=== PATIENT | female | born 1995 | race Caucasian/White ===

== ENCOUNTER → 2018-11-26 13:53 | Outpatient (CLI) | payer OTHER, SELFPAY ==
[2018-12-01 12:29] LABS: HPV Reflexed? NOT INDICATED
== END ==
PROVIDERS: Visit Provider Obstetrics & Gynecology
DX: Z12.4 Encounter for screening for malignant neoplasm of cervix (principal)
CPT/HCPCS: 88175; G0145

== ENCOUNTER → 2020-06-12 | Outpatient (CLI) | payer OTHER, SELFPAY | END | disposition home or self-care (01) | LOC: LABSPEC 12:01 | PROVIDERS: PCP Family Medicine; Referring Provider Family Medicine; Visit Provider Family Medicine | DX: U07.1 COVID-19 (principal); R05 Cough; M79.10 Myalgia, unspecified site; R51.9 Headache, unspecified | CPT/HCPCS: 87635; C9803; U0003 ==

== ENCOUNTER → 2022-09-18 | Outpatient (CLI) | payer BC, SELFPAY ==
[2022-09-18 15:01] LABS: Absolute Lymphocyte Count 2.13 X10^3/uL (0.83-4.51); Absolute Neutrophil Count 4.6 X10^3/uL (2.0-7.7); Basophil# 0.06 X10^3/uL; Basophil% 0.8 % (0-1); Eosinophil# 0.12 X10^3/uL; Eosinophils% 1.6 % (0-5); Hematocrit 42.4 % (37-47); Lymphocyte # 2.13 X10^3/ul (0.83-4.51); Lymphocyte % 28.5 % (19-41); Mean Corpuscular Hgb 29.5 pg (27.0-32.0); Mean Corpuscular Volume 89.5 fL (81-99); Mean Platelet Vol. 10.9 fl (6.2-12.0); Monocyte# 0.56 X10^3/uL; Monocyte% 7.5 % (0-10); NRBC Flagged by Analyzer 0 % (0-5); Neutrophil % 61.5 % (47-70); Platelet Count 383 K/mm3 (150-450); RBC Distribution Width CV 12.7 % (11.6-14.6); RBC Distribution Width SD 41.5 fl (35.1-43.9); Red Blood Count 4.74 M/mm3 (4.2-5.4); White Blood Count 7.5 K/mm3 (4.4-11.0)
[2022-09-18 15:38] LABS: AST(SGOT) 20 U/L (15-37); Alanine Aminotransfer ALT/SGPT 39 U/L (13-56); Alkaline Phosphatase 74 U/L (45-117); Anion Gap 8 (5-15); BUN 19 mg/dL (7-18); BUN/Creat Ratio 23.8 RATIO (10-20); Calcium,Total 8.9 mg/dL (8.5-10.1); Chloride 106 mmol/L (98-107); Cholesterol 208 mg/dL (200); EST Glomerular Filtration Rate 91 mL/min (>60); Est Glom Filt Rate - Afr Amer 110 mL/min (>60); Globulin 4.2 g/dL (2.2-4.2); Glucose 92 mg/dL (74-106); High Density Lipoprotein 55 mg/dL; Potassium 3.9 mmol/L (3.5-5.1); Protein, Total 8.2 g/dL (6.4-8.2); Sodium Level 138 mmol/L (136-145); T4 Free Direct 1.11 ng/dL (0.76-1.46); Thyroid Stim Hormone (TSH) 2.45 uIU/mL (0.358-3.74); Triglycerides 162 mg/dL; Very Low Density Lipoprotein 32 mg/dL (5-40)
== END | disposition home or self-care (01) ==
LOC: BIMLAB 13:30
PROVIDERS: PCP Internal Medicine; Referring Provider Internal Medicine; Visit Provider Internal Medicine
DX: Z00.00 Encounter for general adult medical examination without abnormal findings (principal); E66.9 Obesity, unspecified
CPT/HCPCS: 36415; 80053; 80061; 84439; 84443; 85025

== ENCOUNTER → 2022-10-03 | Outpatient (CLI) | payer BC, SELFPAY | END | disposition home or self-care (01) | PROVIDERS: PCP Internal Medicine; Referring Provider Internal Medicine; Visit Provider Internal Medicine | DX: G47.10 Hypersomnia, unspecified (principal) | CPT/HCPCS: 95806 ==

== ENCOUNTER → 2023-01-28 | Outpatient (CLI) | payer BC, SELFPAY ==
[2023-01-28 15:25] LABS: hCG Titer Quant., Serum 623 mIU/mL (1-3)
== END | disposition home or self-care (01) ==
PROVIDERS: PCP Internal Medicine; Referring Provider Nurse Practitioner Women's Health; Visit Provider Nurse Practitioner Women's Health
DX: O26.859 Spotting complicating pregnancy, unspecified trimester (principal); Z3A.00 Weeks of gestation of pregnancy not specified
CPT/HCPCS: 36415; 84702; 86850; 86900; 86901

== ENCOUNTER → 2023-01-30 | Outpatient (CLI) | payer BC, SELFPAY ==
[2023-01-30 15:50] LABS: hCG Titer Quant., Serum 515 mIU/mL (1-3)
== END | disposition home or self-care (01) ==
LOC: PAVLAB 14:30
PROVIDERS: PCP Internal Medicine; Referring Provider Nurse Practitioner Women's Health; Visit Provider Nurse Practitioner Women's Health
DX: O26.859 Spotting complicating pregnancy, unspecified trimester (principal); Z3A.00 Weeks of gestation of pregnancy not specified
CPT/HCPCS: 36415; 84702

== ENCOUNTER → 2023-02-06 | Outpatient (CLI) | payer BC, SELFPAY ==
[2023-02-06 11:44] LABS: hCG Titer Quant., Serum 37 mIU/mL (1-3)
== END | disposition home or self-care (01) ==
LOC: PAVLAB 10:51
PROVIDERS: PCP Internal Medicine; Referring Provider Obstetrics & Gynecology; Visit Provider Obstetrics & Gynecology
DX: O03.9 Complete or unspecified spontaneous abortion without complication (principal)
CPT/HCPCS: 36415; 84702

== ENCOUNTER → 2023-02-14 | Outpatient (CLI) | payer BC, SELFPAY ==
[2023-02-14 17:38] LABS: hCG Titer Quant., Serum 2 mIU/mL (1-3)
== END | disposition home or self-care (01) ==
LOC: LAB 15:27
PROVIDERS: PCP Internal Medicine; Referring Provider Obstetrics & Gynecology; Visit Provider Obstetrics & Gynecology
DX: O03.9 Complete or unspecified spontaneous abortion without complication (principal)
CPT/HCPCS: 36415; 84702

== ENCOUNTER → 2023-09-15 | Outpatient (CLI) | payer BC, SELFPAY ==
[2023-09-18 00:07] LABS: Chlamydia By Nucleic Acid AMP Negative (Negative); Gonococcus By Nucleic Acid AMP Negative (Negative)
[2023-09-18 18:13] LABS: HPV Reflexed? NOT INDICATED
== END | disposition home or self-care (01) ==
LOC: LABSPEC 13:26
PROVIDERS: PCP Internal Medicine; Referring Provider Obstetrics & Gynecology; Visit Provider Obstetrics & Gynecology
DX: Z34.90 Encounter for supervision of normal pregnancy, unspecified, unspecified trimester (principal); Z3A.00 Weeks of gestation of pregnancy not specified
CPT/HCPCS: 87086; 87491; 87591; 88175; G0145

== ENCOUNTER → 2023-09-24 | Outpatient (CLI) | payer BC, SELFPAY ==
[2023-09-24 12:16] LABS: Absolute Lymphocyte Count 2.07 X10^3/uL (0.83-4.51); Absolute Neutrophil Count 6.3 X10^3/uL (2.0-7.7); Basophil# 0.05 X10^3/uL; Basophil% 0.6 % (0-1); Eosinophil# 0.07 X10^3/uL; Eosinophils% 0.8 % (0-5); Hematocrit 36.7 % (37-47); Hemoglobin 12.8 g/dL (12.0-15.0); Lymphocyte # 2.07 X10^3/ul (0.83-4.51); Lymphocyte % 22.9 % (19-41); Mean Corp Hgb Conc 34.9 g/dL (32-36); Mean Corpuscular Volume 86.2 fL (81-99); Mean Platelet Vol. 9.5 fl (6.2-12.0); Monocyte# 0.47 X10^3/uL; Monocyte% 5.2 % (0-10); NRBC Flagged by Analyzer 0 % (0-5); Neutrophil # 6.34 X10^3/uL (2.7-7.7); Neutrophil % 70.2 % (47-70); Platelet Count 305 K/mm3 (150-450); Red Blood Count 4.26 M/mm3 (4.2-5.4)
[2023-09-24 13:42] LABS: HIV - WCH Non-Reactive (Nonreactive); Hepatitis B Surface Antigen Non-Reactive (Nonreactive); Hepatitis C Antibody Non-Reactive (Nonreactive); Rubella IgG Reactive (Nonreactive); Syphilis Antibodies Non-reactive
--- OUTSIDE RECORDS SUMMARY | 2023-09-24 15:51 | XMS RPT_ITS | CCD ---
Author Name Unknown Address [address] [place] [address] Organization [facility] Care Team Providers Care Experience Designer Name Role Phone Kalani Staton Attending Unavailable Kenna Singh Referring Unavailable Kalani Staton Consulting Unavailable Kalani Staton Unavailable Stacy Laurent Unavailable Kenna Singh Unavailable Jey Sanchez Unavailable Unavailable Kristy Paulino Unavailable Unavailable Unavailable Unavailable Minh Tyson MD Primary Care Provider MINH TYSON Primary Care UnavailMATI Ellis Attending Unavailable MATI SUH Referring Unavailable MINH TYSON Primary Care UnavailMATI Ellis Attending Unavailable MINH TYSON Primary Care UnavailMATI Ellis Attending Unavailable GAGE VINCENT Referring Unavailable Allergies Allergy Classification Reported Allergen(s) Allergy Type Date of Onset Reaction(s) Facility (4 sources) Ibuprofen; Translations: [Motrin *ANALGESICS - ANTI-INFLAMMATO RY*] Drug Allergy 0 Rash [facility] Work Phone: (1 source) Penicillins; Translations: [Penicillins] allergy to substance Hives [facility] Work Phone: (4 sources) Amoxicillin; Translations: [AMOXICILLIN] Drug Allergy 0 [facility] (1 source) Ibuprofen; Translations: [IBUPROFEN] Drug Allergy 0 [facility] Repository Medications Current Medications Medication Drug Class(es) Dates Sig (Normalized) Sig (Original) sulfamethoxazole 800 mg / trimethoprim 160 mg oral tablet (1 source) Dihydrofolate Reductase Inhibitor Antibacterial, Sulfonamide Antimicrobial Start: 10-08-2022 End: 10-15-2022 take 1 tablet by mouth twice daily sulfamethoxazol e-trimethoprim (BACTRIM DS) 800-160 mg per tablet Take 1 tablet by mouth twice daily for 7 days. 14 tablet 0 10/08/2022 10/15/2022 Active Completed/Discontinued Medications Medication Drug Class(es) Dates Sig (Normalized) Sig (Original) ORTHO-CEPT (28), 0.15-30MG-MCG (Oral Tablet) (1 source) Progestin, Estrogen Start: 06-15-2014 End: 06-05-2016 take 1 tablet by mouth once daily ORTHO-CEPT (28), 0.15-30MG-MCG (Oral Tablet) 1 (one) Tablet Tablet qd- same time qd for 0 days Quantity: 1 {Packet} Refills: 3 Ordered: 15-Jun-2014 Kristy Paulino LPN Start : 15-Jun-2014 End : 05-Jun-2016 Discontinued Comments: This order discontinued per [facility]. Problems Active Problems Problem Classification Problem Date Documented Da te Episodic/Chronic Other skin disorders (2 sources) Ingrowing toenail; Translations: [Ingrowing nail] Episodic Past or Other Problems Problem Classification Problem Date Documented Date Episodic/Chronic Administrative/socia l admission (1 source) Medical examinations/reports status; Translations: [Well female exam with routine gynecological exam] 10-22-2018 Episodic Contraceptive and procreative management (2 sources) Unspecified contraceptive management; Translations: [General counseling on prescription of oral contraceptives] Episodic Immunizations and screening for infectious disease (1 source) Need for prophylactic vaccination and inoculation against influenza Episodic Lymphadenitis (2 sources) Lymphadenopathy; Translations: [Lymphadenopathy] 10-22-2018 Episodic Malaise and fatigue (1 source) Fatigue; Translations: [Fatigue, unspecified type] 10-22-2018 Episodic Other aftercare (1 source) Follow-up status; Translations: [Counseling on other sexually transmitted diseases] 10-22-2018 Episodic Other injuries and conditions due to external causes (1 source) Injury of ankle; Translations: [Injury of left ankle, initial encounter] 10-22-2018 Episodic Other non-traumatic joint disorders (1 source) Ankle pain; Translations: [Pain and swelling of ankle, left] 10-22-2018 Episodic Other non-traumatic joint disorders (3 sources) Chronic ankle pain; Translations: [Pain in left ankle and joints of left foot] Onset: 1 05-02-2021 Episodic Other screening for suspected conditions (not mental disorders or infectious disease) (2 sources) Abnormal cervical Papanicolaou smear; Translations: [Abnormal cytology findings] 10-22-2018 Episodic Other upper respiratory disease (1 source) Nasal discharge; Translations: [Post-nasal drainage] 10-22-2018 Episodic Residual codes; unclassified (2 sources) FH: Blood disorder; Translations: [Family history of hypercoagulability] 07-17-2016 Episodic Residual codes; unclassified (1 source) Needs influenza immunization; Translations: [Need for prophylactic vaccination and inoculation against influenza (Renamed from Need for immunization against influenza)] 10-22-2018 Episodic Unclassified (1 source) Post-nasal drainage Unclassified (2 sources) Family history of hypercoagulability Unclassified (4 sources) Body mass index 20-24 - normal; Translations: [Body mass index (BMI) 23.0-23.9, adult] 10-22-2018 Unclassified (1 source) Counseling on Prescription Oral Contraceptives (V25.01) Unclassified (3 sources) Patient encounter status; Translations: [Encounter for contraceptive management, unspecified] 10-22-2018 Unclassified (1 source) SCREENING FOR HUMAN PAPILLOMAVIRUS (HPV) (V73.81) Unclassified (1 source) Well Female (Younger Female) (V72.31) Unclassified (5 sources) Unclassified (2 sources) Influenza vaccination declined; Translations: [Influenza vaccination declined (Renamed from Refused influenza vaccine)] 10-22-2018 Unclassified (1 source) LGSIL (low grade squamous intraepithelial dysplasia) Unclassified (1 source) Counseling on other sexually transmitted diseases Unclassified (1 source) Screening for HPV (human papillomavirus) Unclassified (4 sources) Non-smoker; Translations: [Non-smoker] 10-22-2018 Unclassified (1 source) Well female exam with routine gynecological exam Unclassified (1 source) Abnormal Pap smear of cervix Unclassified (1 source) BMI 24.0-24.9, adult Unclassified (1 source) Fatigue, unspecified type Unclassified (1 source) Pain and swelling of ankle, left Unclassified (1 source) Injury of left ankle, initial encounter NEGATED: Highlighted row has been ruled out!Unclassified (1 source) Problem Onset: 4 10-22-2018 Results Test Name Value Interpretation Reference Range Facil ity Vital Signs Date Time Vital Sign Value Performing Clinician Facility 10-22-2018 13:18-0500 BMI (Body Mass Index) 24.78 kg/m2 Kalani [place] [facility] Work Phone: 10-22-2018 13:18-0500 Body weight 73.94 kg [facility] [facility] Work Phone: 10-22-2018 13:18-0500 BP Diastolic 82 mm[Hg] [facility] [facility] Work Phone: Encounters Encounter Date Encounter Type Care Provider Facility Start: 12-25-2022 End: 12-25-2022 ambulatory [facility] Facility:[facility] Start: 12-11-2022 End: 12-11-2022 ambulatory [facility] Facility:[facility] Start: 12-11-2022 End: 12-11-2022 Patient encounter procedure Mati Suh Work Phone: Podiatry Procedures Date Procedure Procedure Detail Performing Clinician Start: 12-19-2016 End: 12-19-2016 Ankle min 3 Views Comments: See Note; NOTES: [facility] Imaging Services [address] [place] [address] Verdana 4d Ankle min 3 Views MR#: [id number] Acct: [id number] Name: PHUC SILVA Sunday Rep #: [id number] : 1995 F 21 From: Chase Davidson MD PCP: Kalani Staton DO Status: REG CLI Study: Ankle min 3 Views Date of Exam: 12/19/16 Exam# [id number] Ordering Dr: Kalani Staton DO STUDY: X-RAY - LEFT ANKLE REASON FOR EXAM: Female, 21 years old. Pain, swelling TECHNIQUE: 3 view(s) of the ankle. COMPARISON: None. FINDINGS: Normal visualized distal tibia and fibula. Normal medial and lateral malleoli. Normal tibiotalar articulation and ankle mortise. Normal visualized talus and calcaneus. The visualized subtalar, talonavicular, calcaneocuboid and tarsal articulations are normal. The soft tissue structures are unremarkable. RAD/Ankle min 3 Views IMPRESSION: Normal x-ray examination of the ankle. Electronically Signed: Chase Davidson MD at 21:32 EDT Tel , Service support , CC: Kalani Staton DO Senior Sales Consultant: Signed Kalani Staton Work Phone: Start: 08-25-2015 End: 08-25-2015 Abdomen/Pelvis WITH Contrast Comments: See Note; NOTES: [facility] Imaging Services [address] [place] [address] Verdana 4d Abdomen/Pelvis WITH Contrast MR#: [id number] Acct: [id number] Name: PHUC SILVA Rep #: [id number] : 1995 F 20 From: Shaka Davalos MD PCP: Kenna Singh DO Status: [facility] Study: Abdomen/Pelvis WITH Contrast Date of Exam: 08/25/15 Exam# [id number] Ordering Dr: Kodak Cates MD STUDY: CT ABDOMEN AND PELVIS WITH CONTRAST REASON FOR EXAM: Female, 20 years old. Abdominal pain. RADIATION DOSAGE (If Supplied By Facility): CTDIvol = ( 8.58 ) mGy, DLP = ( 717.05 ) mGycm TECHNIQUE: Transaxial images were obtained from the dome of the diaphragm to the symphysis pubis with oral contrast. 100ML ml of Isovue 300 contrast was administered. Sagittal and coronal images were reconstructed. COMPARISON: None. FINDINGS: The visualized lung bases are unremarkable. The visualized portions of the heart are within normal limits. Normal liver. Normal gallbladder and extrahepatic biliary system. Normal spleen. Normal pancreas. Normal bilateral adrenal glands. Normal right kidney. Normal left kidney. Normal visualized stomach. Normal small intestine. Normal colon. There is a tubular, thick-walled appendix (>7mm), consistent with acute appendicitis. There is a 9 mm appendicolith at the tip. There is no significant periappendiceal stranding. Normal abdominal aorta. Normal inferior vena cava. Normal retroperitoneum. Normal urinary bladder. Normal visualized uterus. There is trace free fluid. Normal abdominal wall. Normal osseous structures. IMPRESSION: Findings consistent with mild or early appendicitis. No evidence for perforation or abscess. N.B. : The above information has been verbally conveyed by Shaka Davalos MD to Kodak Cates covering physician, on 08/25/2015 23:55:04 (ET). Electronically Signed: Shaka Davalos MD at 23:49 EST , Service support [phone], N.B. : The above information has been verbally conveyed by Shaka Davalos MD to Kodak Cates, covering physician, on 08/25/2015 23:55:04 (ET). CC: Kenna Singh DO; Kodak Cates MD Senior Sales Consultant: Signed Kalani Staton Start: 08-25-2015 End: 08-25-2015 Transvaginal Non- Comments: See Note; NOTES: [facility] Imaging Services [address] [place] [address] Verdana 4d Transvaginal Non- MR#: [id number] Acct: [id number] Name: PHUC SILVA Sunday Rep #: [id number] : 1995 F 20 From: Shaka Davalos MD PCP: Kenna Singh DO Status: [facility] ER Study: Transvaginal Non- Date of Exam: 08/25/15 Exam# [id number] Ordering Dr: Kodak Cates MD STUDY: ULTRASOUND TRANSVAGINAL CLINICAL: Female, 20 years old. Right lower quadrant pain. TECHNIQUE: Transvaginal COMPARISON: None. FINDINGS: Normal uterine size measuring 7.2 x 4.8 x 3.2 cm in maximal craniocaudal dimension. There are no myometrial masses. The uterus is septated. Normal endometrial thickness measuring 7 mm maximum. There are no endometrial masses, and there is no fluid in the endometrial cavity. Endometrial echoes are hyperechoic. Normal uterine cervix. Normal right ovary, measuring 3.3 cm. There are multiple follicles without a dominant cyst. There is normal blood flow. Normal left ovary, measuring 3.8 cm. There are multiple follicles without a dominant cyst. There is normal blood flow. There is mild free fluid in the pelvis. IMPRESSION: Incidental septated uterus. No significant abnormality. Electronically Signed: Shaka Davalos MD at 21:07 EST , Service support [phone], CC: Kenna Singh DO; Kodak Cates MD Senior Sales Consultant: Signed Kalani Shemar Appendectomy Jey Sanchez Plan of Treatment Date Care Activity Detail Author Start: 04-18-2023 Influenza vaccination INFLUENZA (Season Ended) [facility] Start: 08-18-2022 DEPRESSION ASSESSMENT DEPRESSION ASSESSMENT [facility] Start: 04-18-2022 Influenza vaccination INFLUENZA (#1) [facility] Start: 10-22-2018 Antibody charlie-day eb virus early antigen ea EBV Panel (47185) [facility] Work Phone: Start: 10-22-2018 Lymphocytes (Bld) [#/Vol] CMV ANTIBODY (86285) [facility] Work Phone: Start: 10-22-2018 Antibody cytomegalovirus cmv igm CMV IGM ANTBDY (84455) [facility] Work Phone: Start: 10-22-2018 Gonadotropin chorionic qualitative HCG Qualitative, Serum (35090) [facility] Work Phone: Start: 10-22-2018 25 hydroxy includes fractions if performed CALCIFIDIOL (96403) VIT D 25 [facility] Work Phone: Start: 10-22-2018 Cobalamin (Vitamin B12) [Mass/Vol] VITAMIN B-12 (CYANOCOBALAMIN) (87129) [facility] Work Phone: Start: 10-22-2018 TSH Qn TSH (34566) [facility] Work Phone: Start: 10-22-2018 Rheumatoid factor quantitative RHEUMATOID FACTOR-QUANT (09662) [facility] Work Phone: Start: 10-22-2018 Sedimentation rate rbc non-automated SED RATE ERYTHROCYTE (19837) [facility] Work Phone: Start: 10-22-2018 Comprehensive metabolic panel METABOLIC PANEL, COMPREHENSIVE (34719) [facility] Work Phone: Start: 10-22-2018 CRP [Mass/Vol] C-REACTIVE PROTEIN (59355) [facility] Work Phone: Start: 10-22-2018 Blood count complete automated CBC (AUTO) (14646) [facility] Work Phone: Start: 10-22-2018 Nuclear Ab IF (S) [Titer] JULIANNE (ANTINUCLEAR ANTIBODY) (59735) [facility] Work Phone: Start: 07-17-2016 Beta 2 glycoprotein i antibody each Antiphospholipid atb (33984) [facility] Work Phone: Start: 07-17-2016 Clotting inhibitrs antithrombn iii antigen assay ANTICOAG ANTTHROMB III & ASSAY (19689) [facility] Work Phone: Start: 07-17-2016 Molecule isolate nucleic Factor 2 (Prothrombin) Gene Mutation (39823) [facility] Work Phone: Start: 07-17-2016 Clotting inhibitors antithrombin iii activity ANTITHROMBIN III ACTIVTY (92218) [facility] Work Phone: Start: 07-17-2016 Thromboplastin time prtl substit plasma frctj ea Lupus Anticoagulant Comprehensive (59412) [facility] Work Phone: Start: 07-17-2016 Protein [Mass/Vol] [facility] Work Phone: Start: 07-17-2016 Molecule gel electrophor Factor V Leiden (20779) [facility] Work Phone: Start: 07-17-2016 Mthfr gene analysis common variants MTHFR GENE (07505) [facility] Work Phone: Start: 07-17-2016 Assay of homocysteine Homocysteine, Plasma (58046) [facility] Work Phone: Start: 06-05-2016 Cytp cerv/vag auto thin layer prep mnl screen Thin prep Pap (41406) (no STD testing) [facility] Work Phone: Start: 2015 PAP TESTING PAP TESTING [facility] Start: 06-15-2014 Cytp cerv/vag auto thin layer prep mnl screen Thin prep Pap (11025) (no STD testing) [facility] Work Phone: Start: 2013 Urine microalbumin profile DTAP,TDAP,TD (1 - Tdap) [facility] Start: 2012 HEPATITIS C SCREENING HEPATITIS C SCREENING [facility] Start: 2012 HIV SCREENING HIV SCREENING [facility] Start: 1995 COVID-19 VACCINE (#1) COVID-19 VACCINE (#1) [facility] Start: 1994 HEPATITIS B (1 of 3 - 3-dose series) HEPATITIS B (1 of 3 - 3-dose series) [facility] Work Phone: [facility] Work Phone: [facility] Work Phone: [facility] Payers Date Payer Category Payer Unknown 2020 Unknown [id number] 2018 Unknown [id number] 2016 Private Health Insurance [id number] 2015 Unknown [id number] 1995 Unknown [id number] Unknown [id number] Social History Date Type Detail Facility Caffeine Use Caffeine Use [facility] Work Phone: Clinical Notes 09-27-2022 to 12-26-2022 Yvette Espinal RN - 12/11/2022 3:33 PM EDTMattdarryl Testrake - 12/11/2022 3:13 PM Radha Espinal RN - 12/11/2022 3:00 PM EDTPatient InstructionsMattheroman Testrake - 10/08/2022 8:00 AM EST Note Date & Type Note Facility 12-26-2022 Note HNO ID: [id number] Author: Mati Suh Service: ? Author Type: Physician Type: Progress Notes Filed: 12/26/2022 7:35 AM Note Text: VIRTUAL VISIT PROGRESS NOTE This is a virtual visit using Experts 911 video visit. It required patient-provider interaction for the medical decision making as documented below. I have communicated my name and active licensure. The patient's identity and physical location were verified at the time of this visit. Either the patient or their legal sales representative door to door has been informed of the risks and benefits of -- and alternatives to -- treatment through a remote evaluation and consents to proceed with the evaluation remotely. Phuc Kauffman is a 27 year old female seen for partial nail matrixectomy of left hallux medial and lateral nail border. HISTORY REVIEWED (electronic chart updated): PAST MEDICAL HISTORY Diagnosis Date Infectious mononucleosis Kidney stone Splenomegaly PAST SURGICAL HISTORY Procedure Laterality Date APPENDECTOMY No family history on file. Social History Tobacco Use Smoking status: Never Smokeless tobacco: Never Vaping Use Vaping Use: Never used Substance Use Topics Alcohol use: Never Drug use: Never Current Outpatient Medications Medication Sig ALYACEN , 28, 1-35 mg-mcg per tablet Take 1 tablet by mouth once daily. (Patient not taking: No sig reported) No current facility-administered medications for this visit. ALLERGIES Allergen Reactions Amoxicillin Hives Motrin [Ibuprofen] Rash PHYSICAL EXAMINATION: Left hallux medial and lateral nail border appears to be healing nicely without infection. ASSESSMENT: (S91.109A) Open wound of toe, initial encounter (primary encounter diagnosis) PLAN: Patient is s/p partial nail matrixectomy of left hallux medial and lateral nail border Patient denies any pain. She feels very well Continue with local wound care until toe is healed which on exam, appears like it is Call if any issues arise There are no Patient Instructions on file for this visit. I spent a total of 10 minutes on the date of the service which included counseling and educating the patient/family/caregiver Mati Suh DPM [facility] 12-11-2022 Note HNO ID: [id number] Author: Yvette Espinal RN Service: ? Author Type: Registered Nurse Type: Progress Notes Filed: 12/15/2022 9:42 PM Note Text: UNIVERSAL PROTOCOL / SAFETY CHECKLIST Procedure to be Performed: Partial nail chemical matrixectomy of medial and lateral border of left hallux Sign In: A Moment of CARE was completed. Personnel directly involved with the procedure wore the appropriate PPE (Personal Protective Equipment). Special equipment: nail kit Patient/Surrogate Stated/Verified: PATIENT VERIFIED(optional for EMERGENT procedures): Patient name, Date of , Relevant allergies, and The intended procedure Time Out Communication: Intended patient and procedure match the source documents. Consent documented and matches the intended procedure. No relevant labs, photos, and/or imaging studies were applicable for review. Correct side/site marked and visible. Medications required for procedure verified. No fire risk assessment and interventions applicable. No implant(s) inserted. Sign Out: SIGN OUT (optional for EMERGENT procedures): No specimen collected. All instruments, equipment, possible retained foreign bodies accounted for. Post-procedure follow-up management communicated and Plan of Care Visit completed when applicable. Yvette Espinal RN [facility] 12-11-2022 Note HNO ID: [id number] Author: Mati Suh Service: ? Author Type: Physician Type: Progress Notes Filed: 12/15/2022 9:42 PM Note Text: FOLLOW UP PODIATRIC OFFICE VISIT Chief Complaint: This 27 year old who presents for follow up:ingrowing toenail of left hallux medial nail border Patient presents to clinic for follow-up matrixectomy of left hallux medial nail border. Patient currently has no pain but every now and then, she will develop pain and swelling She is here to discuss options She did have procedure on right hallux in 2019 and has not had any problems. PAIN EVALUATION No data found in the last 1 encounters. No results found for: HBA1C PCP: Minh Tyson MD PAST MEDICAL HISTORY Diagnosis Date Infectious mononucleosis Kidney stone Splenomegaly Current Outpatient Medications Medication Sig ALYACEN , 28, 1-35 mg-mcg per tablet Take 1 tablet by mouth once daily. (Patient not taking: No sig reported) No current facility-administered medications for this visit. ALLERGIES Allergen Reactions Amoxicillin Hives Motrin [Ibuprofen] Rash PAST SURGICAL HISTORY Procedure Laterality Date APPENDECTOMY Physical Exam: OBJECTIVE: Constitutional: Pt is a well developed 27 year old female who is alert, oriented, cooperative and in no apparent distress. Eyes: Following during examination. No redness or drainage. Respiratory: RR normal and nonlabored. Even breathing. No evidence of distress. Psychology: Patient is engaged during conversation. Normal affect and mood. Does not appear depressed or anxious. NVSI unchanged from previous visit. Dermatological: Left hallux medial nail border and to lesser degree lateral border demonstrates slight incurvation. No signs of infection. Musculoskeletal/Orthopaedic: Patient has no pain to palpation of b/l feet ASSESSMENT: (L60.0) Ingrowing toenail (primary encounter diagnosis) PLAN: Discussed ingrowing tendency of left hallux. Discussed options not limited to proper trimming, medial nail border matrixectomy, medial and lateral border matriectomy vs total nail matrixectomy. She has elected to medial and lateral border matrixectomy of left hallux as she had this on right foot and has not had any issues since. Informed patient that there is risk of loss of total nail due to this procedure. She consents to medial and lateral border matrixectomy Discussed risks of toenail procedure not limited to infection, pain, swelling, bleeding, painful scarring, recurrence, need for revised procedure. Patient consented to proceed. Patient was properly identified by name and procedure. The left hallux was then injected with 3 cc of 1% lidocaine plain. The toe was then prepped and draped in the usual aseptic technique. A digital tournicot was applied to the toe. The medial and lateral border was then freed and removed. Careful inspection was performed to assure no remaining spicule present. 3 applications of phenol were then administered x 30 seconds each followed by alcohol rinse. Sterile dressing was then applied consisting of amerigel, guaze, nile and coban. Tournicot was removed and hyperemic response was noted. Patient tolerated well. Patient will f/u in 2 weeks[address] Mati Suh DPM [facility] 12-11-2022 Note HNO ID: [id number] Author: Yvette Espinal RN Service: ? Author Type: Registered Nurse Type: Progress Notes Filed: 12/15/2022 9:42 PM Note Text: Patient presents with: Left Great Toe - Established Patient, Ingrown Toenail, Pain Patient presents for Left hallux ingrown. States that it has been bothering her intermittently for the last 4 months. 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 [facility] 12-11-2022 History of Presen t illness Narrative UNIVERSAL PROTOCOL / SAFETY CHECKLIST Procedure to be Performed: Partial nail chemical matrixectomy of medial and lateral border of left hallux Sign In: A Moment of CARE was completed. Personnel directly involved with the procedure wore the appropriate PPE (Personal Protective Equipment). Special equipment: nail kit Patient/Surrogate Stated/Verified: PATIENT VERIFIED(optional for EMERGENT procedures): Patient name, Date of , Relevant allergies, and The intended procedure Time Out Communication: Intended patient and procedure match the source documents. Consent documented and matches the intended procedure. No relevant labs, photos, and/or imaging studies were applicable for review. Correct side/site marked and visible. Medications required for procedure verified. No fire risk assessment and interventions applicable. No implant(s) inserted. Sign Out: SIGN OUT (optional for EMERGENT procedures): No specimen collected. All instruments, equipment, possible retained foreign bodies accounted for. Post-procedure follow-up management communicated and Plan of Care Visit completed when applicable. Yvette Espinal RN FOLLOW UP PODIATRIC OFFICE VISIT Chief Complaint: This 27 year old who presents for follow up:ingrowing toenail of left hallux medial nail border Patient presents to clinic for follow-up matrixectomy of left hallux medial nail border. Patient currently has no pain but every now and then, she will develop pain and swelling She is here to discuss options She did have procedure on right hallux in 2019 and has not had any problems. PAIN EVALUATION No data found in the last 1 encounters. No results found for: HBA1C PCP: Minh Tyson MD PAST MEDICAL HISTORY Diagnosis Date Infectious mononucleosis Kidney stone Splenomegaly Current Outpatient Medications Medication Sig ALYACEN 1, 28, 1-35 mg-mcg per tablet Take 1 tablet by mouth once daily. (Patient not taking: No sig reported) No current facility-administered medications for this visit. ALLERGIES Allergen Reactions Amoxicillin Hives Motrin [Ibuprofen] Rash PAST SURGICAL HISTORY Procedure Laterality Date APPENDECTOMY Physical Exam: OBJECTIVE: Constitutional: Pt is a well developed 27 year old female who is alert, oriented, cooperative and in no apparent distress. Eyes: Following during examination. No redness or drainage. Respiratory: RR normal and nonlabored. Even breathing. No evidence of distress. Psychology: Patient is engaged during conversation. Normal affect and mood. Does not appear depressed or anxious. NVSI unchanged from previous visit. Dermatological: Left hallux medial nail border and to lesser degree lateral border demonstrates slight incurvation. No signs of infection. Musculoskeletal/Orthopaedic: Patient has no pain to palpation of b/l feet ASSESSMENT: (L60.0) Ingrowing toenail (primary encounter diagnosis) PLAN: Discussed ingrowing tendency of left hallux. Discussed options not limited to proper trimming, medial nail border matrixectomy, medial and lateral border matriectomy vs total nail matrixectomy. She has elected to medial and lateral border matrixectomy of left hallux as she had this on right foot and has not had any issues since. Informed patient that there is risk of loss of total nail due to this procedure. She consents to medial and lateral border matrixectomy Discussed risks of toenail procedure not limited to infection, pain, swelling, bleeding, painful scarring, recurrence, need for revised procedure. Patient consented to proceed. Patient was properly identified by name and procedure. The left hallux was then injected with 3 cc of 1% lidocaine plain. The toe was then prepped and draped in the usual aseptic technique. A digital tournicot was applied to the toe. The medial and lateral border was then freed and removed. Careful inspection was performed to assure no remaining spicule present. 3 applications of phenol were then administered x 30 seconds each followed by alcohol rinse. Sterile dressing was then applied consisting of amerigel, guaze, nile and coban. Tournicot was removed and hyperemic response was noted. Patient tolerated well. Patient will f/u in 2 weeks. Mati Suh DPM Patient presents with: Left Great Toe - Established Patient, Ingrown Toenail, Pain Patient presents for Left hallux ingrown. States that it has been bothering her intermittently for the last 4 months. 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 documented in this encounter [facility] 12-11-2022 Instructions Yvette Espinal RN - 12/11/2022 3:26 PM EDT Post-Op Nail Instructions Minimize activity until the anesthesia wears off (about 2-8 hours). Increase activity to tolerance Remove bandage tomorrow Soak affected toe/foot in epsom salts for 15-20 minutes twice daily After soaking, apply antibiotic ointment (OTC Neosporin) to affected toe and re bandage OTC Ibuprofen if having pain, provided you have no allergies or intolerance to NSAIDS Mild drainage, redness, and blood is expected, but if you expeirence severe pain, increase in drainage, swelling, or red streaking please contact our office immediately Feel free to contact office as well if you have any questions/concerns [phone], ask for Podiatry Nurse documented in this encounter [facility] 10-08-2022 Note HNO ID: [id number] Author: Mati Suh Service: ? Author Type: Physician Type: Progress Notes Filed: 10/08/2022 8:14 AM Note Text: Initial Podiatric Office Visit: Chief Complaint: This 27 year old female who presents with chief complaint:ingrowing toenail of left hallux HPI Patient presents to clinic for evaluation of left hallux She had ingrowing toenail of left hallux and she scheduled this appointment but the toe is getting better She would like to avoid procedure today as she is going on vacation She would like to discuss procedure in the future She had procedure on the right great toe and has done well. PAIN EVALUATION No data found in the last 1 encounters. No results found for: HBA1C PCP: Minh Tyson MD PAST MEDICAL HISTORY Diagnosis Date Infectious mononucleosis Kidney stone Splenomegaly Current Outpatient Medications Medication Sig ALYACEN , 28, 1-35 mg-mcg per tablet Take 1 tablet by mouth once daily. (Patient not taking: No sig reported) No current facility-administered medications for this visit. ALLERGIES Allergen Reactions Amoxicillin Hives Motrin [Ibuprofen] Rash PAST SURGICAL HISTORY Procedure Laterality Date APPENDECTOMY No family history on file. Social History Tobacco Use Smoking status: Never Smokeless tobacco: Never Vaping Use Vaping Use: Never used Substance Use Topics Alcohol use: Never Drug use: Never REVIEW OF SYSTEMS GENERAL: Negative for Malaise, significant weight loss, fever RESPIRATORY: Negative for cough, wheezing and shortness of breath CARDIOVASCULAR: Negative for chest pain, leg swelling and palpitations GI: Negative for abdominal discomfort, blood in stools or black stools and change in bowel habits : Negative for dysuria, frequency and incontinence MUSCULOSKELETAL: Negative for joint pain or swelling, back pain, and muscle pain. SKIN: Negative for lesions, rash, and itching. HEMATOLOGY/LYMPHOLOGY Negative for prolonged bleeding, bruising easily, and swollen nodes. ENDOCRINE: Negative for cold or heat intolerance, polyuria, polydipsia and goiter. NEURO: negative Physical Exam: Constitutional: Pt is a well developed 27 year old female who is alert, oriented and cooperative Eyes: Following during examination. No redness or drainage. Respiratory: RR normal and nonlabored. Even breathing. No evidence of distress or shortness of breath. Psychology: Patient is engaged during conversation. Normal affect and mood. Does not appear depressed or anxious during encounter. Vascular: Dorsalis pedis and posterior tibial pulses palpable as b/l Capillary Fill time < 5 seconds to digits 1-5 b/l Skin temperature warm to warm proximal to distal b/l Hair growth present to digits Neurological: intact light touch/epicritic sensation b/l intact protective sensation no significant neurological deficits Dermatological: Left hallux appears stable. No signs of infection. No pain. No ingrown currently. Musculoskeletal/Orthopaedic: Patient has no pain to palpation of left hallux Radiographs: n/a ASSESSMENT: (L60.0) Ingrowing toenail (primary encounter diagnosis) PLAN: Discussed ingrowing toenail of left hallux. No signs of infection currently. She chose to avoid procedure today I did inform her that an ingrown may return and could certainly place her at infection. I prescribed an antibiotic in the event that she is out of town and she were to develop an infection. She is not to take unless she were to develop redness or drainage She will make follow-up to do procedure in the future Mati Suh DPM Podiatry [address] [facility] [address] Dept: [phone] [facility] 10-08-2022 Note HNO ID: [id number] Author: Caitlin Maria RN Service: ? Author Type: ? Type: Progress Notes Filed: 10/08/2022 8:14 AM Note Text: AMB ROOMING INTAKE FLOWSHEET DATA Risk Screening Do you have concerns about personal safety or safety in the home?: No Patient presents with: Left Great Toe - Established Patient, Ingrown Nail Has upcoming vacation and would like to postpone procedure. [facility] 10-08-2022 History of Presen t illness Narrative Initial Podiatric Office Visit: Chief Complaint: This 27 year old female who presents with chief complaint:ingrowing toenail of left hallux HPI Patient presents to clinic for evaluation of left hallux She had ingrowing toenail of left hallux and she scheduled this appointment but the toe is getting better She would like to avoid procedure today as she is going on vacation She would like to discuss procedure in the future She had procedure on the right great toe and has done well. PAIN EVALUATION No data found in the last 1 encounters. No results found for: HBA1C PCP: Minh Tyson MD PAST MEDICAL HISTORY Diagnosis Date Infectious mononucleosis Kidney stone Splenomegaly Current Outpatient Medications Medication Sig ALYACEN 1/35, 28, 1-35 mg-mcg per tablet Take 1 tablet by mouth once daily. (Patient not taking: No sig reported) No current facility-administered medications for this visit. ALLERGIES Allergen Reactions Amoxicillin Hives Motrin [Ibuprofen] Rash PAST SURGICAL HISTORY Procedure Laterality Date APPENDECTOMY No family history on file. Social History Tobacco Use Smoking status: Never Smokeless tobacco: Never Vaping Use Vaping Use: Never used Substance Use Topics Alcohol use: Never Drug use: Never REVIEW OF SYSTEMS GENERAL: Negative for Malaise, significant weight loss, fever RESPIRATORY: Negative for cough, wheezing and shortness of breath CARDIOVASCULAR: Negative for chest pain, leg swelling and palpitations GI: Negative for abdominal discomfort, blood in stools or black stools and change in bowel habits : Negative for dysuria, frequency and incontinence MUSCULOSKELETAL: Negative for joint pain or swelling, back pain, and muscle pain. SKIN: Negative for lesions, rash, and itching. HEMATOLOGY/LYMPHOLOGY Negative for prolonged bleeding, bruising easily, and swollen nodes. ENDOCRINE: Negative for cold or heat intolerance, polyuria, polydipsia and goiter. NEURO: negative Physical Exam: Constitutional: Pt is a well developed 27 year old female who is alert, oriented and cooperative Eyes: Following during examination. No redness or drainage. Respiratory: RR normal and nonlabored. Even breathing. No evidence of distress or shortness of breath. Psychology: Patient is engaged during conversation. Normal affect and mood. Does not appear depressed or anxious during encounter. Vascular: Dorsalis pedis and posterior tibial pulses palpable as b/l Capillary Fill time < 5 seconds to digits 1-5 b/l Skin temperature warm to warm proximal to distal b/l Hair growth present to digits Neurological: intact light touch/epicritic sensation b/l intact protective sensation no significant neurological deficits Dermatological: Left hallux appears stable. No signs of infection. No pain. No ingrown currently. Musculoskeletal/Orthopaedic: Patient has no pain to palpation of left hallux Radiographs: n/a ASSESSMENT: (L60.0) Ingrowing toenail (primary encounter diagnosis) PLAN: Discussed ingrowing toenail of left hallux. No signs of infection currently. She chose to avoid procedure today I did inform her that an ingrown may return and could certainly place her at infection. I prescribed an antibiotic in the event that she is out of town and she were to develop an infection. She is not to take unless she were to develop redness or drainage She will make follow-up to do procedure in the future Mati Suh DPM Podiatry [address] [facility] [address] Dept: [phone] Dept AMB ROOMING INTAKE FLOWSHEET DATA Risk Screening Do you have concerns about personal safety or safety in the home?: No Patient presents with: Left Great Toe - Established Patient, Ingrown Nail Has upcoming vacation and would like to postpone procedure. documented in this encounter [facility] 09-27-2022 Miscellaneous Notes Formattin g of this note might be different from the original. Left pt VM to contact office if she needs to schedule appointment for ingrown toenail. Called and left message for patient to call back. We received a referral from [facility], Dr. Gage Vincent for an ingrown toenail. Attempting to schedule ingrown toenail appointment with patient. documented in this encounter [facility] documented [facility] Ingrowing toenail- Primary Ingrowing nail documented in this encounter [facility] Summary Purpose Family History No Family History Records FoundUnknown Family Member Name Dates Details Cancer Comments:Maternal Grandfathe r. Status:Active Diabetes Mellitus Comments:Paternal Grandmothe r. Status:Active Heart Disease Comments:Maternal Grandfathe r. Status:Active Hypercholesterolemia Comments:Maternal Grandmothe r. Father. Status:Active Hypertension Comments:Maternal Grandmothe r. Father. Paternal Grandfather. Paternal Grandmother. Brother. Status:Active Kidney Disease Comments:Mother. Status:Active Thyroid problems Comments:Father. Status:Active Advance Directives No Advanced Directives Records FoundNo Advanced Directives Records FoundNo Advanced Directives Records Found Instructions Name Dates Details Non-smoker : How to access h ealth information online Indication:Non-smoker Non-smoker : How to access h ealth information online - Detail Indication:Non-smoker Non-smoker : Patient Instruc tions Indication:Non-smoker LGSIL (low grade squamous in traepithelial dysplasia) : Patient Instructions Indication:LGSIL (low grade squamous intraepithelial dysplasia) LGSIL (low grade squamous in traepithelial dysplasia) : How to access health information online Indication:LGSIL (low grade squamous intraepithelial dysplasia) LGSIL (low grade squamous in traepithelial dysplasia) : How to access health information online - Detail Indication:LGSIL (low grade squamous intraepithelial dysplasia) Well female exam with routin e gynecological exam : Patient Instructions Indication:Well female exam with routine gynecological exam Additional Source Comments INFORMATION SOURCE (unrecogn ized section and content) DATE CREATED AUTHOR AUTHOR'S ORGANIZ ATION 08/28/2021 [facility] DATE CREATED AUTHOR AUTHOR'S ORGANIZ ATION 12/27/2022 [facility] Source Comments (unrecognize d section and content) In the event this informatio n is protected by the Federal Confidentiality of Alcohol and Drug Abuse Patient Records regulations: The Federal rules restrict any use of the information to criminally investigate or prosecute any alcohol or drug abuse patient.[facility] the event this information is protected by the Federal Confidentiality of Alcohol and Drug Abuse Patient Records regulations: The Federal rules restrict any use of the information to criminally investigate or prosecute any alcohol or drug abuse patient.[facility] the event this information is protected by the Federal Confidentiality of Alcohol and Drug Abuse Patient Records regulations: The Federal rules restrict any use of the information to criminally investigate or prosecute any alcohol or drug abuse patient.[facility] Reason for Visit (unrecogniz ed section and content) Reason Comments Established Patient Ingrown Nail Reason Comments Established Patient Ingrown Toenail Pain Care Teams (unrecognized sec tion and content) Experience Designer Relationship Specialty Start Date End Date Minh Tyson MD [address] [place] [address] PCP - General Family Medicine 09/19/22 Experience Designer Relationship Specialty Start Date End Date Minh Tyson MD [address] [place] [address] PCP - General Family Medicine 09/19/22 FOR RECORDS PERTAINING TO PATIENTS WHO ARE OR HAVE BEEN ENROLLED IN A CHEMICAL DEPENDENCY/SUBSTANCEABUSE PROGRAM, SOME INFORMATION MAY BE OMITTED. This clinical summary was aggregated from multiple sources. Caution should be exercised in using it in the provision of clinical care. This summary normalizes information from multiple sources, and as a consequence, information in this document may materially change the coding, format and clinical context of patient data. In addition, data may be omitted in some cases. CLINICAL DECISIONS SHOULD BE BASED ON THE PRIMARY CLINICAL RECORDS. [facility] [email or web address] [facility]. provides no warranty or guarantee of the accuracy or completeness of information in this document.
== END | disposition home or self-care (01) ==
LOC: PAVLAB 11:42
PROVIDERS: PCP Family Medicine; Referring Provider Obstetrics & Gynecology; Visit Provider Obstetrics & Gynecology
DX: Z34.81 Encounter for supervision of other normal pregnancy, first trimester (principal); Z31.430 Encounter of female for testing for genetic disease carrier status for procreative management; Z3A.00 Weeks of gestation of pregnancy not specified
CPT/HCPCS: 85025; 86703; 86762; 86780; 86803; 86850; 86900; 86901; 87340

== ENCOUNTER → 2024-01-22 | Outpatient (CLI) | payer BC, SELFPAY | END | disposition home or self-care (01) | PROVIDERS: PCP Family Medicine; Referring Provider Obstetrics & Gynecology; Visit Provider Obstetrics & Gynecology | DX: R00.0 Tachycardia, unspecified (principal) | CPT/HCPCS: 93005 ==

== ENCOUNTER 2024-01-29 12:48 | Emergency (ER) | payer BC, SELFPAY ==
[2024-01-29 12:49] VITALS: BP 139/82; PULSE 134; RESP 22; TEMP 37; O2SAT 98; BMI 31.8
--- NOTE | 2024-01-29 13:31 | EKG12_ITS ---
Test Reason : TACHYCARDIA Blood Pressure : / mmHG Vent. Rate : 116 BPM Atrial Rate : 116 BPM P-R Int : 146 ms QRS Dur : 078 ms QT Int : 312 ms P-R-T Axes : 060 049 010 degrees QTc Int : 433 ms Sinus tachycardia Nonspecific T wave abnormality Abnormal ECG Confirmed by KAREN KELLY, AL ([id number]), supervising film or videotape editor BHAVESH MATSON ([id number]) on 02/02/2024 9:31:23 AM Referred By: Confirmed By:AL JONES MD
--- NOTE | 2024-01-29 13:34 | CT_ITS ---
STUDY: CTA CHEST REASON FOR EXAM: Female, 28 years old. shortness of breath RADIATION DOSAGE (If Supplied By Facility): CTDIvol = ( 10.17 ) mGy, DLP = ( 397.64 ) mGycm TECHNIQUE: The examination was performed with the intravenous administration of IV 100mL Isovue-370. Post-processing of the angiographic images was performed, with multiplanar reformation and 3D reconstruction. Individualized dose optimization techniques were used for this CT. COMPARISON: None. FINDINGS: Normal enhancement of the main pulmonary artery and right and left pulmonary arteries. Normal enhancement of the bilateral peripheral pulmonary arteries. There is no demonstrated pulmonary embolism. Normal thoracic aorta and visualized great vessels. There is no demonstrated aortic dissection. Normal heart and pericardium. Normal mediastinum. Normal hilar regions. Normal visualized trachea and bronchi. The lungs are well expanded. Normal pulmonary parenchyma. Normal pleura. Normal chest wall structures. Normal osseous structures. Normal visualized upper abdomen. CT/CTA Chest W/WO Contrast IMPRESSION: Normal CTA chest examination, without a demonstrated pulmonary embolism or arterial dissection. Electronically Signed: Robbie Mcgraw MD at 16:42 EDT ,
--- NOTE | 2024-01-29 13:35 | EX.ED.DYSGE1 ---
HPI <CHANDRAKANT Ryan - Last Filed: 01/29/24 17:05> History of Present Illness Chief Complaint: Palpitations Narrative Narrative: Patient is a 28-year-old female, patient is in her third trimester , 40 weeks will be April 20, 2024. Patient is a 2 para 0. Patient have 1 spontaneous . Patient is here for palpitations, shortness of breath. Patient was referred here by her REMOTE SENSING ADVISOR. Over the last 2 weeks, patient's been having heart rates in the 140s, she states she does feel short of breath, intermittently lightheaded. She denies any specific pain. Patient did go on a vacation 2 and half weeks ago to [place]. Patient also travels a lot for work. She denies any leg pain chest pain. Patient denies any recent fever or chills. PFSH <CHANDRAKANT Ryan - Last Filed: 01/29/24 17:05> [facility] Medical History Mononucleosis SAB (spontaneous ) Spotting affecting Hx of ingrown nail Hypersomnolence Seasonal allergies Home Medications ?Medication ?Instructions ?Recorded ?Last Taken ?Type lysine 1,000 mg tablet 1,000 mg PO DAILY 09/12/23 Unknown History multivitamin no.47-iron fum 27 cap PO 09/12/23 Unknown History mg-folate no.1 1 mg-dha 300 mg capsule (PNV-DHA) ondansetron 4 mg disintegrating 4 mg PO Q8H PRN nausea and 09/17/23 Unknown Rx tablet vomiting #30 tabs promethazine 12.5 mg tablet 12.5 mg PO Q6H PRN nausea #60 tabs 10/15/23 Unknown Rx Allergy/AdvReac Type Severity Reaction Status Date / Time No Known Allergies Allergy Verified 01/29/24 11:49 Family History Grandmother DVT (deep venous thrombosis) Aunt DVT (deep venous thrombosis) Uncle DVT (deep venous thrombosis) Father Hypertension Surgical History History of appendectomy Social History adopted: No household members: spouse current occupational status: employed 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 current occupational exposures/hazards: No pets and animals: Yes (Avoid litterbox) pets and animals: cat(s) history of recent travel: No sexually active: Yes Smoking Status: Never smoker alcohol intake: current alcohol intake frequency: a few times a month details: not while substance use type: does not use well-balanced diet: daily or most days caffeine: Yes Type: tea Number of servings: 1 eating out: 1-3 times/week during the past year weight has: decreased > 10 lbs what type of physical activity do you participate in: walking frequency: 3-4 times per week duration: 45-60 minutes/day edmundo/moravian: Scientology seatbelt use: always do you feel safe at home: Yes additional social history: [employer] <CHANDRAKANT Ryan - Last Filed: 01/29/24 17:05> ROS ED ROS Narrative Constitutional: Negative for fever, chills, weight loss, weakness Eyes: Negative for vision loss, vision change, double vision ENT: Negative for any sore throat, ear pain, congestion Cardiovascular: Negative for any chest pain, tightness. Positive for palpitations Respiratory: Negative for any cough, sputum production, hemoptysis, dyspnea on exertion, orthopnea. Positive intermittent dyspnea Gastrointestinal: Negative for any abdominal pain, nausea, vomiting, diarrhea, constipation, blood in stool, blood in vomit : Negative for any urinary frequency, dysuria, retention, blood in urine Muscle skeletal: Negative for any neck pain, back pain Neurological: Negative for any headache, syncope. Positive for intermittent lightheadedness Skin: Negative for any rashes, itching, abrasions, lacerations Psychiatric: Negative for any depression, anxiety, stress, suicidal ideation, homicidal ideation Hematologic: Negative for any excessive bruising, easy bleeding EXAM <CHANDRAKANT Ryan - Last Filed: 01/29/24 17:05> Physical Exam Const Vital Signs: 01/29/24 12:49 01/29/24 14:49 01/29/24 15:00 Temperature 98.6 F Temperature Source Temporal Pulse Rate 134 H 107 H Respiratory Rate 22 H 16 Respiratory Effort Normal Blood Pressure 139/82 H 122/74 H Blood Pressure Mean 101 90 Pulse Ox 98 99 Oxygen Delivery Method Room Air Room Air 01/29/24 15:54 01/29/24 16:58 Temperature Temperature Source Pulse Rate 100 103 H Respiratory Rate 21 H 20 H Respiratory Effort Blood Pressure 126/60 H Blood Pressure Mean 82 Pulse Ox 97 Oxygen Delivery Method Room Air Room Air <Dr. Silverio Rodriguez DO - Last Filed: 01/29/24 17:09> Physical Exam Const Vital Signs: 01/29/24 12:49 01/29/24 14:49 01/29/24 15:00 Temperature 98.6 F Temperature Source Temporal Pulse Rate 134 H 107 H Respiratory Rate 22 H 16 Respiratory Effort Normal Blood Pressure 139/82 H 122/74 H Blood Pressure Mean 101 90 Pulse Ox 98 99 Oxygen Delivery Method Room Air Room Air 01/29/24 15:54 01/29/24 16:58 Temperature Temperature Source Pulse Rate 100 103 H Respiratory Rate 21 H 20 H Respiratory Effort Blood Pressure 126/60 H Blood Pressure Mean 82 Pulse Ox 97 Oxygen Delivery Method Room Air Room Air MDM <CHANDRAKANT Ryan - Last Filed: 01/29/24 17:05> [facility] Lab Data Labs: Laboratory Results - last 24 hr 01/29/24 01/29/24 01/29/24 14:00 14:00 15:21 WBC Cancelled 10.1 Corrected WBC Cancelled RBC Cancelled 3.49 L Hgb Cancelled 10.6 L Hct Cancelled 31.5 L MCV Cancelled 90.3 MCH Cancelled 30.4 MCHC Cancelled 33.7 RDW Std Deviation Cancelled 43.5 RDW Coeff of Melinda Cancelled 13.3 Plt Count Cancelled 261 MPV Cancelled 9.8 Immature Gran % (Auto) Cancelled 0.600 Neut % (Auto) Cancelled 73.8 H Lymph % (Auto) Cancelled 17.3 L Bath % (Auto) Cancelled 7.1 Eos % (Auto) Cancelled 0.8 Baso % (Auto) Cancelled 0.4 Absolute Neuts (auto) Cancelled 7.4 Absolute Lymphs (auto) Cancelled 1.74 Total Counted Cancelled Neutrophils % (Manual) Cancelled Band Neutrophils % Cancelled Lymphocytes % (Manual) Cancelled Monocytes % (Manual) Cancelled Eosinophils % (Manual) Cancelled Basophils % (Manual) Cancelled Metamyelocytes % Cancelled Myelocytes % Cancelled Promyelocytes % Cancelled Blast Cells % Cancelled Plasma Cell % (Manual) Cancelled Other Cells % Cancelled Nucleated RBC % Cancelled 0 Nucleated RBCs/100 WBC Cancelled Differential Comment Cancelled Diff Path Review Cancelled Hypersegmented Neuts Cancelled Atypical Lymphocytes Cancelled Reactive Lymphocytes Cancelled Smudge Cells Cancelled Toxic Granulation Cancelled Toxic Vacuolation Cancelled Dohle Bodies Cancelled Lindsay Rods Cancelled Platelet Estimate Cancelled Plt Morphology Comment Cancelled RBC Morphology Cancelled Cancelled Polychromasia Cancelled Hypochromasia Cancelled Basophilic Stippling Cancelled Anisocytosis Cancelled Microcytosis Cancelled Macrocytosis Cancelled Spherocytes Cancelled Sickle Cells Cancelled Target Cells Cancelled Tear Drop Cells Cancelled Ovalocytes Cancelled Stomatocytes Cancelled [place] Bodies Cancelled Joiner Cells Cancelled Bite Cells Cancelled Crenated Cell Cancelled Acanthocytes (Spur) Cancelled Rouleaux Cancelled Schistocytes Cancelled Sodium 136 Potassium 4.0 Chloride 109 H Carbon Dioxide 19.0 L Anion Gap 8 BUN 8 Creatinine 0.52 L Estim Creat Clear Calc 192.22 Est GFR (MDRD) Af Amer 176 Est GFR (MDRD) Non-Af 146 BUN/Creatinine Ratio 15.2 Glucose 114 H Calcium 9.3 Magnesium 2.1 Troponin I High Sens < 3 L TSH 1.90 Urine Color Urine Clarity Urine pH Ur Specific [place] Urine Protein Urine Glucose (UA) Urine Ketones Urine Occult Blood Urine Nitrite Urine Bilirubin Urine Urobilinogen Ur Leukocyte Esterase Urine RBC Urine WBC Ur Squamous Epith Cells Amorphous Sediment Urine Bacteria Urine Mucus 01/29/24 15:40 WBC Corrected WBC RBC Hgb Hct MCV MCH MCHC RDW Std Deviation RDW Coeff of Melinda Plt Count MPV Immature Gran % (Auto) Neut % (Auto) Lymph % (Auto) Bath % (Auto) Eos % (Auto) Baso % (Auto) Absolute Neuts (auto) Absolute Lymphs (auto) Total Counted Neutrophils % (Manual) Band Neutrophils % Lymphocytes % (Manual) Monocytes % (Manual) Eosinophils % (Manual) Basophils % (Manual) Metamyelocytes % Myelocytes % Promyelocytes % Blast Cells % Plasma Cell % (Manual) Other Cells % Nucleated RBC % Nucleated RBCs/100 WBC Differential Comment Diff Path Review Hypersegmented Neuts Atypical Lymphocytes Reactive Lymphocytes Smudge Cells Toxic Granulation Toxic Vacuolation Dohle Bodies Lindsay Rods Platelet Estimate Plt Morphology Comment RBC Morphology Polychromasia Hypochromasia Basophilic Stippling Anisocytosis Microcytosis Macrocytosis Spherocytes Sickle Cells Target Cells Tear Drop Cells Ovalocytes Stomatocytes [place] Bodies Franky Cells Bite Cells Crenated Cell Acanthocytes (Spur) Rouleaux Schistocytes Sodium Potassium Chloride Carbon Dioxide Anion Gap BUN Creatinine Estim Creat Clear Calc Est GFR (MDRD) Af Amer Est GFR (MDRD) Non-Af BUN/Creatinine Ratio Glucose Calcium Magnesium Troponin I High Sens TSH Urine Color Yellow Urine Clarity Sl. Cloudy Urine pH 6.0 Ur Specific [place] 1.020 Urine Protein Negative Urine Glucose (UA) Normal Urine Ketones Negative Urine Occult Blood Negative Urine Nitrite Negative Urine Bilirubin Negative Urine Urobilinogen 1 H Ur Leukocyte Esterase Negative Urine RBC 0 SEEN Urine WBC 0 SEEN Ur Squamous Epith Cells 10-25 SEEN Amorphous Sediment 1+ URATE Urine Bacteria 0 SEEN Urine Mucus 0 SEEN Radiography Diagnostic Testing: Clinical Impression(s) from Imaging Studies Chest CTA 01/29/24 13:34 IMPRESSION: Normal CTA chest examination, without a demonstrated pulmonary embolism or arterial dissection. Electronically Signed: Robbie Mcgraw MD at 16:42 EDT , EKG EKG shows sinus tachycardia: Attestation: I personally reviewed and interpreted this EKG as follows: Comments: Sinus tachycardia, rate 116 bpm, AR interval 146 ms, QRS duration 78 ms, no acute ST elevation, no acute infarct noted. Normal sinus rhythm rate 95 bpm: Attestation: I personally reviewed and interpreted this EKG as follows: Interpretation: Sinus Rhythm Comments: Normal sinus rhythm, rate 95 bpm, AR 158 ms, QRS duration 76 ms, no acute ST elevation. Treatment and Re-Evaluation :: Differential diagnosis includes however is not limited to: ACS, OR, arrhythmia, PE, dehydration, electrolyte abnormalities, hyperthyroid, hypothyroid Patient appears to be in no obvious respiratory distress patient is tachycardic with a heart rate of 134, patient is nontoxic-appearing. Patient's physical examination of the tachycardia was unremarkable. I do believe the patient needs blood work, looking at electrolytes, thyroid, heart enzyme which is troponin. I am concerned for pulmonary embolus secondary to the patient being her third trimester , as well as the patient traveling recently. Patient will receive a CTA of the chest. Patient will receive IV fluids. Will be reevaluated. Reevaluation, the patient remained stable. Patient's heart rate did drop to 95 which is normal sinus rhythm. Patient's laboratory values showed a normal CBC, slight anemia however this is consistent with . Patient's chemistries were unremarkable. Troponin was negative, TSH within normal limits. CTA of the chest was negative for any pulmonary embolism or aortic dissection. I spoke with cardiology regarding the patient's tachycardia, the cardiology please it is more fluid reaction. Patient will receive a 24-hour Holter monitor. The patient will continue to follow-up with her REMOTE SENSING ADVISOR. She was given strict follow-up precautions. There is no evidence of any ACS, OR, PE. Patient will continue to follow-up. <Dr. Silverio Rodriguez, DO - Last Filed: 01/29/24 17:09> MDM History & Record Review Discussion w/independent historian: Patient Lab Data Attestation: I reviewed the patient's lab results. Labs: Laboratory Results - last 24 hr 01/29/24 01/29/24 01/29/24 14:00 14:00 15:21 WBC Cancelled 10.1 Corrected WBC Cancelled RBC Cancelled 3.49 L Hgb Cancelled 10.6 L Hct Cancelled 31.5 L MCV Cancelled 90.3 MCH Cancelled 30.4 MCHC Cancelled 33.7 RDW Std Deviation Cancelled 43.5 RDW Coeff of Melinda Cancelled 13.3 Plt Count Cancelled 261 MPV Cancelled 9.8 Immature Gran % (Auto) Cancelled 0.600 Neut % (Auto) Cancelled 73.8 H Lymph % (Auto) Cancelled 17.3 L Bath % (Auto) Cancelled 7.1 Eos % (Auto) Cancelled 0.8 Baso % (Auto) Cancelled 0.4 Absolute Neuts (auto) Cancelled 7.4 Absolute Lymphs (auto) Cancelled 1.74 Total Counted Cancelled Neutrophils % (Manual) Cancelled Band Neutrophils % Cancelled Lymphocytes % (Manual) Cancelled Monocytes % (Manual) Cancelled Eosinophils % (Manual) Cancelled Basophils % (Manual) Cancelled Metamyelocytes % Cancelled Myelocytes % Cancelled Promyelocytes % Cancelled Blast Cells % Cancelled Plasma Cell % (Manual) Cancelled Other Cells % Cancelled Nucleated RBC % Cancelled 0 Nucleated RBCs/100 WBC Cancelled Differential Comment Cancelled Diff Path Review Cancelled Hypersegmented Neuts Cancelled Atypical Lymphocytes Cancelled Reactive Lymphocytes Cancelled Smudge Cells Cancelled Toxic Granulation Cancelled Toxic Vacuolation Cancelled Dohle Bodies Cancelled Lindsay Rods Cancelled Platelet Estimate Cancelled Plt Morphology Comment Cancelled RBC Morphology Cancelled Cancelled Polychromasia Cancelled Hypochromasia Cancelled Basophilic Stippling Cancelled Anisocytosis Cancelled Microcytosis Cancelled Macrocytosis Cancelled Spherocytes Cancelled Sickle Cells Cancelled Target Cells Cancelled Tear Drop Cells Cancelled Ovalocytes Cancelled Stomatocytes Cancelled [place] Bodies Cancelled Franky Cells Cancelled Bite Cells Cancelled Crenated Cell Cancelled Acanthocytes (Spur) Cancelled Rouleaux Cancelled Schistocytes Cancelled Sodium 136 Potassium 4.0 Chloride 109 H Carbon Dioxide 19.0 L Anion Gap 8 BUN 8 Creatinine 0.52 L Estim Creat Clear Calc 192.22 Est GFR (MDRD) Af Amer 176 Est GFR (MDRD) Non-Af 146 BUN/Creatinine Ratio 15.2 Glucose 114 H Calcium 9.3 Magnesium 2.1 Troponin I High Sens < 3 L TSH 1.90 Urine Color Urine Clarity Urine pH Ur Specific [place] Urine Protein Urine Glucose (UA) Urine Ketones Urine Occult Blood Urine Nitrite Urine Bilirubin Urine Urobilinogen Ur Leukocyte Esterase Urine RBC Urine WBC Ur Squamous Epith Cells Amorphous Sediment Urine Bacteria Urine Mucus 01/29/24 15:40 WBC Corrected WBC RBC Hgb Hct MCV MCH MCHC RDW Std Deviation RDW Coeff of Melinda Plt Count MPV Immature Gran % (Auto) Neut % (Auto) Lymph % (Auto) Bath % (Auto) Eos % (Auto) Baso % (Auto) Absolute Neuts (auto) Absolute Lymphs (auto) Total Counted Neutrophils % (Manual) Band Neutrophils % Lymphocytes % (Manual) Monocytes % (Manual) Eosinophils % (Manual) Basophils % (Manual) Metamyelocytes % Myelocytes % Promyelocytes % Blast Cells % Plasma Cell % (Manual) Other Cells % Nucleated RBC % Nucleated RBCs/100 WBC Differential Comment Diff Path Review Hypersegmented Neuts Atypical Lymphocytes Reactive Lymphocytes Smudge Cells Toxic Granulation Toxic Vacuolation Dohle Bodies Lindsay Rods Platelet Estimate Plt Morphology Comment RBC Morphology Polychromasia Hypochromasia Basophilic Stippling Anisocytosis Microcytosis Macrocytosis Spherocytes Sickle Cells Target Cells Tear Drop Cells Ovalocytes Stomatocytes [place] Bodies Franky Cells Bite Cells Crenated Cell Acanthocytes (Spur) Rouleaux Schistocytes Sodium Potassium Chloride Carbon Dioxide Anion Gap BUN Creatinine Estim Creat Clear Calc Est GFR (MDRD) Af Amer Est GFR (MDRD) Non-Af BUN/Creatinine Ratio Glucose Calcium Magnesium Troponin I High Sens TSH Urine Color Yellow Urine Clarity Sl. Cloudy Urine pH 6.0 Ur Specific [place] 1.020 Urine Protein Negative Urine Glucose (UA) Normal Urine Ketones Negative Urine Occult Blood Negative Urine Nitrite Negative Urine Bilirubin Negative Urine Urobilinogen 1 H Ur Leukocyte Esterase Negative Urine RBC 0 SEEN Urine WBC 0 SEEN Ur Squamous Epith Cells 10-25 SEEN Amorphous Sediment 1+ URATE Urine Bacteria 0 SEEN Urine Mucus 0 SEEN Radiography Diagnostic Testing: Clinical Impression(s) from Imaging Studies Chest CTA 01/29/24 13:34 IMPRESSION: Normal CTA chest examination, without a demonstrated pulmonary embolism or arterial dissection. Electronically Signed: Robbie Mcgraw MD at 16:42 EDT Reading Location ID and State: [facility] / [place] Tel , Service support , Treatment and Re-Evaluation :: Differential diagnosis includes however is not limited to: ACS, OR, arrhythmia, PE, dehydration, electrolyte abnormalities, hyperthyroid, hypothyroid Patient appears to be in no obvious respiratory distress patient is tachycardic with a heart rate of 134, patient is nontoxic-appearing. Patient's physical examination of the tachycardia was unremarkable. I do believe the patient needs blood work, looking at electrolytes, thyroid, heart enzyme which is troponin. I am concerned for pulmonary embolus secondary to the patient being her third trimester , as well as the patient traveling recently. Patient will receive a CTA of the chest. Patient will receive IV fluids. Will be reevaluated. Reevaluation, the patient remained stable. Patient's heart rate did drop to 95 which is normal sinus rhythm. Patient's laboratory values showed a normal CBC, slight anemia however this is consistent with . Patient's chemistries were unremarkable. Troponin was negative, TSH within normal limits. CTA of the chest was negative for any pulmonary embolism or aortic dissection. I spoke with cardiology regarding the patient's tachycardia, the cardiology please it is more fluid reaction. Patient will receive a 24-hour Holter monitor. The patient will continue to follow-up with her REMOTE SENSING ADVISOR. She was given strict follow-up precautions. There is no evidence of any ACS, OR, PE. Patient will continue to follow-up. I have personally performed a face to face assessment of the patient and have reviewed the TERE Note. I performed a substantive portion of the visit including all aspects of the following. My ortega findings include: History is 28-year-old female G1, P0 at approximately 29 weeks presenting to the emergency room for the evaluation of tachycardia. Patient was seen by OB today and has been having intermittent episodes of high heart rate 140-50 range based on her smart watch. She states during the episodes which are not necessarily associated with exertion she feels like she cannot catch her breath. Patient states she traveled to [place] several weeks ago. There she became ill with a gastrointestinal sickness felt to be related to eating chicken at the airport. She denies any chest pain.. She had an EKG done in compressor assembler's office about a week ago that shows sinus tachycardia. She has not felt any skipped beats. No significant leg swelling. She found out today that she failed her glucose tolerance test. She has recently stopped having morning sickness. No known cardiac disorders. No prior DVT PE Exam is patient is tachycardic about 118 on the monitor my exam. Heart is regular without murmur. I do not see ectopy on the monitor. I see clearly defined P waves and T waves. Is narrow complex. Lung sounds are clear and equal. No significant peripheral edema. Medical Decison Making basic blood works obtained and is unremarkable TSH. CTA of the chest was discussed with the patient prior to obtaining patient she notes understanding of the risk benefit test. This demonstrated no obvious PE. No obvious dissection. Heart rate is come down and to as low as 91 while at rest. The patient discussed multiple symptoms Dr. Queen and with cardiology. Will obtain. Discharge Plan Triage Chief Complaint: Palpitations ED Midlevel Provider: Wilian Moon ED Provider: Silverio Rodriguez Dx/Rx/DC Orders Clinical Impression: Tachycardia, Dizziness, Third trimester Instructions: 3rd Trimester Changes, 3rd Trimester Adapting, Understanding Tachycardia, ED Dizziness, Uncertain Cause Prescriptions: No Action PNV-DHA 27 mg iron-1 mg -300 mg capsule PO lysine 1,000 mg tablet 1,000 mg PO DAILY promethazine 12.5 mg tablet 12.5 mg PO Q6H PRN (Reason: nausea) Qty: 60 3RF Rx Instructions: 3 doses during day; last dose no later than 4 hr before bedtime ondansetron 4 mg tablet,disintegrating 4 mg PO Q8H PRN (Reason: nausea and vomiting) Qty: 30 3RF Primary Care Provider: Marc Tyson Referrals: Marc Tyson MD [Primary Care Provider] - Activity Restrictions/Additional Instructions: Please follow the instructions for the Holter monitor for 24 hours. Please return for any worsening signs or symptoms. Follow-up with your REMOTE SENSING ADVISOR. Print Language: Iraqi Disposition Disposition: Home, Self Care
[2024-01-29 14:38] LABS: Anion Gap 8 (5-15); BUN 8 mg/dL (7-18); BUN/Creat Ratio 15.2 RATIO (10-20); Calcium,Total 9.3 mg/dL (8.5-10.1); Chloride 109 mmol/L (98-107); Creatinine, Serum 0.52 mg/dL (0.55-1.02); EST Glomerular Filtration Rate 146 mL/min (>60); Est Glom Filt Rate - Afr Amer 176 mL/min (>60); Estimated Creatinine Clearance 192.22 ml/min; Glucose 114 mg/dL (74-106); Magnesium 2.1 mg/dL (1.6-2.6); Sodium Level 136 mmol/L (136-145); Troponin-I HS < 3 pg/mL (3.0-54.0)
[2024-01-29] MEDS: 0.9% Normal Saline (1000mL) 1,000 ML 999 ML IV (14:55)
[2024-01-29 15:00] VITALS: BP 122/74; PULSE 107; RESP 16; O2SAT 99
[2024-01-29 15:29] LABS: Absolute Lymphocyte Count 1.74 X10^3/uL (0.83-4.51); Absolute Neutrophil Count 7.4 X10^3/uL (2.0-7.7); Basophil# 0.04 X10^3/uL; Basophil% 0.4 % (0-1); Eosinophil# 0.08 X10^3/uL; Eosinophils% 0.8 % (0-5); Hematocrit 31.5 % (37-47); Hemoglobin 10.6 g/dL (12.0-15.0); Lymphocyte # 1.74 X10^3/ul (0.83-4.51); Lymphocyte % 17.3 % (19-41); Mean Corp Hgb Conc 33.7 g/dL (32-36); Mean Corpuscular Hgb 30.4 pg (27.0-32.0); Mean Corpuscular Volume 90.3 fL (81-99); Mean Platelet Vol. 9.8 fl (6.2-12.0); Monocyte# 0.71 X10^3/uL; Monocyte% 7.1 % (0-10); NRBC Flagged by Analyzer 0 % (0-5); Neutrophil # 7.42 X10^3/uL (2.7-7.7); Neutrophil % 73.8 % (47-70); Platelet Count 261 K/mm3 (150-450); RBC Distribution Width CV 13.3 % (11.6-14.6); RBC Distribution Width SD 43.5 fl (35.1-43.9); Red Blood Count 3.49 M/mm3 (4.2-5.4); White Blood Count 10.1 K/mm3 (4.4-11.0)
[2024-01-29 15:45] LABS: Bacteria 0 SEEN /hpf (None Seen); Mucous, Urine 0 SEEN /hpf (<or=2+); Red Blood Cells-Urine 0 SEEN /hpf (0-5); White Blood Cells 0 SEEN /hpf (0-5)
[2024-01-29 15:54] VITALS: BP 126/60; PULSE 100; RESP 21
[2024-01-29 15:55] LABS: Color, Urine Yellow (Yellow); Glucose, Dipstick Normal (Normal); Ketone-Dipstick Negative (Negative); Leukocyte Esterase-Dipstick Negative /ul (Negative); Nitrite-Dipstick Negative (Negative); Occult Blood-Urine Negative /ul (Negative); Protein-Dipstick Negative (Negative); Urine Bilirubin Dipstick Negative (Negative); Urine Clarity Sl. Cloudy (Clear); Urine Urobilinogen 1 mg/dl (Normal)
[2024-01-29 16:01] LABS: Amorphous Sediment 1+ URATE; Squamous Epithelial Cells - UA 10-25 SEEN /hpf (5-10)
--- NOTE | 2024-01-29 16:01 | EKG12_ITS ---
Test Reason : REPEAT Blood Pressure : / mmHG Vent. Rate : 095 BPM Atrial Rate : 095 BPM P-R Int : 158 ms QRS Dur : 076 ms QT Int : 362 ms P-R-T Axes : 061 044 007 degrees QTc Int : 454 ms Normal sinus rhythm Low voltage QRS Nonspecific T wave abnormality Abnormal ECG Confirmed by KAREN KELLY, AL ([id number]), digital editor BHAVESH MATSON ([id number]) on 02/02/2024 9:34:44 AM Referred By: Confirmed By:AL JONES MD
[2024-01-29 16:58] VITALS: PULSE 103; RESP 20; O2SAT 97
[2024-01-29 17:07] VITALS: BP 123/83; PULSE 101; RESP 21; TEMP 36.6; O2SAT 97
== END 2024-01-29 17:18 | disposition home or self-care (01) ==
PROVIDERS: Nurse Practitioner; Emergency Provider Emergency Medicine; PCP Family Medicine; Visit Provider Emergency Medicine
DX: O99.891 Other specified diseases and conditions complicating pregnancy (principal); R00.0 Tachycardia, unspecified; R06.02 Shortness of breath; R42 Dizziness and giddiness; Z3A.29 29 weeks gestation of pregnancy; Z79.899 Other long term (current) drug therapy
CPT/HCPCS: 71275; 80048; 81001; 83735; 84443; 84484; 85025; 93005; 96360; 99284; J7030; Q9967; A4216

== ENCOUNTER 2024-01-29 16:56 | Outpatient (CLI) | payer BC, SELFPAY | END 2024-01-29 23:59 | disposition home or self-care (01) | LOC: CVS 16:57 | PROVIDERS: PCP Family Medicine; Visit Provider Nurse Practitioner | DX: R00.0 Tachycardia, unspecified (principal); R06.02 Shortness of breath | CPT/HCPCS: 93225; 93226 ==

== ENCOUNTER → 2024-01-29 | Outpatient (CLI) | payer BC, SELFPAY ==
[2024-01-29 10:53] LABS: Absolute Lymphocyte Count 1.57 X10^3/uL (0.83-4.51); Absolute Neutrophil Count 7.3 X10^3/uL (2.0-7.7); Basophil# 0.04 X10^3/uL; Basophil% 0.4 % (0-1); Eosinophil# 0.07 X10^3/uL; Eosinophils% 0.7 % (0-5); Hemoglobin 11.4 g/dL (12.0-15.0); Lymphocyte # 1.57 X10^3/ul (0.83-4.51); Lymphocyte % 16.6 % (19-41); Mean Corp Hgb Conc 33.5 g/dL (32-36); Mean Corpuscular Hgb 30.3 pg (27.0-32.0); Mean Corpuscular Volume 90.4 fL (81-99); Mean Platelet Vol. 9.8 fl (6.2-12.0); Monocyte# 0.38 X10^3/uL; NRBC Flagged by Analyzer 0 % (0-5); Neutrophil # 7.34 X10^3/uL (2.7-7.7); Platelet Count 278 K/mm3 (150-450); RBC Distribution Width CV 13.2 % (11.6-14.6); RBC Distribution Width SD 43.2 fl (35.1-43.9); Red Blood Count 3.76 M/mm3 (4.2-5.4); White Blood Count 9.4 K/mm3 (4.4-11.0)
[2024-01-29 11:16] LABS: Glucose Challenge Gest 1H 50g 155 mg/dL (70-140)
[2024-01-29 11:50] LABS: HIV - WCH Non-Reactive (Nonreactive); Syphilis Antibodies Non-reactive
== END | disposition home or self-care (01) ==
LOC: PAVLAB 10:30
PROVIDERS: PCP Family Medicine; Referring Provider Advanced Practice Midwife; Visit Provider Advanced Practice Midwife
DX: Z34.90 Encounter for supervision of normal pregnancy, unspecified, unspecified trimester (principal); Z3A.00 Weeks of gestation of pregnancy not specified
CPT/HCPCS: 36415; 82950; 85025; 86703; 86780

== ENCOUNTER → 2024-02-10 | Outpatient (CLI) | payer BC, SELFPAY ==
[2024-02-10 10:53] LABS: Glucose GTT-Gestation. Fasting 82 mg/dL (<105)
[2024-02-10 11:41] LABS: Glucose GTT-Gestational 1 Hr 172 mg/dL (<190)
[2024-02-10 12:49] LABS: Glucose GTT-Gestational 2 Hr 141 mg/dL (<165)
[2024-02-10 13:56] LABS: Glucose GTT-Gestational 3 Hr 94 L (<145)
== END | disposition home or self-care (01) ==
LOC: LAB 09:56
PROVIDERS: PCP Family Medicine; Referring Provider Advanced Practice Midwife; Visit Provider Advanced Practice Midwife
DX: Z13.1 Encounter for screening for diabetes mellitus (principal)
CPT/HCPCS: 36415; 82951; 82952

== ENCOUNTER → 2024-03-22 | Outpatient (CLI) | payer BC, SELFPAY | END | disposition home or self-care (01) | PROVIDERS: PCP Family Medicine; Referring Provider Obstetrics & Gynecology; Visit Provider Obstetrics & Gynecology | DX: O09.93 Supervision of high risk pregnancy, unspecified, third trimester (principal); Z3A.00 Weeks of gestation of pregnancy not specified | CPT/HCPCS: 87081 ==

== ENCOUNTER 2024-04-16 02:29 | Inpatient (IN) | payer BC, SELFPAY ==
[2024-04-16] VITALS (60 sets, daily range): BP systolic 109–169; BP diastolic 52–98; PULSE 92–153; RESP 15–18; TEMP 36.3–37.4; O2SAT 74–100; BMI 34.0
[2024-04-16 02:21] LABS: ROM Internal Control Test YES-OK TO RESULT pt. (Internal QC)
[2024-04-16 02:22] LABS: ROM Patient Test POSITIVE (Negative); Record Kit Lot#, ROM+ K1866
[2024-04-16] MEDS: Lactated Ringers 1,000 ML 50 ML IV (02:45)
[2024-04-16 03:11] LABS: Absolute Lymphocyte Count 2.59 X10^3/uL (0.83-4.51); Absolute Neutrophil Count 9.1 X10^3/uL (2.0-7.7); Basophil# 0.04 X10^3/uL; Basophil% 0.3 % (0-1); Eosinophil# 0.08 X10^3/uL; Eosinophils% 0.6 % (0-5); Hematocrit 34.6 % (37-47); Hemoglobin 11.7 g/dL (12.0-15.0); Lymphocyte # 2.59 X10^3/ul (0.83-4.51); Lymphocyte % 20.5 % (19-41); Mean Corp Hgb Conc 33.8 g/dL (32-36); Mean Corpuscular Hgb 29.8 pg (27.0-32.0); Mean Corpuscular Volume 88.3 fL (81-99); Mean Platelet Vol. 10.8 fl (6.2-12.0); Monocyte# 0.78 X10^3/uL; Monocyte% 6.2 % (0-10); NRBC Flagged by Analyzer 0 % (0-5); Neutrophil # 9.06 X10^3/uL (2.7-7.7); Neutrophil % 71.9 % (47-70); Platelet Count 288 K/mm3 (150-450); RBC Distribution Width CV 14.3 % (11.6-14.6); RBC Distribution Width SD 45.2 fl (35.1-43.9); Red Blood Count 3.92 M/mm3 (4.2-5.4); White Blood Count 12.6 K/mm3 (4.4-11.0)
[2024-04-16 03:36] LABS: Syphilis Antibodies Non-reactive
--- NOTE | 2024-04-16 07:25 | HP.PCM.OB_ITS ---
HPI - General General Date of Admission: 04/16/24 HPI Narrative PHUC AGUERO, is a 29 F who presents IAL with SROM 1 cm now 2-3. no vb admits good fm increasing ctx Maternal Data Information NATHANAEL Calculator Estimated Delivery Date Method Current WG Current Estimate 04/20/24 LMP (Certain) 39w 3d Other Estimates 04/20/24 Ultrasound #1 39w 3d PFSH PFSH Medical History Mononucleosis SAB (spontaneous ) Spotting affecting Hx of ingrown nail Hypersomnolence Seasonal allergies Home Medications ?Medication ?Instructions ?Recorded ?Last Taken ?Type PNV#14-iron fum-FA#4-[id number]-[id number] cap PO 04/16/24 Unknown History 27 mg iron-1 mg-300 mg-50 mg capsule Allergy/AdvReac Type Severity Reaction Status Date / Time No Known Allergies Allergy Verified 04/16/24 01:42 Family History Grandmother DVT (deep venous thrombosis) Aunt DVT (deep venous thrombosis) Uncle DVT (deep venous thrombosis) Father Hypertension Surgical History History of appendectomy Social History adopted: No household members: spouse current occupational status: employed 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 [employer] current occupational exposures/hazards: No pets and animals: Yes (Avoid litterbox) pets and animals: cat(s) history of recent travel: No sexually active: Yes Smoking Status: Never smoker alcohol intake: current alcohol intake frequency: a few times a month details: not while substance use type: does not use well-balanced diet: daily or most days caffeine: Yes Type: tea Number of servings: 1 eating out: 1-3 times/week during the past year weight has: decreased > 10 lbs what type of physical activity do you participate in: walking frequency: 3-4 times per week duration: 45-60 minutes/day edmundo/cheondoism: Taoism seatbelt use: always do you feel safe at home: Yes additional social history: [facility] History 2 Elective abortions Hx Para 0 Spontaneous abortions 1 Hx # Term Pregnancies Ectopic pregnancies Hx # Pregnancies Multiple births # of living children Past Pregnancies Del. Date Name GA/Weeks Outcome Route Bth Weight Gen Labor Lgth Anesthesia Del Victor Hugoatmarc Provider FOB Unknown 01/2023 spontaneous Visit Details Expected Delivery Route/Plan Labor Preferences- CB/BF classes: enc labor support person: [facility] labor intervention preferences: [] pain management options preferred: limited but ok with epidural cut cord/dad catch: yes : yes PP control planned: discussed discussed possible routes of delivery and associated risks: [] special requests: [] Plans Covid status: [] Flu vaccine: [] Tdap vaccine: declines Rhogam: na LARC form signed: yes movement and labor precautions reviewed. Problem list reviewed and updated with the most current plan of care details and appropriate orders placed. Relevant counseling for the gestational age provided. Continue routine care and follow up unless otherwise noted in visit notes/problem list details OB Flowsheet Initial Weight: Not Recorded Date -?-?-?-?-?-?-?-?-?-?-?-?- EGA Weight BP Urine Prot -?-?-?-?-?-?--?-?-?-?-?-?- Glucose FHR FuHt Pres Dilation -?-?-?-?-?-?-?-?-?-?-?-?- Effaced St Visit Note 09/15/23 -?-?-?-?-?-?-?-?-?-?-?-?- 8w 6d 191 lb 2 oz 123/70 -?-?-?-?-?-?-?-?-?-?-?-?- 160 -?-?-?-?-?-?-?-?-?-?-?-?- JV- CRL consiste nt with LMP. wants to do NIPT and carrier testing. (FOB is Caroel cam's nephew) 10/15/23 -?-?-?-?-?-?-?-?-?-?-?-?- 13w 1d 187 lb 4 oz 122/57 Nega tive -?-?-?-?-?-?-?-?-?-?-?-?- Negative 155 -?-?-?-?-?-?-?-?-?-?-?-?- JV- no cramping or spotting. still having nausea. will try promethazine. 11/12/23 -?-?-?-?-?-?-?-?-?-?-?-?- 17w 1d 193 lb 8 oz 120/62 Nega tive -?-?--?-?-?-?-?-?-?-?-?-?- Negative 138 -?-?-?-?-?-?-?-?-?-?-?-?- MH-No VB or cram ping. Still some Nausea. Declines AFP. 12/10/23 -?-?-?-?-?-?-?-?-?-?-?-?- 21w 1d 201 lb 120/61 Negative -?-?-?-?-?-?-?-?-?-?-?-?- Negative 150 20 -?-?-?-?-?-?-?-?-?-?-?-?- KW- no vb/lof/ct x. good fm. anatomy reviewed. 12/30/23 -?-?-?-?-?-?-?-?-?-?-?-?- 24w 0d 206 lb 8 oz 104/74 Nega tive -?-?-?-?-?-?-?-?-?-?-?-?- Negative 140 25 -?-?-?-?-?-?-?-?-?-?-?-?- Kw- no vb/lof/ct x. good fm. 28 week labs discussed 01/29/24 -?-?-?-?-?-?-?-?-?-?-?-?- 28w 2d 211 lb 111/78 -?-?-?-?-?-?-?-?-?-?-?-?- 140 28 -?-?-?-?-?-?-?-?-?-?-?-?- SM- no vb lof go od fm no regular ctx co palpitations and shortness of breath incrasing over the last 3 weeks, ekg last week showed sinus tach. resting heart rate 120-150 at times. family history of blood clots but patient tested negative fro thrombophilia. to ER for evaluation. resting heart rate 120-130 here in office and pulse ox 97 02/09/24 -?-?-?-?-?-?-?-?-?-?-?-?- 29w 6d 213 lb 4 oz 124/78 Nega tive -?-?-?-?-?-?-?-?-?-?-?-?- Negative 142 30 -?-?-?-?-?-?-?-?-?-?-?-?- JV- no lof, vagi nal bleeding, or dec fm. failed 1 hr, scheduled for 3 hr. 02/27/24 -?-?-?-?-?-?-?-?-?-?-?-?- 32w 3d 215 lb 111/74 Negative -?-?--?-?-?-?-?-?-?-?-?-?- Negative 158 34 -?-?-?-?-?-?-?-?-?-?-?-?- KW- no vb/lof/ct x. good fm. passed 3 hour gct. has baby shower on friday03/11/24 -?-?-?-?-?-?-?-?-?-?-?-?- 34w 2d 217 lb 118/74 Negative -?-?-?-?-?-?-?-?-?-?-?-?- Negative 148 35 -?-?-?-?-?-?-?-?-?-?-?-?- MH-no VB, lof. G ood FM. Denies concerns 03/22/24 -?-?-?-?-?-?-?-?-?-?-?-?- 35w 6d 219 lb 8 oz 116/77 Nega tive -?-?-?-?-?-?-?-?-?-?-?-?- Negative 141 36 -?-?-?-?-?-?-?-?-?-?-?-?- JV- no lof, vagi nal bleeding, or dec fm. gbs collected. labor precautions discussed. 03/30/24 -?-?-?-?-?-?-?-?-?-?-?-?- 37w 0d 224 lb 111/73 -?-?-?-?-?-?-?-?-?-?-?-?- 135 37 Cephalic -?-?-?-?-?-?-?-?-?-?-?-?- Sm- no vb lof go od fm no regular ctx 04/06/24 -?-?-?-?-?-?-?-?-?-?-?-?- 38w 0d 223 lb 8 oz 114/81 Nega tive -?-?-?-?-?-?-?-?-?-?-?-?- Negative 140 38 Cephalic 1 -?-?-?-?-?-?-?-?-?-?-?-?- 70 -2 JV- cervix posterior but is dilated and effaced. labor precautions discussed. RTO in 1 week. 04/13/24 -?-?-?-?-?-?-?-?-?-?-?-?- 39w 0d 223 lb 126/92 115/82 Negative -?-?-?-?--?-?-?-?-?-?-?-?- Negative 140 39 Cephalic -?-?-?-?-?-?-?-?-?-?-?-?- SM- no vb lof go od fm n oregular ctx NST FHR Rate Baby A Baseline: 130 Variability:: Moderate Accelerations:: 15 x 15 Decelerations:: None NST Reactive:: Yes FHR Category:: Category I Uterine Activity:: q3-5 ROS Constitutional Constitutional: Reports systems reviewed and no addt'l complaints, except as documented ENT HEENT: Reports systems reviewed and no addt'l complaints, except as documented Cardiovascular Cardiovascular: Reports systems reviewed and no addt'l complaints, except as documented Respiratory/Chest Respiratory/Chest: Reports systems reviewed and no addt'l complaints, except as documented Gastrointestinal Gastrointestinal: Reports systems reviewed and no addt'l complaints, except as documented and nausea; Denies abdominal pain Genitourinary Genitourinary: Reports systems reviewed and no addt'l complaints, except as documented, contractions Details: present and frequency (regular ) and movement Details: present Musculoskeletal Musculoskeletal: Reports systems reviewed and no addt'l complaints, except as documented Integumentary Integumentary: Reports as per HPI Neurologic Neurologic: Reports systems reviewed and no addt'l complaints, except as documented Endocrine Endocrinology: Reports systems reviewed and no addt'l complaints, except as documented Vital Signs Vital Signs Vital Signs: 04/16/24 01:29 04/16/24 01:29 04/16/24 01:32 Temperature Temperature Source Pulse Rate 120 H 119 H Respiratory Rate Blood Pressure 147/82 H BP Systolic 147 BP Diastolic 82 Pulse Ox 04/16/24 01:32 04/16/24 01:36 04/16/24 01:36 Temperature Temperature Source Temporal Pulse Rate Respiratory Rate 16 Blood Pressure BP Systolic BP Diastolic Pulse Ox 98 04/16/24 01:36 04/16/24 03:00 04/16/24 03:00 Temperature 99.3 F H Temperature Source Pulse Rate 102 H Respiratory Rate Blood Pressure BP Systolic BP Diastolic Pulse Ox 97 04/16/24 03:01 04/16/24 03:01 04/16/24 04:29 Temperature Temperature Source Pulse Rate 107 H Respiratory Rate Blood Pressure 123/81 H 132/90 H BP Systolic 123 132 BP Diastolic 81 90 Pulse Ox 04/16/24 04:29 04/16/24 04:29 04/16/24 04:29 Temperature Temperature Source Temporal Pulse Rate 100 Respiratory Rate 16 Blood Pressure BP Systolic BP Diastolic Pulse Ox 04/16/24 04:29 04/16/24 05:37 04/16/24 05:37 Temperature 98.6 F 97.8 F Temperature Source Pulse Rate Respiratory Rate 16 Blood Pressure BP Systolic BP Diastolic Pulse Ox 04/16/24 05:38 04/16/24 05:38 04/16/24 06:13 Temperature Temperature Source Pulse Rate 99 Respiratory Rate Blood Pressure 140/63 H 137/81 H BP Systolic 140 137 BP Diastolic 63 81 Pulse Ox 04/16/24 06:13 04/16/24 06:13 04/16/24 06:13 Temperature Temperature Source Temporal Pulse Rate 92 Respiratory Rate 16 Blood Pressure BP Systolic BP Diastolic Pulse Ox 04/16/24 06:13 Temperature 97.8 F Temperature Source Pulse Rate Respiratory Rate Blood Pressure BP Systolic BP Diastolic Pulse Ox Weight Weight: 224 lb Body Mass Index (BMI) 34.0 Physical Exam Const alert, oriented x3 and healthy appearing Constitutional Narrative: uncomfortable with contractions HEENT normocephalic and moist oral mucous membranes Head and Scalp: atraumatic Neck full ROM, no lymphadenopathy, supple and thyroid normal General: trachea midline Thyroid: thyroid normal Lymph Lymphatic: no lymphadenopathy noted Chest inspection of chest normal Resp normal respiratory effort Cardio regular rate GI normal to inspection, nondistended, normoactive bowel sounds, soft to palpation and non-tender Inspection: gravid external exam normal Bimanual Exam - Vag & Uterus: uterus non-tender Manual OB Exam: estimated gestational size appropriate, presentation cephalic, dilated, effaced and station Extremity normal to inspection General Extremity: Negative for edema Skin no rashes or lesions noted Neuro deep tendon reflexes 2+ bilaterally Motor Exam: strength 5/5 throughout and clonus absent Psych mental status grossly normal Labs Labs Labs: Blood Type O POSITIVE Antibody Screen NEGATIVE Hct 34.6 % (37-47) L Hgb 11.7 g/dL (12.0-15.0) L Syphilis Total Ab Non-reactive Rubella IgG Antibody Reactive (Nonreactive) Hep Bs Antigen Non-Reactive (Nonreactive) Hepatitis C Antibody Non-Reactive (Nonreactive) Chlamydia DNA (DESTINY) Negative (Negative) N.gonorrhoeae DNA (DESTINY) Negative (Negative) HIV 1&2 Antibody Non-Reactive (Nonreactive) Glucose 1 Hr 50 gm 155 mg/dL (70-140) H Gest Glucose Tolerance MG/DL Assessment & Plan (1) SROM (spontaneous rupture of membranes): (2) : QUALIFIERS: Weeks of gestation: 39 weeks Qualified Code(s): Z3A.39 - 39 weeks gestation of COMMENT: nl anatomy, NIPT LR. Carrier neg . Declines AFP (3) Supervision of high-risk : QUALIFIERS: Trimester: third trimester Qualified Code(s): O09.93 - Supervision of high risk , unspecified, third trimester COMMENT: PRR, ,Boy Mikel NATHANAEL 04/20/24, [facility] gbs negative (4) H/O abnormal cervical Papanicolaou smear: COMMENT: years ago. (5) Abnormal glucose affecting : COMMENT: nl 3 hour gct PLAN: Plan Patient presents IAL, plan expectant management for , pitocin PRN if needed. Pain management: open to epidurla if needed. GBS neg. Management of any complications: none I have reviewed the [facility] and made any clinically relevant updates.
[2024-04-16] MEDS: Lactated Ringers 1,000 ML 999 ML IV (10:15)
[2024-04-16] MEDS: fentaNYL-bupivacaine (epidural) 100 ML BAG EPIDURAL ×3 (11:30→20:58)
[2024-04-16] MEDS: Oxytocin 15 Units/NS 250ml 15 UNITS/250 ML IV.SOLN 2 UNITS IV (12:32)
[2024-04-16] MEDS: Lactated Ringers 1,000 ML 200 ML IV ×2 (15:01→22:06)
[2024-04-16] MEDS: LACTATED RINGERS 500 ML 999 ML IV (18:30)
[2024-04-16] MEDS: Acetaminophen 500 MG Tablet PO (22:01)
[2024-04-17] VITALS (22 sets, daily range): BP systolic 107–153; BP diastolic 55–91; PULSE 101–153; RESP 15–16; TEMP 36.4–37.9; O2SAT 97–100
[2024-04-17] MEDS: fentaNYL-bupivacaine (epidural) 100 ML BAG EPIDURAL ×2 (01:52→07:27)
[2024-04-17] MEDS: LACTATED RINGERS 500 ML 999 ML IV (02:03)
[2024-04-17] MEDS: Lactated Ringers 1,000 ML 200 ML IV ×2 (02:03→07:30)
[2024-04-17] MEDS: Ondansetron 4 MG/2 ML Vial IV (05:30)
[2024-04-17] MEDS: Methylergonovine 0.2 MG/ML Ampul IM (08:19)
[2024-04-17] MEDS: Oxytocin 15 Units/NS 250ml 15 UNITS/250 ML IV.SOLN 334 UNITS IV (08:20)
[2024-04-17] MEDS: Oxytocin 15 Units/NS 250ml 15 UNITS/250 ML IV.SOLN 83 UNITS IV (08:20)
--- NOTE | 2024-04-17 10:09 | EX.PCM.OBRPT ---
Assessment & Plan (1) SROM (spontaneous rupture of membranes): (2) Abnormal glucose affecting : COMMENT: nl 3 hour gct (3) Tachycardia: COMMENT: ER evaluation, cardio (4) H/O abnormal cervical Papanicolaou smear: COMMENT: years ago. (5) Supervision of high-risk : QUALIFIERS: Trimester: third trimester Qualified Code(s): O09.93 - Supervision of high risk , unspecified, third trimester COMMENT: PRR, ,Jose Luis Morin NATHANAEL 04/20/24, [facility] gbs negative (6) : QUALIFIERS: Weeks of gestation: 39 weeks Qualified Code(s): Z3A.39 - 39 weeks gestation of COMMENT: nl anatomy, NIPT LR. Carrier neg . Declines AFP (7) History of miscarriage, currently : (8) Vaginal delivery: COMMENT: SM SROM jose luis Morin Maternal Data Information NATHANAEL Calculator Estimated Delivery Date Method Current WG Current Estimate 04/20/24 LMP (Certain) 39w 4d Other Estimates 04/20/24 Ultrasound #1 39w 4d Vaginal Delivery Operative Information Date of Procedure: 04/17/24 Pre-Operative Diagnosis: see a/p diagnoses Post-Operative Diagnosis: same Surgery / Procedure Performed: Spontaneous Vaginal Delivery Type of Anesthesia: Epidural Special Medications: methergine Estimated Blood Loss: 400 Fluids Replaced: crystalloid Findings Description of Procedure: Patient began pushing and delivered the head in the EDD presentation. The head was delivered atraumatically and the infant delivered through without complication. The anterior and posterior shoulders delivered without complication followed by the rest of the and the was placed on the maternal abdomen. Delayed cord clamping was employed for approximately 60 seconds. Cord was clamped and cut and gentle traction was applied to the cord and the placenta delivered spontaneously immediately following it was noted to be intact with three-vessel cord. The perineum and vagina were inspected and noted to have a first degree perineal laceration which was repaired in the usual fashion with 3-0 vicryl rapide. . EBL was 400 mild atony methergine given. Patient and infant tolerated delivery well. Amniotic Fluid Description: Clear Placental Delivery Description: Spontaneous Placenta Disposition: [facility] Cord Vessel Description: 3 Vessels Cord Entanglement: None Delayed Cord Clamping: No Post Vaginal Delivery Medications Given After Delivery: IV Pitocin Episiotomy Description: None Complication Complications: None Procedures Urinary/Genital [id number]: [id number] Vaginal Delivery [facility]
--- NOTE | 2024-04-17 10:16 | DCINST_ITS ---
Discharge Instructions Diet Discharge Diet: No restrictions Activity Discharge Activity: Return to Normal Activity, May Not Drive (while taking narcotic pain medications.) and May Shower May resume sexual activity in: 4-6 weeks Dressing / Incision Call your doctor if your incision/area has: Continuous Slow Oozing, Sudden Increased Bleeding, Increased Pain/ Swelling, Increased Redness and Foul Smelling Discharge Follow Up Care Please Follow Up With: Arlette Martini MD When: Call [phone] to make an appointment with your doctor in 6 weeks. If you had elevated blood pressure or 4th degree laceration, you will need to be seen in 2 weeks. Test Results: Test results from this visit will be discussed in further detail at your follow- up appointment, if applicable. Discharge Plan Admission Admit Date/Time: 04/16/24 02:29 Attending Provider: Arlette Martini Primary Care Provider: Marc Tyson Discharge Orders/Prescriptions Prescriptions: No Action PNV #14-iron-FA#3-vpl-etgahfrf 27 mg iron-1 mg -300 mg-50 mg capsule PO Referrals / Follow Up: Marc Tyson MD [Primary Care Provider] - Disposition Disposition (needs filled in before D/C Order can be placed): Home, Self Care
[2024-04-17] MEDS: Acetaminophen 500 MG Tablet 1000 MG PO (17:52)
[2024-04-18] VITALS (12 sets, daily range): BP systolic 116–134; BP diastolic 65–79; PULSE 90–104; RESP 16–18; TEMP 36.1–36.8; O2SAT 97–98
[2024-04-18] MEDS: Acetaminophen 500 MG Tablet 1000 MG PO (04:29)
--- NOTE | 2024-04-18 08:12 | PCM.PN.OB ---
Subjective Subjective Patient doing well without complaints. Tolerating PO. Ambulating and voiding without difficulty. feeding well. Denies chest pain, shortness of breath, calf pain/swelling, fevers, chills, lightheadedness. Objective Data Objective Data Vital Signs: Vital Signs Temp Pulse Resp BP Pulse Ox O2 Del Method 97.9 F 90 16 116/76 98 Room Air 04/18/24 04:35 04/18/24 04:35 04/18/24 04:35 04/18/24 04:35 04/18/24 04:35 04/18/24 04:35 Oxygen Delivery Method Room Air Weight: 224 lb Body Mass Index (BMI) 34.0 Intake & Output: Intake and Output for Last 24 Hours 04/16/24 04/17/24 04/18/24 23:59 23:59 23:59 Intake Total 3581.53 / 3581.53 3105.14 / 3105.14 Output Total 1100 / 1100 3500 / 3500 Balance 2481.53 / 2481.53 -394.86 / -394.86 Lab / Micro Data 04/16/24 02:45 ROS Constitutional Constitutional: Reports systems reviewed and no addt'l complaints, except as documented Cardiovascular Cardiovascular: Reports systems reviewed and no addt'l complaints, except as documented Respiratory/Chest Respiratory/Chest: Reports systems reviewed and no addt'l complaints, except as documented Gastrointestinal Gastrointestinal: Reports systems reviewed and no addt'l complaints, except as documented Physical Exam Const alert, oriented x3 and no apparent distress HEENT Head and Scalp: atraumatic Resp normal respiratory effort GI soft to palpation and non-tender Bimanual Exam - Vag & Uterus: uterus non-tender Uterus Palpation: uterus fundus firm (below Umbilicus) Assessment & Plan (1) Vaginal delivery: COMMENT: SM SROM jose luis Morin PLAN: Plan s/p PPD # 1 1. routine post delivery care 2. breast feeding- support given 3. rh positive 4. rubella immune
[2024-04-18] MEDS: Naproxen 500 MG Tablet PO ×2 (08:30→18:04)
--- NOTE | 2024-04-27 12:09 | NURSING ---
Follow up phone call made, no answer, voicemail left
== END 2024-04-18 21:10 | disposition home or self-care (01) | DRG 807 ==
LOC: WPOUT 02:41 → WP 02:41
PROVIDERS: Admitting Provider Obstetrics & Gynecology; PCP Family Medicine; Referring Provider Obstetrics & Gynecology; Visit Provider Obstetrics & Gynecology
DX: O70.0 First degree perineal laceration during delivery (principal); Z37.0 Single live birth; O75.89 Other specified complications of labor and delivery; Z3A.39 39 weeks gestation of pregnancy
CPT/HCPCS: 59025; 59050; 84112; 85025; 86780; 86850; 86900; 86901; 99221; J7120; G0378; J2405

== ENCOUNTER → 2025-01-12 | Outpatient (CLI) | payer BC, SELFPAY ==
[2025-01-12 14:12] LABS: hCG Titer Quant., Serum 186 mIU/mL (<9 non-preg)
== END | disposition home or self-care (01) ==
LOC: PAVLAB 13:27
PROVIDERS: Advanced Practice Midwife; PCP Family Medicine; Referring Provider Nurse Practitioner Gerontology; Visit Provider Nurse Practitioner Gerontology
DX: O36.80X0 Pregnancy with inconclusive fetal viability, not applicable or unspecified (principal); N91.2 Amenorrhea, unspecified; Z3A.00 Weeks of gestation of pregnancy not specified
CPT/HCPCS: 36415; 84702

== ENCOUNTER → 2025-01-14 | Outpatient (CLI) | payer BC, SELFPAY ==
[2025-01-14 16:29] LABS: hCG Titer Quant., Serum 497 mIU/mL (<9 non-preg)
== END | disposition home or self-care (01) ==
LOC: LAB 14:07
PROVIDERS: PCP Family Medicine; Referring Provider Advanced Practice Midwife; Visit Provider Advanced Practice Midwife
DX: O36.80X0 Pregnancy with inconclusive fetal viability, not applicable or unspecified (principal); N91.2 Amenorrhea, unspecified; Z3A.00 Weeks of gestation of pregnancy not specified
CPT/HCPCS: 36415; 84702

== ENCOUNTER → 2025-01-31 | Outpatient (CLI) | payer BC, SELFPAY ==
--- NOTE | 2025-01-31 07:53 | US_ITS ---
PROCEDURE: TRANSVAGINAL W/PREG US 01/31/2025 REASON FOR EXAM: DATING/VIABILITY TECHNIQUE: TRANSVAGINAL W/PREG US COMPARISON: None FINDINGS: LMP: Unknown Comments: Transvaginal imaging was performed Number of Gestational Sacs: 1 Gestational Sac Shape: Normal Number of Fetuses: 1 Heart Rate: 127 (average) Yolk Sac: Present and unremarkable. Placenta: Presently not well-visualized Amniotic Fluid Volume: Subjectively normal for gestational age. Uterine Abnormalities: Maternal uterus is unremarkable. Ovaries / Adnexa: Both maternal ovaries are visualized and unremarkable. DIMENSIONS: Parameter Measurement / EGA [place] Rump Length: 5.7 mm/ Gestational Sac: 6 weeks and 4 days/ Yolk Sac: 3.1 mm/ ESTIMATED GESTATIONAL AGE: By Ultrasound: 7 weeks and 0 days By LMP: Unknown ESTIMATED DATE OF DELIVERY: By Ultrasound: September 19, 2025 By LMP: Unknown US/Transvaginal w/Preg US IMPRESSION: Single live intrauterine gestation with a mean gestational age of 7 weeks. Reading Location: [place] [id number]
== END | disposition home or self-care (01) ==
PROVIDERS: PCP Family Medicine; Referring Provider Advanced Practice Midwife; Visit Provider Advanced Practice Midwife
DX: Z34.90 Encounter for supervision of normal pregnancy, unspecified, unspecified trimester (principal); Z3A.00 Weeks of gestation of pregnancy not specified
CPT/HCPCS: 76817

== ENCOUNTER 2025-02-14 09:02 | Outpatient (CLI) | payer BC, SELFPAY ==
[2025-02-14] MEDS: Dextrose 5%-Lactated Ringers 1,000 ML 1000 ML IV (09:15)
[2025-02-14] MEDS: Ondansetron 4 MG/2 ML Vial IV (09:20)
[2025-02-14 09:26] VITALS: BP 134/53; PULSE 88; RESP 16; TEMP 36; O2SAT 98; BMI 27.8
[2025-02-14 10:22] VITALS: BP 106/63; PULSE 71; RESP 16; TEMP 36.2; O2SAT 100
[2025-02-14] MEDS: 0.9% NaCl Peripheral Flush Adult IV (10:22)
[2025-02-16 06:08] LABS: Chlamydia By Nucleic Acid AMP Negative (Negative); Gonococcus By Nucleic Acid AMP Negative (Negative)
== END 2025-02-14 23:59 | disposition home or self-care (01) ==
PROVIDERS: PCP Family Medicine; Referring Provider Obstetrics & Gynecology; Visit Provider Obstetrics & Gynecology
DX: Z34.90 Encounter for supervision of normal pregnancy, unspecified, unspecified trimester (principal); E86.0 Dehydration
CPT/HCPCS: 96365; 96375; 87086; 87491; 87591; A4216; J2405

== ENCOUNTER → 2025-02-21 | Outpatient (CLI) | payer BC, SELFPAY ==
[2025-02-21 12:32] LABS: Hematocrit 40.0 % (37-47); Hemoglobin 13.9 g/dL (12.0-15.0); Immature Granulocytes Count 0.010 X10^3/uL (0.0-0.0); Mean Corp Hgb Conc 34.8 g/dL (32-36); Mean Corpuscular Volume 86.6 fL (81-99); Mean Platelet Vol. 11.5 fl (6.2-12.0); NRBC Flagged by Analyzer 0 % (0-5); Platelet Count 321 K/mm3 (150-450); RBC Distribution Width CV 12.4 % (11.6-14.6); RBC Distribution Width SD 39.1 fl (35.1-43.9); Red Blood Count 4.62 M/mm3 (4.2-5.4); White Blood Count 6.5 K/mm3 (4.4-11.0)
[2025-02-21 13:20] LABS: HIV Nonreactive (Nonreactive); Hepatitis B Surface Antigen Nonreactive (Nonreactive); Hepatitis C Antibody Nonreactive (Nonreactive); Syphilis Antibodies Nonreactive (Nonreactive)
== END | disposition home or self-care (01) ==
PROVIDERS: PCP Family Medicine; Referring Provider Obstetrics & Gynecology; Visit Provider Obstetrics & Gynecology
DX: O21.0 Mild hyperemesis gravidarum (principal); Z3A.00 Weeks of gestation of pregnancy not specified
CPT/HCPCS: 36415; 84443; 85025; 86703; 86762; 86780; 86803; 86850; 86900; 86901; 87340

== ENCOUNTER 2025-02-23 14:27 | Outpatient (CLI) | payer BC, SELFPAY ==
[2025-02-23 14:47] VITALS: BP 114/72; PULSE 96; RESP 16; TEMP 36.2; O2SAT 100
[2025-02-23] MEDS: 0.9% NaCl Peripheral Flush Adult IV (14:52)
[2025-02-23 15:52] VITALS: BP 109/62; PULSE 80; RESP 16; TEMP 36.4; O2SAT 99
== END 2025-02-23 23:59 | disposition home or self-care (01) ==
LOC: MEDOUTP 14:28
PROVIDERS: PCP Family Medicine; Referring Provider Nurse Practitioner Women's Health; Visit Provider Nurse Practitioner Women's Health
DX: O21.1 Hyperemesis gravidarum with metabolic disturbance (principal); Z3A.00 Weeks of gestation of pregnancy not specified
CPT/HCPCS: 96374; 96361; A4216; J2405

== ENCOUNTER 2025-03-04 13:38 | Outpatient (CLI) | payer BC, SELFPAY ==
[2025-03-04 13:51] VITALS: BP 104/86; PULSE 102; RESP 16; TEMP 36.8
[2025-03-04 14:55] VITALS: BP 108/65; RESP 16
== END 2025-03-04 23:59 | disposition home or self-care (01) ==
PROVIDERS: PCP Family Medicine; Referring Provider Nurse Practitioner Women's Health; Visit Provider Obstetrics & Gynecology
DX: E86.0 Dehydration (principal)
CPT/HCPCS: 96360; A4216

== ENCOUNTER → 2025-06-27 | Outpatient (CLI) | payer BC, SELFPAY ==
[2025-06-27 09:43] LABS: Hematocrit 35.8 % (37-47); Hemoglobin 12.1 g/dL (12.0-15.0); Immature Granulocytes Count 0.040 X10^3/uL (0.0-0.0); Mean Corp Hgb Conc 33.8 g/dL (32-36); Mean Corpuscular Volume 89.3 fL (81-99); Mean Platelet Vol. 10.1 fl (6.2-12.0); NRBC Flagged by Analyzer 0 % (0-5); Platelet Count 302 K/mm3 (150-450); RBC Distribution Width CV 12.6 % (11.6-14.6); RBC Distribution Width SD 41.8 fl (35.1-43.9); Red Blood Count 4.01 M/mm3 (4.2-5.4); White Blood Count 10.1 K/mm3 (4.4-11.0)
[2025-06-27 11:03] LABS: Glucose Challenge Gest 1H 50g 136 mg/dL (70-140); HIV Nonreactive (Nonreactive); Syphilis Antibodies Nonreactive (Nonreactive)
== END | disposition home or self-care (01) ==
PROVIDERS: Obstetrics & Gynecology; PCP Family Medicine; Visit Provider Obstetrics & Gynecology
DX: Z34.82 Encounter for supervision of other normal pregnancy, second trimester (principal); Z13.1 Encounter for screening for diabetes mellitus
CPT/HCPCS: 36415; 82950; 85025; 86703; 86780

== ENCOUNTER → 2025-07-27 | Outpatient (CLI) | payer BC, SELFPAY ==
--- OUTSIDE RECORDS SUMMARY | 2025-07-27 07:16 | XMS RPT_ITS | CCD ---
Author Organization [facility] Care Team Providers Care Match Up Person Name Role Phone Kalani Staton Attending Unavailable Fast, Kenna A Referring Unavailable Kalani Staton Consulting Unavailable Kalani Staton Unavailable Stacy Laurent Unavailable Francisco, Kenna A Unavailable Jey Sanchez Unavailable Unavailable Kristy Paulino Unavailable Unavailable Unavailable Unavailable Minh Tyson MD Primary Care Provider Dr. Marc Tyson Primary Care Provider Dr. Marc Tyson Referring Provider [phone] Dr. Gage Vincent Attending Provider [phone] Dr. Gage Vincent Primary Care Provider [phone] Dr. Gage Vincent Attending Provider [phone] Dr. Gage Vincent Referring Provider [phone] Dr. Gage Vincent Primary Care Provider [phone] Dr. Gage Vincent Referring Provider [phone] Dr. Sisi Tee Attending Provider Minh Tyson MD Primary Care Provider RENEE GUZMÁN Referring Unavailable MINH TYSON Primary Care Unavailab MINH Carroll Primary Care UnavailDr. Marc West MD Primary Care Provider Kristy Lane Attending Provider Anibal STALLINGS Kristy Referring Provider [phone] Kristy Calabrese CNM Attending Provider [phone] [place]ito ADAIRM, Kristy Referring Provider [phone] Marbella KELLY, Dr. Tran Referring Provider [phone] Dr. Siis Tee DO Attending Provider Dr. Sisi Tee DO Referring Provider [place] TOOL CHASER-C, Yohana Attending Provider [phone] [place] TOOL CHASER-C, Yohana Referring Provider [phone] Lianet KELLY, Dr. Chong Attending Provider [phone] Marbella KELLY, Dr. Tran Primary Care Physicia n Kristy Calabrese CNM Attending Physician [phone] [place]an[place]ito HODGES, Kristy Referring Provider [phone] Sheryl Ruiz DO, Dr. Laird Attending Physician [place] TOOL CHASER-C, Yohana Attending Physician [phone] Lianet KELLY, Dr. Chong Attending Physician MINH TYSON Primary Care Unavailab HERMINIO Amaya Attending Unavailable DA, YOHANA S Referring Unavailable AMJUAN JOSEEMEGANA Aylin Attending Unavailable DA, YOHANA S Referring Unavailable MINH TYSON Primary Care Unavailab fabienne Tyson MD, Dr. Tran Primary Care Physicia n Lianet KELLY, Dr. Chong Attending Physician [place] TOOL CHASER-C, Yohana Referring Provider [phone] Dr. Marc Tyson MD Referring Provider [phone] Da TOOL CHASER-C, Yohana Attending Physician [phone] Guan[place]ito HODGES, Kristy Attending Physician [phone] Sheryl Ruiz DO, Dr. Laird Attending Physician Arlette Martini Attending Unavailable [place], Yohana Referring Unavailable Bursley, Marc Primary Care Unavailable Anibal GUILLORY, Kristy Attending Unavailable Bursley, Marc Primary Care Unavailable Anibal GUILLORY, Kristy Referring Unavailable Arlette Martini Attending Unavailable Bursley, Marc Primary Care Unavailable Kristy Calabrese Referring Unavailable Kristy Calabrese Attending Unavailable Bursley, Marc Primary Care Unavailable Yohana Roberson Attending Unavailable Bursley, Marc Primary Care Unavailable Bursley, Marc Referring Unavailable Arlette Martini Attending Unavailable Bursley, Marc Primary Care Unavailable Bursley, Marc Referring Unavailable Kristy Calabrese Attending Unavailable Bursley, Marc Primary Care Unavailable Bursley, Marc Referring Unavailable Vande Velde, Sisi Attending Unavailabl e Bursley, Marc Primary Care Unavailable Bursley, Marc Referring Unavailable Arlette Martini Attending Unavailable Bursley, Marc Primary Care Unavailable Bursley, Marc Referring Unavailable Vande Velde, Sisi Attending Unavailabl e Bursley, Marc Referring Unavailable Bursley, Marc Primary Care Unavailable Kristy Calabrese Referring Unavailable Kristy Calabrese Attending Unavailable Bursley, Marc Primary Care Unavailable Vande Velde, Sisi Referring Unavailabl e Vande Velde, Sisi Attending Unavailabl e Bursley, Marc Primary Care Unavailable Vande Velde, Sisi Referring Unavailabl e Vande Velde, Sisi Attending Unavailabl e Bursley, Marc Primary Care Unavailable Yohana Roberson Referring Unavailable Yohana Roberson Attending Unavailable Bursley, Marc Primary Care Unavailable Allergies Allergy Classification Reported Allergen(s) Allergy Type Date of Onset Reaction(s) Facility (12 sources) Ibuprofen; Translations: [Motrin *ANALGESICS - ANTI-INFLAMMATO RY*] Drug Allergy 0 Rash [facility] Work Phone: (1 source) Penicillins; Translations: [Penicillins] allergy to substance [facility] Work Phone: (7 sources) Amoxicillin; Translations: [AMOXICILLIN] Drug Allergy 0 [facility] (1 source) Ibuprofen; Translations: [IBUPROFEN] Drug Allergy 0 [facility] Repository Medications Current Medications Medication Drug Class(es) Dates Sig (Normalized) Sig (Original) ethinyl estradiol 0.035 mg / norethindrone 1 mg oral tablet (6 sources) Estrogen Start: 03-03-2020 take 1 tablet by mouth once daily ALYACEN 1/35, 28, 1-35 mg-mcg per tablet Take 1 tablet by mouth once daily. 03/03/2020 Active Comment on above: Take 1 tablet by mary jo th once daily. ondansetron 4 mg disintegrating oral tablet (20 sources) Serotonin-3 Receptor Antagonist Start: 02-14-2025 take 1 tablet by mouth every six hours as needed for nausea and vomiting Ondansetron 4 mg tablet,disintegra ting Active 4 mg PO EVERY 6 HOURS as needed for nausea and vomiting 15 12February 13, 2025 11:00pm Complies with drug therapy Start: 09-15-2023 End: 04-16-2024 take 1 tablet by mouth every eight hours as needed for nausea and vomiting Ondansetron 4 mg tablet,disintegrating Discontinued 4 mg PO Q8H as needed for nausea and vomiting 30 September 17, 2023 10:39am April 16, 2024 12:43am Pnv #14-Iron-Fa#9-Idu-Pnollp te 27 mg iron-1 mg -300 mg-50 mg capsule (10 sources) Start: 04-16-2024 Pnv #14-Iron-Fa#4-Xqy-Pigiyh te 27 mg iron-1 mg -300 mg-50 mg capsule Active NMA PO April 16, 2024 12:00am Pnv 83-Ymlq-Lk3-Dha-Docusate 27 mg iron-1 mg -300 mg-50 mg capsule (2 sources) Start: 04-16-2024 Pnv 86-Lpck-Jv0-Dha-Docusate 27 mg iron-1 mg -300 mg-50 mg capsule Active NMA PO April 15, 2024 11:00pm Complies with drug therapy Start: 04-16-2024 Pnv 14-Iron-Fa 4-Rzp-Lfhcrbpz 27 mg iron-1 mg -300 mg-50 mg capsule Active NMA PO April 16, 2024 12:00am Complies with drug therapy polymyxin b 13686 unt/ml / trimethoprim 1 mg/ml ophthalmic solution (3 sources) Dihydrofolate Reductase Inhibitor Antibacterial, Polymyxin-class Antibacterial Start: 06-15-2024 End: 06-22-2024 take 1 drop(s) into the eye(s) every four hours trimethoprim-polymyxin (POLYTRIM) 10,000 unit- 1 mg/mL ophthalmic solution Indications: [place] eye disease of right eye Use 1 Drop in the right eye every 4 hours for 7 days. 10 mL 06/15/2024 06/22/2024 Active promethazine hydrochloride 12.5 mg oral tablet (20 sources) Phenothiazine Start: 02-02-2025 take 1 tablet by mouth every six hours as needed for nausea and vomiting Promethazine 12.5 mg tablet Active 12.5 mg PO EVERY 6 HOURS as needed for nausea and vomiting 90 4 February 01, 2025 11:00pm Complies with drug therapy Start: 10-15-2023 End: 04-16-2024 take 3 tablets by mouth every six hours as needed for nausea Promethazine 12.5 mg tablet Discontinued 12.5 mg PO EVERY 6 HOURS as needed for nausea 60 3 October 15, 2023 12:00am April 16, 2024 12:43am 3 doses during day; last dose no later than 4 hr before bedtime sulfamethoxazole 800 mg / trimethoprim 160 mg oral tablet (1 source) Dihydrofolate Reductase Inhibitor Antibacterial, Sulfonamide Antimicrobial Start: 10-08-2022 End: 10-15-2022 take 1 tablet by mouth twice daily sulfamethoxazole-trimethoprim (BACTRIM DS) 800-160 mg per tablet Take 1 tablet by mouth twice daily for 7 days. 14 tablet 0 10/08/2022 10/15/2022 Active Comment on above: Take 1 tablet by mary jo twice daily for 7 days. Completed/Discontinued Medications Medication Drug Class(es) Dates Sig (Normalized) Sig (Original) acetaminophen 325 mg / oxyCODONE hydrochloride 5 mg oral tablet (18 sources) Opioid Agonist Start: 08-26-2015 End: 09-18-2022 Oxycodone-Acetamino phen 1 TABLET tablet Discontinued 1 - 2 {tbl} PO EVERY 6 HOURS NEEDED as needed for Mod/Severe (pain scale 6-10) 30 August 26, 2015 12:00am September 18, 2022 12:52pm Start: 08-26-2015 End: 09-18-2022 take 1 tablet by mouth every six hours as needed Oxycodone-Acetaminophen Discontinued 1 - 2 TABLET PO EVERY 6 HOURS NEEDED August 26, 2015 12:00am September 18, 2022 12:52pm ORTHO-CEPT (28), 0.15-30MG-MCG (Oral Tablet) (1 source) Progestin, Estrogen Start: 06-15-2014 End: 06-05-2016 take 1 tablet by mouth once daily ORTHO-CEPT (28), 0.15-30MG-MCG (Oral Tablet) 1 (one) Tablet Tablet qd- same time qd for 0 days Quantity: 1 {Packet} Refills: 3 Ordered: 15-Jun-2014 Kristy Paulino LPN Start : 15-Jun-2014 End : 05-Jun-2016 Discontinued Comments: This order discontinued per [facility]. Comment on above: This order discontin ued per [facility]. Ortho Tri-Cyclen (28) 0.18/0.215/0.25 MG-35 MCG Oral Tablet (1 source) Progestin, Estrogen take 1 tablet by mouth once daily Ortho Tri-Cyclen (28) 0.18/0.215/0.25 MG-35 MCG Oral Tablet daily (0.18/0.215/0.25 MG-35 MCG) Active lysine 1000 mg oral tablet (13 sources) Start: 09-12-2023 End: 04-16-2024 take 1 tablet by mouth once daily Lysine 1,000 mg tablet Discontinued 1000 mg PO DAILY September 12, 2023 12:00am April 16, 2024 12:43am Magnesium (18 sources) Start: 09-18-2022 End: 09-12-2023 take 1 tablet by mouth once daily Magnesium 200 mg tablet Discontinued 200 mg PO DAILY September 18, 2022 12:00am September 12, 2023 1:45pm Start: 09-18-2022 End: 09-12-2023 take 1 tablet by mouth once daily Magnesium 200 mg tablet Discontinued 200 mg PO DAILY September 18, 2022 1:00am September 12, 2023 2:45pm Start: 09-18-2022 End: 09-12-2023 take 200 mg by mouth once daily Magnesium Discontinued 200 MG PO DAILY September 18, 2022 12:00am September 12, 2023 1:45pm Start: 09-18-2022 take 200 mg by mouth once siva y Magnesium Active 200 MG PO DAILY September 18, 2022 1:00am Start: 09-18-2022 take 200 mg by mouth once siva y Magnesium Active 200 MG PO DAILY September 18, 2022 12:00am Multivit 78-Etea-Ppeytn 1-Dh a (Pnv-Dha) 27 mg iron-1 mg -300 mg capsule (13 sources) Start: 09-12-2023 End: 04-16-2024 Multivit 53-Mhax-Ztyxoq 1-Dh a (Pnv-Dha) 27 mg iron-1 mg -300 mg capsule Discontinued NMA PO September 12, 2023 12:00am April 16, 2024 12:43am Start: 09-12-2023 End: 04-16-2024 Multivit 61-Svdy-Hthrng 1-Dh a (Pnv-Dha) 27 mg iron-1 mg -300 mg capsule Discontinued NMA PO September 12, 2023 1:00am April 16, 2024 1:43am Start: 09-12-2023 Multivit 47-Ir on-Folate 1-Dha (Pnv-Dha) 27 mg iron-1 mg -300 mg capsule Active CAP PO September 12, 2023 12:00am saccharomyces boulardii 250 mg oral capsule (18 sources) Start: 09-18-2022 End: 09-12-2023 take 1 capsule by mouth once daily Saccharomyces Boulardii (Daily Probiotic (S. Boulardii)) 250 mg capsule Discontinued 5000 NMA PO DAILY September 18, 2022 12:00am September 12, 2023 1:46pm NEGATED: Highlighted row has not occurred!drug or medication (1 source) No Known Histori isidro Medications Problems Active Problems Problem Classification Problem Date Documented Da te Episodic/Chronic Administrative/social admission (10 sources) Medical examinations/report s status; Translations: [Patient encounter status] 10-22-2018 Episodic Cardiac dysrhythmias (20 sources) Tachycardia; Translations: [Tachycardia, unspecified] 01-29-2024 Episodic Comment on above: ER evaluation, cardi o Conditions associated with dizziness or vertigo (12 sources) Dizziness; Translations: [Dizziness and giddiness] 02-06-2024 Episodic Diabetes or abnormal glucose tolerance complicating ; childbirth; or the puerperium (12 sources) Abnormal glucose level; Translations: [Abnormal glucose complicating ] 04-30-2024 Episodic Comment on above: nl 3 hour gct Inflammation; infection of eye (except that caused by tuberculosis or sexually transmitteddisease) (1 source) Conjunctivitis; Translations: [Other mucopurulent conjunctivitis, right eye] 06-15-2024 Episodic Other complications of (16 sources) Spotting per vagina in ; Translations: [Spotting complicating , unspecified trimester] 01-28-2023 Episodic Comment on above: HCG x2, Type & Scree n Other complications of (13 sources) H/O: miscarriage; Translations: [Supervision of with other poor reproductive or obstetric history, unspecified trimester] 09-12-2023 Episodic Other complications of (13 sources) High risk ; Translations: [Supervision of high risk , unspecified, unspecified trimester] 09-24-2023 Episodic Comment on above: PRR, ,Boy Mikel E DD 04/20/24, Kelsey negative Other complications of (1 source) Supervision of with other poor reproductive or obstetric history, unspecified trimester; Translations: [Supervision of high-risk with history of ] 09-15-2023 Episodic Other complications of (1 source) Supervision of high risk , unspecified, unspecified trimester; Translations: [Supervision of unspecified high-risk ] 09-15-2023 Episodic Other complications of (19 sources) Hyperemesis gravidarum; Translations: [Mild hyperemesis gravidarum] 02-14-2025 Episodic Comment on above: improved Other complications of (1 source) Mild hyperemesis gravidarum; Translations: [Mild hyperemesis gravidarum] Onset: 06-27-2025 Episodic Other female genital disorders (20 sources) History of abnormal cervical Papanicolaou smear ; Translations: [Personal history of other diseases of the female genital tract] 09-12-2023 Episodic Comment on above: years ago. Other lower respiratory disease (2 sources) Cough; Translations: [Acute cough] 06-15-2024 Episodic Other nutritional; endocrine; and metabolic disorders (6 sources) Body mass index 30+ - obesity; Translations: [Obesity, unspecified] 09-18-2022 Chronic Other nutritional; endocrine; and metabolic disorders (6 sources) Obesity, unspecified; Translations: [Obesity, unspecified] 09-18-2022 Chronic Other and delivery including normal (20 sources) ; Translations: [Encounter for supervision of normal , unspecified, unspecified trimester] Onset: 02-15-2025 09-12-2023 Episodic Comment on above: SM SROM boy Mikel nl anatomy, NIPT LR. Carrier neg . Declines AFP , NATHANAEL 09/19/25, PC Mikel, [place] discussed NIPT testi ng-undecided, prior carrier Neg14/14 NIPT baby low risk, gender female-undecided, prior carrier Neg14/14 [id number], NATHANAEL 09/19/25, PC Mikel, Cornell [id number], NATHANAEL 09/19/25, girl Suze PC Mikel, Cornell NIPT baby low risk, gender female-undecided, prior carrier Neg14/14. afp declined Other screening for suspected conditions (not mental disorders or infectious disease) (3 sources) Abnormal cervical Papanicolaou smear; Translations: [Abnormal cytology findings] Onset: 06-27-2025 10-22-2018 Episodic Other skin disorders (5 sources) Ingrowing nail of toe of left foot; Translations: [Ingrowing nail] 09-18-2022 Episodic Other skin disorders (2 sources) Ingrowing nail; Translations: [Ingrowing nail] 09-18-2022 Episodic Other skin disorders (2 sources) Ingrowing toenail; Translations: [Ingrowing nail] Episodic Other upper respiratory disease (20 sources) Seasonal allergy; Translations: [Other seasonal allergic rhinitis] 09-18-2022 Chronic Other upper respiratory disease (2 sources) Other seasonal allergic rhinitis; Translations: [Allergic rhinitis, cause unspecified] Onset: 06-27-2025 09-15-2023 Chronic Other upper respiratory infections (2 sources) Sore throat symptom; Translations: [Acute pharyngitis, unspecified] 06-15-2024 Episodic Polyhydramnios and other problems of amniotic cavity (12 sources) Spontaneous rupture of membranes 04-30-2024 Episodic Residual codes; unclassified (18 sources) Hypersomnia; Translations: [Hypersomnia, unspecified] 09-18-2022 Chronic Residual codes; unclassified (6 sources) Hypersomnia, unspecified; Translations: [Hypersomnia, unspecified] 09-18-2022 Chronic Residual codes; unclassified (1 source) 28 weeks gestation of ; Translations: [28 weeks gestation of ] Onset: 06-27-2025 Episodic Residual codes; unclassified (1 source) 21 weeks gestation of ; Translations: [21 weeks gestation of ] Onset: 05-10-2025 Episodic Residual codes; unclassified (1 source) 17 weeks gestation of ; Translations: [17 weeks gestation of ] Onset: 04-12-2025 Episodic Spontaneous (16 sources) Miscarriage; Translations: [Complete or unspecified spontaneous without complication] 01-31-2023 Episodic Comment on above: HCG wkly until neg. Unclassified (1 source) Acute cough; Translations: [Acute cough] Onset: 06-15-2024 Past or Other Problems Problem Classification Problem Date Documented Date Episodic/Chronic Contraceptive and procreative management (2 sources) Unspecified contraceptive management; Translations: [General counseling on prescription of oral contraceptives] Episodic Fluid and electrolyte disorders (1 source) Dehydration; Translations: [Dehydration] Onset: Episodic Immunizations and screening for infectious disease (1 source) Need for prophylactic vaccination and inoculation against influenza Episodic Lymphadenitis (2 sources) Lymphadenopathy; Translations: [Lymphadenopathy] 10-22-2018 Episodic Malaise and fatigue (1 source) Fatigue; Translations: [Fatigue, unspecified type] 10-22-2018 Episodic Other aftercare (1 source) Follow-up status; Translations: [Counseling on other sexually transmitted diseases] 10-22-2018 Episodic Other complications of (1 source) with inconclusive viability, not applicable or unspecified; Translations: [ with inconclusive viability, not applicable or unspecified] Onset: 5 Episodic Other female genital disorders (2 sources) Personal history of other diseases of the female genital tract; Translations: [Personal history of other genital system and obstetric disorders] Onset: 5 09-15-2023 Episodic Other injuries and conditions due to external causes (1 source) Injury of ankle; Translations: [Injury of left ankle, initial encounter] 10-22-2018 Episodic Other non-traumatic joint disorders (1 source) Ankle pain; Translations: [Pain and swelling of ankle, left] 10-22-2018 Episodic Other non-traumatic joint disorders (6 sources) Chronic ankle pain; Translations: [Pain in left ankle and joints of left foot] Onset: 1 05-02-2021 Episodic Other upper respiratory disease (1 source) [...] Results Test Name Value Interpretation Reference Range Facility CBC W/Diff, Automatedon 11-1 0-2025 Absolute Lymph 1.97 X10 3/uL Normal 0.83-4.51 [facility] Comment on above: Performed By: #### L 509.8002, L501.0250, L100.0100, [id number] ####[facility] [address] [place], [address] Absolute Neut 7.4 X10 3/uL Normal 2.0-7.7 [facility] Comment on above: Performed By: #### L 509.8002, L501.0250, L100.0100, [id number] ####[facility] [address] [place], [address] Basophils/100 WBC (Bld) 0.4 % Normal 0-1 [facility] Comment on above: Performed By: #### L 509.8002, L501.0250, L100.0100, [id number] ####[facility] [address] [place], [address] Eosinophils/100 WBC (Bld) 2.0 % Normal 0-5 [facility] Comment on above: Performed By: #### L 509.8002, L501.0250, L100.0100, [id number] ####[facility] [address] [place], [address] Erythrocyte distribution width (RBC) [Ratio] 12.6 % Normal 11.6-14.6 [facility] Comment on above: Performed By: #### L 509.8002, L501.0250, L100.0100, [id number] ####[facility] [address] [place], [address] Hematocrit (Bld) [Volume fraction] 35.8 % Low 37-47 [facility] Comment on above: Performed By: #### L 509.8002, L501.0250, L100.0100, [id number] ####[facility] [address] [place], [address] Hemoglobin (Bld) [Mass/Vol] 12.1 g/dL Normal 12.0-15.0 [facility] Comment on above: Performed By: #### L 509.8002, L501.0250, L100.0100, [id number] ####[facility] [address] [place], [address] IG% 0.400 Normal 0.0-0.9 [facility] Comment on above: Result Comment: IG% - Immature Granulocytes (promyelocytes, myelocytes and metamyelocytes) > 1% indicates that a LEFT SHIFT is Present. Performed By: #### L 509.8002, L501.0250, L100.0100, [id number] ####[facility] [address] [place], [address] Lymphocytes/100 WBC (Bld) 19.5 % Normal 19-41 [facility] Comment on above: Performed By: #### L 509.8002, L501.0250, L100.0100, [id number] ####[facility] [address] [place], [address] MCH (RBC) [Entitic mass] 30.2 pg Normal 27.0-32.0 [facility] Comment on above: Performed By: #### L 509.8002, L501.0250, L100.0100, [id number] ####[facility] [address] [place], [address] MCHC (RBC) [Mass/Vol] 33.8 g/dL Normal 32-36 [facility] Comment on above: Performed By: #### L 509.8002, L501.0250, L100.0100, [id number] ####[facility] [address] [place], [address] MCV (RBC) [Entitic vol] 89.3 fL Normal 81-99 [facility] Comment on above: Performed By: #### L 509.8002, L501.0250, L100.0100, [id number] ####[facility] [address] [place], [address] Monocytes/100 WBC (Bld) 4.7 % Normal 0-10 [facility] Comment on above: Performed By: #### L 509.8002, L501.0250, L100.0100, [id number] ####[facility] [address] [place], [address] Neutrophils/100 WBC (Bld) 73.0 % High 47-70 [facility] Comment on above: Performed By: #### L 509.8002, L501.0250, L100.0100, [id number] ####[facility] [address] [place], [address] Nucleated RBC (Bld) [#/Vol] 0 10*3/uL Normal 0-5 [facility] Comment on above: Performed By: #### L 509.8002, L501.0250, L100.0100, [id number] ####[facility] [address] [place], [address] Platelet mean volume (Bld) [Entitic vol] 10.1 fL Normal 6.2-12.0 [facility] Comment on above: Performed By: #### L 509.8002, L501.0250, L100.0100, [id number] ####[facility] [address] [place], [address] Platelets (Bld) [#/Vol] 302 10*3/uL Normal 150-450 [facility] Comment on above: Performed By: #### L 509.8002, L501.0250, L100.0100, [id number] ####[facility] [address] [place], [address] RBC (Bld) [#/Vol] 4.01 10*6/uL Low 4.2-5.4 [facility] Comment on above: Performed By: #### L 509.8002, L501.0250, L100.0100, [id number] ####[facility] [address] [place], [address] RDW SD 41.8 fl Normal 35.1-43.9 [facility] Comment on above: Performed By: #### L 509.8002, L501.0250, L100.0100, [id number] ####[facility] [address] [place], [address] WBC (Bld) [#/Vol] 10.1 10*3/uL Normal 4.4-11.0 [facility] Comment on above: Performed By: #### L 509.8002, L501.0250, L100.0100, [id number] ####[facility] [address] [place], [address] Glucose Challenge Gest 1H 50 susan 06-27-2025 GLU GEST 50g 1H 136 mg/dL Normal 70-140 [facility] Comment on above: Performed By: #### L 509.8002, L501.0250, L100.0100, [id number] ####[facility] [address] [place], [place], [id number] HIVon 06-27-2025 HIV Non-Reactive Normal Nonreactive [facility] Comment on above: Result Comment: Non- Reactive Reactive Repeatedly reactive samples must be confirmed according to CDC recommended confirmatory algorithms. The subresults for either HIVAG or AHIV can be used as an aid in the selection of the confirmation algorithm for reactive samples. Send out specimens with Reactive results to [facility] for confirmation. Order the HIV antibody detection and differentiation: lc#[id number] Performed By: #### L 509.8002, L501.0250, L100.0100, L3890.6006 ####[facility] [address] [place], [address] Lease Analyst Office Visit Reporton 06-27-2025 Lease Analyst Office Visit Report [facility]'s [address], [address] [place] [address] OFFICE VISIT Date of Service: 06/27/25 MR#: [id number] Acct: [id number] Name: PHUC KAUFFMAN Rep #: [id number] : 1995 Provider: Dr. 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 Is patient in pain?: No Allergies No Known Allergies Allergy (Verified 06/27/25 09:28) Medications ???Medication ???Instructions ???Recorded ???Confirmed ???Type PNV 14-iron zze-TM4-nbe-docusate cap PO 04/16/24 06/27/25 History 27 mg iron-1 mg-300 mg-50 mg capsule promethazine 12.5 mg tablet 12.5 mg PO Q6H PRN nausea and 01/1606/27/25 Rx vomiting #90 tabs ondansetron 4 mg disintegrating 4 mg PO Q6H PRN nausea and 5 06/27/25 Rx tablet vomiting #30 tabs Last Menstrual Period: 07/15/23 Zika: Zika virus screening: Negative : No PFSH PFSH Medical History H/O abnormal cervical Papanicolaou smear History of miscarriage, currently Supervision of high-risk Abnormal glucose affecting SROM (spontaneous rupture of membranes) Mononucleosis SAB (spontaneous ) Spotting affecting Hx of ingrown nail Hypersomnolence Seasonal allergies Surgical History History of appendectomy Family History Grandmother DVT (deep venous thrombosis) Aunt DVT (deep venous thrombosis) Uncle DVT (deep venous thrombosis) Father Hypertension Social History adopted: No household members: spouse housing: house number of children: 1 current occupational status: unemployed current occupation: [employer] current occupational exposures/hazards: No pets and animals: Yes (Avoid litterbox) pets and animals: cat(s) history of recent travel: No sexually active: Yes Smoking Status: Never smoker alcohol intake: current alcohol intake frequency: holidays/special occasions only details: not while substance use type: does not use well-balanced diet: daily or most days caffeine: No eating out: 1-3 times/week during the past year weight has: decreased > 10 lbs what type of physical activity do you participate in: none frequency: 3-4 times per week duration: 45-60 minutes/day edmundo/episcopalian: Scientology seatbelt use: always do you feel safe at home: Yes additional social history: [employer] History 3 Elective abortions Hx Para 1 Spontaneous abortions 1 Hx # Term Pregnancies Ectopic pregnancies Hx # Pregnancies Multiple births # of living children 1 Past Pregnancies Del. Date Name GA/Weeks Outcome Route Bth Weight Infant Gen Labor Lgth Anesthesia Del Locatn Provider FOB Unknown 01/2023 spontaneous 04/17/24 Mikel 39 live - full term 8lbs 8oz Male epidural [facility] Frantz Sarabia Delivery Date: 04/17/24 Last Updated by: Chiquita Henry RN See problem list for complications, and srom IAL SM 39 HPI 28 wk ob/glucose Details: PHUC KAUFFMAN is a 30 year old who presents for routine OB visit. OB Visit NATHANAEL Calculator Estimated Delivery Date Method Current WG Current Estimate 09/19/25 Ultrasound #1 28w 0d Expected Delivery Route/Plan Labor Preferences- CB/BF classes: [] labor support person: [] labor intervention preferences: [] pain management options preferred: [] cut cord/dad catch: [] : [] PP control planned: [] discussed possible routes of delivery and associated risks: [] special requests: [] Specific Issue/Plans Covid status: [] Flu vaccine: declined Tdap vaccine: declined Rhogam: [] LARC form signed: declined movement and labor precautions reviewed. Problem list reviewed and updated with the most current plan of care details and appropriate orders placed. Relevant counseling for the gestational age provided. Continue routine care and follow up unless otherwise noted in visit notes/problem list details Initial Weight: Not Recorded Date -???-???-???-???-???- ???-???-???-???-???-? ??-???- EGA Weight BP Urine Prot -???-???-???-???-???- ???-???-???-???-???-? ??-???- Glucose FHR FuHt Pres Dilation -???-???-???-???-???- ???-???-???-???-???-? ??-???- Effaced St Visit Note 02/14/25 -???-???-???-???-???- ???-???-???-???-???-? ??-???- 9w 0d 183 lb 6 oz 109/69 -?? (more content not included)... Normal [facility] Syphilis Antibodieson 2024 Syphilis Abs Non-Reactive Normal Nonreactive [facility] Comment on above: Performed By: #### L 509.8002, L501.0250, L100.0100, L3890.6006 ####[facility] [address] [place], [address] Laboratory - Chemistry and C hemistry - challengeOrdered By: Sisi Ruiz on 06-07-2025 Glucose Ql (U) Negative [facility] Laboratory - UrinalysisOrder ed By: Sisi Ruiz on 06-07-2025 Protein Ql (U) Trace [facility] Lease Analyst Office Visit Reporton 06-07-2025 Lease Analyst Office Visit Report [facility]'s [address], [address] [place] [address] OFFICE VISIT Date of Service: 06/07/25 MR#: [id number] Acct: [id number] Name: PHUC KAUFFMAN Rep #: [id number] : 1995 Provider: Dr. 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 Is patient in pain?: No Allergies No Known Allergies Allergy (Verified 06/07/25 10:14) Medications ???Medication ???Instructions ???Recorded ???Confirmed ???Type PNV 14-iron ufb-RE2-wlk-docusate cap PO 04/16/24 06/07/25 History 27 mg iron-1 mg-300 mg-50 mg capsule promethazine 12.5 mg tablet 12.5 mg PO Q6H PRN nausea and 01/1606/07/25 Rx vomiting #90 tabs ondansetron 4 mg disintegrating 4 mg PO Q6H PRN nausea and 5 06/07/25 Rx tablet vomiting #30 tabs Last Menstrual Period: 07/15/23 Zika: Zika virus screening: Negative : No PFSH PFSH Medical History H/O abnormal cervical Papanicolaou smear History of miscarriage, currently Supervision of high-risk Abnormal glucose affecting SROM (spontaneous rupture of membranes) Mononucleosis SAB (spontaneous ) Spotting affecting Hx of ingrown nail Hypersomnolence Seasonal allergies Surgical History History of appendectomy Family History Grandmother DVT (deep venous thrombosis) Aunt DVT (deep venous thrombosis) Uncle DVT (deep venous thrombosis) Father Hypertension Social History adopted: No household members: spouse housing: house number of children: 1 current occupational status: unemployed current occupation: [employer] current occupational exposures/hazards: No pets and animals: Yes (Avoid litterbox) pets and animals: cat(s) history of recent travel: No sexually active: Yes Smoking Status: Never smoker alcohol intake: current alcohol intake frequency: holidays/special occasions only details: not while substance use type: does not use well-balanced diet: daily or most days caffeine: No eating out: 1-3 times/week during the past year weight has: decreased > 10 lbs what type of physical activity do you participate in: none frequency: 3-4 times per week duration: 45-60 minutes/day edmundo/episcopalian: Scientology seatbelt use: always do you feel safe at home: Yes additional social history: [employer] History 3 Elective abortions Hx Para 1 Spontaneous abortions 1 Hx # Term Pregnancies Ectopic pregnancies Hx # Pregnancies Multiple births # of living children 1 Past Pregnancies Del. Date Name GA/Weeks Outcome Route Bth Weight Infant Gen Labor Lgth Anesthesia Del Locatn Provider FOB Unknown 01/2023 spontaneous 04/17/24 Mikel 39 live - full term 8lbs 8oz Male epidural [facility] Frantz Sarabia Delivery Date: 04/17/24 Last Updated by: Chiquita Henry, RN See problem list for complications, and srom IAL SM 39 HPI 25 wk ob Details: PHUC KAUFFMAN is a 30 year old who presents for routine OB visit. OB Visit NATHANAEL Calculator Estimated Delivery Date Method Current WG Current Estimate 09/19/25 Ultrasound #1 25w 1d Expected Delivery Route/Plan Labor Preferences- CB/BF classes: [] labor support person: [] labor intervention preferences: [] pain management options preferred: [] cut cord/dad catch: [] : [] PP control planned: [] discussed possible routes of delivery and associated risks: [] special requests: [] Specific Issue/Plans Covid status: [] Flu vaccine: [] Tdap vaccine: [] Rhogam: [] LARC form signed: [] Problem list reviewed and updated with the most current plan of care details and appropriate orders placed. Relevant counseling for the gestational age provided. Continue routine care and follow up unless otherwise noted in visit notes/problem list details Initial Weight: Not Recorded Date -???-???-???-???-???- ???-???-???-???-???-? ??-???- EGA Weight BP Urine Prot -???-???-???-???-???- ???-???-???-???-???-? ??-???- Glucose FHR FuHt Pres Dilation -???-???-???-???-???- ???-???-???-???-???-? ??-???- Effaced St Visit Note 02/14/25 -???-???-???-???-???- ???-???-???-???-???-? ??-???- 9w 0d 183 lb 6 oz 109/69 -???-???-???-???-???- ???-???-???-???-???-? ??-???- 16 (more content not included)... Normal [facility] Laboratory - Chemistry and C hemistry - challengeOrdered By: Kristy Calabrese on 05-10-2025 Glucose Ql (U) Negative [facility] Laboratory - UrinalysisOrder ed By: Kristy Calabrese on 05-10-2025 Protein Ql (U) Negative [facility] Lease Analyst Office Visit Reporton 05-10-2025 Lease Analyst Office Visit Report [facility]'s [address], [address] [place] [id number] OFFICE VISIT Date of Service: 05/10/25 MR#: [id number] Acct: [id number] Name: PHUC KAUFFMAN Rep #: [id number] : 1995 Provider: TRACIE Silver ams Age/Sex: 30/F [place] [facility] [facility] [place]: Signed Intake Vital Signs 03/15/25 08:36 04/12/25 10:45 05/10/25 08:52 Height 5 ft 8 in 5 ft 8 in 5 ft 8 in Weight: 194 lb 1 oz BMI 29.5 BP 119/84 H Intake Visit Reasons: 21 wk ob Chief Complaint: 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 Is patient in pain?: No Allergies No Known Allergies Allergy (Verified 05/10/25 08:50) Medications ???Medication ???Instructions ???Recorded ???Confirmed ???Type PNV 14-iron wdl-KN5-nyi-docusate cap PO 04/16/24 05/10/25 History 27 mg iron-1 mg-300 mg-50 mg capsule promethazine 12.5 mg tablet 12.5 mg PO Q6H PRN nausea and 01/1605/10/25 Rx vomiting #90 tabs ondansetron 4 mg disintegrating 4 mg PO Q6H PRN nausea and 5 05/10/25 Rx tablet vomiting #30 tabs Last Menstrual Period: 07/15/23 : No PFSH PFSH Medical History H/O abnormal cervical Papanicolaou smear History of miscarriage, currently Supervision of high-risk Abnormal glucose affecting SROM (spontaneous rupture of membranes) Mononucleosis SAB (spontaneous ) Spotting affecting Hx of ingrown nail Hypersomnolence Seasonal allergies Surgical History History of appendectomy Family History Grandmother DVT (deep venous thrombosis) Aunt DVT (deep venous thrombosis) Uncle DVT (deep venous thrombosis) Father Hypertension Social History adopted: No household members: spouse housing: house number of children: 1 current occupational status: unemployed current occupation: [employer] current occupational exposures/hazards: No pets and animals: Yes (Avoid litterbox) pets and animals: cat(s) history of recent travel: No sexually active: Yes Smoking Status: Never smoker alcohol intake: current alcohol intake frequency: holidays/special occasions only details: not while substance use type: does not use well-balanced diet: daily or most days caffeine: No eating out: 1-3 times/week during the past year weight has: decreased > 10 lbs what type of physical activity do you participate in: none frequency: 3-4 times per week duration: 45-60 minutes/day edmundo/episcopalian: Scientology seatbelt use: always do you feel safe at home: Yes additional social history: [employer] History 3 Elective abortions Hx Para 1 Spontaneous abortions 1 Hx # Term Pregnancies Ectopic pregnancies Hx # Pregnancies Multiple births # of living children 1 Past Pregnancies Del. Date Name GA/Weeks Outcome Route Bth Weight Gen Labor Lgth Anesthesia Del Locatn Provider FOB Unknown 01/2023 spontaneous 04/17/24 Mikel 39 live - full term 8lbs 8oz Male epidural [facility] S Chago Sarabia Delivery Date: 04/17/24 Last Updated by: Chiquita Henry RN See problem list for complications, and srom IAL SM 39 HPI 21 wk ob Details: PHUC KAUFFMAN is a 30 year old who presents for routine OB visit. OB Visit NATHANAEL Calculator Estimated Delivery Date Method Current Current Estimate 09/19/25 Ultrasound #1 21w 1d Expected Delivery Route/Plan Labor Preferences- CB/BF classes: [] labor support person: [] labor intervention preferences: [] pain management options preferred: [] cut cord/dad catch: [] : [] PP control planned: [] discussed possible routes of delivery and associated risks: [] special requests: [] Specific Issue/Plans Covid status: [] Flu vaccine: [] Tdap vaccine: [] Rhogam: [] LARC form signed: [] Problem list reviewed and updated with the most current plan of care details and appropriate orders placed. Relevant counseling for the gestational age provided. Continue routine care and follow up unless otherwise noted in visit notes/problem list details Initial Weight: Not Recorded Date -???-???-???-???-???- ???-???-???-???-???-? ??-???- EGA Weight BP Urine Prot -???-???-???-???-???- ???-???-???-???-???-? ??-???- Glucose FHR FuHt Pres Dilation -???-???-???-???-???- ???-???-???-???-???-? ??-???- Effaced St Visit Note 02/14/25 -???-???-???-???-???- ???-???-???-???-???-? ??-???- 9w 0d 183 lb 6 oz 109/69 -???-???-???-???-???- ???-???-???-???-???-? ??-???- 163 -???-???-???-???-???- ???-???-???-???-???-? ??-???- JV- CR (more content not included)... Normal [facility] Laboratory - Chemistry and C hemistry - challengeOrdered By: Arlette Martini on 04-12-2025 Glucose Ql (U) Negative [facility] Laboratory - UrinalysisOrder ed By: Arlette Martini on 04-12-2025 Protein Ql (U) Negative [facility] Lease Analyst Office Visit Reporton 04-12-2025 Lease Analyst Office Visit Report [facility]'s [address], [address] [place] [address] OFFICE VISIT Date of Service: 04/12/25 MR#: [id number] Acct: [id number] Name: PHUC KAUFFMAN Rep #: [id number] : 1995 Provider: Dr. 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 Is patient in pain?: No Allergies No Known Allergies Allergy (Verified 04/12/25 10:42) Medications ???Medication ???Instructions ???Recorded ???Confirmed ???Type PNV#14-iron fum-FA#2-jig-qqmnmvic cap PO 04/16/24 04/12/25 History 27 mg iron-1 mg-300 mg-50 mg capsule promethazine 12.5 mg tablet 12.5 mg PO Q6H PRN nausea and 01/1604/12/25 Rx vomiting #90 tabs ondansetron 4 mg disintegrating 4 mg PO Q6H PRN nausea and 5 04/12/25 Rx tablet vomiting #30 tabs Last Menstrual Period: 07/15/23 Zika: Zika virus screening: Negative : No PFSH PFSH Medical History H/O abnormal cervical Papanicolaou smear History of miscarriage, currently Supervision of high-risk Abnormal glucose affecting SROM (spontaneous rupture of membranes) Mononucleosis SAB (spontaneous ) Spotting affecting Hx of ingrown nail Hypersomnolence Seasonal allergies Surgical History History of appendectomy Family History Grandmother DVT (deep venous thrombosis) Aunt DVT (deep venous thrombosis) Uncle DVT (deep venous thrombosis) Father Hypertension Social History adopted: No household members: spouse housing: house number of children: 1 current occupational status: unemployed current occupation: [employer] current occupational exposures/hazards: No pets and animals: Yes (Avoid litterbox) pets and animals: cat(s) history of recent travel: No sexually active: Yes Smoking Status: Never smoker alcohol intake: current alcohol intake frequency: holidays/special occasions only details: not while substance use type: does not use well-balanced diet: daily or most days caffeine: No eating out: 1-3 times/week during the past year weight has: decreased > 10 lbs what type of physical activity do you participate in: none frequency: 3-4 times per week duration: 45-60 minutes/day edmundo/episcopalian: Scientology seatbelt use: always do you feel safe at home: Yes additional social history: [employer] History 3 Elective abortions Hx Para 1 Spontaneous abortions 1 Hx # Term Pregnancies Ectopic pregnancies Hx # Pregnancies Multiple births # of living children 1 Past Pregnancies Del. Date Name GA/Weeks Outcome Route Bth Weight Infant Gen Labor Lgth Anesthesia Del Locatn Provider FOB Unknown 01/2023 spontaneous 04/17/24 Mikel 39 live - full term 8lbs 8oz Male epidural [facility] S Chago Sarabia Delivery Date: 04/17/24 Last Updated by: Chiquita Henry RN See problem list for complications, and srom IAL SM 39 HPI 17 wk ob *move 06/07 appt Details: PHUC KAUFFMAN is a 30 year old who presents for routine OB visit. OB Visit NATHANAEL Calculator Estimated Delivery Date Method Current WG Current Estimate 09/19/25 Ultrasound #1 17w 1d Expected Delivery Route/Plan Labor Preferences- CB/BF classes: [] labor support person: [] labor intervention preferences: [] pain management options preferred: [] cut cord/dad catch: [] : [] PP control planned: [] discussed possible routes of delivery and associated risks: [] special requests: [] Specific Issue/Plans Covid status: [] Flu vaccine: [] Tdap vaccine: [] Rhogam: [] LARC form signed: [] Problem list reviewed and updated with the most current plan of care details and appropriate orders placed. Relevant counseling for the gestational age provided. Continue routine care and follow up unless otherwise noted in visit notes/problem list details Initial Weight: Not Recorded Date -???-???-???-???-???- ???-???-???-???-???-? ??-???- EGA Weight BP Urine Prot -???-???-???-???-???- ???-???-???-???-???-? ??-???- Glucose FHR FuHt Pres Dilation -???-???-???-???-???- ???-???-???-???-???-? ??-???- Effaced St Visit Note 02/14/25 -???-???-???-???-???- ???-???-???-???-???-? ??-???- 9w 0d 183 lb 6 oz 109/69 -???-???-???-???-???- ???-???-???-???-???-? ??-???- (more content not included)... Normal [facility] Laboratory - Chemistry and C hemistry - challengeOrdered By: Yohana Roberson on 03-15-2025 Glucose Ql (U) Negative [facility] Laboratory - UrinalysisOrder ed By: Yohana Roberson on 03-15-2025 Protein Ql (U) Negative [facility] Lease Analyst Office Visit Reporton 03-15-2025 Lease Analyst Office Visit Report [facility] [address], [address] [place] [address] OFFICE VISIT Date of Service: 03/15/25 MR#: [id number] Acct: [id number] Name: PHUC KAUFFMAN Rep #: [id number] : 1995 Provider: CHANDRAKANT montes Age/Sex: 30/F Location: [facility] [place] Status: Signed Intake Vital Signs 05/24/24 11:16 03/04/25 13:51 03/15/25 08:36 Height 5 ft 8 in 5 ft 8 in 5 ft 8 in Weight: 181 lb BMI 27.5 BP 125/73 H Intake Visit Reasons: 13wk OB Chief Complaint: 13 Week 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 Is patient in pain?: No Allergies No Known Allergies Allergy (Verified 03/15/25 08:37) Medications ???Medication ???Instructions ???Recorded ???Confirmed ???Type PNV#14-iron fum-FA#6-rtz-casmyani cap PO 04/16/24 03/15/25 History 27 mg iron-1 mg-300 mg-50 mg capsule promethazine 12.5 mg tablet 12.5 mg PO Q6H PRN nausea and 01/1603/15/25 Rx vomiting #90 tabs ondansetron 4 mg disintegrating 4 mg PO Q6H PRN nausea and 03/15/25 Rx tablet vomiting #30 tabs Last Menstrual Period: 07/15/23 Zika: Zika virus screening: Negative : No PFSH PFSH Medical History (Updated 03/15/25 @ 09:06 by Yohana Roberson TOOL CHASER, TOOL CHASER-C) H/O abnormal cervical Papanicolaou smear History of miscarriage, currently Supervision of high-risk Abnormal glucose affecting SROM (spontaneous rupture of membranes) Mononucleosis SAB (spontaneous ) Spotting affecting Hx of ingrown nail Hypersomnolence Seasonal allergies Surgical History History of appendectomy Family History Grandmother DVT (deep venous thrombosis) Aunt DVT (deep venous thrombosis) Uncle DVT (deep venous thrombosis) Father Hypertension Social History adopted: No household members: spouse housing: house number of children: 1 current occupational status: unemployed current occupation: [employer] current occupational exposures/hazards: No pets and animals: Yes (Avoid litterbox) pets and animals: cat(s) history of recent travel: No sexually active: Yes Smoking Status: Never smoker alcohol intake: current alcohol intake frequency: holidays/special occasions only details: not while substance use type: does not use well-balanced diet: daily or most days caffeine: No eating out: 1-3 times/week during the past year weight has: decreased > 10 lbs what type of physical activity do you participate in: none frequency: 3-4 times per week duration: 45-60 minutes/day edmundo/episcopalian: Scientology seatbelt use: always do you feel safe at home: Yes additional social history: [employer] History 3 Elective abortions Hx Para 1 Spontaneous abortions 1 Hx # Term Pregnancies Ectopic pregnancies Hx # Pregnancies Multiple births # of living children 1 Past Pregnancies Del. Date Name GA/Weeks Outcome Route Bth Weight Infant Gen Labor Lgth Anesthesia Del Locatn Provider FOB Unknown 01/2023 spontaneous 04/17/24 Mikel 39 live - full term 8lbs 8oz Male epidural [facility] Delivery Date: 04/17/24 Last Updated by: Chiquita Henry RN See problem list for complications, and srom IAL SM 39 HPI 13wk OB Details: PHUC KAUFFMAN is a 30 year old who presents for routine OB visit. OB Visit NATHANAEL Calculator Estimated Delivery Date Method Current WG Current Estimate 09/19/25 Ultrasound #1 13w 1d Expected Delivery Route/Plan Labor Preferences- CB/BF classes: [] labor support person: [] labor intervention preferences: [] pain management options preferred: [] cut cord/dad catch: [] : [] PP control planned: [] discussed possible routes of delivery and associated risks: [] special requests: [] Specific Issue/Plans Covid status: [] Flu vaccine: [] Tdap vaccine: [] Rhogam: [] LARC form signed: [] Problem list reviewed and updated with the most current plan of care details and appropriate orders placed. Relevant counseling for the gestational age provided. Continue routine care and follow up unless otherwise noted in visit notes/problem list details Initial Weight: Not Recorded Date -???-???-???-???-???- ???-???-???-???-???-? ??-???- EGA Weight BP Urine Prot -???-???-???-???-???- ???-???-???-???-???-? ??-???- Glucose FHR FuHt Pres Dilation -???-???-???-???-???- ???-???-???-???-???-? ??-???- [address] [facility] Visit Note 02/14/25 -???-???-???-???-???- ???-???-???-???-???-? ??-???- 9w 0d 183 lb 6 oz 109/69 -???-???-???-???-???- ???-???-???-???-???-? ??-???- (more content not included)... Normal [facility] Absolute lymphocyte countOrd ered By: Sisi Sara on 02-21-2025 Lymphocytes Auto (Unsp spec) [#/Vol] 2.02 10*3/uL 0.83-4.51 [facility] Absolute neutrophil countOrd ered By: [facility]isi [facility] on 02-21-2025 Neutrophils (Bld) [#/Vol] 3.9 10*3/uL 2.0-7.7 [facility] Automated lymphocyte count a s percentage of total leukocytesOrdered By: Sisi Sara on 02-21-2025 Lymphocytes/100 WBC Auto (Unsp spec) 31.0 % 19-41 [facility] Basophil percentageOrdered B y: Sisi Sara on 02-21-2025 Basophils/100 WBC (Bld) 0.9 % 0-1 [facility] CBC W/Diff, Automatedon Absolute Lymph 2.02 X10 3/uL Normal 0.83-4.51 [facility] Comment on above: Performed By: #### L 100.0100, L900.0098, L3890.6301, BTS, L3890.6102, L3890.6006, L509.4006, L501.9520, L509.8002 #### [facility] Laboratory [facility] [place], [address] Absolute Neut 3.9 X10 3/uL Normal 2.0-7.7 [facility] Comment on above: Performed By: #### L 100.0100, L900.0098, L3890.6301, BTS, L3890.6102, L3890.6006, L509.4006, L501.9520, L509.8002 #### [facility] Laboratory [address] [place], [address] Basophils/100 WBC (Bld) 0.9 % Normal 0-1 [facility] Comment on above: Performed By: #### L 100.0100, L900.0098, L3890.6301, BTS, L3890.6102, L3890.6006, L509.4006, L501.9520, L509.8002 #### [facility] [address] [place], [address] Eosinophils/100 WBC (Bld) 2.0 % Normal 0-5 [facility] Comment on above: Performed By: #### L 100.0100, L900.0098, L3890.6301, BTS, L3890.6102, L3890.6006, L509.4006, L501.9520, L509.8002 #### [facility] [address] [place], [address] Erythrocyte distribution width (RBC) [Ratio] 12.4 % Normal 11.6-14.6 [facility] Comment on above: Performed By: #### L 100.0100, L900.0098, L3890.6301, BTS, L3890.6102, L3890.6006, L509.4006, L501.9520, L509.8002 #### [facility] [address] [place], [address] Hematocrit (Bld) [Volume fraction] 40.0 % Normal 37-47 [facility] Comment on above: Performed By: #### L 100.0100, L900.0098, L3890.6301, BTS, L3890.6102, L3890.6006, L509.4006, L501.9520, L509.8002 #### [facility] [address] [place], [address] Hemoglobin (Bld) [Mass/Vol] 13.9 g/dL Normal 12.0-15.0 [facility] Comment on above: Performed By: #### L 100.0100, L900.0098, L3890.6301, BTS, L3890.6102, L3890.6006, L509.4006, L501.9520, L509.8002 #### [facility] [address] [place], [address] IG% 0.200 Normal 0.0-0.9 [facility] Comment on above: Result Comment: IG% - Immature Granulocytes (promyelocytes, myelocytes and metamyelocytes) > 1% indicates that a LEFT SHIFT is Present. Performed By: #### L 100.0100, L900.0098, L3890.6301, BTS, L3890.6102, L3890.6006, L509.4006, L501.9520, L509.8002 #### [facility] [address] [place], [address] Lymphocytes/100 WBC (Bld) 31.0 % Normal 19-41 [facility] Comment on above: Performed By: #### L 100.0100, L900.0098, L3890.6301, BTS, L3890.6102, L3890.6006, L509.4006, L501.9520, L509.8002 #### [facility] [address] [place], [address] MCH (RBC) [Entitic mass] 30.1 pg Normal 27.0-32.0 [facility] Comment on above: Performed By: #### L 100.0100, L900.0098, L3890.6301, BTS, L3890.6102, L3890.6006, L509.4006, L501.9520, L509.8002 #### [facility] [address] [place], [address] MCHC (RBC) [Mass/Vol] 34.8 g/dL Normal 32-36 [facility] Comment on above: Performed By: #### L 100.0100, L900.0098, L3890.6301, BTS, L3890.6102, L3890.6006, L509.4006, L501.9520, L509.8002 #### [facility] [address] [facility] [place], [address] MCV (RBC) [Entitic vol] 86.6 fL Normal 81-99 [facility] Comment on above: Performed By: #### L 100.0100, L900.0098, L3890.6301, BTS, L3890.6102, L3890.6006, L509.4006, L501.9520, L509.8002 #### [facility] [address] [place], [address] Monocytes/100 WBC (Bld) 6.6 % Normal 0-10 [facility] Comment on above: Performed By: #### L 100.0100, L900.0098, L3890.6301, BTS, L3890.6102, L3890.6006, L509.4006, L501.9520, L509.8002 #### [facility] [address] [place], [address] Neutrophils/100 WBC (Bld) 59.3 % Normal 47-70 [facility] Comment on above: Performed By: #### L 100.0100, L900.0098, L3890.6301, BTS, L3890.6102, L3890.6006, L509.4006, L501.9520, L509.8002 #### [facility] [address] [place], [address] Nucleated RBC (Bld) [#/Vol] 0 10*3/uL Normal 0-5 [facility] Comment on above: Performed By: #### L 100.0100, L900.0098, L3890.6301, BTS, L3890.6102, L3890.6006, L509.4006, L501.9520, L509.8002 #### [facility] [address] [place], [address] Platelet mean volume (Bld) [Entitic vol] 11.5 fL Normal 6.2-12.0 [facility] Comment on above: Performed By: #### L 100.0100, L900.0098, L3890.6301, BTS, L3890.6102, L3890.6006, L509.4006, L501.9520, L509.8002 #### [facility] [address] [place], [address] Platelets (Bld) [#/Vol] 321 10*3/uL Normal 150-450 [facility] Comment on above: Performed By: #### L 100.0100, L900.0098, L3890.6301, BTS, L3890.6102, L3890.6006, L509.4006, L501.9520, L509.8002 #### [facility] [address] [place], [address] RBC (Bld) [#/Vol] 4.62 10*6/uL Normal 4.2-5.4 [facility] Comment on above: Performed By: #### L 100.0100, L900.0098, L3890.6301, BTS, L3890.6102, L3890.6006, L509.4006, L501.9520, L509.8002 #### [facility] [address] [place], [address] RDW SD 39.1 fl Normal 35.1-43.9 [facility] Comment on above: Performed By: #### L 100.0100, L900.0098, L3890.6301, BTS, L3890.6102, L3890.6006, L509.4006, L501.9520, L509.8002 #### [facility] [address] [place], [address] WBC (Bld) [#/Vol] 6.5 10*3/uL Normal 4.4-11.0 [facility] Comment on above: Performed By: #### L 100.0100, L900.0098, L3890.6301, BTS, L3890.6102, L3890.6006, L509.4006, L501.9520, L509.8002 #### [facility] [address] [place], [address] Eosinophil percentageOrdered By: Sisi Ruiz on 02-21-2025 Eosinophils/100 WBC (Bld) 2.0 % 0-5 [facility] Erythrocyte distribution wid th ratioOrdered By: Sisi Ruiz on 02-21-2025 Erythrocyte distribution width (RBC) [Ratio] 12.4 % 11.6-14.6 [facility] Erythrocyte distribution wid th standard deviationOrdered By: Sisi Ruiz on 02-21-2025 Erythrocyte distribution width (RBC) [Ratio] 39.1 fl 35.1-43.9 [facility] HIVon 02-21-2025 HIV Non-Reactive Normal Nonreactive [facility] Comment on above: Result Comment: Non- Reactive Reactive Repeatedly reactive samples must be confirmed according to CDC recommended confirmatory algorithms. The subresults for either HIVAG or AHIV can be used as an aid in the selection of the confirmation algorithm for reactive samples. Send out specimens with Reactive results to [facility] for confirmation. Order the HIV antibody detection and differentiation: lc#[id number] Performed By: #### L 100.0100, L900.0098, L3890.6301, BTS, L3890.6102, L3890.6006, L509.4006, L501.9520, L509.8002 ####[facility] [address] [place], [place], [id number] Hematocrit Auto (Bld) [Volum e fraction]Ordered By: Sisi Ruiz on 02-21-2025 Hematocrit (Bld) [Volume fraction] 40.0 % 37-47 [facility] Hemoglobin measurementOrdere d By: Sisi Ruiz on 02-21-2025 Hemoglobin (Bld) [Mass/Vol] 13.9 g/dL 12.0-15.0 [facility] Hepatitis C Antibodyon 02-21 Hepatitis C Ab Non-Reactive Normal Nonreactive [facility] Comment on above: Result Comment: Reac tive: Presumptive evidence of antibodies to HCV. Follow CDC recommendations for supplemental testing. Non-Reactive: Antibodies to HCV were not detected; does not exclude the possibility of exposure to HCV Reactive Results are presumptive evidence of antibodies to HCV. Follow CDC recommendations for supplemental testing. Order confirmation testing: HCV Quant by PCR testing - HCVPCR #[id number] Non Reactive: < 0.8 Equivocal: >/= 0.8 to < 1.0 Reactive: >/= 1.0 The CDC requires that a reactive/equivocal HCV antibody result be sent out for confirmation. HCV Quant by PCR testing. Performed By: #### L 100.0100, L900.0098, L3890.6301, BTS, L3890.6102, L3890.6006, L509.4006, L501.9520, L509.8002 ####[facility] [address] [place], [place], [id number] Immature granulocytes/100 WB C Auto (Bld)Ordered By: Sisi Ruiz on 02-21-2025 Immature granulocytes/100 WBC (Bld) 0.200 % 0.0-0.9 [facility] Comment on above: IG% - Immature Granu locytes (promyelocytes, myelocytes and metamyelocytes) > 1% indicates that a LEFT SHIFT is Present. L3890.6102on 02-21-2025 HEP B Surf Ag Non-Reactive Normal Nonreactive [facility] Comment on above: Result Comment: Reac tive: Presumptive evidence of HBV. Repeatedly reactive samples must be confirmed using a neutralization test ([employer] HBsAg Confirmatory Test) Non-Reactive: HBsAg not detected; does not exclude the possibility of exposure to HBV Performed By: #### L 100.0100, L900.0098, L3890.6301, BTS, L3890.6102, L3890.6006, L509.4006, L501.9520, L509.8002 ####[facility] [address] [facility] [place], [place], [id number] L509.4006on 02-21-2025 Rubella IgG REAC Normal Nonreactive [facility] Comment on above: Result Comment: Anti body Result: Interpretation Non-Reactive: Non-Immune Reactive: Immune The following results were obtained with the [employer] Rubella IgG assay. Results from assays of other manufacturers cannot be used interchangeably. Performed By: #### L 100.0100, L900.0098, L3890.6301, BTS, L3890.6102, L3890.6006, L509.4006, L501.9520, L509.8002 ####[facility] [address] [facility] [place], [place], [id number] Laboratory - Microbiology an d Antimicrobial susceptibilityOrdered By: Sisi Ruiz on 02-21-2025 HBV surface Ag Ql (S) Non-Reactive Nonreactive [facility] Comment on above: Reactive: Presumptiv e evidence of HBV. Repeatedly reactive samples must be confirmed using a neutralization test ([employer] HBsAg Confirmatory Test)Non-Reactive: HBsAg not detected; does not exclude the possibility of exposure to HBV MCV (mean corpuscular volume ) determinationOrdered By: Sisi Ruiz on 02-21-2025 MCV (RBC) [Entitic vol] 86.6 fL 81-99 [facility] Mean corpuscular hemoglobin (MCH) determinationOrdered By: Sisi Ruiz on 02-21-2025 MCH (RBC) [Entitic mass] 30.1 pg 27.0-32.0 [facility] Mean corpuscular hemoglobin concentration (MCHC) determinationOrdered By: Sisi Ruiz on 02-21-2025 MCHC (RBC) [Mass/Vol] 34.8 g/dL 32-36 [facility] Mean platelet volume determi nationOrdered By: Sisi Ruiz on 02-21-2025 Platelet mean volume (Bld) [Entitic vol] 11.5 fL 6.2-12.0 [facility] Monocyte percentageOrdered B y: Sisi Ruiz on 02-21-2025 Monocytes/100 WBC (Bld) 6.6 % 0-10 [facility] NATERAon 02-21-2025 NATURA SEE SCANNED REPORT Normal [facility] Comment on above: Performed By: #### L 100.0100, L900.0098, L3890.6301, BTS, L3890.6102, L3890.6006, L509.4006, L501.9520, L509.8002 #### [facility] Laboratory [facility] [address] [place], [place], [address] Neutrophil percentageOrdered By: Sisi Ruiz on 02-21-2025 Neutrophils/100 WBC (Bld) 59.3 % 47-70 [facility] No Panel InformationOrdered By: Sisi Ruiz on 02-21-2025 HIV (1&2) Antibody Non-Reactive Nonreactive [facility] Comment on above: Non-ReactiveReactive Repeatedly reactive samples must be confirmed according to CDC recommended confirmatory algorithms. The subresults for either HIVAG or AHIV can be used as an aid in the selection of the confirmation algorithm for reactive samples.Send out specimens with Reactive results to [facility] for confirmation.Order the HIV antibody detection and differentiation: #[id number] Nucleated red blood cell per centageOrdered By: Sisi Ruiz on 02-21-2025 Nucleated RBC/100 WBC (Bld) [Ratio] 0 % 0-5 [facility] Platelet countOrdered By: Avila Ruiz on 02-21-2025 Platelets (Bld) [#/Vol] 321 10*3/uL 150-450 [facility] RBC Auto (Bld) [#/Vol]Ordere d By: Sisi Bossmakeda on 02-21-2025 RBC (Bld) [#/Vol] 4.62 10*6/uL 4.2-5.4 [facility] Syphilis Antibodieson 2024 Syphilis Abs Non-Reactive Normal Nonreactive [facility] Comment on above: Performed By: #### L 100.0100, L900.0098, L3890.6301, BTS, L3890.6102, L3890.6006, L509.4006, L501.9520, L509.8002 ####[facility] [address] [place], [place], [id number] TSH DL <= 0.005 mIU/L QnOrde red By: Sisi Sara on 02-21-2025 TSH Qn 1.260 uIU/mL 0.300-4.200 [facility] Thyroid Stim Hormone (TSH)on 02-21-2025 TSH 1.260 uIU/mL Normal 0.300-4.200 [facility] Comment on above: Performed By: #### L 100.0100, L900.0098, L3890.6301, BTS, L3890.6102, L3890.6006, L509.4006, L501.9520, L509.8002 ####[facility] [address] [place], [place], [id number] Type AND Screenon 02-21-2025 Ab SCREEN GEL Negative Normal [facility] Comment on above: Order Comment: PN Performed By: #### L 100.0100, L900.0098, L3890.6301, BTS, L3890.6102, L3890.6006, L509.4006, L501.9520, L509.8002 #### [facility] Laboratory [address] [place], [place], [id number] White blood cell (WBC) count Ordered By: Sisi Ruiz on 02-21-2025 WBC (Bld) [#/Vol] 6.5 10*3/uL 4.4-11.0 [facility] Chlamydia/GC DESTINY aptimaon CHLAMY,NUC ACID Negative Normal Negative [facility] Comment on above: Performed By: #### L 7000.1800, M100.2200 #### [facility] [address] [place], [address] GC BY NUC ACID Negative Normal Negative [facility] Comment on above: Result Comment: Perf ormed at: =G - [facility] [address] [id number] Biscuit Maker: Radha Wheat MD, Phone: [phone] Performed By: #### L 7000.1800, M100.2200 #### [facility] [address] [place], [address] Urine Cultureon 02-15-2025 URC Culture exhibits no growth. Normal [facility] Comment on above: Performed By: #### L 7000.1800, M100.2200 #### [facility] [address] [place], [address] Chlamydia trachomatis rRNA d etection by probe and target amplification methodOrdered By: Sisi Ruiz on 02-14-2025 C. trachomatis rRNA DESTINY+probe Ql (Unsp spec) Negative Negative [facility] Neisseria gonorrhoeae nuclei c acid detection by amplified probe techniqueOrdered By: Sisi Ruiz on 02-14-2025 N. gonorrhoeae DNA DESTINY+probe Ql (Unsp spec) Negative Negative [facility] Comment on above: Performed at: =G - [facility] [address] [id number] Director: Radha Wheat MD, Phone: [phone] Lease Analyst Office Visit Reporton 02-14-2025 Lease Analyst Office Visit Report [facility]'[address], [address] [place] [address] OFFICE VISIT Date of Service: 02/14/25 MR#: [id number] Acct: [id number] Name: PHUC KAUFFMAN Rep #: [id number] : 1995 Provider: Dr. 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 Is patient in pain?: No Allergies No Known Allergies Allergy (Verified 02/14/25 08:13) Medications ???Medication ???Instructions ???Recorded ???Confirmed ???Type PNV#14-iron fum-FA#[id number] cap PO 04/16/24 02/10/25 History 27 mg iron-1 mg-300 mg-50 mg capsule promethazine 12.5 mg tablet 12.5 mg PO Q6H PRN nausea and 01/1602/10/25 Rx vomiting #90 tabs ondansetron 4 mg disintegrating 4 mg PO Q6H PRN nausea and 5 02/14/25 Rx tablet vomiting #30 tabs Last Menstrual Period: 07/15/23 Zika: Zika virus screening: Negative : No PFSH PFSH Medical History History of miscarriage, currently Supervision of high-risk Abnormal glucose affecting SROM (spontaneous rupture of membranes) Mononucleosis SAB (spontaneous ) Spotting affecting Hx of ingrown nail Hypersomnolence Seasonal allergies Surgical History History of appendectomy Family History Grandmother DVT (deep venous thrombosis) Aunt DVT (deep venous thrombosis) Uncle DVT (deep venous thrombosis) Father Hypertension Social History adopted: No household members: spouse housing: house number of children: 1 current occupational status: unemployed current occupation: [employer] current occupational exposures/hazards: No pets and animals: Yes (Avoid litterbox) pets and animals: cat(s) history of recent travel: No sexually active: Yes Smoking Status: Never smoker alcohol intake: current alcohol intake frequency: holidays/special occasions only details: not while substance use type: does not use well-balanced diet: daily or most days caffeine: No eating out: 1-3 times/week during the past year weight has: decreased > 10 lbs what type of physical activity do you participate in: none frequency: 3-4 times per week duration: 45-60 minutes/day edmundo/episcopalian: [employer] seatbelt use: always do you feel safe at home: Yes additional social history: [employer] History 3 Elective abortions Hx Para 1 Spontaneous abortions 1 Hx # Term Pregnancies Ectopic pregnancies Hx # Pregnancies Multiple births # of living children 1 Past Pregnancies Del. Date Name GA/Weeks Outcome Route Bth Weight Infant Gen Labor Lgth Anesthesia Del Locatn Provider FOB Unknown 01/2023 spontaneous 04/17/24 Mikel 39 live - full term 8lbs 8oz Male epidural [facility] Frantz Sarabia Delivery Date: 04/17/24 Last Updated by: Chiquita Henry RN See problem list for complications, and srom IAL SM 39 HPI *EST* NOB LMP 02/01, NATHANAEL 2/3 Details: PHUC KAUFFMAN is a 29 year old who presents for New OB visit. OB Visit NATHANAEL Calculator Estimated Delivery Date Method Current WG Current Estimate 09/19/25 Ultrasound #1 9w 0d Comments: HIV: Urine Culture: Sequential Screen: NIPT Screen: Estimated Due Date: 09/19/25 Expected Delivery Route/Plan Labor Preferences- CB/BF classes: [] labor support person: [] labor intervention preferences: [] pain management options preferred: [] cut cord/dad catch: [] : [] PP control planned: [] discussed possible routes of delivery and associated risks: [] special requests: [] Specific Issue/Plans Covid status: [] Flu vaccine: [] Tdap vaccine: [] Rhogam: [] LARC form signed: [] Problem list reviewed and updated with the most current plan of care details and appropriate orders placed. Relevant counseling for the gestational age provided. Continue routine care and follow up unless otherwise noted in visit notes/problem list details Initial Weight: Not Recorded Date -???-???-???-???-???- ???-???-???-???-???-? ??-???- EGA Weight BP Urine Prot -???-???-???-???-???- ???-???-???-???-???-? ??-???- Glucose FHR FuHt Pres Dilation -???-???-???-???-???- ???-???-???-???-???-? ??-???- Effaced St Visit Note 02/14/25 -???-???-???-???-???- ???-???-???-???-???-? ??-???- 9w 0d 1 (more content not included)... Normal [facility] Urine cultureOrdered By: Sharon Ruiz on 02-14-2025 Bacteria identified Cx Nom (U) Culture exhibits no growth. [facility] Transvaginal w/Preg USon Transvaginal w/Preg [facility] [address] [place] [address] Transvaginal w/Preg US MR#: [id number] Acct: [id number] Name: PHUC KAUFFMAN Rep #: [id number] : 1995 F 29 From: Awais garduno MD PCP: Dr. Marc Tyson MD Status: [facility] Study: Transvaginal w/Preg US Date of Exam: 01/31/25 Exam# [id number] Ordering Dr: Kristy Calabrese CNM PROCEDURE: TRANSVAGINAL W/PREG US 01/31/2025 REASON FOR EXAM: DATING/VIABILITY TECHNIQUE: TRANSVAGINAL W/PREG US COMPARISON: None FINDINGS: LMP: Unknown Comments: Transvaginal imaging was performed Number of Gestational Sacs: 1 Gestational Sac Shape: Normal Number of Fetuses: 1 Heart Rate: 127 (average) Yolk Sac: Present and unremarkable. Placenta: Presently not well-visualized Amniotic Fluid Volume: Subjectively normal for gestational age. Uterine Abnormalities: Maternal uterus is unremarkable. Ovaries / Adnexa: Both maternal ovaries are visualized and unremarkable. DIMENSIONS: Parameter Measurement / EGA [place] Rump Length: 5.7 mm/ Gestational Sac: 6 weeks and 4 days/ Yolk Sac: 3.1 mm/ ESTIMATED GESTATIONAL AGE: By Ultrasound: 7 weeks and 0 days By LMP: Unknown ESTIMATED DATE OF DELIVERY: By Ultrasound: September 19, 2025 By LMP: Unknown US/Transvaginal w/Preg US IMPRESSION: Single live intrauterine gestation with a mean gestational age of 7 weeks. Reading Location: [place] [address] CC: TRACIE Calabrese; Dr. 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 497 mIU/mL High <9 non-preg [facility] Comment on above: Result Comment: Gest ational Age 0.2-1 Week: 5-50 mIU/mL 1-2 Weeks: 50-500 mIU/mL 2-3 Weeks: 100-5000 mIU/mL 3-4 Weeks: 500-10,000 mIU/mL 4-5 Weeks:1000-50,000 mIU/mL 5-6 Weeks: 10,000-100,000 mIU/mL 6-8 Weeks: 15,000-200,000 mIU/mL 2-3 Months:10,000-100,000 mIU/mL Performed By: #### L 700.8000 #### [facility] [address] [place], [place], [address] Serum human chorionic gonado tropin detection for pregnancyOrdered By: Kristy Calabrese on 01-12-2025 HCG ( test) Ql 186 mIU/mL High <9 [facility] Comment on above: Gestational Age0.2-1 Week: 5-50 mIU/mL1-2 Weeks: 50-500 mIU/mL2-3 Weeks: 100-5000 mIU/mL3-4 Weeks: 500-10,000 mIU/mL4-5 Weeks:1000-50,000 mIU/mL5-6 Weeks: 10,000-100,000 mIU/mL6-8 Weeks: 15,000-200,000 mIU/mL2-3 Months:10,000-100,000 mIU/mL hCG Titer Quant., Serumon HCG QUANT. 186 mIU/mL High <9 non-preg [facility] Comment on above: Result Comment: Gest ational Age 0.2-1 Week: 5-50 mIU/mL 1-2 Weeks: 50-500 mIU/mL 2-3 Weeks: 100-5000 mIU/mL 3-4 Weeks: 500-10,000 mIU/mL 4-5 Weeks:1000-50,000 mIU/mL 5-6 Weeks: 10,000-100,000 mIU/mL 6-8 Weeks: 15,000-200,000 mIU/mL 2-3 Months:10,000-100,000 mIU/mL Performed By: #### L 700.8000 #### [facility] [address] [place] [place], [address] CNOVon 06-15-2024 [facility] PHUC KAUFFMAN ([id number]) 1995 F Date Time Provider Department 06/15/24 6:00 PM RENEE GUZMÁN [facility] During your visit today, we recorded the following information about you: Temperature Pulse Respiration Blood pressure 100.7 degrees 121/minute 18/minute 118/76 Weight 86.1 kg Renee Guzmán APRN.UNIT COORDINATOR 06/15/2024 7:50 PM Signed CC: Patient presents with: Cough: Cough, ST, congestion and RIVAS x 6 days HPI: Phuc Kauffman is a 29 year old female who presents to the office with complaint of head congestion, cough, nonproductive, sore throat, and fever for 6 days. Symptoms are worsening Associated symptoms includes headache. Denies nausea, vomiting , and diarrhea. Treatments tried include nothing so far. with no relief of symptoms. Sick contacts: unknown. History of asthma, frequent episodes of bronchitis, chronic bronchitis, bronchiectasis or COPD: No Smoker: No Seasonal/environmenta l allergies: No The ROS is otherwise negative. The patient's pmh, medications, allergies, and past visits are reviewed. PHYSICAL EXAM: BP 118/76 Pulse (!) 121 Temp (!) 38.2 ?C (100.7 ?F) (Tympanic) Resp 18 Wt 86.1 kg (189 lb 13.1 oz) LMP 04/04/2021 SpO2 98% BMI 29.29 kg/m? General appearance: alert, cooperative, pleasant, in no acute distress Head: Normocephalic Eyes: EOM's intact, conjunctiva pink and moist, no icterus, sclera white, non-injected on left right conjunctiva injected Ears: Right ear: External ear/canal- Normal, TM - clear with good landmarks. Left ear: External ear/canal- Normal, TM - clear with good landmarks Oropharynx:mild erythema, without exudates present, uvula midline Heart: Negative. RRR without obvious murmur, gallop, or rubs. No ectopy. Lungs: clear to auscultation, without rales or wheeze, good air exchange PAST MEDICAL HISTORY Diagnosis Date Infectious mononucleosis Kidney stone Splenomegaly PAST SURGICAL HISTORY Procedure Laterality Date APPENDECTOMY ALLERGIES Amoxicillin and Motrin [Ibuprofen] MEDICATIONS ALYACEN 1/, 28, 1-35 mg-mcg per tablet Take 1 tablet by mouth once daily. (Patient not taking: No sig reported) No family history on file. Social History Tobacco Use Smoking status: Never Smokeless tobacco: Never Vaping Use Vaping status: Never Used Substance Use Topics Alcohol use: Never Drug use: Never ASSESSMENT/PLAN: 1. Sore throat - ICD9: 462, ICD10: J02.9 (primary diagnosis) - STREP A MOLECULAR (POC) - neg 2. Acute cough - ICD9: 786.2, ICD10: R05.1 - XR CHEST 2V FRONTAL/LAT- neg 3. [place] eye disease of right eye - ICD9: 372.03, ICD10: H10.021 - POLYMYXIN B SULFATE 10,000 UNIT-TRIMETHOPRIM 1 MG/ML EYE DROPS 4. URI, acute - ICD9: 465.9, ICD10: J06.9 - COVID AND INFLUENZA A/B AND RSV PCR, ROUTINE Prescription instructions reviewed with patient as applicable. Potential red flag symptoms discussed with the patient. Reviewed appropriate action plan to take if red flag symptoms occur. Patient agreeable to treatment plan. Renee Guzmán APRN.UNIT COORDINATOR Allergies As of Date: 06/15/2024 Noted Allergy Reaction AMOXICILLIN 03/01/2020 4 - Hives MOTRIN (IBUPROFEN) 03/01/2020 2 - Rash Date Reviewed: 06/15/2024 Reviewed by: Alexandrea Adam LPN - Fully Assessed Reason for Visit: Cough [28] Cmt: Cough, ST, congestion and RIVAS x 6 days Primary Visit Diagnosis:Sore throat [J02.9] Other Visit Diagnoses:Acute cough [R05.1] [place] eye disease of right eye [H10.021] URI, acute [J06.9] Order(s):STREP A MOLECULAR (POC) [9701784] Order #: [id number]. #:[id number] trimethoprim-polymyxi n (POLYTRIM) 10,000 unit- 1 mg/mL ophthalmic solutionUse 1 Drop in the right eye every 4 hours for 7 days.Disp: 10 mLRfl: 0 XR CHEST 2V FRONTAL/LAT [[id number]] Order #: [id number] FUTURE COVID AND INFLUENZA A/B AND RSV PCR, ROUTINE [SQCVFLRS] Order #: [id number]. #:[id number] Prescriptions as of 06/15/2024 - trimethoprim-polymyxi n (POLYTRIM) 10,000 unit- 1 mg/mL ophthalmic solution Use 1 Drop in the right eye every 4 hours for 7 days. - ALYACEN , 28, 1-35 mg-mcg per tablet Take 1 tablet by mouth once daily. Problem List As Of Date 06/15/2024 Noted Resolved Chronic pain of left ankle [M25.572, G89.29] 05/02/2021 Prescriptions ordered this encounter Disp Refills Start End POLYMYXIN B SULFATE 10,000 UNIT-TRIM* 10 mL 0 06/15/2024 06/22/2024 Route: RIGHT EYE Sig: Use 1 Drop in the right eye every 4 hours for 7 days. Encounter Status:Closed by RENEE GUZMÁN on 06/15/24 [facility] 06-15-2024 [facility] Telephone ([facility]) PHUC KAUFFMAN ([id number]) 1995 F Date Time Provider Department 06/15/24 RENEE GUZMÁN [facility] During your visit today, we recorded the following information about you: Renee Guzmán APRN.[facility] 06/15/2024 7:49 PM Signed Please call let patient know that her chest x-ray was negative. Patient should use supportive care that is compatible with breast-feeding. Please have patient follow-up with primary care if symptoms persist. Lo Lopes MA 06/15/2024 8:06 PM Signed Patient given results and verbalized understanding of instructions given. Lo Lopes MA Allergies As of Date: 06/15/2024 Noted Allergy Reaction AMOXICILLIN 03/01/2020 4 - Hives MOTRIN (IBUPROFEN) 03/01/2020 2 - Rash Date Reviewed: 06/15/2024 Reviewed by: Alexandrea Adam LPN - Fully Assessed Reason for Visit: Results [95] Prescriptions as of 06/15/2024 - trimethoprim-polymyxi n (POLYTRIM) 10,000 unit- 1 mg/mL ophthalmic solution Use 1 Drop in the right eye every 4 hours for 7 days. - ALYACEN 1/35, 28, 1-35 mg-mcg per tablet Take 1 tablet by mouth once daily. Problem List As Of Date 06/15/2024 Noted Resolved Chronic pain of left ankle [M25.572, G89.29] 05/02/2021 Encounter Status:Closed by LO LOPES on 06/15/24 Normal [facility] COVID AND INFLUENZA A/B AND RSV PCR, ROUTINEon 06-15-2024 SARS-CoV-2 (COVID-19) RNA DESTINY+probe Ql (Unsp spec) SARS-COV-2 (AGENT OF COVID-19) RNA: Not detected INFLUENZA A RNA: Not detected INFLUENZA B RNA: Not detected RESPIRATORY SYNCYTIAL VIRUS (RSV) RNA: Not detected Normal [facility] Comment on above: Performed By: #### C VFLRS #### [facility] CLIA [id number] [address] [place] [address] [place] STREP A MOLECULAR (POC)on Procedural Control Valid [facility] Strep A (POCT) Negative Negative [place] [facility] XR CHEST 2V FRONTAL/LATon XR CHEST 2V FRONTAL/LAT * * *Final Repor t* * * DATE OF EXAM: Jun 15 2024 6:34PM WOX [id number] - XR CHEST 2V FRONTAL/LAT / PROCEDURE REASON: Acute cough * * * * Physician Interpretation * * * * EXAMINATION: CHEST RADIOGRAPH (2 VIEW FRONTAL and LATERAL) CLINICAL HISTORY: Acute cough MQ: XC2_6 EXAM DATE/TIME: 06/15/2024 6:34 PM COMPARISON: No relevant prior studies available. RESULT: Lines, tubes, and devices: None. Lungs and pleura: No consolidation. No lung mass. No pleural effusion. No pneumothorax. Cardiomediastinal silhouette: Normal cardiomediastinal silhouette. Bones and soft tissues: Unremarkable. IMPRESSION: No acute radiographic abnormality. Irradiated Fuel Handler: PSCB Transcribe Date/Time: Jun 15 2024 7:26P Dictated by : LUISA AGUILERA MD This examination was interpreted and the report reviewed and electronically signed by: LUISA AGUILERA MD on Jun 15 2024 7:27PM EST [id number] Normal [facility] XR Chest PA and Lateralon IMPRESSION: No acute radiographic abnormality. Irradiated Fuel Handler: PSCB Transcribe Date/Time: Jun 15 2024 7:26P Dictated by : LUISA AGUILERA MD This examination was interpreted and the report reviewed and electronically signed by: LUISA AGUILERA MD on Jun 15 2024 7:27PM EST DIVISION OF RADIOLOGY * * *Final Report* * * DATE OF EXAM: Jun 15 2024 6:34PM WOX 5291 - XR CHEST 2V FRONTAL/LAT / PROCEDURE REASON: Acute cough * * * * Physician Interpretation * * * * EXAMINATION: CHEST RADIOGRAPH (2 VIEW FRONTAL & LATERAL) CLINICAL HISTORY: Acute cough MQ: XC2_6 EXAM DATE/TIME: 06/15/2024 6:34 PM COMPARISON: No relevant prior studies available. RESULT: Lines, tubes, and devices: None. Lungs and pleura: No consolidation. No lung mass. No pleural effusion. No pneumothorax. Cardiomediastinal silhouette: Normal cardiomediastinal silhouette. Bones and soft tissues: Unremarkable. DIVISION OF RADIOLOGY Provider, [facility] - 06/15/2024 * * *Final Report* * * DATE OF EXAM: Jun 15 2024 6:34PM WOX 5291 - XR CHEST 2V FRONTAL/LAT / PROCEDURE REASON: Acute cough * * * * Physician Interpretation * * * * EXAMINATION: CHEST RADIOGRAPH (2 VIEW FRONTAL & LATERAL) CLINICAL HISTORY: Acute cough MQ: XC2_6 EXAM DATE/TIME: 06/15/2024 6:34 PM COMPARISON: No relevant prior studies available. RESULT: Lines, tubes, and devices: None. Lungs and pleura: No consolidation. No lung mass. No pleural effusion. No pneumothorax. Cardiomediastinal silhouette: Normal cardiomediastinal silhouette. Bones and soft tissues: Unremarkable. IMPRESSION IMPRESSION: No acute radiographic abnormality. Irradiated Fuel Handler: PSCB Transcribe Date/Time: Jun 15 2024 7:26P Dictated by : LUISA AGUILERA MD This examination was interpreted and the report reviewed and electronically signed by: LUISA AGUILERA MD on Jun 15 2024 7:27PM EST [facility] Radiology Study observation (narrative) [facility] XR Chest PA and LateralOrder ed By: [facility] Provider on 06-15-2024 [facility] Absolute lymphocyte countOrd ered By: Sisi Ruiz on 09-24-2023 Lymphocytes Auto (Unsp spec) [#/Vol] 2.07 10*3/uL 0.83-4.51 [facility] Automated lymphocyte count a s percentage of total leukocytesOrdered By: Sisi Ruiz on 09-24-2023 Lymphocytes/100 WBC Auto (Unsp spec) 22.9 % 19-41 [facility] Basophil percentageOrdered B y: Sisi Ruiz on 09-24-2023 Basophils/100 WBC (Bld) 0.6 % 0-1 [facility] Eosinophils/100 WBC (Bld) 0.8 % 0-5 [facility] Hemoglobin (Bld) [Mass/Vol] 12.8 g/dL 12.0-15.0 [facility] Monocytes/100 WBC (Bld) 5.2 % 0-10 [facility] Neutrophils (Bld) [#/Vol] 6.3 10*3/uL 2.0-7.7 [facility] Neutrophils/100 WBC (Bld) 70.2 % 47-70 [facility] WBC (Bld) [#/Vol] 9.0 10*3/uL 4.4-11.0 [facility] Determination of erythrocyte mean corpuscular volume (MCV)Ordered By: Sisi Ruiz on 09-24-2023 MCV (RBC) [Entitic vol] 86.2 fL 81-99 [facility] Erythrocyte distribution wid th ratioOrdered By: Sisi Ruiz on 09-24-2023 Erythrocyte distribution width (RBC) [Ratio] 13.0 % 11.6-14.6 [facility] Erythrocyte distribution wid th standard deviationOrdered By: Sisi Ruiz on 09-24-2023 Erythrocyte distribution width (RBC) [Entitic vol] 40.0 fL 35.1-43.9 [facility] HIV 1 and HIV-2 antibody ass ay with HIV-1 p24 antigen detectionOrdered By: Sisi Ruiz on 09-24-2023 HIV 1+2 Ab+HIV1 p24 Ag IA Ql Non-Reactive Nonreactive [facility] Hematocrit Auto (Bld) [Volum e fraction]Ordered By: Sisi Ruiz on 09-24-2023 Hematocrit (Bld) [Volume fraction] 36.7 % 37-47 [facility] Immature granulocytes/100 WB C Auto (Bld)Ordered By: Sisi Ruiz on 09-24-2023 Immature granulocytes/100 WBC (Bld) 0.300 % 0.0-0.9 [facility] Comment on above: IG% - Immature Granu locytes (promyelocytes, myelocytes and metamyelocytes) > 1% indicates that a LEFT SHIFT is Present. Laboratory - Hematology and Cell countsOrdered By: Sisi Ruiz on 09-24-2023 MCH (RBC) [Entitic mass] 30.0 pg 27.0-32.0 [facility] MCHC (RBC) [Mass/Vol] 34.9 g/dL 32-36 [facility] Nucleated RBC/100 WBC (Bld) [Ratio] 0 % 0-5 [facility] Platelet mean volume (Bld) [Entitic vol] 9.5 fL 6.2-12.0 [facility] Platelets (Bld) [#/Vol] 305 10*3/uL 150-450 [facility] No Panel InformationOrdered By: Sisi Ruiz on 09-24-2023 Miscellaneous Test Comment SEE SCANNED REPORT [facility] Hepatitis B Surface Antigen Non-Reactive Nonreactive [facility] Hepatitis C Antibody Non-Reactive Nonreactive [facility] Comment on above: Non Reactive: < 0.8 Equivocal: >/= 0.8 to < 1.0 Reactive: >/= 1.0The CDC recommends that a reactive/equivocal HCV antibody result be followed up by the HCV Nucleic Acid Amplificationtest (950558) Rubella IgG Antibody Reactive Nonreactive [facility] Comment on above: Antibody Results Int erpretation of Immune Status Non Reactive Presumed Non-Immune Equivocal Equivocal Reactive Presumed Immune RBC Auto (Bld) [#/Vol]Ordere d By: Sisi Ruiz on 09-24-2023 RBC (Bld) [#/Vol] 4.26 10*6/uL 4.2-5.4 [facility] Serum Treponema species anti body detectionOrdered By: Sisi Ruiz on 09-24-2023 Treponema sp Ab Ql (S) Non-Reactive [facility] Cervical or vagninal specime n microscopic examination by cytology stain (reported asOrdered By: Sisi Ruiz on 09-15-2023 Cytology report Cyto stain Doc (Cvx/Vag) Comment . [facility] Comment on above: The Pap smear is a s creening test designed to aid in thedetection of premalignant and malignant conditions of theuterine cervix. It is not a diagnostic procedure andshould not be used as the sole means of detecting cervicalcancer. Both false-positive and false-negative reports dooccur. Chlamydia trachomatis rRNA d etection by probe and target amplification methodOrdered By: Sisi Ruiz on 09-15-2023 C. trachomatis rRNA DESTINY+probe Ql (Unsp spec) Negative Negative [facility] Culture, urineOrdered By: Avila Ruiz on 09-15-2023 Bacteria identified Cx Nom (U) Culture exhibits no growth. [facility] Laboratory - CytologyOrdered By: Sisi Ruiz on 09-15-2023 Membership Secretary Cyto stain Nom (Cvx/Vag) [ID] Comment . [facility] Comment on above: [employer] Fernando , Dag Sprayer (ASCP) Laboratory - Microbiology an d Antimicrobial susceptibilityOrdered By: Sisi Ruiz on 09-15-2023 N. gonorrhoeae DNA DESTINY+probe Ql (Unsp spec) Negative Negative [facility] Comment on above: Performed at: =[address] [id number] Director: Radha Wheat MD, Phone: [phone] Laboratory - Miscellaneous t estsOrdered By: Sisi Ruiz on 09-15-2023 Service comment (Unsp spec) [Interp] . . [facility] No Panel InformationOrdered By: Sisi Ruiz on 09-15-2023 Human Papillomavirus Screen Comment . [facility] Comment on above: The HPV DNA reflex c fariba were not met with this specimenresult therefore, no HPV testing was performed.Performed at: - [facility], [place] [id number] Director: Radha Wheat MD, Phone: [phone] Thin prep Papanicolaou smear with manual screeningOrdered By: Sisi Ruiz on 09-15-2023 Thin prep Papanicolaou smear with manual screening Comment . [facility] Comment on above: NEGATIVE FOR INTRAEP ITHELIAL LESION OR MALIGNANCY. This liquid based Th inPrep(R) pap test was screened withthe use of an image guided system. Serum or plasma choriogonado tropin detectionOrdered By: Sisi Ruiz on 02-14-2023 HCG ( test) Ql 2 mIU/mL <4 [facility] Comment on above: hCG levels with Gest ational AgeGestational Age hCG mIU/mL (IU/L)0.2 - 1 week 5 - 501-2 weeks 50 - 5002-3 weeks 100 - 71914-4 weeks 500 - 828773-0 weeks 1000 - 722171-4 weeks 22634 - 100,0006-8 weeks 88731 - 200,0002-3 months 26151 - 100,000 Serum or plasma choriogonado tropin detectionOrdered By: Dr. Ruiz on 02-06-2023 HCG ( test) Ql 37 mIU/mL <4 [facility] Comment on above: hCG levels with Gest ational AgeGestational Age hCG mIU/mL (IU/L)0.2 - 1 week 5 - 501-2 weeks 50 - 5002-3 weeks 100 - 34190-6 weeks 500 - 173425-7 weeks 1000 - 834459-7 weeks 86280 - 100,0006-8 weeks 29730 - 200,0002-3 months 82145 - 100,000 Serum or plasma choriogonado tropin detectionOrdered By: Yohana Roberson on 01-30-2023 HCG ( test) Ql 515 mIU/mL <4 [facility] Comment on above: hCG levels with Gest ational AgeGestational Age hCG mIU/mL (IU/L)0.2 - 1 week 5 - 501-2 weeks 50 - 5002-3 weeks 100 - 69432-2 weeks 500 - 529955-0 weeks 1000 - 770512-3 weeks 05390 - 100,0006-8 weeks 78380 - 200,0002-3 months 51150 - 100,000 Serum or plasma choriogonado tropin detectionOrdered By: Yohana Roberson on 01-28-2023 HCG ( test) Ql 623 mIU/mL <4 [facility] Comment on above: hCG levels with Gest ational AgeGestational Age hCG mIU/mL (IU/L)0.2 - 1 week 5 - 501-2 weeks 50 - 5002-3 weeks 100 - 48586-4 weeks 500 - 806741-4 weeks 1000 - 156821-1 weeks 13053 - 100,0006-8 weeks 62075 - 200,0002-3 months 20700 - 100,000 Absolute lymphocyte countOrd ered By: Dr. Vincent on 09-18-2022 Lymphocytes Auto (Unsp spec) [#/Vol] 2.13 10*3/uL 0.83-4.51 [facility] Basophil percentageOrdered B y: Dr. Vincent on 09-18-2022 Basophils/100 WBC (Bld) 0.8 % 0-1 [facility] Bilirubin [Mass/Vol] 0.30 mg/dL 0.20-1.00 [facility] Comment on above: For patients on eltr ombopag therapy, use of Dimension [place] TBIL is not recommended. Chloride [Moles/Vol] 106 mmol/L 98-107 [facility] Cholesterol [Mass/Vol] 208 mg/dL <200 [facility] Comment on above: <200 mg/dL Desirable 200-240 mg/dL Borderline >240 mg/dL High Risk Eosinophils/100 WBC (Bld) 1.6 % 0-5 [facility] Glucose [Mass/Vol] 92 mg/dL 74-106 [facility] Neutrophils (Bld) [#/Vol] 4.6 10*3/uL 2.0-7.7 [facility] Neutrophils/100 WBC (Bld) 61.5 % 47-70 [facility] Potassium [Moles/Vol] 3.9 mmol/L 3.5-5.1 [facility] Protein [Mass/Vol] 8.2 g/dL 6.4-8.2 [facility] Sodium [Moles/Vol] 138 mmol/L 136-145 [facility] Triglyceride [Mass/Vol] 162 mg/dL <199 [facility] Comment on above: The drugs N-Acetylcy steine and Metamizole may falsely depress this assay.Serum Triglycerides Reference Interval Normal <150 mg/dL Borderline high 150 - 199 mg/dL High 200 - 499 mg/dL Very High > or = 500 mg/dL WBC (Bld) [#/Vol] 7.5 10*3/uL 4.4-11.0 [facility] Blood erythrocytes count (nu mber/volume)Ordered By: Dr. Vincent on 09-18-2022 RBC (Bld) [#/Vol] 4.74 10*6/uL 4.2-5.4 [facility] Blood hemoglobin measurement (mass/volume)Ordered By: Dr. Vincent on 09-18-2022 Hemoglobin (Bld) [Mass/Vol] 14.0 g/dL 12.0-15.0 [facility] Blood lymphocytes/100 leukoc ytesOrdered By: Dr. Vincent on 09-18-2022 Lymphocytes/100 WBC (Bld) 28.5 % 19-41 [facility] Blood monocytes/100 leukocyt esOrdered By: Dr. Vincent on 09-18-2022 Monocytes/100 WBC (Bld) 7.5 % 0-10 [facility] Blood platelet mean volumeOr dered By: Dr. Vincent on 09-18-2022 Platelet mean volume (Bld) [Entitic vol] 10.9 fL 6.2-12.0 [facility] Determination of erythrocyte mean corpuscular volume (MCV)Ordered By: Dr. Vincent on 09-18-2022 MCV (RBC) [Entitic vol] 89.5 fL 81-99 [facility] Hematocrit Auto (Bld) [Volum e fraction]Ordered By: Dr. Vincent on 09-18-2022 Hematocrit (Bld) [Volume fraction] 42.4 % 37-47 [facility] - Chemistry and C hemistry - challengeOrdered By: Dr. Vincent on 09-18-2022 ALP [Catalytic activity/Vol] 74 U/L 45-117 [facility] ALT [Catalytic activity/Vol] 39 U/L 13-56 [facility] CO2 [Moles/Vol] 24.0 mmol/L 21.0-32.0 [facility] Free T4 [Mass/Vol] 1.11 ng/dL 0.76-1.46 [facility] Globulin (S) [Mass/Vol] 4.2 g/dL 2.2-4.2 [facility] Urea nitrogen/Creatinine [Mass ratio] 23.8 mg/mg 10-20 [facility] - Hematology and Cell countsOrdered By: Dr. Vincent on 09-18-2022 Erythrocyte distribution width (RBC) [Entitic vol] 41.5 fL 35.1-43.9 [facility] Erythrocyte distribution width (RBC) [Ratio] 12.7 % 11.6-14.6 [facility] Immature granulocytes/100 WBC (Bld) 0.100 % 0.0-0.9 [facility] Comment on above: IG% - Immature Granu locytes (promyelocytes, myelocytes and metamyelocytes) > 1% indicates that a LEFT SHIFT is Present. MCH (RBC) [Entitic mass] 29.5 pg 27.0-32.0 [facility] Nucleated RBC/100 WBC (Bld) [Ratio] 0 % 0-5 [facility] MCHC Auto (RBC) [Mass/Vol]Or dered By: Dr. Vincent on 09-18-2022 MCHC (RBC) [Mass/Vol] 33.0 g/dL 32-36 [facility] No Panel InformationOrdered By: Dr. Vincent on 09-18-2022 Estimated GFR (MDRD) Amer 110 mL/min >60 [facility] Comment on above: GFR Calc Estimated GFR (MDRD) Non-Af Amer 91 mL/min >60 [facility] Comment on above: Non- GFR Calc Thyroid Stimulating Hormone (TSH) 2.45 uIU/mL 0.358-3.74 [facility] Platelets bldOrdered By: Dr. Vincent on 09-18-2022 Platelets (Bld) [#/Vol] 383 10*3/uL 150-450 [facility] Serum or plasma albumin jessie urement (mass/volume)Ordered By: Dr. Vincent on 09-18-2022 Albumin [Mass/Vol] 4.0 g/dL 3.2-5.0 [facility] Serum or plasma albumin/glob ulin mass ratioOrdered By: Dr. Vincent on 09-18-2022 Albumin/Globulin [Mass ratio] 1.0 {ratio} 0.9-2.4 [facility] Serum or plasma calcium jessie urement (mass/volume)Ordered By: Dr. Vincent on 09-18-2022 Calcium [Mass/Vol] 8.9 mg/dL 8.5-10.1 [facility] Serum or plasma cholesterol in HDL measurement (mass/volume)Ordered By: Dr. Vincent on 09-18-2022 Cholesterol in HDL [Mass/Vol] 55 mg/dL >40 [facility] Comment on above: The drugs N-Acetylcy steine and Metamizole may falsely depress this assay. Reference Range HDL <40 mg/dL Low HDL Cholesterol HDL >or= 60 mg/dL High HDL Cholesterol Serum or plasma cholesterol in VLDL measurement (mass/volume)Ordered By: Dr. Vincent on 09-18-2022 Cholesterol in VLDL [Mass/Vol] 32 mg/dL 5-40 [facility] Serum or plasma creatinine m easurement (mass/volume)Ordered By: Dr. Vincent on 09-18-2022 Creatinine [Mass/Vol] 0.80 mg/dL 0.55-1.02 [facility] Comment on above: The validity of the calculated GFR & GFRAA in patients over 70 years has not been determined. Clinical correlation is essential. Serum or plasma low density lipoprotein (LDL) cholesterol measurement (mass/volume)Ordered By: Dr. Vincent on 09-18-2022 Cholesterol in LDL [Mass/Vol] 121 mg/dL 0-130 [facility] Serum or plasma urea nitroge n measurement (mass/volume)Ordered By: Dr. Vincent on 09-18-2022 Urea nitrogen [Mass/Vol] 19 mg/dL 7-18 [facility] Thin prep Papanicolaou smear with manual screeningOrdered By: Dr. Vincent on 09-18-2022 Thin prep Papanicolaou smear with manual screening 20 U/L 15-37 [facility] Thin prep Papanicolaou smear with manual screening 8 5-15 [facility] US ABD SPLEENon 08-27-2021 US ABD SPLEEN * * *Final Report* * * DATE OF EXAM: Aug 27 2021 4:38PM LDU 1039 - US ABD SPLEEN / PROCEDURE REASON: multiple diagnoses * * * * Physician Interpretation * * * * EXAMINATION: RENAL/BLADDER ULTRASOUND AND ULTRASOUND SPLEEN, 08/27/2021 CLINICAL HISTORY: Left flank pain. History of splenomegaly. TECHNIQUE: Sonography of the kidneys and urinary bladder was performed. Sonography of the spleen and left upper quadrant was also performed. Images were obtained and stored in a permanent archive. MQ: UR_1 COMPARISON: No prior studies available. RESULT: Right Kidney: -Renal length: 11.1 cm -Parenchyma: Normal parenchymal echogenicity. Normal parenchymal thickness. -Collecting system: No hydronephrosis. -Calculus: No echogenic, shadowing calculus. -Lesion: None. Left Kidney: -Renal length: 11.0 cm -Parenchyma: Normal parenchymal echogenicity. Normal parenchymal thickness. -Collecting system: No hydronephrosis. -Calculus: No echogenic, shadowing calculus. -Lesion: None. Bladder: Nondistended with volume only 58 cc estimate. Normal sonographic appearance. Spleen: Normal size and appearance, 9.6 x 3.8 x 3.6 cm. No mass. IMPRESSION: 1. Normal ultrasound appearance of the kidneys. No hydronephrosis. 2. Bladder nondistended, otherwise unremarkable. 3. Normal ultrasound appearance of the spleen. Normal size. No mass. Irradiated Fuel Handler: PSCB Transcribe Date/Time: Aug 27 2021 4:41P Dictated by : FINA MONROE MD This examination was interpreted and the report reviewed and electronically signed by: FINA MONROE MD on Aug 27 2021 4:45PM EST [id number] N Normal [facility] US KIDNEY/BLADDERon 08-27-19 22 US KIDNEY/BLADDER * * *Final Report* * * DATE OF EXAM: Aug 27 2021 4:39PM LDU 1055 - US KIDNEY/BLADDER / PROCEDURE REASON: multiple diagnoses * * * * Physician Interpretation * * * * EXAMINATION: RENAL/BLADDER ULTRASOUND AND ULTRASOUND SPLEEN, 08/27/2021 CLINICAL HISTORY: Left flank pain. History of splenomegaly. TECHNIQUE: Sonography of the kidneys and urinary bladder was performed. Sonography of the spleen and left upper quadrant was also performed. Images were obtained and stored in a permanent archive. MQ: UR_1 COMPARISON: No prior studies available. RESULT: Right Kidney: -Renal length: 11.1 cm -Parenchyma: Normal parenchymal echogenicity. Normal parenchymal thickness. -Collecting system: No hydronephrosis. -Calculus: No echogenic, shadowing calculus. -Lesion: None. Left Kidney: -Renal length: 11.0 cm -Parenchyma: Normal parenchymal echogenicity. Normal parenchymal thickness. -Collecting system: No hydronephrosis. -Calculus: No echogenic, shadowing calculus. -Lesion: None. Bladder: Nondistended with volume only 58 cc estimate. Normal sonographic appearance. Spleen: Normal size and appearance, 9.6 x 3.8 x 3.6 cm. No mass. IMPRESSION: 1. Normal ultrasound appearance of the kidneys. No hydronephrosis. 2. Bladder nondistended, otherwise unremarkable. 3. Normal ultrasound appearance of the spleen. Normal size. No mass. Irradiated Fuel Handler: [facility] Transcribe Date/Time: Aug 27 2021 4:41P Dictated by : FINA MONROE MD This examination was interpreted and the report reviewed and electronically signed by: FINA MONROE MD on Aug 27 2021 4:45PM EST [id number] N Normal [facility] Anticardiolip Ab, IgA/G/M, Q non 07-17-2016 Cardiolipin IgA IA Qn (S) <9 Normal 0-11 [facility] Work Phone: Comment on above: Negative: <12 Indete rminate: 12 - 20 Low-Med Positive: >20 - 80 High Positive: >80 PATIENT NOT FASTINGP ERFORMED BY: [address] [id number] BY: KINGA [employer]rp Npyisb7508 Pettit RoadDublin [place] [id number] BY: [employer] GLM2017 [facility] [id number] Cardiolipin IgG IA Qn (S) <9 Normal 0-14 [facility] Work Phone: Comment on above: Negative: <15 Indete rminate: 15 - 20 Low-Med Positive: >20 - 80 High Positive: >80 PATIENT NOT FASTINGP ERFORMED BY: Netseerrp Wwqqctsvzi[address] [id number] BY: KINGA LabVendAstalatasha RiosZwjvcq8633 Pettit RoadDublin [place] [id number] BY: LabVendAstarp RPA4501 [facility] [id number] Cardiolipin IgM IA Qn (S) <9 Normal 0-12 [facility] Work Phone: Comment on above: Negative: <13 Indete rminate: 13 - 20 Low-Med Positive: >20 - 80 High Positive: >80 PATIENT NOT FASTINGP ERFORMED BY: Netseerrp Zzhoeerbjw[address] [id number] BY: KINGA LabVendAstalatasha RiosSnigvq8[address] MyOutdoorTV.comblin [place] [id number] BY: [employer] OKY3866 [facility] [id number] Antithrombin III, Func/Immun olon 07-17-2016 Antithrombin actual/normal Chromogenic method (PPP) [Rel catalytic activity/Vol] 120 % Normal 75-135 [facility] Work Phone: Comment on above: Direct thrombin inhi bitor anticoagulants such as rivaroxaban,apixaban and edoxaban will lead to spuriously elevated antithrombinactivity levels possibly masking a deficiency. PATIENT NOT FASTINGP ERFORMED BY: Netseerrp Ndbinipwrw[address] [id number] BY: KINGA LabVendAstarp Dpmmqc3710 Pett[address] RoadDublin [place] [id number] BY: TG [facility] NWI2097 [facility]argasENDLESS [facility] [id number] Antithrombin Ag IA Qn (PPP) 100 % Normal 72-124 [facility] Work Phone: Comment on above: PATIENT NOT FASTINGP ERFORMED BY: BN [facility] Aspqyvecpe9651 [facility] [id number] BY: CB [facility] Xgqcnf5311 [address] RoadDublin [place] [id number] BY: TG [facility] YXU0748 [facility]argasENDL[facility] [id number] Factor II Activity (37417)on 07-17-2016 Prothrombin activity actual/normal Coag (PPP) [Relative time] 145 % Normal 50-154 Comprehens chidi [facility] Work Phone: Comment on above: PATIENT NOT FASTINGP ERFORMED BY: [facility] Cmxebysnqq3185 [facility] [id number] Factor II, DNA Analysison F2 gene targeted mutation analysis Molgen Nom (Bld/Tiss) FIING2 Normal Comprehens chidi [facility] Work Phone: Comment on above: NEGATIVENo mutation identified. .Comment:A point mutation ([id number]) in the factor II (prothrombin) gene is thesecond most common cause of inherited thrombophilia. The incidence ofthis mutation in the [place] population is about 2% and in theAfrican [place] population it is approximately 0.5%. This mutation israre in the and population. Being heterozygousfor a prothrombin mutation increases the risk for developing venousthrombosis about 2 to 3 times above the general population risk. Beinghomozygous for the prothrombin gene mutation increases the relativerisk for venous thrombosis further, although it is not yet known howmuch further the risk is increased. In women heterozygous for theprothrombin gene mutation, the use of estrogen containing oralcontraceptives increases the relative risk of venous thrombosis about16 times and the risk of developing cerebral thrombosis is alsosignificantly increased. In the prothrombin gene mutationincreases risk for venous thrombosis and may increase risk forstillbirth, placental abruption, pre-eclampsia and growthrestriction. If the patient possesses two or more congenital oracquired thrombophilic risk factors, the risk for thrombosis may riseto more than the sum of the risk ratios for the individual mutations.This assay detects only the prothrombin L59767M mutation and doesnot measure genetic abnormalities elsewhere in the genome. Otherthrombotic risk factors may be pursued through systematic clinicallaboratory analysis. These factors include the R506Q (Leiden)mutation in the Factor V gene, plasma homocysteine levels, as wellas testing for deficiencies of antithrombin III, protein C andprotein S.Genetic Counselors are available for health care providersto discuss results at [phone] .Methodology:DNA analysis of the Factor II gene was performed by PCRamplification followed by restriction analysis. Thediagnostic sensitivity is >99% for both. All the tests mustbe combined with clinical information for the most accurateinterpretation. Molecular-based testing is highly accurate,but as in any laboratory test, diagnostic errors may occur. .Poort SR, et al. Blood. 1996; 88:2520-0100.Kristian EA. Circulation. 2004; 110:e15-e18.Danis I, et al. Arterioscler Thromb Vasc Biol. 1999;19:700-703. .Skinny Mauricio, PhD, Holly Craft, PhD, Zak Mir, PhD, Joshua Heck MFawnSFawn, PhD, Elenita Bearden, PhD, Peterson Angeles, PhD, JOLENERenny Mitchell, PhD, [facility] PATIENT NOT FASTINGP ERFORMED BY: BN [facility] Gtbsdyyqnx9739 [facility] [id number] BY: CB [facility] Fbngvk6749 [facility] [id number] BY: TG [facility] RFK0270 [facility] [id number] Factor V Leiden Mutationon 1 09-16-2015 F5 gene targeted mutation analysis Molgen Nom (Bld/Tiss) FVNEG3 Normal Comprehens chidi [facility] Work Phone: Comment on above: Result: Negative (no mutation found) .Factor V Leiden is a specific mutation (R506Q) in the factorV gene that is associated with an increased risk of venousthrombosis. Factor V Leiden is more resistant toinactivation by activated protein C. As a result, factor Vpersists in the circulation leading to a mild hyper-coagulable state. The Leiden mutation accounts for 90% -95% of APC resistance. Factor V Leiden has been reported inpatients with deep vein thrombosis, pulmonary embolus,central retinal vein occlusion, cerebral sinus thrombosisand hepatic vein thrombosis. Other risk factors to beconsidered in the workup for venous thrombosis include [id number] mutation in the factor II (prothrombin) gene,protein S and C deficiency, and antithrombin deficiencies.Anticardiolipin antibody and lupus anticoagulant analysismay be appropriate for certain patients, as well ashomocysteine levels. .Contact your local [facility] for information on how to orderadditional testing if desired. .Genetic counselors are available for health care providers to discuss results at [phone] ([phone]). .Methodology:DNA analysis of the Factor V gene was performed by allele-specificPCR. The diagnostic sensitivity and specificity is >99% for both.Molecular-based testing is highly accurate, but as in any laboratorytest, diagnostic errors may occur. All test results must be combinedwith clinical information for the most accurate interpretation. .References:Sara Evans (1996). Clin Lab Med 16:169-186. .Skinny Mauricio, PhD, Holly Craft, PhD, Zak Mir, PhD, Joshua Heck MFawnSFawn, PhD, Elenita Bearden, PhD, Peterson Angeles, PhD, Scott Mitchell PhD, [facility] PATIENT NOT FASTINGP ERFORMED BY: BN [facility] Bnxvqvqtof4124 [facility] [id number] BY: CB [facility] Rfniyg5290 [facility] [id number] BY: TG [facility] DMD8583 [facility] [id number] Homocyst(e)ine, Plasmaon Homocysteine [Moles/Vol] 8.3 umol/L Normal 0.0-15.0 [facility] Work Phone: Comment on above: PATIENT NOT FASTINGP ERFORMED BY: [employer] [address] [id number] BY: KINGA [facility] Yavsoe6714 Pettit RoadCarolinas Continuecare Hospital At Universityin [place] [id number] BY: LabVendAstarp TAI0619 [facility] [id number] Lupus Anticoagulant Compon 1 09-16-2015 aPTT.lupus sensitive Coag (PPP) [Time] 36.3 {sec} Normal 0.0-40.6 [facility] Work Phone: Comment on above: PATIENT NOT FASTINGP ERFORMED BY: MARICHUY SkimaTalk[address] [id number] BY: KINGA LabVendAstarp Efbgfw9082 [facility] [id number] BY: [employer] YPH5130 [facility] [id number] dRVVT Coag (PPP) [Time] 36.8 {sec} Normal 0.0-44.0 C omprehensive Internal Medicine Work Phone: Comment on above: PATIENT NOT FASTINGP ERFORMED BY: MARICHUY SkimaTalk[address] [id number] BY: KINGA LabVendAstarp Lbpzsx6797 [facility] [id number] BY: [employer] GJJ2741 [facility] [id number] Lupus anticoagulant neutralization dilute phospholipid [Time] in Platelet poor plasma 49.4 {sec} Normal 0.0-55.0 Comprehensi [facility] Work Phone: Comment on above: PATIENT NOT FASTINGP ERFORMED BY: [employer] [id number] BY: KINGA LabVendAstarp Khixbp8010 [facility] [id number] BY: [employer] NGU6822 [facility] [id number] Lupus anticoagulant neutralization dilute phospholipid/Lupus anticoagulant neutralization.high phospholipid [Ratio] in Platelet poor plasma by Coagulation assay 1.04 {Ratio} Normal 0.00-1.40 [facility] Work Phone: Comment on above: PATIENT NOT FASTINGP ERFORMED BY: [employer] [address] [id number] BY: [employer] Woaoye5312 [facility] [id number] BY: [employer] WLK6490 [facility] HavkraftENDLESS [facility] [id number] Lupus anticoagulant two screening tests W Reflex Coag (PPP) [Interp] Comment: Normal [facility] Work Phone: Comment on above: No lupus anticoagula nt was detected. PATIENT NOT FASTINGP ERFORMED BY: [employer] [address] [id number] BY: Intuitive Motionlin6370 [facility] [id number] BY: [employer] VSB9585 [facility] HavkraftENDLESS [facility]OUNT[facility] [id number] Thrombin time Coag (PPP) [Time] 13.8 {sec} Normal 0.0-20.9 [facility] Work Phone: Comment on above: PATIENT NOT FASTINGP ERFORMED BY: [employer] [address] [id number] BY: [facility]umziJefferson [facility]Zladjb4753 [facility] [id number] BY: [employer] AGK3937 [facility] HavkraftENDLESS [facility]OUNT[facility] [id number] MTHFRon 07-17-2016 MTHFR gene targeted mutation analysis 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 This combination ofresults is not associated with an increased risk ofhyperhomocysteinemia, venous thrombosis, coronary artery disease, orrecurrent loss. However, hyperhomocysteinemia may also occurdue to mutations in enzymes other than MTHFR that are involved inhomocysteine metabolism, or arise due to acquired factors. Inevaluation of vascular and obstetric risk, consider measuring fastinghomocysteine. Other risk factors may be detected through systematicclinical laboratory analysis.Genetic counselors are available to discuss these results with healthcare providers at [phone]. .Methylenetetrahydrofolate reductase (MTHFR) is a ortega enzyme in thefolate pathway and is responsible for the metabolism of homocysteine.There are two common variants in the MTHFR gene, c.655C>T(p.Fpc401Sry), referred to as C677T, and c.1286A>C (p.Rsz911Bxn),referred to as Z9831M. Individuals homozygous for C677T (two copiesof the variant), have decreased activity of the MTHFR enzyme and apredisposition to hyperhomocysteinemia, particularly when deficient infolate. Hyperhomocysteinemia is a risk factor for venous thrombosisand coronary artery disease and is associated with an increased riskof open neural tube defects. The C677T variant does notindependently increase risk of these conditions in the absence ofhyperhomocysteinemia. The E7801H variant is not associated withelevated homocysteine levels unless a C677T variant is also present;however, the clinical significance of heterozygosity for both N211Pbjy L3500B is controversial. Population data suggest that these twovariants are not present on the same chromosome, but rare exceptionshave been reported of triple variant MTHFR genotypes (ie. homozygousfor one variant and heterozygous for the other). Homozygosity psrX865U has an estimated frequency of 10% to 15% in Caucasians and 25%in Hispanics. .Additional information: .Dietary folic acid, B6 and B12 supplementation has been suggested tolower homocysteine levels in some people. Folic acid supplementationhas been shown to reduce the occurrence of neural tube defects.Methodology:DNA analysis of the MTHFR gene was performed by PCRamplification followed by restriction analysis. Thediagnostic sensitivity is >99% for both. Molecular-basedtesting is highly accurate, but as in any laboratory test,rare diagnostic errors may occur. All test results must becombined with clinical information for the most accurateinterpretation. .Ambrosio GOULD, Tony Q. Am J Epidemiol 2000; 151(9):862-877.Bianca MM, Jenn JA. Arch Pathol Lab Med 2007; 131(6):872-884.Frosst P et al. Emely Jenelle 1995; 10(1):111-113.Ana SE et al. Jenelle Med 2013; 15(2):153-156.[place] C et al. Obstet Gynecol 2011; 118(3):730-740.Roberto B et al. Eur J Epidemiol 2013; 28(8):621-647. .Skinny Mauricio, PhD, Holly Craft, PhD, Zak Mir, PhD, Joshua Heck MJaney, PhD, Elenita Bearden, PhD, Peterson Angeles, PhD, JOLENERenny Mitchell, PhD, [facility] PATIENT NOT FASTINGP ERFORMED BY: LabVendAstarp Xwmwbjoxdb4912 [facility] [id number] BY: LabVendAstarp Noklwt8191 [facility] [id number] BY: [facility] CEB8460 [facility] [id number] Protein C Deficiency Profile on 07-17-2016 Protein C actual/normal Coag (PPP) [Relative time] 111 % Normal 73-180 [facility] Work Phone: Comment on above: PATIENT NOT FASTINGP ERFORMED BY: LabVendAstarp Tpoatwdqnx[address] [id number] BY: LabVendAsta Uensoo7128 [facility] [id number] BY: [facility] BSI5467 [facility] [id number] Protein C Ag actual/normal IA (PPP) [Relative mass conc] 88 % Normal 60-150 Comprehensi [facility] Work Phone: Comment on above: PATIENT NOT FASTINGP ERFORMED BY: [facility] Ezehrnexyp[address] [id number] BY: Intuitive Motionlin6[address] MyOutdoorTV.comNovant Health Forsy[facility] Center [id number] BY: [employer] IVH7241 [facility] VargasENDL[facility] [id number] Protein S Panelon 07-17-2016 Protein S actual/normal Coag (PPP) [Relative time] 96 % Normal 63-140 [facility] Work Phone: Comment on above: Protein S activity m ay be falsely increased (masking an abnormal, lowresult) in patients receiving direct Xa inhibitor (e.g., rivaroxaban,apixaban, edoxaban) or a direct thrombin inhibitor (e.g., dabigatran)anticoagulant treatment due to assay interference by these drugs. PATIENT NOT FASTINGP ERFORMED BY: [employer] [id number] BY: Intuitive Motionlin6[address] MyOutdoorTV.comNovant Health Fors[facility] [id number] BY: [employer] DZR2861 [facility] [id number] Protein S Ag actual/normal IA (PPP) [Relative mass conc] 126 % Normal 60-150 Comprehensi ve Internal Medicine Work Phone: Comment on above: PATIENT NOT FASTINGP ERFORMED BY: [employer] [id number] BY: Intuitive Motionlin6370 [place] GrouperLifeBrite [facility] [id number] BY: [employer] GLU5680 [facility] [id number] Protein S Free Ag actual/normal IA (PPP) [Relative mass conc] 93 % Normal 57-157 Comprehensi ve Internal Medicine Work Phone: Comment on above: PATIENT NOT FASTINGP ERFORMED BY: Solovis[address] [id number] BY: Plumzi Bylpss3337 [place] GrouperLifeBrite [facility] [id number] BY: [employer] TLW8461 [facility]asENDL[facility] [id number] HPV automatic (00499)on 05-18 Diagnosis ICD code [Identifier] SPRCS Normal [facility] Work Phone: Comment on above: R87.612The Pap smear is a screening test designed to aid in the detection ofpremalignant and malignant conditions of the uterine cervix. It is not adiagnostic procedure and should not be used as the sole means of detectingcervical cancer. Both false-positive and false-negative reports do occur. .This liquid based ThinPrep(R) pap test was screened with theuse of an image guided system. Source.............C ervix;EndocervixNo. of containers..01 CYTYC Thin Prep VialPATIENT NOT FASTINGPERFORMED BY: [employer] [place] [address] [id number] BY: [employer] Hotel GrouprCotapmonmouth medical center W [id number] BY: =G [employer]rp Cwwvezxify276 [place] Enterra SolutionszaSververcancer treatment centers of america W [id number] Information: [id number] HPV 16+18+31+33+35+39+45+51 +52+56+58+59+68 DNA Probe+sig amp Ql (Cvx) Positive Abnormal [facility] Internal Medicine Work Phone: Comment on above: This high-risk HPV t est detects thirteen high-risk types(16/18/31/33/35/39/45/51/52/56/58/59/68) without differentiation. . Source.............C ervix;EndocervixNo. of containers..01 CYTYC Thin Prep VialPATIENT NOT FASTINGPERFORMED BY: XO1YL [employer] Ejxuyzxarboz3[address] [place] [address] [id number] BY: WB Rapid Diagnostek120 MyoScience PlazaSververCotapton [place] [id number] BY: =G [facility] Inspar120 [place] Enterra SolutionszaSververlesmonmouth medical center [place] [id number] Information: [id number] Microscopic observation Other stain Nom (Unsp spec) . Normal [facility] Work Phone: Comment on above: Source.............C ervix;EndocervixNo. of containers..01 CYTYC Thin Prep VialPATIENT NOT FASTINGPERFORMED BY: [employer] Dqveonqkomyz[address] [place] [address] [id number] BY: Rapid Diagnostek120 [facility] Hospitalrcancer [facility] W [id number] BY: =G [facility] Frfbhjeujo182 [facility] [id number] Information: [id number] Pathology report final diagnosis Narrative SPRCS Abnormal Comprehensiv e Internal Medicine Work Phone: Comment on above: EPITHELIAL CELL ABNO RMALITY.LOW-GRADE SQUAMOUS INTRAEPITHELIAL LESION (LGSIL); MILD DYSPLASIA ISPRESENT.Satisfactory for evaluation. Endocervical and/or squamous metaplasticcells (endocervical component) are present.Z11.51[employer] [place], Dag Sprayer (ASCP)Amish Sanchez MD, Pathologist Source.............C ervix;EndocervixNo. of containers..01 CYTYC Thin Prep VialPATIENT NOT FASTINGPERFORMED BY: Mybandstockrp [address] [place] [address] [id number] BY: Rapid Diagnostek120 [facility] [id number] BY: =G LabVendAstarp Sunlcqqulw206 [facility] W [id number] Information: [id number] Basic Metabolic Profile (BMP )on 08-25-2015 Basic metabolic 2000 panel 104 mL/min Normal [facility] Work Phone: Comment on above: Non- GFR Calc [facility] [address] [place], [address] Basic metabolic 2000 panel 20.1 {RATIO} Abnormal 10-20 [facility] Work Phone: Comment on above: [facility] [address] [place], [place], [address] Basic metabolic 2000 panel 8.6 mg/dL Normal 8.5-10.1 [facility] Work Phone: Comment on above: [facility] [address] [place], [address] Basic metabolic 2000 panel 81 mg/dL Normal 70-110 [facility] Work Phone: Comment on above: [facility] [address] [place], [place], [phone] Basic metabolic 2000 panel 134 mmol/L Abnormal 136-145 [facility] Work Phone: Comment on above: [facility] [address] [place], [address] Basic metabolic 2000 panel 15 mg/dL Normal 7-18 [facility] Work Phone: Comment on above: [facility] [address] [place], [place], [phone] Basic metabolic 2000 panel 0.75 mg/dL Normal 0.55-1.20 [facility] Work Phone: Comment on above: The validity of the calculated GFR AND GFRAA in patients over70 years has not been determined. Clinical correlation isessential. [facility] [address] [place], [place], [phone] Basic metabolic 2000 panel 119.69 ml/min Normal [facility] Work Phone: Comment on above: [facility] [address] [place], [place], [phone] Basic metabolic 2000 panel 126 mL/min Normal [facility] Work Phone: Comment on above: GFR Calc [facility] [address] [place], [place], [phone] Basic metabolic 2000 panel 3 1 Abnormal 5-15 [facility] Work Phone: Comment on above: [facility] [address] [place], [place], [phone] Basic metabolic 2000 panel 25.0 mmol/L Normal 21.0-32.0 [facility] Work Phone: Comment on above: [facility] [address] [place], [place], [phone] Basic metabolic 2000 panel 3.5 mmol/L Normal 3.5-5.1 [facility] Work Phone: Comment on above: [facility] [address] [place], [place], [phone] Basic metabolic 2000 panel 106 mmol/L Normal 98-107 [facility] Work Phone: Comment on above: [facility] [address] [place], [place], [phone] CBC W/Diff, Automatedon 01-0 Absolute Neut 11.8 {X10_3/uL} Abnormal 2.0-7.7 [email or web address]] Internal Medicine Work Phone: Comment on above: [facility] [address] [place], [place], [phone] Basophils/100 WBC (Bld) 0.2 % Normal 0-1 C omprehensive Internal Medicine Work Phone: Comment on above: [facility] [address] [place], [place], [phone] Eosinophils/100 WBC (Bld) 0.1 % Normal 0-5 [facility] Work Phone: Comment on above: [facility] [address] [place], [place], [phone] Erythrocyte distribution width (RBC) [Ratio] 12.8 % Normal 11.6-14.6 [facility] Work Phone: Comment on above: [facility] [address] [place], [address] Hematocrit (Bld) [Volume fraction] 39.9 % Normal 37-47 [facility] Work Phone: Comment on above: [facility] [address] [place], [address] Hemoglobin (Bld) [Mass/Vol] 13.2 g/dL Normal 12.0-15.0 [facility] Work Phone: Comment on above: [facility] [address] [place], [address] IM GRAN % 0.100 % Normal 0.0-0.9 [facility] Work Phone: Comment on above: IG% - Immature Granu locytes (promyelocytes, myelocytes andmetamyelocytes) > 1% indicates that a LEFT SHIFT is Present. [place] [address] [place], [address] Lymphocytes (Bld) [#/Vol] 2.26 {X10_3/ul} Normal 0.83-4.51 [facility] Work Phone: Comment on above: [facility] [address] [place], [address] Lymphocytes/100 WBC (Bld) 15.1 % Abnormal 19-41 [facility] Work Phone: Comment on above: [facility] [address] [place], [address] MCH (RBC) [Entitic mass] 29.8 pg Normal 27.0-32.0 [facility] Work Phone: Comment on above: [facility] [address] [place], [address] MCHC (RBC) [Mass/Vol] 33.1 {g/gl} Normal 32-36 [facility] Internal Medicine Work Phone: Comment on above: [facility] [address] [place], [address] MCV (RBC) [Entitic vol] 90.1 fL Normal 81-99 [facility] Internal Medicine Work Phone: Comment on above: [facility] [address] [place], [address] Monocytes/100 WBC (Bld) 5.5 % Normal 0-10 [facility] Internal Medicine Work Phone: Comment on above: [facility] [address] [place], [address] Neutrophils/100 WBC (Bld) 79.0 % Abnormal 47-70 [facility] Work Phone: Comment on above: [facility] [address] [place], [address] Platelet mean volume (Bld) [Entitic vol] 9.7 fL Normal 6.2-12.0 Comprehensiv e Internal Medicine Work Phone: Comment on above: [facility] [address] [place], [address] Platelets (Bld) [#/Vol] 248 10*3/uL Normal 150-450 [facility] Work Phone: Comment on above: [facility] [address] [place], [address] RBC (Bld) [#/Vol] 4.43 {M/mm3} Normal 4.2-5.4 [facility] Work Phone: Comment on above: [facility] [address] [place], [address] RDW SD 42.1 fL Normal 35.1-43.9 [facility] Work Phone: Comment on above: [facility] [address] [place], [place], [phone] WBC (Bld) [#/Vol] 14.9 10*3/uL Abnormal 4.4-11.0 [facility] Internal Medicine Work Phone: Comment on above: [facility] [address] [place], [phone] Lipaseon 08-25-2015 Lipase [Catalytic activity/Vol] 83 U/L Normal 73-393 [facility] Internal Medicine Work Phone: Comment on above: [facility] [address] [place], [address] Liver Profileon 08-25-2015 Albumin [Mass/Vol] 3.9 g/dL Normal 3.4-5.0 [facility] Internal Medicine Work Phone: Comment on above: [facility] [address] [place], [address] ALT [Catalytic activity/Vol] 20 U/L Normal 12-78 [facility] Internal Medicine Work Phone: Comment on above: [facility] [address] [place], [address] AST [Catalytic activity/Vol] 15 U/L Normal 15-37 [facility] Work Phone: Comment on above: [facility] [address] [place], [place], [phone] Bilirubin [Mass/Vol] 0.50 mg/dL Normal 0.20-1.00 [facility] Internal Medicine Work Phone: Comment on above: [facility] [address] [place], [address] Bilirubin.direct [Mass/Vol] 0.14 mg/dL Normal 0.00-0.30 [facility] Internal Medicine Work Phone: Comment on above: [facility] [address] [place], [address] Globulin (S) [Mass/Vol] 3.8 g/dL Abnormal 2.3-3.5 C omprehensive Internal Medicine Work Phone: Comment on above: [facility] [address] [place], [place], [phone] Hepatic function 2000 panel - Serum or Plasma 7.7 g/dL Normal 6.4-8.2 Comprehe nsive Internal Medicine Work Phone: Comment on above: [facility] [address] [place], [place], [phone] Hepatic function 2000 panel - Serum or Plasma 49 U/L Abnormal 50-136 Comprehe nsive Internal Medicine Work Phone: Comment on above: [facility] [address] [place], [place], [phone] ,Serum,hCG Quali.on 08-25-2015 ,Serum,hCG Quali. < 1 Normal [facility] Work Phone: Comment on above: [facility] [address] [place], [place], [phone] ,Serum,hCG Quali. Negative Normal 0-9 Nonpreg [facility] Work Phone: Comment on above: [facility] [address] [place], [place], [address] HPV automatic ([id number])on 05-19 Diagnosis ICD code [Identifier] SPRCS Normal [facility] Work Phone: Comment on above: 795.03The Pap smear is a screening test designed to aid in the detection ofpremalignant and malignant conditions of the uterine cervix. It is not adiagnostic procedure and should not be used as the sole means of detectingcervical cancer. Both false-positive and false-negative reports do occur. .This liquid based ThinPrep(R) pap test was screened with theuse of an image guided system. Source.............C ervical;EndocervicalNo. of containers..01 CYTYC Thin Prep VialPERFORMED BY: [facility] [address] [id number] BY: =G [facility] [address] [id number] Information: [id number] HPV 16+18+31+33+35+39+45+51 +52+56+58+59+68 DNA Probe+sig amp Ql (Cvx) Positive Abnormal Comprehen [facility] Internal [facility] Work Phone: Comment on above: This high-risk HPV t est detects thirteen high-risk types(16/18/31/33/35/39/45/51/52/56/58/59/68) without differentiation. . Source.............C ervical;EndocervicalNo. of containers..01 CYTYC Thin Prep VialPERFORMED BY: [employer] [address] [id number] BY: =G [facility] J[address] [id number] Information: [id number] Microscopic observation Other stain Nom (Unsp spec) . Normal [facility] Work Phone: Comment on above: Source.............C ervical;EndocervicalNo. of containers..01 CYTYC Thin Prep VialPERFORMED BY: [facility] Y[address] [id number] BY: =G [employer] [address] [id number] Information: [id number] Pathology report final diagnosis Narrative SPRCS Abnormal Comprehensiv e Internal Medicine Work Phone: Comment on above: EPITHELIAL CELL ABNO RMALITY.LOW-GRADE SQUAMOUS INTRAEPITHELIAL LESION (LGSIL); MILD DYSPLASIA ISPRESENT.Suggest follow up as clinically appropriate.Satisfactory for evaluation. Endocervical and/or squamous metaplasticcells (endocervical component) are present.V73.81 ; Special screening examination, human papillomavirus [HPV]Sanam Mejia, Dag Sprayer (ASCP)Radha Wheat MD, Pathologist Source.............C ervical;EndocervicalNo. of containers..01 CYTYC Thin Prep VialPERFORMED BY: [facility] Thedrnjrzl802 [facility] [place] [id number] BY: =G [facility] Cecwvamzdf765 [facility] [place] [id number] Information: [id number] Vital Signs Date Time Vital Sign Value Performing Clinician Facility 06-07-2025 10:15-0400 Body height 172.[address] Marc Tyson MD Work Phone: 7(430)553-860795 [place] [address] 06-07-2025 10:15-0400 Body mass index (BMI) [Ratio] 30.4 kg/m2 Dr. Marc Tyson MD Work Phone: 0(612)831-757495 [place] [address] 06-07-2025 10:15-0400 Body weight 90.[address] Marc Tyson MD Work Phone: 1(901)033-119295 [place] [address] 06-07-2025 10:15-0400 Diastolic blood pressure 70 mm[Hg] Dr. Marc Tyson MD Work Phone: 5(283)119-442695 [place] [address] 06-07-2025 10:15-0400 Systolic blood pressure 117 mm[Hg] Dr. Marc Tyson MD Work Phone: 4(608)978-952195 [place] [address] 05-10-2025 08:52-0400 Body height 172.[address] Marc Tyson MD Work Phone: 2(567)325-292695 [place] [address] 05-10-2025 08:52-0400 Body mass index (BMI) [Ratio] 29.5 kg/m2 Dr. Marc Tyson MD Work Phone: 9(711)642-063495 [place] [address] 05-10-2025 08:52-0400 Body weight 88.[address] Marc Tyson MD Work Phone: 3(356)694-864019 [address] 05-10-2025 08:52-0400 Diastolic blood pressure 84 mm[Hg] Dr. Marc Tyson MD Work Phone: 0(180)349-294412 [place] [address] 05-10-2025 08:52-0400 Systolic blood pressure 119 mm[Hg] Dr. Marc Tyson MD Work Phone: 4(958)390-046012 [place] [address] 04-12-2025 10:45-0400 Body height 172.[address] Marc Tyson MD Work Phone: 1(323)118-014712 [place] [address] 04-12-2025 10:45-0400 Body mass index (BMI) [Ratio] 28 kg/m2 Dr. Marc Tyson MD Work Phone: 0(712)979-350412 [place] [address] 04-12-2025 10:45-0400 Body weight 83.[address] Marc Tyson MD Work Phone: 7(390)845-322412 [place] [address] 04-12-2025 10:45-0400 Diastolic blood pressure 80 mm[Hg] Dr. Marc Tyson MD Work Phone: 0(184)669-342912 [place] [address] 04-12-2025 10:45-0400 Systolic blood pressure 121 mm[Hg] Dr. aMrc Tyson MD Work Phone: 6(960)676-576412 [place] [address] 03-15-2025 08:36-0400 Body height 172.[address] Marc Tyson MD Work Phone: 8(404)749-657712 [place] [address] 03-15-2025 08:36-0400 Body mass index (BMI) [Ratio] 27.5 kg/m2 Dr. Marc Tyson MD Work Phone: 1(214)906-186512 [place] [address] 03-15-2025 08:36-0400 Body weight 82.[address] Marc Tyson MD Work Phone: 6(237)724-375612 [place] [address] 03-15-2025 08:36-0400 Diastolic blood pressure 73 mm[Hg] Dr. Marc Tyson MD Work Phone: 0(775)018-385012 [place] [address] 03-15-2025 08:36-0400 Systolic blood pressure 125 mm[Hg] Dr. Marc Tyson MD Work Phone: 0(282)309-010412 [place] [address] 03-04-2025 14:55-0400 Diastolic blood pressure 65 mm[Hg] Dr. Marc Tyson MD Work Phone: 2(094)963-651812 [place] [address] 03-04-2025 14:55-0400 Respiratory rate 16 /min Dr. Marc Tyson MD Work Phone: 8(171)345-095412 [place] [address] 03-04-2025 14:55-0400 Systolic blood pressure 108 mm[Hg] Dr. Marc Tyson MD Work Phone: 9(599)175-451712 [place] [address] 03-04-2025 13:51-0400 Body height 172.[address] Marc Tyson MD Work Phone: 1(987)617-537512 [place] [address] 03-04-2025 13:51-0400 Body temperature 98.3 [degF] Dr. Marc Tyson MD Work Phone: 1(024)816-679912 [place] [address] 03-04-2025 13:51-0400 Heart rate 102 /min Dr. Marc Tyson MD Work Phone: 6(808)781-629412 [place] [address] 02-23-2025 15:52-0400 Body temperature 97.6 [degF] Dr. Marc Tyson MD Work Phone: 3(536)767-343712 [place] [address] 02-23-2025 15:52-0400 Diastolic blood pressure 62 mm[Hg] Dr. Marc Tyson MD Work Phone: 0(861)749-289812 [place] [address] 02-23-2025 15:52-0400 Heart rate 80 /min Dr. Marc Tyson MD Work Phone: 4(544)922-719812 [place] [address] 02-23-2025 15:52-0400 Respiratory rate 16 /min Dr. Marc Tyson MD Work Phone: 6(476)846-326812 [place] [address] 02-23-2025 15:52-0400 SaO2% (BldA) [Mass fraction] 99 % Dr. Marc Tyson MD Work Phone: 2(111)435-565012 [place] [address] 02-23-2025 15:52-0400 Systolic blood pressure 109 mm[Hg] Dr. Marc Tyson MD Work Phone: 1(295)375-634712 [place] [address] 02-23-2025 14:47-0400 Body height 172.[address] Marc Tyson MD Work Phone: 7(405)762-933312 [place] [address] 02-14-2025 10:22-0400 Body temperature 97.1 [degF] Dr. Marc Tyson MD Work Phone: 8(991)528-478512 [place] [address] 02-14-2025 10:22-0400 Diastolic blood pressure 63 mm[Hg] Dr. Marc Tyson MD Work Phone: 5(186)140-350212 [place] [address] 02-14-2025 10:22-0400 Heart rate 71 /min Dr. Marc Tyson MD Work Phone: 0(293)765-084712 [place] [address] 02-14-2025 10:22-0400 Respiratory rate 16 /min Dr. Marc Tyson MD Work Phone: 7(867)493-846612 [place] [address] 02-14-2025 10:22-0400 SaO2% (BldA) [Mass fraction] 100 % Dr. Marc Tyson MD Work Phone: 0(954)405-978112 [place] [address] 02-14-2025 10:22-0400 Systolic blood pressure 106 mm[Hg] Dr. Marc Tyson MD Work Phone: 5(238)695-516412 [place] [address] 02-14-2025 09:26-0400 Body height 172.[address] Marc Tyson MD Work Phone: 0(193)453-768112 [place] [address] 02-14-2025 09:26-0400 Body mass index (BMI) [Ratio] 27.8 kg/m2 Dr. Marc Tyson MD Work Phone: 8(292)895-529612 [place] [address] 02-14-2025 09:26-0400 Body weight [address] Marc Tyson MD Work Phone: 3(228)497-233012 [place] [address] 02-14-2025 08:15-0400 Body height 172.[address] Marc Tyson MD Work Phone: 7(318)452-535912 [place] [address] 02-14-2025 08:14-0400 Body mass index (BMI) [Ratio] 27.8 kg/m2 Dr. Marc Tyson MD Work Phone: [facility] 02-14-2025 08:14-0400 Body weight 83.[address] Marc Tyson MD Work Phone: [facility] 02-14-2025 08:14-0400 Diastolic blood pressure 69 mm[Hg] Dr. Marc Tyson MD Work Phone: [facility] 02-14-2025 08:14-0400 Systolic blood pressure 109 mm[Hg] Dr. Marc Tyson MD Work Phone: [facility] 06-15-2024 18:02-0400 Body mass index (BMI) [Ratio] 29.29 kg/m2 Renee Guzmán APRN.UNIT COORDINATOR Work Phone: [facility] 06-15-2024 18:02-0400 Body temperature 100.71 [degF] Renee Guzmán APRN.UNIT COORDINATOR Work Phone: [facility] 06-15-2024 18:02-0400 Body weight 86.1 kg Renee Guzmán APRN.UNIT COORDINATOR Work Phone: [facility] 06-15-2024 18:02-0400 Diastolic blood pressure 76 mm[Hg] Renee Guzmán APRN.UNIT COORDINATOR Work Phone: [facility] 06-15-2024 18:02-0400 Heart rate 121 /min Renee Guzmán APRN.UNIT COORDINATOR Work Phone: [facility] 06-15-2024 18:02-0400 Respiratory rate 18 /min Renee Guzmán APRN.UNIT COORDINATOR Work Phone: [facility] 06-15-2024 18:02-0400 SaO2% (BldA) [Mass fraction] 98 % Renee Guzmán APRN.UNIT COORDINATOR Work Phone: [facility] 06-15-2024 18:02-0400 Systolic blood pressure 118 mm[Hg] Renee Guzmán APRN.CNP Work Phone: [facility] 09-15-2023 10:40-0500 Body mass index (BMI) [Ratio] 29 kg/m2 Dr. Gage Vincent Work Phone: [facility] 09-15-2023 10:40-0500 Body weight 86.[address] Gage Vincent Work Phone: [facility] 09-15-2023 10:40-0500 Diastolic blood pressure 70 mm[Hg] Dr. Gage Vincent Work Phone: [facility] 09-15-2023 10:40-0500 Systolic blood pressure 123 mm[Hg] Dr. Gage Vincent Work Phone: [facility] 12-18-2022 13:59-0400 Body height 172.[address] Gage Vincent Work Phone: [facility] 12-18-2022 13:59-0400 Body mass index (BMI) [Ratio] 30.4 kg/m2 Dr. Gage Vincent Work Phone: [facility] 12-18-2022 13:59-0400 Body temperature 97.6 [degF] Dr. Gage Vincent Work Phone: [facility] 12-18-2022 13:59-0400 Body weight 90.[address] Gage Vincent Work Phone: [facility] 12-18-2022 13:59-0400 Diastolic blood pressure 74 mm[Hg] Dr. Gage Vincent Work Phone: [facility] 12-18-2022 13:59-0400 Heart rate 95 /min Dr. Gage Vincent Work Phone: [facility] 12-18-2022 13:59-0400 Respiratory rate 12 /min Dr. Gage Vincent Work Phone: [facility] 12-18-2022 13:59-0400 SaO2% (BldA) [Mass fraction] 99 % Dr. Gage Vincent Work Phone: [facility] 12-18-2022 13:59-0400 Systolic blood pressure 136 mm[Hg] Dr. Gage Vincent Work Phone: [facility] 09-18-2022 13:04-0500 Body height 172.[address] Marc Tyson Work Phone: [facility] 09-18-2022 13:04-0500 Body mass index (BMI) [Ratio] 30.4 kg/m2 Dr. Marc Tyson Work Phone: 0(951)397-916395 [place] [address] 09-18-2022 13:04-0500 Body temperature 98.7 [degF] Dr. Marc Tyson Work Phone: [facility] 09-18-2022 13:04-0500 Body weight 90.[address] Marc Tyson Work Phone: [facility] 09-18-2022 13:04-0500 Diastolic blood pressure 84 mm[Hg] Dr. Marc Tyson Work Phone: [facility] 09-18-2022 13:04-0500 Heart rate 87 /min Dr. Marc Tyson Work Phone: [facility] 09-18-2022 13:04-0500 Respiratory rate 14 /min Dr. Marc Tyson Work Phone: [facility] 09-18-2022 13:04-0500 SaO2% (BldA) [Mass fraction] 99 % Dr. Marc Tyson Work Phone: [facility] 09-18-2022 13:04-0500 Systolic blood pressure 136 mm[Hg] Dr. Marc Tyson Work Phone: [facility] 10-22-2018 13:18-0500 BMI (Body Mass Index) 24.78 kg/m2 Kalani Staton [facility] Work Phone: 10-22-2018 13:18-0500 Body weight 73.94 kg Kalani Obregon [facility] Work Phone: 10-22-2018 13:18-0500 BP Diastolic 82 mm[Hg] Kalani Staton [facility] Internal Medicine Work Phone: Comment on above: Patient Position: Sitting; Cuff Location : Left Arm; Cuff Size: Standard 10-22-2018 13:18-0500 BP Systolic 122 mm[Hg] Kalani Obregon [facility] Work Phone: Comment on above: Patient Position: Sitting; Cuff Location : Left Arm; Cuff Size: Standard 10-22-2018 13:18-0500 BSA (Body Surface Area) 1.87 m2 Kalani Staton [facility] Work Phone: 10-22-2018 13:18-0500 Height 172.72 cm Kalani Staton [facility] Internal Medicine Work Phone: 10-22-2018 13:18-0500 Pulse (Heart Rate) 118 /min Kalani Staton [facility] Internal Medicine Work Phone: Comment on above: Pattern: Regular 10-22-2018 13:18-0500 Pulse Oximetry 98 % Kalani Staton [facility] Internal Medicine Work Phone: Comment on above: Room air 10-22-2018 13:18-0500 Respiratory Rate 18 /min Kalani Obregon [facility] Work Phone: Comment on above: Pattern: Unlabored 12-19-2016 11:41-0400 BMI (Body Mass Index) 23.57 kg/m2 Kalani Staton [facility] Medicine Work Phone: Comment on above: when it hurts her 12-19-2016 11:41-0400 Body Temperature 98 [degF] Kalani Staton [facility] Work Phone: Comment on above: when it hurts her 12-19-2016 11:41-0400 Body weight 70.31 kg Kalani Staton [facility] Medicine Work Phone: Comment on above: when it hurts her 12-19-2016 11:41-0400 BP Diastolic 80 mm[Hg] Kalani Staton [facility] Work Phone: Comment on above: Patient Position: Sitting; Cuff Location : Left Arm; Cuff Size: Standard when it hurts her 12-19-2016 11:41-0400 BP Systolic 118 mm[Hg] Kalani Staton [facility] Medicine Work Phone: Comment on above: Patient Position: Sitting; Cuff Location : Left Arm; Cuff Size: Standard when it hurts her 12-19-2016 11:41-0400 BSA (Body Surface Area) 1.83 m2 Kalani Staton [facility] Medicine Work Phone: Comment on above: when it hurts her 12-19-2016 11:41-0400 Height 172.72 cm Kalani Staton [facility] Medicine Work Phone: Comment on above: when it hurts her 12-19-2016 11:41-0400 Pulse (Heart Rate) 91 /min Kalani Staton [facility] Work Phone: Comment on above: Pattern: Regular when it hurts her 12-19-2016 11:41-0400 Pulse Oximetry 98 % Kalani Staton [facility] Medicine Work Phone: Comment on above: Room air when it hurts her 12-19-2016 11:41-0400 Respiratory Rate 16 /min Kalani Staton [facility] Work Phone: Comment on above: Pattern: Unlabored when it hurts her 07-17-2016 10:01-0500 BMI (Body Mass Index) 23.15 kg/m2 Kalani Staton [facility] Medicine Work Phone: 07-17-2016 10:01-0500 Body weight 69.06 kg Kalani Staton [facility] Work Phone: 07-17-2016 10:01-0500 BP Diastolic 62 mm[Hg] Kalani Staton [facility] Internal Medicine Work Phone: Comment on above: Patient Position: Sitting; Cuff Location : Left Arm; Cuff Size: Large 07-17-2016 10:01-0500 BP Systolic 128 mm[Hg] Kalani Staton [facility] Medicine Work Phone: Comment on above: Patient Position: Sitting; Cuff Location : Left Arm; Cuff Size: Large 07-17-2016 10:01-0500 BSA (Body Surface Area) 1.82 m2 Kalani Staton [facility] Work Phone: 07-17-2016 10:01-0500 Height 172.72 cm Kalani Staton [facility] Work Phone: 07-17-2016 10:01-0500 Pulse (Heart Rate) 127 /min Kalani Staton [facility] Work Phone: Comment on above: Pattern: Regular 07-17-2016 10:01-0500 Pulse Oximetry 99 % Kalani Staton [facility] Work Phone: Comment on above: Room air 07-17-2016 10:01-0500 Respiratory Rate 18 /min Kalani Staton [facility] Work Phone: Comment on above: Pattern: Unlabored 06-05-2016 13:38-0400 BMI (Body Mass Index) 22.85 kg/m2 Kalani Staton [facility] Work Phone: 06-05-2016 13:38-0400 Body weight 68.15 kg Kalani Staton [facility] Work Phone: 06-05-2016 13:38-0400 BP Diastolic 78 mm[Hg] Kalani Staton [facility] Work Phone: Comment on above: Patient Position: Sitting; Cuff Location : Left Arm; Cuff Size: Standard 06-05-2016 13:38-0400 BP Systolic 122 mm[Hg] Kalani Staton [facility] Work Phone: Comment on above: Patient Position: Sitting; Cuff Location : Left Arm; Cuff Size: Standard 06-05-2016 13:38-0400 BSA (Body Surface Area) 1.81 m2 Kalani Staton [facility] Work Phone: 06-05-2016 13:38-0400 Height 172.72 cm Kalani Staton [facility] Work Phone: 06-05-2016 13:38-0400 Pulse (Heart Rate) 118 /min Kalani Staton [facility] Work Phone: Comment on above: Pattern: Regular 06-05-2016 13:38-0400 Pulse Oximetry 98 % Kalani Staton [facility] Work Phone: Comment on above: Room air 06-05-2016 13:38-0400 Respiratory Rate 18 /min Kalani Staton [facility] Work Phone: Comment on above: Pattern: Unlabored 07-11-2014 14:55-0500 BMI (Body Mass Index) 21.74 kg/m2 Kalani Staton [facility] Work Phone: 07-11-2014 14:55-0500 Body Temperature 98.2 [degF] Kalani Staton [facility] Work Phone: Comment on above: Method: Temporal 07-11-2014 14:55-0500 Body weight 64.86 kg Kalani Staton [facility] Work Phone: 07-11-2014 14:55-0500 BP Diastolic 74 mm[Hg] Kalani Staton [facility] Work Phone: Comment on above: Patient Position: Sitting; Cuff Location : Left Arm; Cuff Size: Standard 07-11-2014 14:55-0500 BP Systolic 124 mm[Hg] Kalani Staton [facility] Work Phone: Comment on above: Patient Position: Sitting; Cuff Location : Left Arm; Cuff Size: Standard 07-11-2014 14:55-0500 BSA (Body Surface Area) 1.77 m2 Kalani Staton [facility] Work Phone: 07-11-2014 14:55-0500 Height 172.72 cm [facility]ani [facility] Work Phone: 07-11-2014 14:55-0500 Pulse (Heart Rate) 74 /min Kalani Staton [facility] Work Phone: Comment on above: Pattern: Regular 07-11-2014 14:55-0500 Pulse Oximetry 97 % Kalani Staton [facility] Work Phone: Comment on above: Room air 07-11-2014 14:55-0500 Respiratory Rate 16 /min Kalani Staton [facility] Work Phone: Comment on above: Pattern: Unlabored 06-15-2014 14:45-0400 BMI (Body Mass Index) 21.74 kg/m2 Kalani Staton [facility] Work Phone: 06-15-2014 14:45-0400 Body weight 64.86 kg Kalani Staton [facility] Work Phone: 06-15-2014 14:45-0400 BP Diastolic 68 mm[Hg] Kalani Staton [facility] Work Phone: Comment on above: Patient Position: Sitting; Cuff Location : Left Arm; Cuff Size: Standard 06-15-2014 14:45-0400 BP Systolic 110 mm[Hg] Kalani Staton [facility] Work Phone: Comment on above: Patient Position: Sitting; Cuff Location : Left Arm; Cuff Size: Standard 06-15-2014 14:45-0400 BSA (Body Surface Area) 1.77 m2 Kalani Staton [facility] Work Phone: 06-15-2014 14:45-0400 Height 172.72 cm Kalani Staton [facility] Work Phone: 06-15-2014 14:45-0400 Pulse (Heart Rate) 110 /min Kalani Staton [facility] Work Phone: Comment on above: Pattern: Regular 06-15-2014 14:45-0400 Pulse Oximetry 94 % Kalani Staton [facility] Work Phone: Comment on above: Room air 06-15-2014 14:45-0400 Respiratory Rate 18 /min Kalani Staton [facility] Work Phone: Comment on above: Pattern: Unlabored Encounters Encounter Date Encounter Type Care Provider Facility Start: 06-27-2025 End: 06-27-2025 ambulatory Arlette Martini Facility:[facility] Start: 06-07-2025 End: 06-07-[address] Sisi Tee DO -[facility] Work Phone: Start: 06-07-2025 End: 06-07-[address] Marc Tyson MD Work Phone: [facility] Start: 05-16-2025 End: 05-16-2025 ambulatory MINH TYSON [facility] Start: 05-10-2025 End: 05-10-2025 Patient encounter procedure Kristy Calabrese CNM -[facility] Work Phone: Start: 05-10-2025 End: 05-10-[address] Marc Tyson MD Work Phone: [facility] Start: 05-02-2025 End: 05-02-20[facility] Start: 04-12-2025 End: 04-12-[address] Arlette Martini MD -[facility] Work Phone: Start: 04-12-2025 End: 04-12-[address] Marc Tyson MD Work Phone: [facility] Start: 03-15-2025 End: 03-15-2025 Patient encounter procedure Yohana STALLINGS -[facility] Work Phone: Start: 03-15-2025 End: 03-15-[address] Marc Tyson MD Work Phone: [facility] Start: 03-04-2025 End: 03-04-[address] Arlette Martini MD -[facility] Work Phone: Start: 03-04-2025 End: 03-04-[address] Marc Tyson MD Work Phone: [facility] Start: 02-23-2025 End: 02-23-2025 Patient encounter procedure Yohana Roberson TOOL CHASER-C -[facility] Work Phone: Start: 02-23-2025 End: 02-23-[address] Marc Tyson MD Work Phone: -[facility] Start: 02-21-2025 End: 02-21-[address] Marc Tyson MD Work Phone: -[facility] Start: 02-21-2025 End: 02-21-[address] Sisi Tee DO -[facility] Start: 02-21-2025 End: 02-21-2025 ambulatory Sisi Tee Facility:[facility] Start: 02-14-2025 End: 02-14-[address] Sisi Tee DO [facility] Work Phone: Start: 02-14-2025 End: 02-14-[address] Marc Tyson MD Work Phone: [facility] Start: 01-31-2025 End: 01-31-[address] Marc Tyson MD Work Phone: [facility] Work Phone: Start: 01-31-2025 End: 01-31-2025 Patient encounter procedure Kristy Calabrese CNM [facility] Work Phone: Start: 01-31-2025 End: 01-31-2025 ambulatory Kristy Calabrese Facility:[facility] Start: 01-14-2025 End: 01-14-[address] Marc Tyson MD Work Phone: [facility] Work Phone: Start: 01-14-2025 End: 01-14-2025 Patient encounter procedure Kristy Calabrese CNM -Laboratory Work Phone: Start: 01-14-2025 End: 01-14-2025 ambulatory Kristy Calabrese Facility:[facility] Start: 01-12-2025 End: 01-12-[address] Marc Tyson MD Work Phone: [facility] Work Phone: Start: 01-12-2025 End: 01-12-2025 Patient encounter procedure Kristy Barnett TO[facility] CH[facility]ER-C -[facility]atory [facility] Start: 01-12-2025 End: 01-12-2025 ambulatory Kristy Barnett NP Facility:[facility] Start: 06-15-2024 End: 06-15-2024 Subsequent hospital visit by physician [facility] Work Phone: Radiology Comment on above: Acute cough [R05.1] Start: 06-15-2024 End: 06-15-2024 ambulatory MINH TYSON Facility:[facility] Start: 06-15-2024 End: 06-15-2024 Patient encounter procedure Renee Guzmán APRN.UNIT COORDINATOR Work Phone: [facility] Comment on above: Sore throat (Primary Dx); Acute cough; [place] eye disease of right eye; URI, acute Start: 06-15-2024 End: 06-15-2024 Telephone encounter Renee Guzmán APRN.UNIT COORDINATOR Work Phone: [facility] Comment on above: Results Start: 09-24-2023 End: 09-24-[address] Gage Vincent Work Phone: [facility] Work Phone: Start: 09-24-2023 End: 09-24-[address] Gage Vincent Work Phone: [facility]-Laboratory, [facility] Start: 09-15-2023 End: 09-15-[address] Gage Vincent [facility] Work Phone: Start: 09-15-2023 End: 09-15-[address] Gage Vincent Work Phone: [facility] Work Phone: Start: 02-14-2023 End: 02-14-[address] Gage Vincent Work Phone: [facility] Work Phone: Start: 02-14-2023 End: 02-14-[address] Gage Vincent [facility] Start: 02-06-2023 End: 02-06-[address] Gage Vincent Work Phone: [facility] Work Phone: Start: 02-06-2023 End: 02-06-[address] Gage Vincent [facility] Start: 01-30-2023 End: 01-30-[address] Gage Vincent [facility] Start: 01-28-2023 End: 01-28-[address] Gage Vincent Work Phone: [facility] Work Phone: Start: 01-28-2023 End: 01-28-[address] Gage Vincent [facility] Start: 12-18-2022 End: 12-18-[address] Gage Vincent Work Phone: [facility] Internal Medicine Start: 12-11-2022 End: 12-11-2022 Patient encounter procedure Bismark Shepherd Work Phone: Podiatry Comment on above: Ingrowing toenail (P rimary Dx) Start: 10-08-2022 End: 10-08-2022 Patient encounter procedure Bismark Myersdianelys Work Phone: Podiatry Comment on above: Ingrowing toenail (P rimary Dx) Start: 10-03-2022 End: 10-03-[address] Marc Tyson Work Phone: [facility] Work Phone: Start: 10-03-2022 End: 10-03-[address] Marc Tyson Work Phone: [facility]-Sleep Lab Start: 09-19-2022 Telephone encounter Bismark Wilde Work Phone: Podiatry Comment on above: Appointment Start: 09-18-2022 End: 09-18-[address] Marc Tyson Work Phone: [facility] Work Phone: Start: 09-18-[address] Marc Tyson Work Phone: [facility] Start: 09-18-2022 End: 09-18-2022 Encounter for general adult medical examination without abnormal findings Dr. Marc Tyson Work Phone: [facility] Start: 09-18-2022 End: 09-18-[address] Marc Tyson Work Phone: [facility] Medicine Start: 10-22-2018 Patient encounter procedure [facility] Start: 10-22-2018 End: 10-22-2018 Office outpatient visit 25 minutes [facility] Start: 12-19-2016 End: 12-19-2016 Office outpatient visit 15 minutes [facility] Start: 07-17-2016 End: 07-17-2016 Office outpatient visit 15 minutes [facility] Start: 06-19-2016 End: 06-19-2016 Phone Encounter Kalani [facility] Start: 06-05-2016 End: 06-05-2016 Periodic preventive med est patient 18-39 yrs Kalani Staton [facility] Start: 09-11-2015 End: 09-11-2015 Historical Summary Kalani Staton [facility] Start: 07-11-2014 End: 07-11-2014 Office outpatient visit 15 minutes Kalani Staton [facility] Start: 06-15-2014 End: 06-15-2014 Initial preventive medicine new pt age 18-39yrs Kalani Staton [facility] Procedures Date Procedure Procedure Detail Performing Clinician Start: 02-21-2025 Hepatitis C antibody measurement Dr. Marc Tyson MD Work Phone: Comment on above: Reactive: Presumptiv e evidence of antibodies to HCV. Follow CDC recommendations for supplemental testing.Non-Reactive: Antibodies to HCV were not detected; does not exclude the possibility of exposure to HCVReactive Results are presumptive evidence of antibodies to HCV. Follow CDC recommendations for supplemental testing.Order confirmation testing: HCV Quant by PCR testing - HCVPCR #[id number] Non Reactive: < 0.8 Equivocal: >/= 0.8 to < 1.0 Reactive: >/= 1.0The CDC requires that a reactive/equivocal HCV antibody result be sent out for confirmation. HCV Quant by PCR testing. Start: 02-21-[address] Amilcar Tyson MD Work Phone: Start: 02-21-[address] Marc Tyson MD Work Phone: Comment on above: Antibody Result: Int erpretationNon-Reactive: Non- ImmuneReactive: ImmuneThe following results were obtained with the [employer] Rubella IgG assay. Results from assays of other manufacturers cannot be used interchangeably. Start: 02-21-2025 Serologic test for syphilis Dr. Marc Tyson MD Work Phone: Start: 02-14-[address] Oliver Tyson MD Work Phone: Start: 01-31-2025 Transvaginal obstetr ic ultrasonography Dr. Marc Tyson MD Work Phone: Start: 06-15-2024 Radiologic exam ches t 2 views Renee Guzmán APRN.UNIT COORDINATOR Work Phone: Start: 06-15-2024 STREP A MOLECULAR (POC) Renee Guzmán APRN.[facility] Work Phone: Start: 09-15-[address] Myles Vincent Work Phone: Start: 12-19-2016 End: 12-19-2016 Ankle min 3 Views Comments: See Note; NOTES: [facility] Imaging Services [address] [place] [address] Verdana 4d Ankle min 3 Views MR#: [id number] Acct: [id number] Name: PHUC SILVA Rep #: [id number] : 1995 F 21 From: Chase Davidson MD PCP: Kalani Staton DO Status: REG CLI Study: Ankle min 3 Views Date of Exam: 12/19/16 Exam# [id number] Ordering Dr: Kalani Staton DO STUDY: X-RAY [...] Service support , CC: Kalani Staton DO Irradiated Fuel Handler: Signed Kalani Staton Work Phone: Start: 08-25-2015 End: 08-25-2015 Abdomen/Pelvis WITH Contrast Comments: See Note; NOTES: [facility] Imaging Services [address] [place] [address] Braddajaylen 4d Abdomen/Pelvis WITH Contrast MR#: [id number] Acct: [id number] Name: PHUC SILVA Rep #: [id number] : 1995 F 20 From: Shaka Davalos MD PCP: Kenna Singh DO Status: REG ER Study: Abdomen/Pelvis WITH Contrast Date of Exam: 08/25/15 Exam# [id number] Ordering Dr: Kodak Cates MD STUDY: CT [...] Cates, covering physician, on 08/25/2015 23:55:04 (ET). Electronically Signed: Shaka Davalos MD at 23:49 EST , Service support [phone], N.B. : The above information has been verbally conveyed by Shaka Davalos MD to soraya Gonzalez physician, on 08/25/2015 23:55:04 (ET). CC: Kenna Singh DO; Kodak Cates MD Irradiated Fuel Handler: Signed Kalani Staton Start: 08-25-2015 End: 08-25-2015 Transvaginal Non- Comments: See Note; NOTES: [facility] Imaging Services [address] [place] [address] Verdana 4d Transvaginal Non- MR#: [id number] Acct: [id number] Name: PHUC SILVA Rep #: [id number] : 1995 F 20 From: Shaka Davalos MD PCP: Kenna Singh DO Status: REG ER Study: Transvaginal Non- Date of Exam: 08/25/15 Exam# [id number] Ordering Dr: Kodak Cates MD STUDY: ULTRASOUND [...] MD at 21:07 EST , Service support [phone], CC: Kenna Singh DO; Kodak Cates MD Irradiated Fuel Handler: Signed Kalani Staton [facility] Sanchez Comment on above: 08/26/15 Plan of Treatment Date Care Activity Detail Author Start: 06-07-2025 Measurement of glucose 2 hours after glucose challenge for glucose tolerance test [facility] Start: 06-07-2025 Serologic test for syphilis [facility] Start: 06-07-2025 [facility] Start: 03-04-2025 Administration of intravenous fluids HYDRATION IV INFUSION [facility] Start: 03-04-2025 Iv infusion hydration initial 31 min-1 hour HYDRATION IV INFUSION [facility] Start: 02-23-2025 Administration of drug or medicament by intravenous push THER/PROPH/DIAG INJ IV PUSH [facility] Start: 02-23-2025 Iv infusion hydration each additional hour HYDRATE IV INFUSION ADD-ON [facility] Start: 02-23-2025 Ther proph/dx njx iv push single/1st sbst/drug THER/PROPH/DIAG INJ IV PUSH [facility] Start: 02-14-2025 Bacteria identified in Urine by Culture Urine Culture [facility] Start: 02-14-2025 Intravenous infusion THER/PROPH/DIAG IV INF [facility] Start: 02-14-2025 Iv infusion therapy/prophylaxis /dx 1st to 1 hr THER/PROPH/DIAG IV INF [facility] Start: 02-14-2025 Therapeutic injection iv push each new drug TX/PRO/DX INJ [facility] Start: 02-14-2025 Chlamydia deoxyribonucleic acid detection [facility] Start: 02-14-2025 [facility] Start: 04-18-2024 Covid-19 Vaccine () Covid-19 Vaccine () [facility] Start: 04-18-2024 Influenza vaccination Influenza Vaccine (#[facility]) [facility] Start: 04-18-2023 Influenza vaccination INFLUENZA (Season Ended) [facility] Start: 12-18-2022 Patient referral [facility] Work Phone: Start: 09-18-2022 Patient referral [facility] Work Phone: Start: 08-18-2022 DEPRESSION ASSESSMENT DEPRESSION ASSESSMENT [facility] Start: 04-18-2022 Influenza vaccination INFLUENZA (#1) [facility] Start: 10-22-2018 Antibody charlie-day eb virus early antigen ea EBV Panel (07603) [facility] Work Phone: Start: 10-22-2018 Lymphocytes (Bld) [#/Vol] CMV ANTIBODY (59779) [facility] Work Phone: Start: 10-22-2018 Antibody cytomegalovirus cmv igm CMV IGM ANTBDY (30583) [facility] Work Phone: Start: 10-22-2018 Gonadotropin chorionic qualitative HCG Qualitative, Serum (24344) [facility] Work Phone: Start: 10-22-2018 25 hydroxy includes fractions if performed CALCIFIDIOL (06336) VIT D 25 [facility] Work Phone: Start: 10-22-2018 Cobalamin (Vitamin B12) [Mass/Vol] VITAMIN B-12 (CYANOCOBALAMIN) (27945) [facility] Work Phone: Start: 10-22-2018 TSH Qn TSH (31346) [facility] Work Phone: Start: 10-22-2018 Rheumatoid factor quantitative RHEUMATOID FACTOR-QUANT (63468) [facility] Work Phone: Start: 10-22-2018 Sedimentation rate rbc non-automated SED RATE ERYTHROCYTE (45736) [facility] Work Phone: Start: 10-22-2018 Comprehensive metabolic panel METABOLIC PANEL, COMPREHENSIVE (23021) [facility] Work Phone: Start: 10-22-2018 CRP [Mass/Vol] C-REACTIVE PROTEIN (91065) [facility] Work Phone: Start: 10-22-2018 Blood count complete automated CBC (AUTO) (60974) [facility] Work Phone: Start: 10-22-2018 Nuclear Ab IF (S) [Titer] JULIANNE (ANTINUCLEAR ANTIBODY) (91698) [facility] Work Phone: Start: 07-17-2016 Beta 2 glycoprotein i antibody each Antiphospholipid atb (36756) [facility] Work Phone: Start: 07-17-2016 Clotting inhibitrs antithrombn iii antigen assay ANTICOAG ANTTHROMB III & ASSAY (60207) [facility] Work Phone: Start: 07-17-2016 Molecule isolate nucleic Factor 2 (Prothrombin) Gene Mutation (93843) [facility] Work Phone: Start: 07-17-2016 Clotting inhibitors antithrombin iii activity ANTITHROMBIN III ACTIVTY (95484) [facility] Work Phone: Start: 07-17-2016 Thromboplastin time prtl substit plasma frctj ea Lupus Anticoagulant Comprehensive (97294) [facility] Work Phone: Start: 07-17-2016 Protein [Mass/Vol] [facility] Work Phone: Start: 07-17-2016 Molecule gel electrophor Factor V Leiden (83399) [facility] Work Phone: Start: 07-17-2016 Mthfr gene analysis common variants MTHFR GENE (42972) [facility] Work Phone: Start: 07-17-2016 Assay of homocysteine Homocysteine, Plasma (07439) [facility] Work Phone: Start: 06-05-2016 Cytp cerv/vag auto thin layer prep mnl screen Thin prep Pap (36677) (no STD testing) [facility] Work Phone: Start: 2015 PAP TESTING PAP TESTING [facility] Start: 2015 Screening for malignant neoplasm of cervix Cervical Cancer Screening [facility] Start: 06-15-2014 Cytp cerv/vag auto thin layer prep mnl screen Thin prep Pap (22972) (no STD testing) [facility] Work Phone: Start: 2013 Hepatitis B Vaccine (1 of 3 - 19+ 3-dose series) Hepatitis B Vaccine (1 of 3 - 19+ 3-dose series) [facility] Start: 2013 Urine microalbumin profile [facility] Start: 2012 Anxiety Screening Anxiety Screening [facility] Start: 2012 Depression Screening Depression Screening [facility] Start: 2012 HEPATITIS C SCREENING HEPATITIS C SCREENING [facility] Start: 2012 Hepatitis C screening Hepatitis C Screening [facility] Start: 2012 HIV SCREENING HIV SCREENING [facility] Start: 2012 HIV screening HIV Screening [facility] Start: 1994 COVID-19 VACCINE (#1) COVID-19 VACCINE (#1) [facility] Start: 1994 HEPATITIS B (1 of 3 - 3-dose series) HEPATITIS B (1 of 3 - 3-dose series) [facility] CBC W Auto Different ial panel - Blood [facility] CBC W Auto Different ial panel - Blood [facility] Chlamydia deoxyribonucleic acid detection [facility] Cortisol Free [Mass/volume] in 24 hour Urine [facility] COVID & INFLUENZA A/ B & RSV PCR, ROUTINE COVID & INFLUENZA A/B & RSV PCR, ROUTINE Microbiology Routine URI, acute 06/15/2024 6:37 PM EDT [facility] Work Phone: Hepatitis C antibody measurement [facility] Neisseria gonorrhoea e rRNA [Presence] in Unspecified specimen by DESTINY with probe detection [facility] Patient referral [facility] Work Phone: PCR test for Chlamyd ia trachomatis [facility] Polysomnography [facility] Procedure [facility] Rubella IgG measurement [facility] Serologic test for syphilis [facility] Thyroid stimulating hormone measurement [facility] Urine culture [facility] Work Phone: [facility] Work Phone: [facility] Payers Date Payer Category Payer Self-pay [id number] 2025 Unknown [id number] 2020 Unknown 2020 Unknown [id number] 2018 Unknown [id number] 2016 Private Health Insurance [id number] 2015 Unknown [id number] 1994 Unknown [id number] 1994 Unknown [id number] 1994 Unknown [id number] [id number] Unknown [id number] Unknown [facility] PACKAGE PLAN [id number] Unknown [id number] Unknown [id number] Unknown [id number] [id number] Unknown [id number] Unknown [id number] [id number] Unknown [id number] [id number] Unknown [id number] [id number] Unknown [id number] [id number] Unknown [id number] [id number] Unknown [id number] [id number] Unknown [id number] [id number] Unknown [id number] [id number] Unknown [id number] [id number] Unknown [id number] [id number] Unknown [id number] [id number] Social History Date Type Detail Facility Start: 04-11-2021 End: 12-25-2022 Caffeine Use Caffeine Use [facility] Work Phone: Comment on above: qd Exercise History: Exercise History: [facility] Work Phone: Living Situation: Living Situation: [facility] Work Phone: Tobacco use: Tobacco use: [facility] Work Phone: Start: 03-01-2020 End: 02-10-2025 Tobacco smoking status NHIS Never smoked tobacco [facility] Start: 03-01-2020 End: 06-15-2024 Tobacco use and exposure Smokeless tobacco non-user [facility] Start: 08-27-2021 End: 06-15-2024 Alcohol intake Lifetime non-drinker (finding) [facility] Start: 04-11-2021 History SDOH Alcohol Frequency 2 [facility] Start: 04-11-2021 History SDOH Alcohol Std Drinks 1 [facility] Start: 04-11-2021 History SDOH Social Connections Phone 5 [facility] Start: 04-11-2021 History SDOH Social Connections Zoroastrian 3 [facility] Start: 04-11-2021 History SDOH Physica l Activity DPW 4 [facility] Start: 04-11-2021 History SDOH Physica l Activity MPS 6 [facility] Start: 04-11-2021 Education 17 [facility] Start: 1995 Sex Assigned At Not on file [facility] Start: 09-18-2022 End: 09-15-2023 Tobacco smoking status MDIS Unknown if ever smoked [facility] Start: 1994 Sex Assigned At Female [facility] Start: 04-11-2021 End: 12-25-2022 Social connection and isolation panel [facility] Do you belong to any clubs or organizations such as uatsdin groups, unions, fraternal or athletic groups, or school groups? Yes [facility] Are you now , , , , never or living with a partner? [facility] How often to you hav e a drink containing alcohol? Monthly or less [facility] How many standard dr inks containing alcohol do you have on a typical day? 1 or 2 [facility] How often do you hav e 6 or more drinks on 1 occasion? Never [facility] How hard is it for y ou to pay for the very basics like food, housing, medical care, and heating Not hard at all [facility] Do you feel stress - tense, restless, nervous, or anxious, or unable to sleep at night because your mind is troubled all the time - these days [OSQ] Not at all [facility] (I/We) worried miesha er (my/our) food would run out before (I/we) got money to buy more. Never true [facility] In the past 12 month s, was there a time when you were not able to pay the mortgage or rent on time? No [facility] Mental Status Date Assessment Result Facility 03-04-2025 Cognitive function Awake;Alert;A ppropriate;Follow s Commands [facility] Work Phone: 02-23-2025 Cognitive function Level Of Cons ciousness Awake;Alert;Appropriate;Follow s Commands [facility] Work Phone: 02-14-2025 Cognitive function Voice/Name [facility] Work Phone: Clinical Notes 09-27-2022 to 06-07-2025 Note Date & Type Note Facility 06-07-2025 Progress note [facility] 05-10-2025 Progress note [facility] 04-12-2025 Progress note [facility] 03-15-2025 Evaluation note Diagnosis Onset Date Resolution Hyperemesis gravidarum acute Ju 2024 8:33am acute March 15 8:33am Supervision of normal acute March 15, 2025 8:33am Hyperemesis gravidarum acute Au bebeto 2024 10:39am acute April 12, 025 10:39am Seasonal allergies acute April 12, 2025 10:39am Supervision of normal acute April 12 10:39am Hyperemesis gravidarum acute Se ptember 2024 8:44am acute April 8:44am Seasonal allergies acute Septem anurag 2024 8:44am Supervision of normal acute May 10, 2025 8:44am Hyperemesis gravidarum acute Oc 2024 10:13am acute June 07, 2025 10:13am Seasonal allergies acute Octobe r 2024 10:13am Supervision of normal acute June 07 10:13am [facility] Work Phone: 1(657) 736-645906-30-2025 Evaluation note* Diagnosis Onset Date Resolution Status Admit Date H/O abnormal cervical Papanicolaou smear acute February 14 8:10am acute February 14 8:10am at early stage acute February 14, 2025 8:10am Seasonal allergies acute January 182024 8:10am Supervision of normal acut e February 14, 2025 8:10am [facility] Work Phone: 1(568) 598-493906-30-2025 Evaluation note* Diagnosis Onset Date Resolution Status Admit Date H/O abnormal cervical Papanicolaou smear acute February 14 8:10am acute February 14 8:10am Seasonal allergies acute January 182024 8:10am Supervision of normal acut e February 14, 2025 8:10am at early stage deleted February 14, 2025 8:10am H/O abnormal cervical Papanicolaou smear acute March 15 8:33am Hyperemesis gravidarum acute Ju ly 2024 8:33am acute March 15 8:33am Seasonal allergies acute February 162024 8:33am Supervision of normal acut e March 15, 2025 8:33am [facility] Work Phone: 1(891) 453-484806-30-2025 Evaluation note* Diagnosis Onset Date Resolution Status Admit Date acute February 14 8:10am Seasonal allergies acute January 182024 8:10am Supervision of normal acute February 14, 2025 8:10am H/O abnormal cervical Papanicolaou smear inactive February 14 8:10am at early stage deleted February 14, 2025 8:10am Hyperemesis gravidarum acute Ju ly 2024 8:33am acute March 15 8:33am Supervision of normal acute March 15, 2025 8:33am Hyperemesis gravidarum acute Au bebeto 2024 10:39am acute April 12 10:39am Seasonal allergies acute April 12, 2025 10:39am Supervision of normal acute April 12 10:39am [employer] Work Phone: 1(935) 478-326706-30-2025 Evaluation note* Diagnosis Onset Date Resolution Status Admit Date acute February 14 8:10am Seasonal allergies acute January 182024 8:10am Supervision of normal acute February 14, 2025 8:10am H/O abnormal cervical Papanicolaou smear inactive February 14 8:10am at early stage deleted February 14, 2025 8:10am Hyperemesis gravidarum acute Ju ly 2024 8:33am acute March 15 8:33am Supervision of normal acute March 15, 2025 8:33am Hyperemesis gravidarum acute Au bebeto 2024 10:39am acute April 12, 10:39am Seasonal allergies acute April 12, 2025 10:39am Supervision of normal acute April 12 10:39am Hyperemesis gravidarum acute Se ptember 2024 8:44am acute April 8:44am Seasonal allergies acute Septem anurag 2024 8:44am Supervision of normal acute May 10, 2025 8:44am [facility] Work Phone: 1(769) 955-665906-17-2025 Radiology Diagnostic study note [facility] Imaging Services [address] [place] [address] Transvaginal w/Preg US MR#: [id number] Acct: [id number] Name: PHUC KAUFFMAN Rep #: [id number] : 1995 F 29 From: Max Nagel MD PCP: Dr. Marc Tyson MD Status: REG CLI Study:Transvaginal w/Preg US Date of Exam: 01/31/25 Exam# [id number] Ordering Dr: Kristy Calabrese CNM PROCEDURE: TRANSVAGINAL W/PREG US 01/31/2025 REASON FOR EXAM: DATING/VIABILITY TECHNIQUE: TRANSVAGINAL W/PREG US COMPARISON: None FINDINGS: LMP: Unknown Comments: Transvaginal imaging was performed Number of Gestational Sacs: 1 Gestational Sac Shape: Normal Number of Fetuses: 1 Heart Rate: 127 (average) Yolk Sac: Present and unremarkable. Placenta: Presently not well-visualized Amniotic Fluid Volume: Subjectively normal for gestational age. Uterine Abnormalities: Maternal uterus is unremarkable. Ovaries / Adnexa: Both maternal ovaries are visualized and unremarkable. DIMENSIONS: Parameter Measurement / EGA [place] Rump Length: 5.7 mm/ Gestational Sac: 6 weeks and 4 days/ Yolk Sac: 3.1 mm/ ESTIMATED GESTATIONAL AGE: By Ultrasound: 7 weeks and 0 days By LMP: Unknown ESTIMATED DATE OF DELIVERY: By Ultrasound: September 19, 2025 By LMP: Unknown US/Transvaginal w/Preg US IMPRESSION: Single live intrauterine gestation with a mean gestational age of 7 weeks. Reading Location: [place] [address] CC: TRACIE Calabrese; Dr. 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 Lo Lopes MA [facility]10-29-2024 Miscellaneous Notes* Telephone Encounter - Lo Lopes MA - 06/15/2024 8:05 PM EDT Patient given results and verbalized understanding of instructions given. Lo Lopes MA * Telephone Encounter - Renee Guzmán APRN.CNP - 06/15/2024 7:49 PM EDT Please call let patient know that her chest x-ray was negative. Patient should use supportive care that is compatible with breast-feeding. Please have patient follow-up with primary care if symptoms persist. [facility] Telephone encounter Note * Telephone Encounter - Renee Guzmán APRN.CNP - 06/15/2024 7:49 PM EDT Please call let patient know that her chest x-ray was negative. Patient should use supportive care that is compatible with breast-feeding. Please have patient follow-up with primary care if symptoms persist. [facility]10-29-2024 History of Present illness Narrative* Nan Wilcox, RT(R) - 06/15/2024 6:20 PM EDT Radiology Service Progress Note PATIENT NAME: Phuc Kauffman DATE OF SERVICE: June 15, 2024 TIME: 6:27 PM PATIENT IDENTITY VERIFICATION COMPLETED USING TWO (2) IDENTIFIERS: Name and Date of confirmedby patient verbally. FALL SCREENING: Has the patient had 2 falls in the last year or 1 fall with injury or currently using an Ambulatory Assistive Device (Walker, Cane, Wheelchair, Crutches, etc.)? No PATIENT GENDER DATA: Female. status: : No status: NO. PATIENT RELEVANT IMPLANT DATA REVIEWED: Yes PATIENT PRESENTS WITH AN IMPLANTABLE OR ATTACHED REGIONAL MAINTENANCE MANAGER: No RADIOLOGY DEPARTMENT: General X-ray: Exam(s) Completed: Chest X-Ray PERIPHERAL IV DATA: Not applicable SIGNED BY: RT Henry(Tequila) June 15, 2024 6:27 PM documented in this encounterMary[facility]24 NoteHNO ID: [id number] Author: NAN WILCOX RT(R) Service: Radiology Author Type: Technologist Type: Progress Notes Filed: 06/15/2024 18:34 Note Text: Radiology Service Progress Note PATIENT NAME: Phuc Kauffman DATE OF SERVICE: June 15, 2024 TIME: 6:27 PM PATIENT IDENTITY VERIFICATION COMPLETED USING TWO (2) IDENTIFIERS: Name and Date of confirmed by patient verbally. FALL SCREENING: Has the patient had 2 falls in the last year or 1 fall with injury or currently using an Ambulatory Assistive Device (Walker, Cane, Wheelchair, Crutches, etc.)? No PATIENT GENDER DATA: Female. status: : No status: NO. PATIENT RELEVANT IMPLANT DATA REVIEWED: Yes PATIENT PRESENTS WITH AN IMPLANTABLE OR ATTACHED REGIONAL MAINTENANCE MANAGER: No RADIOLOGY DEPARTMENT: General X-ray: Exam(s) Completed: Chest X-Ray PERIPHERAL IV DATA: Not applicable SIGNED BY: RT Henry(R) June 15, 2024 6:27 [facility]10-29-2024 NoteHNO ID: [id number] Author: RENEE GUZMÁN APRN.UNIT COORDINATOR Service: ? Author Type: Nurse Practitioner Type: Progress Notes Filed: 06/15/2024 19:50 Note Text: CC: Patient presents with: Cough: Cough, ST, congestion and RIVAS x 6 days HPI: Phuc Kauffman is a 29 year old female who presents to the office with complaint of head congestion, cough, nonproductive, sore throat, and fever for 6 days. Symptoms are worsening Associated symptoms includes headache. Denies nausea, vomiting , and diarrhea. Treatments tried include nothing so far. with no relief of symptoms. Sick contacts: unknown. History of asthma, frequent episodes of bronchitis, chronic bronchitis, bronchiectasis or COPD: No Smoker: No Seasonal/environmental allergies: No The ROS is otherwise negative. The patient's pmh, medications, allergies, and past visits are reviewed. PHYSICAL EXAM: BP 118/76 Pulse (!) 121 Temp (!) 38.2 ?C (100.7 ?F) (Tympanic) Resp 18 Wt 86.1 kg (189 lb 13.1 oz) LMP 04/04/2021 SpO2 98% BMI 29.29 kg/m? General appearance: alert, cooperative, pleasant, in no acute distress Head: Normocephalic Eyes: EOM's intact, conjunctiva pink and moist, no icterus, sclera white, non-injected on left right conjunctiva injected Ears: Right ear: External ear/canal- Normal, TM - clear with good landmarks. Left ear: External ear/canal- Normal, TM - clear with good landmarks Oropharynx:mild erythema, without exudates present, uvula midline Heart: Negative. RRR without obvious murmur, gallop, or rubs. No ectopy. Lungs: clear to auscultation, without rales or wheeze, good air exchange PAST MEDICAL HISTORY Diagnosis Date Infectious mononucleosis Kidney stone Splenomegaly PAST SURGICAL HISTORY Procedure Laterality Date APPENDECTOMY ALLERGIES Amoxicillin and Motrin [Ibuprofen] MEDICATIONS ALYACEN 1/35, 28, 1-35 mg-mcg per tablet Take 1 tablet by mouth once daily. (Patient not taking: No sig reported) No family history on file. Social History Tobacco Use Smoking status: Never Smokeless tobacco: Never Vaping Use Vaping status: Never Used Substance Use Topics Alcohol use: Never Drug use: Never ASSESSMENT/PLAN: 1. Sore throat - ICD9: 462, ICD10: J02.9 (primary diagnosis) - STREP A MOLECULAR (POC) - neg 2. Acute cough - ICD9: 786.2, ICD10: R05.1 - XR CHEST 2V FRONTAL/LAT- neg 3. [place] eye disease of right eye - ICD9: 372.03, ICD10: H10.021 - POLYMYXIN B SULFATE 10,000 UNIT-TRIMETHOPRIM 1 MG/ML EYE DROPS 4. URI, acute - ICD9: 465.9, ICD10: J06.9 - COVID AND INFLUENZA A/B AND RSV PCR, ROUTINE Prescription instructions reviewed with patient as applicable. Potential red flag symptoms discussed with the patient. Reviewed appropriate action plan to take if red flag symptoms occur. Patient agreeable to treatment plan. Renee Guzmán APRN.[facility]10-29-2024 History of Present illness Narrative* Renee Guzmán APRN.UNIT COORDINATOR - 06/15/2024 6:12 PM EDT CC: Patient presents with: Cough: Cough, ST, congestion and RIVAS x 6 days HPI: Phuc Kaufmfan is a 29 year old female who presents to the office with complaint of head congestion,cough, nonproductive, sore throat, and fever for 6 days. Symptoms are worsening Associated symptoms includes headache. Denies nausea, vomiting , and diarrhea. Treatments tried include nothing so far. with no relief of symptoms. Sick contacts: unknown. History of asthma, frequent episodes of bronchitis, chronic bronchitis, bronchiectasis or COPD: No Smoker: No Seasonal/environmental allergies: No The ROS is otherwise negative. The patient's pmh, medications, allergies, and past visits are reviewed. PHYSICAL EXAM: BP 118/76 Pulse (!) 121 Temp (!) 38.2 C (100.7 F) (Tympanic) Resp 18 Wt 86.1 kg (189 lb 13.1 oz) LMP 04/04/2021 SpO2 98% BMI 29.29 kg/m General appearance: alert, cooperative, pleasant, in no acute distress Head: Normocephalic Eyes: EOM's intact, conjunctiva pink and moist, no icterus, sclera white, non- injected on left right conjunctiva injected Ears: Right ear: External ear/canal- Normal, TM - clear with good landmarks. Left ear: External ear/canal- Normal, TM - clear with good landmarks Oropharynx:mild erythema, without exudates present, uvula midline Heart: Negative. RRR without obvious murmur, gallop, or rubs. No ectopy. Lungs: clear to auscultation, without rales or wheeze, good air exchange PAST MEDICAL HISTORY Diagnosis Date Infectious mononucleosis Kidney stone Splenomegaly PAST SURGICAL HISTORY Procedure Laterality Date APPENDECTOMY ALLERGIES Amoxicillin and Motrin [Ibuprofen] MEDICATIONS ALYACEN 1/35, 28, 1-35 mg-mcg per tablet Take 1 tablet by mouth once daily. (Patient not taking: Nosig reported) No family history on file. Social History Tobacco Use Smoking status: Never Smokeless tobacco: Never Vaping Use Vaping status: Never Used Substance Use Topics Alcohol use: Never Drug use: Never ASSESSMENT/PLAN: 1. Sore throat - ICD9: 462, ICD10: J02.9 (primary diagnosis) - STREP A MOLECULAR (POC) - neg 2. Acute cough - ICD9: 786.2, ICD10: R05.1 - XR CHEST 2V FRONTAL/LAT- neg 3. [place] eye disease of right eye - ICD9: 372.03, ICD10: H10.021 - POLYMYXIN B SULFATE 10,000 UNIT-TRIMETHOPRIM 1 MG/ML EYE DROPS 4. URI, acute - ICD9: 465.9, ICD10: J06.9 - COVID & INFLUENZA A/B & RSV PCR, ROUTINE Prescription instructions reviewed with patient as applicable. Potential red flag symptoms discussed with the patient. Reviewed appropriate action plan to take if red flag symptoms occur. Patient agreeable to treatment plan. Renee Guzmán APRN.UNIT COORDINATOR documented in [facility] encounterMary[facility]-2024 NotePap Smear Specimen AdequacyJanuary 2023 2:27pmComment.Satisfactory for evaluation. Endocervical and/or squamous metaplasticcells (endocervical component)are present.[facility]ED A#[id number] [facility] District [facility] HospitalComment on above: Satisfactory for evaluation. Endocervical and/or squamous metaplasticcells (endocervical component)are present.12-11-2022 History of Present illness Narrative* Yvette Espinal RN - 12/11/2022 3:33 PM EDT UNIVERSAL PROTOCOL / SAFETY CHECKLIST Procedure to [...] Visit completed when applicable. Yvette Espinal RN * Bismark Shepherd - 12/11/2022 3:13 PM EDT FOLLOW UP PODIATRIC OFFICE VISIT Chief Complaint: [...] by mouth once daily. (Patient not taking: Nosig reported) No current facility-administered medications for this [...] to lesser degree lateral border demonstrates slight incurvation.No signs of infection. Musculoskeletal/Orthopaedic: Patient has no [...] well. Patient will f/u in 2 weeks. Bismark Shepherd DPM * Yvette Espinal RN - 12/11/2022 3:00 PM EDT Patient presents with: Left Great Toe - Established Patient, Ingrown Toenail, Pain Patient presents for Left hallux ingrown. States that it has been bothering her intermittently for the last 4 months. 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 documented [facility]04-26-2023 Instructions* Patient Instructions* Yvette Espinal RN - 12/11/2022 3:26 PM [...] as well if you have any questions/concerns [phone], ask for Podiatry Nurse documented in this encounterMarymount Hospital02-21-2023 History of Present illness Narrative* Bismark Shepherd - 10/08/2022 8:00 AM EST Initial Podiatric Office Visit: Chief Complaint: This [...] by mouth once daily. (Patient not taking: Nosig reported) No current facility-administered medications for this [...] follow-up to do procedure in the future Bismark Shepherd DPM Podiatry [address] [facility] [address] Dept: [phone] Dept * Caitlin Maria RN - 10/08/2022 7:55 AM EST AMB ROOMING INTAKE FLOWSHEET DATA Risk Screening Do you have concerns about personal safety or safety in the home?: No Patient presents with: Left Great Toe - Established Patient, Ingrown Nail Has upcoming vacation and would like to postpone procedure. documented in this encounterMarymount Hospital02-10-2023 Miscellaneous Notes* Telephone Encounter - Caitlin Maria RN - 09/27/2022 9:20 AM EST Left pt VM to contact office if she needs to schedule appointment for ingrown toenail. * Telephone Encounter - Yvette Espinal RN - 09/19/2022 11:06 AM EST Called and left message for patient to call back. We received a referral from [facility], Dr. Gage Vincent for an ingrown toenail. Attempting to schedule ingrown toenail appointment with patient. documented in this encounterMary[facility]* Diagnosis Onset Date Resolution Status Encounter to establish care acute Hypersomnolence acute Ingrown toenail of left foot acute Obesity (BMI 30-39.9) acute Preventative health care acu [facility] Work Phone: Evaluation note* Diagnosis Ingrowing toenail- Primary Ingrowing nail documented [facility] this encounter [facility]* Diagnosis Ingrowing toenail- Primary Ingrowing nail documented [facility] this encounter [facility]* Diagnosis Onset Date Resolution Status Hypersomnolence acute Obesity (BMI 30-39.9) [facility] Work Phone: Evaluation note* Diagnosis Onset Date Resolution Status Encounter to establish care acute H/O abnormal cervical Papanicolaou smear acute History of miscarriage, currently acute Hypersomnolence acute acute Seasonal allergies acute Supervision of high-risk acute Obesity (BMI 30-39.9) [facility] Work Phone: Evaluation note* Diagnosis Sore throat- Primary Acute pharyngitis Acute cough [place] eye disease of right eye URI, acute Acute upper respiratory infections of unspecified site Acute cough documented in this encounter [facility] note* Diagnosis Acute cough documented in this encounter [facility] noteNo assessment information [facility] Work Phone: Evaluation note* Diagnosis Onset Date Resolution Status Admit Date H/O abnormal cervical Papanicolaou smear acute February 14 8:10am acute February 14 8:10am at early stage acute February 14, 2025 8:10am Seasonal allergies acute January 182024 8:10am Supervision of normal acut e February 14, 2025 8:10am [facility] Work Phone: Progress note Author Arlette Martini [facility] Note Date/Time April 12, 2025 11 :09am [facility] [address] [place] [address], [address] [place] [address] OFFICE VISIT Date of Service: 04/12/25 MR#: [id number] Acct: [id number] Name: PHUC KAUFFMAN Rep #: [id number] : 1995 Provider: Dr. 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 Is patient in pain?: No Allergies No Known Allergies Allergy (Verified 04/12/25 10:42) Medications ?Medication ?Instructions ?Recorded ?Confirmed ?Type PNV#14-iron fum-FA#3-usz-lchhitva cap PO 04/16/24/02/09 History 27 mg iron-1 mg-300 mg-50 mg capsule promethazine 12.5 mg tablet 12.5 mg PO Q6H PRN nausea and 02/02/25 04/12/25 Rx vomiting #90 tabs ondansetron 4 mg disintegrating 4 mg PO Q6H PRN nausea and 02/14/25 04/12/25 Rx tablet vomiting #30 tabs Last Menstrual Period: 07/15/23 Zika: Zika virus screening: Negative : No PFSH PFSH Medical History H/O abnormal cervical Papanicolaou smear History of miscarriage, currently Supervision of high-risk Abnormal glucose affecting SROM (spontaneous rupture of membranes) Mononucleosis SAB (spontaneous ) Spotting affecting Hx of ingrown nail Hypersomnolence Seasonal allergies Surgical History History of appendectomy Family History Grandmother DVT (deep venous thrombosis) Aunt DVT (deep venous thrombosis) Uncle DVT (deep venous thrombosis) Father Hypertension Social History adopted: No household members: spouse housing: house number of children: 1 current occupational status: unemployed current occupation: [employer] current occupational exposures/hazards: No pets and animals: Yes (Avoid litterbox) pets and animals: cat(s) history of recent travel: No sexually active: Yes Smoking Status: Never smoker alcohol intake: current alcohol intake frequency: holidays/special occasions only details: not while substance use type: does not use well-balanced diet: daily or most days caffeine: No eating out: 1-3 times/week during the past year weight has: decreased > 10 lbs what type of physical activity do you participate in: none frequency: 3-4 times per week duration: 45-60 minutes/day edmundo/episcopalian: Scientology seatbelt use: always do you feel safe at home: Yes additional social history: [facility] History 3 Elective abortions Hx Para 1 Spontaneous abortions 1 Hx # Term Pregnancies Ectopic pregnancies Hx # Pregnancies Multiple births # of living children 1 Past Pregnancies Del. Date Name GA/Weeks Outcome Route Bth Weight Gen Labor Lgth Anesthesia Del Locatn Provider FOB Unknown 01/2023 spontaneous 04/17/24 Mikel 39 live - full term 8lbs 8oz Male epi dural [facility] Delivery Date: 04/17/24 Last Updated by: Chiquita Henry RN See problem list for complications, and srom IAL SM 39 HPI 17 wk ob *move 06/07 appt Details: PHUC KAUFFMAN is a 30 year old who presents for routine OB visit. OB Visit NATHANAEL Calculator Estimated Delivery Date Method Current WG Current Estimate 09/19/25 Ultrasound #1 17w 1d Expected Delivery Route/Plan Labor Preferences- CB/BF classes: [] labor support person: [] labor intervention preferences: [] pain management options preferred: [] cut cord/dad catch: [] : [] PP control planned: [] discussed possible routes of delivery and associated risks: [] special requests: [] Specific Issue/Plans Covid status: [] Flu vaccine: [] Tdap vaccine: [] Rhogam: [] LARC form signed: [] Problem list reviewed and updated with the most current plan of care details and appropriate orders placed. Relevant counseling for the gestational age provided. Continue routine care and follow up unless otherwise noted in visit notes/problem list details Initial Weight: Not Recorded Date -?-?-?-?-?-?-?-?-?-?-?-?- EGA Weight BP Urine Prot -?-?-?-?-?-?-?-?-?-?-?-?- Glucose FHR FuHt Pres Dilation -?-?--?-?-?-?-?-?-?-?-?-?- Effaced St Visit Note 02/14/25 -?-?-?-?-?-?-?-?-?-?-?-?- 9w 0d 183 lb 6 oz 109/69 -?-?-?-?-?-?-?-?-?-?-?-?- 163 -?-?-?-?-?-?-?-?-?-?-?-?- JV- CRL is consi stent with LMP. she is actively vomiting. calling infusion suite for IV fluids + zofran. zofran sent to pharmacy. JV- CRL is consistent with L MP. she is actively vomiting. calling infusion suite for IV fluids + zofran. zofran sent to pharmacy. desires nipt but will return next week for labs. 03/15/25 -?-?-?-?-?-?-?-?-?-?-?-?- 13w 1d 181 lb 125/73 Negative -?-?-?-?-?-?-?-?-?-?-?-?- Negative 160 -?-?-?-?-?-?-?-?-?-?-?-?- MH-No VB. Nausea much improved. Br US confirm FHT 04/12/25 -?-?-?-?-?-?-?-?-?-?-?-?- 17w 1d 184 lb 4 oz 121/80 Nega tive -?-?-?-?-?-?--?-?-?-?-?-?- Negative 150 -?-?-?-?-?-?-?-?-?-?-?-?- SM- no vb crampi ng ACOG First Trimester First Trimester: Desire for , Alcohol, Tobacco Cessation, Illicit/Recreational Drug/Substance Use, Intimate Partner Violence, Barriers to care, Unstable Housing, Communication Barriers, Environmental/Work Hazards, Anticipated Course of Care, Toxoplasmosis Precations, Use of Any medications, Sexual activity, Exercise, Dental Care, Sauna/Hot tub use, Seat Belt use, Childbirth classes/Hospital facilities, Travel, Indications for Ultrasound and Screening for Aneuploidy; Discussed Second Trimester Second Trimester: Signs and Symptoms of Labor, Selecting a care provider and Reproductive Life Planning & Contreception; Discussed Tobacco Cessation, Discussed Depression/Anxiety and Discussed Intimate Partner Violence Third Trimester Third Trimester: Pain Management Plans, Labor support person(s), Immediate Larc, Circumcision preference, Movement Monitoring, Signs and Symptoms of Preeclampsia, Feeding No and Family Medical Leave or Disability Forms; Discussed Tobacco Cessation, Discussed Depression and Discussed Intimate Partner Violence Results POC Urinalysis 2 Dip (Clinic) Office Urine Glucose Negative Last Edit by Yohana Marie on 04/12/25 10:47 Office Urine Protein Negative Last Edit by Yohana Marie on 04/12/25 10:47 Coding Level of Care Code OB Routine Diagnoses Hyperemesis gravidarum O21.0 Encounter for supervision of other normal in second trimester Z34.82 Normal : other normal Trimester: second trimester 17 weeks gestation of Z3A.17 Weeks of gestation: 17 weeks Seasonal allergies J30.2 Assessment and Plan Assessment and Plan (1) Hyperemesis gravidarum: Status: Acute Comment: improved (2) Supervision of normal : Status: Acute Qualifiers: Normal : other normal Trimester: second trimester Qualified Code(s): Z34.82 - Encounter for supervision of other normal , second trimester Comment: [id number], NATHANAEL 09/19/25, PC Mikel, [facility] (3) : Status: Acute Qualifiers: Weeks of gestation: 17 weeks Qualified Code(s): Z3A.17 - 17 weeks gestation of Comment: NIPT baby low risk, gender female-undecided, prior carrier Neg14/14 (4) Seasonal allergies: Status: Acute Orders: Orders POC Urinalysis 2 Dip (Clinic) Today 04/12/25 1109 <Electronically signed by Arlette jamil MD> Date _ Arlette Martini MD Cosigner Signature: Date (if applicable) CC: ~ [facility] Work Phone: Progress note Author Kristy Calabrese [facility] Note Date/Time May 10, 2025 9:13am [facility] [address] [place] [address], [address] [place] [address] OFFICE VISIT Date of Service: 05/10/25 MR#: [id number] Acct: [id number] Name: PHUC KAUFFMAN Rep #: [id number] : 1995 Provider: TRACIE Calabrese Age/Sex: 30/F [place] [facility] [place]: Signed Intake Vital Signs 03/15/25 08:36 04/12/25 10:45 05/10/25 08:52 Height 5 ft 8 in 5 ft 8 in 5 ft 8 in Weight: 194 lb 1 oz BMI 29.5 BP 119/84 H Intake Visit Reasons: 21 wk ob Chief Complaint: 21wk 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 Is patient in pain?: No Allergies No Known Allergies Allergy (Verified 05/10/25 08:50) Medications 3 ?Medication ?Instructions ?Recorded ?Confirmed ?Type PNV 14-iron yxm-KU1-lvr-docusate cap PO 04/16/2405/10 History 27 mg iron-1 mg-300 mg-50 mg capsule promethazine 12.5 mg tablet 12.5 mg PO Q6H PRN nausea and 02/02/25 05/10/25 Rx vomiting #90 tabs ondansetron 4 mg disintegrating 4 mg PO Q6H PRN nausea and 02/14/25 05/10/25 Rx tablet vomiting #30 tabs Last Menstrual Period: 07/15/23 : No PFSH PFSH Medical History H/O abnormal cervical Papanicolaou smear History of miscarriage, currently Supervision of high-risk Abnormal glucose affecting SROM (spontaneous rupture of membranes) Mononucleosis SAB (spontaneous ) Spotting affecting Hx of ingrown nail Hypersomnolence Seasonal allergies Surgical History History of appendectomy Family History Grandmother DVT (deep venous thrombosis) Aunt DVT (deep venous thrombosis) Uncle DVT (deep venous thrombosis) Father Hypertension Social History adopted: No household members: spouse housing: house number of children: 1 current occupational status: unemployed current occupation: [employer] current occupational exposures/hazards: No pets and animals: Yes (Avoid litterbox) pets and animals: cat(s) history of recent travel: No sexually active: Yes Smoking Status: Never smoker alcohol intake: current alcohol intake frequency: holidays/special occasions only details: not while substance use type: does not use well-balanced diet: daily or most days caffeine: No eating out: 1-3 times/week during the past year weight has: decreased > 10 lbs what type of physical activity do you participate in: none frequency: 3-4 times per week duration: 45-60 minutes/day edmundo/episcopalian: Scientology seatbelt use: always do you feel safe at home: Yes additional social history: [facility] History 3 Elective abortions Hx Para 1 Spontaneous abortions 1 Hx # Term Pregnancies Ectopic pregnancies Hx # Pregnancies Multiple births # of living children 1 Past Pregnancies Del. Date Name GA/Weeks Outcome Route Bth Weight Gen Labor Lgth Anesthesia Del Locatn Provider FOB Unknown 01/2023 spontaneous 04/17/24 Mikel 39 live - full term 8lbs 8oz Male epi dural [facility] Delivery Date: 04/17/24 Last Updated by: Chiquita Henry RN See problem list for complications, and srom IAL SM 39 HPI 21 wk ob Details: PHUC KAUFFMAN is a 30 year old who presents for routine OB visit. OB Visit NATHANAEL Calculator Estimated Delivery Date Method Current WG Current Estimate 09/19/25 Ultrasound #1 21w 1d Expected Delivery Route/Plan Labor Preferences- CB/BF classes: [] labor support person: [] labor intervention preferences: [] pain management options preferred: [] cut cord/dad catch: [] : [] PP control planned: [] discussed possible routes of delivery and associated risks: [] special requests: [] Specific Issue/Plans Covid status: [] Flu vaccine: [] Tdap vaccine: [] Rhogam: [] LARC form signed: [] Problem list reviewed and updated with the most current plan of care details and appropriate orders placed. Relevant counseling for the gestational age provided. Continue routine care and follow up unless otherwise noted in visit notes/problem list details Initial Weight: Not Recorded Date -?-?-?-?-?-?-?-?-?-?-?-?- EGA Weight BP Urine Prot -?-?-?-?-?-?-?-?-?-?-?-?- Glucose FHR FuHt Pres Dilation -?-?-?-?-?-?-?-?-?-?-?-?- Effaced St Visit Note 02/14/25 -?-?-?-?-?-?-?-?-?-?-?-?- 9w 0d 183 lb 6 oz 109/69 -?-?-?-?-?-?-?-?-?-?-?-?- 163 -?-?-?-?-?-?-?-?-?-?-?-?- JV- CRL is consi stent with LMP. she is actively vomiting. calling infusion suite for IV fluids + zofran. zofran sent to pharmacy. JV- CRL is consistent with L MP. she is actively vomiting. calling infusion suite for IV fluids + zofran. zofran sent to pharmacy. desires nipt but will return next week for labs. 03/15/25 -?-?-?-?-?-?-?-?-?-?--?-?- 13w 1d 181 lb 125/73 Negative -?-?-?-?-?-?-?-?-?-?-?-?- Negative 160 -?-?-?-?-?-?-?-?-?-?-?-?- MH-No VB. Nausea much improved. Br US confirm FHT 04/12/25 -?-?-?-?-?-?-?-?-?-?-?-?- 17w 1d 184 lb 4 oz 121/80 Nega tive -?-?-?-?-?-?-?-?-?-?-?-?- Negative 150 -?-?-?-?-?-?--?-?-?-?-?-?- SM- no vb crampi ng 05/10/25 -?-?-?-?-?-?-?-?-?-?-?-?- 21w 1d 194 lb 1 oz 119/84 Nega tive -?-?-?-?-?-?-?-?-?-?-?-?- Negative 150 -?-?-?-?-?-?-?-?-?-?-?-?- KW- no vb/crampi ng. good fm. normal US ACOG First Trimester First Trimester: Desire for , Alcohol, Tobacco Cessation, Illicit/Recreational Drug/Substance Use, Intimate Partner Violence, Barriers to care, Unstable Housing, Communication Barriers, Environmental/Work Hazards, Anticipated Course of Care, Toxoplasmosis Precations, Use of Any medications, Sexual activity, Exercise, Dental Care, Sauna/Hot tub use, Seat Belt use, Childbirth classes/Hospital facilities, Travel, Indications for Ultrasound and Screening for Aneuploidy; Discussed Second Trimester Second Trimester: Signs and Symptoms of Labor, Selecting a care provider and Reproductive Life Planning & Contreception; Discussed Tobacco Cessation, Discussed Depression/Anxiety and Discussed Intimate Partner Violence Third Trimester Third Trimester: Pain Management Plans, Labor support person(s), Immediate Larc, Circumcision preference, Movement Monitoring, Signs and Symptoms of Preeclampsia, Feeding No and Family Medical Leave or Disability Forms; Discussed Tobacco Cessation, Discussed Depression and Discussed Intimate Partner Violence ROS Const Reports system reviewed and no additional complaints, except as documented Eyes Reports system reviewed and no additional complaints, except as documented ENT Reports system reviewed and no additional complaints, except as documented Card Reports system reviewed and no additional complaints, except as documented Resp Reports system reviewed and no additional complaints, except as documented GI Reports system reviewed and no additional complaints, except as documented, Denies nausea and Denies vomiting Reports system reviewed and no additional complaints, except as documented Musc Reports system reviewed and no additional complaints, except as documented Skin/Breast Reports system reviewed and no additional complaints, except as documented Neuro Yes system reviewed and no additional complaints, except as documented Psych Reports system reviewed and no additional complaints, except as documented Endo Reports system reviewed and no additional complaints, except as documented Sandro/Lymph Reports system reviewed and no additional complaints, except as documented Aller/Immun Reports system reviewed and no additional complaints, except as documented Exam Const General: cooperative, healthy appearing and no acute distress Orientation: alert, awake and oriented x3 Neck Neck: normal visual inspection and full ROM Resp Effort & Inspection: normal respiratory effort, able to speak in complete sentences and symmetric chest movement GI Inspection: normal to inspection Palpation: soft and other Other: gravid Skin General: no rashes or lesions noted Neuro General: patient alert, patient awake and patient oriented x3 Cognition: normal cognition Speech: speech normal Gait: normal gait Motor: muscle tone normal throughout Extrem General: normal to inspection and full ROM Psych Appearance: grossly normal Mental Status: mental status grossly normal Mood: congruent mood Affect: normal affect Speech and Movement: speech and movement normal Attitude: cooperative Thought Process: normal Thought Content: normal Judgment: judgment good Results POC Urinalysis 2 Dip (Clinic) Office Urine Glucose Negative Last Edit by Denisha Lim on 05/10/25 08:55 Office Urine Protein Negative Last Edit by Denisha Lim on 05/10/25 08:55 Coding Level of Care Code OB Routine Diagnoses Hyperemesis gravidarum O21.0 Encounter for supervision of other normal in second trimester Z34.82 Normal : other normal Trimester: second trimester 21 weeks gestation of Z3A.21 Weeks of gestation: 21 weeks Seasonal allergies J30.2 Assessment and Plan Assessment and Plan (1) Hyperemesis gravidarum: Status: Acute Comment: improved (2) Supervision of normal : Status: Acute Qualifiers: Normal : other normal Trimester: second trimester Qualified Code(s): Z34.82 - Encounter for supervision of other normal , second trimester Comment: [id number], NATHANAEL 09/19/25, girl Suze Morin, [facility] (3) : Status: Acute Qualifiers: Weeks of gestation: 21 weeks Qualified Code(s): Z3A.21 - 21 weeks gestation of Comment: NIPT baby low risk, gender female-undecided, prior carrier Neg14/14. afp declined (4) Seasonal allergies: Status: Acute Orders: Orders POC Urinalysis 2 Dip (Clinic) Today Plan Details Additional Comments: ACOG trimester education reviewed and updated. see problem list details for updated plan management information and see below for orders placed at this visit. GA appropriate handout given. 05/10/25 0985 <Electronically signed by Kristy rider CNM> Date _ Kristy Calabrese CNM Cosigner Signature: Date (if applicable) CC: ~ [facility] [facility] Work Phone: Progress note Author [facility] Note Date/Time June 07, 2025 1 1:49am [facility] [address] [place] [address], [address] [place] [address] OFFICE VISIT Date of Service: 06/07/25 MR#: [id number] Acct: [id number] Name: PHUC KAUFFMAN Rep #: [id number] : 1995 Provider: Dr. 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 Is patient in pain?: No Allergies No Known Allergies Allergy (Verified 06/07/25 10:14) Medications ?Medication ?Instructions ?Recorded ?Confirmed ?Type PNV 14-iron uoc-VC5-vio-docusate cap PO 04/16/2406/07 History 27 mg iron-1 mg-300 mg-50 mg capsule promethazine 12.5 mg tablet 12.5 mg PO Q6H PRN nausea and 02/02/25 06/07/25 Rx vomiting #90 tabs ondansetron 4 mg disintegrating 4 mg PO Q6H PRN nausea and 02/14/25 06/07/25 Rx tablet vomiting #30 tabs Last Menstrual Period: 07/15/23 Zika: Zika virus screening: Negative : No PFSH PFSH Medical History H/O abnormal cervical Papanicolaou smear History of miscarriage, currently Supervision of high-risk Abnormal glucose affecting SROM (spontaneous rupture of membranes) Mononucleosis SAB (spontaneous ) Spotting affecting Hx of ingrown nail Hypersomnolence Seasonal allergies Surgical History History of appendectomy Family History Grandmother DVT (deep venous thrombosis) Aunt DVT (deep venous thrombosis) Uncle DVT (deep venous thrombosis) Father Hypertension Social History adopted: No household members: spouse housing: house number of children: 1 current occupational status: unemployed current occupation: [employer] current occupational exposures/hazards: No pets and animals: Yes (Avoid litterbox) pets and animals: cat(s) history of recent travel: No sexually active: Yes Smoking Status: Never smoker alcohol intake: current alcohol intake frequency: holidays/special occasions only details: not while substance use type: does not use well-balanced diet: daily or most days caffeine: No eating out: 1-3 times/week during the past year weight has: decreased > 10 lbs what type of physical activity do you participate in: none frequency: 3-4 times per week duration: 45-60 minutes/day edmundo/episcopalian: Scientology seatbelt use: always do you feel safe at home: Yes additional social history: [facility] History 3 Elective abortions Hx Para 1 Spontaneous abortions 1 Hx # Term Pregnancies Ectopic pregnancies Hx # Pregnancies Multiple births # of living children 1 Past Pregnancies Del. Date Name GA/Weeks Outcome Route Bth Weight Infant Gen Labor Lgth Anesthesia Del Locatn Provider FOB Unknown 01/2023 spontaneous 04/17/24 Mikel 39 live - full term 8lbs 8oz Male epi dural [facility] Delivery Date: 04/17/24 Last Updated by: Chiquita Henry, RN See problem list for complications, and srom IAL SM 39 HPI 25 wk ob Details: PHUC KAUFFMAN is a 30 year old who presents for routine OB visit. OB Visit NATHANAEL Calculator Estimated Delivery Date Method Current WG Current Estimate 09/19/25 Ultrasound #1 25w 1d Expected Delivery Route/Plan Labor Preferences- CB/BF classes: [] labor support person: [] labor intervention preferences: [] pain management options preferred: [] cut cord/dad catch: [] : [] PP control planned: [] discussed possible routes of delivery and associated risks: [] special requests: [] Specific Issue/Plans Covid status: [] Flu vaccine: [] Tdap vaccine: [] Rhogam: [] LARC form signed: [] Problem list reviewed and updated with the most current plan of care details and appropriate orders placed. Relevant counseling for the gestational age provided. Continue routine care and follow up unless otherwise noted in visit notes/problem list details Initial Weight: Not Recorded Date -?-?-?-?-?-?-?-?-?-?-?-?- EGA Weight BP Urine Prot -?-?-?-?-?-?-?-?-?-?-?-?- Glucose FHR FuHt Pres Dilation -?-?-?-?-?-?-?-?-?-?-?-?- Effaced St Visit Note 02/14/25 -?-?-?-?-?-?-?-?-?-?-?-?- 9w 0d 183 lb 6 oz 109/69 -?-?-?-?-?-?-?-?-?-?-?-?- 163 -?-?-?-?-?-?-?-?-?-?-?-?- JV- CRL is consi stent with LMP. she is actively vomiting. calling infusion suite for IV fluids + zofran. zofran sent to pharmacy. JV- CRL is consistent with L MP. she is actively vomiting. calling infusion suite for IV fluids + zofran. zofran sent to pharmacy. desires nipt but will return next week for labs. 03/15/25 -?-?-?-?-?-?-?-?-?-?-?-?- 13w 1d 181 lb 125/73 Negative -?-?-?-?-?-?-?-?-?-?-?-?- Negative 160 -?-?-?-?-?-?-?-?-?-?-?-?- MH-No VB. Nausea much improved. Br US confirm FHT 04/12/25 -?-?-?-?-?-?-?-?-?-?-?-?- 17w 1d 184 lb 4 oz 121/80 Nega tive -?-?-?-?-?-?-?-?-?-?-?-?- Negative 150 -?-?-?-?-?-?-?-?-?-?-?-?- SM- no vb crampi ng 05/10/25 -?-?-?-?-?-?-?-?-?-?-?-?- 21w 1d 194 lb 1 oz 119/84 Nega tive -?-?-?-?-?-?-?-?-?-?-?-?- Negative 150 -?-?-?-?-?-?-?-?-?-?-?-?- KW- no vb/crampi ng. good fm. normal US 06/07/25 -?-?-?-?-?-?-?-?-?-?-?-?- w 1d 200 lb 117/70 Trace -?-?-?-?-?-?-?-?-?-?-?-?- Negative 161 25 -?-?-?-?-?-?-?-?-?-?-?-?- JV- declines flu shot. no complaints. ACOG First Trimester First Trimester: Desire for , Alcohol, Tobacco Cessation, Illicit/Recreational Drug/Substance Use, Intimate Partner Violence, Barriers to care, Unstable Housing, Communication Barriers, Environmental/Work Hazards, Anticipated Course of Care, Toxoplasmosis Precations, Use of Any medications, Sexual activity, Exercise, Dental Care, Sauna/Hot tub use, Seat Belt use, Childbirth classes/Hospital facilities, Travel, Indications for Ultrasound and Screening for Aneuploidy; Discussed Second Trimester Second Trimester: Signs and Symptoms of Labor, Selecting a care provider and Reproductive Life Planning & Contreception; Discussed Tobacco Cessation, Discussed Depression/Anxiety and Discussed Intimate Partner Violence Third Trimester Third Trimester: Pain Management Plans, Labor support person(s), Immediate Larc, Circumcision preference, Movement Monitoring, Signs and Symptoms of Preeclampsia, Infant Feeding No and Family Medical Leave or Disability Forms; Discussed Tobacco Cessation, Discussed Depression and Discussed Intimate Partner Violence Results POC Urinalysis 2 Dip (Clinic) Office Urine Glucose Negative Last Edit by Meche Syed on 06/07/25 10: 43 Office Urine Protein Trace Last Edit by Meche Syed on 06/07/25 10:43 Coding Level of Care Code OB Routine Diagnoses Hyperemesis gravidarum O21.0 Encounter for supervision of other normal in second trimester Z34.82 Normal : other normal Trimester: second trimester 25 weeks gestation of Z3A.25 Weeks of gestation: 25 weeks Seasonal allergies J30.2 Assessment and Plan Assessment and Plan (1) Hyperemesis gravidarum: Status: Acute Comment: improved (2) Supervision of normal : Status: Acute Qualifiers: Normal : other normal Trimester: second trimester Qualified Code(s): Z34.82 - Encounter for supervision of other normal , second trimester Comment: [id number], NATHANAEL 09/19/25, girl Suze Morin, [place] (3) : Status: Acute Qualifiers: Weeks of gestation: 25 weeks Qualified Code(s): Z3A.25 - 25 weeks gestation of Comment: NIPT baby low risk, gender female-undecided, prior carrier Neg14/14. afp declined (4) Seasonal allergies: Status: Acute Orders: Orders POC Urinalysis 2 Dip (Clinic) Today CBC W/Diff, Automated Today Z34.82 - Encounter for supervision of other normal , second trimester Glucose Challenge Gest 1H 50g Today Z13.1 - Encounter for screening for diabetes mellitus, Z34.82 - Encounter for supervision of other normal , second trimester HIV Today Z34.82 - Encounter for supervision of other normal , second trimester Syphilis Antibodies Today Z34.82 - Encounter for supervision of other normal , second trimester 06/07/25 1049 <Electronically signed by Sisi Terry DO> Date _ Sisi [facility]ee [facility]: Date (if applicable) CC: ~ [facility] Work Phone: Reason for referral (narrative)No reason for referral information [facility] Work Phone: Summary Purpose Family History No Family History Records FoundUnknown Family Member Name Dates Details Cancer Comments:Maternal Grandfathe r. Status:Active Diabetes Mellitus Comments:Paternal Grandmothe r. Status:Active Heart Disease Comments:Maternal Grandfathe r. Status:Active Hypercholesterolemia Comments:Maternal Grandmothe r. Father. Status:Active Hypertension Comments:Maternal Grandmothe r. Father. Paternal Grandfather. Paternal Grandmother. Brother. Status:Active Kidney Disease Comments:Mother. Status:Active Thyroid problems Comments:Father. Status:Active Relationship Condition Age at Onset Recorded Date/T aisha grandmother Deep vein thrombosis (DVT) Unknown aunt Deep vein thrombosis (DVT) Unknown uncle Deep vein thrombosis (DVT) Unknown father Hypertension Unknown Advance Directives No Advanced Directives Records Found Advance Directive Response Recorded Date/ Time Advance Directives No August 26, 2015 2:39am Living Will No August 26 2:39am Power of Commissions Analyst No August 26 2 016 2:39am Advance Directive Response Recorded Date/ Time Advance Directives No August 26, 2015 3:39am Living Will No August 26 6 3:39am Power of Commissions Analyst No August 26 2 016 3:39am Advance Directive Response Recorded Date/ Time Advance Directives No September 15, 2023 11:52am Living Will No September 15 11:52am Power of Commissions Analyst No September 15, 2023 11:52am Advance Directive Response Recorded Date/ Time Advance Directives No September 15, 2023 12:52pm Advance Directive Response Recorded Date/ Time Advance Directives No September 15, 2023 11:52am Instructions Name Dates Details Non-smoker : How [...] Indication:Well female exam with routine gynecological exam Chief Complaint and Reason for Visit Chief Complaint TOOL CHASER. EST CARE - PPW S ENT Reason for Visit Encounter to [facility] Hypersomnolence Ingrown toenail of left foot Obesity (BMI 30-39.9) Preventative health care Chief Complaint TOOL CHASER. EST CARE - PPW S ENT HYPERSOMINA Reason for Visit Encounter to [facility] Hypersomnolence Ingrown toenail of left foot Obesity (BMI 30-39.9) Preventative health care Chief Complaint 3 M FU Reason for Visit Hypersomnolence Obesity (BMI 30-39.9) Chief Complaint 3 M FU INT LAB Reason for Visit Hypersomnolence Obesity (BMI 30-39.9) Chief Complaint New OB, LMP 07/15/23 , NATHANAEL 04/20/24 EORDERS Reason for Visit Encounter to [facility] H/O abnormal cervical Papanicolaou smear History of miscarriage, currently Hypersomnolence Seasonal allergies Supervision of high-risk Obesity (BMI 30-39.9) Chief Complaint Admit Date DATING/VIABILITY January 31, 2025 7:51 am Chief Complaint Admit Date DATING/VIABILITY January 31, 2025 7:51 am *EST* NOB LMP 02/01, NATHANAEL 09/20February 14, 025 8:10am Reason for Visit Admit Date H/O abnormal cervical Papanicolaou smear February 14, 2025 8:10am February 14, 2025 8:10 am at early stage February 14, 2025 8:10am Seasonal allergies February 14, 2025 8:10 am Supervision of normal January 8:10am Chief Complaint Admit Date DATING/VIABILITY January 31, 2025 7:51 am *EST* NOB LMP /17, NATHANAEL 09/20February 14, 2 025 8:10am HYDRATION February 14, 2025 9:02 am Chief Complaint Admit Date DATING/VIABILITY January 31, 2025 7:51 am *EST* NOB LMP 17, NATHANAEL 09/20February 14, 2 025 8:10am HYDRATION February 14, 2025 9:02 am HYDRATION February 23, 2025 2:27p m Chief Complaint Admit Date DATING/VIABILITY January 31, 2025 7:51 am *EST* NOB LMP 6/17, NATHANAEL 2February 14, 2 025 8:10am HYDRATION February 14, 2025 9:02 am HYDRATION February 23, 2025 2:27p m HYDRATION March 04, 2025 1:38 pm Chief Complaint Admit Date DATING/VIABILITY January 31, 2025 7:51 am *EST* NOB LMP 6/17, NATHANAEL 09/20February 14, 2 025 8:10am HYDRATION February 14, 2025 9:02 am HYDRATION February 23, 2025 2:27p m HYDRATION March 04, 2025 1:38 pm 13wk OB March 15, 2025 8:33 am Reason for Visit Admit Date H/O abnormal cervical Papanicolaou smear February 14, 2025 8:10am February 14, 2025 8:10 am Seasonal allergies February 14, 2025 8:10 am Supervision of normal January 8:10am at early stage February 14, 2025 8:10am H/O abnormal cervical Papanicolaou smear March 15, 2025 8:33am Hyperemesis gravidarum March 15, 2025 8 :33am March 15, 2025 8:33 am Seasonal allergies March 15, 2025 8:33 am Supervision of normal February 8:33am Chief Complaint Admit Date DATING/VIABILITY January 31, 2025 7:51 am *EST* NOB LMP 6/17, NATHANAEL 09/20February 14, 2 025 8:10am HYDRATION February 14, 2025 9:02 am HYDRATION February 23, 2025 2:27p m HYDRATION March 04, 2025 1:38 pm 13wk OB March 15, 2025 8:33 am 17 wk ob *move 06/07 appt April 12, 2 025 10:39am Reason for Visit Admit Date February 14, 2025 8:10 am Seasonal allergies February 14, 2025 8:10 am Supervision of normal January 8:10am H/O abnormal cervical Papanicolaou smear February 14, 2025 8:10am at early stage February 14, 2025 8:10am Hyperemesis gravidarum March 15, 2025 8 :33am March 15, 2025 8:33 am Supervision of normal February 8:33am Hyperemesis gravidarum April 12, 2025 10:39am April 12, 2025 10 :39am Seasonal allergies April 12, 2025 10 :39am Supervision of normal March 192024 10:39am Chief Complaint Admit Date DATING/VIABILITY January 31, 2025 7:51 am *EST* NOB LMP 02/01, NATHANAEL 2/3 February 14 025 8:10am HYDRATION February 14, 2025 9:02 am HYDRATION February 23, 2025 2:27p m HYDRATION March 04, 2025 1:38 pm 13wk OB March 15, 2025 8:33 am 17 wk ob *move 06/07 appt April 12 10:39am 21 wk ob May 10, 2025 8:44am Reason for Visit Admit Date February 14, 2025 8:10 am Seasonal allergies February 14, 2025 8:10 am Supervision of normal January 8:10am H/O abnormal cervical Papanicolaou smear February 14, 2025 8:10am at early stage February 14, 2025 8:10am Hyperemesis gravidarum March 15, 2025 8 :33am March 15, 2025 8:33 am Supervision of normal February 8:33am Hyperemesis gravidarum April 12, 2025 10:39am April 12, 2025 10 :39am Seasonal allergies April 12, 2025 10 :39am Supervision of normal March 192024 10:39am Hyperemesis gravidarum May 10 8:44am May 10, 2025 8:44am Seasonal allergies May 10, 2025 8:44am Supervision of normal Septembe 2024 8:44am Chief Complaint Admit Date HYDRATION March 04, 2025 1:38 pm 13wk OB March 15, 2025 8:33 am 17 wk ob *move 06/07 appt April 12 10:39am 21 wk ob May 10, 2025 8:44am 25 wk ob June 07, 2025 1 0:13am Reason for Visit Admit Date Hyperemesis gravidarum March 15, 2025 8 :33am March 15, 2025 8:33 am Supervision of normal February 8:33am Hyperemesis gravidarum April 12, 2025 10:39am April 12, 2025 10 :39am Seasonal allergies April 12, 2025 10 :39am Supervision of normal March 192024 10:39am Hyperemesis gravidarum May 10, 8:44am May 10, 2025 8:44am Seasonal allergies May 10, 2025 8:44am Supervision of normal Septembe r 2024 8:44am Hyperemesis gravidarum June 07 10:13am June 07, 2025 1 0:13am Seasonal allergies June 07, 2025 1 0:13am Supervision of normal June 07, 2025 10:13am Additional Source Comments INFORMATION SOURCE (unrecogn ized section and content) DATE CREATED AUTHOR 10/23/2018 [facility] DATE CREATED AUTHOR AUTHOR'S ORGANIZ ATION 08/28/2021 [facility] DATE CREATED AUTHOR AUTHOR'S ORGANIZ ATION 06/17/2024 [facility] DATE CREATED AUTHOR AUTHOR'S ORGANIZ ATION 05/22/[address] [facility] DATE CREATED AUTHOR AUTHOR'S ORGANIZ ATION 06/27/2025 [facility] Source Comments (unrecognize d section and content) In the event this informatio n is protected by the Federal Confidentiality of Alcohol and Drug Abuse Patient Records regulations: The Federal rules restrict any use of the information to criminally investigate or prosecute any alcohol or drug abuse patient.[facility] the event this information is protected by the Federal Confidentiality of Alcohol and Drug Abuse Patient Records regulations: The Federal rules restrict any use of the information to criminally investigate or prosecute any alcohol or drug abuse patient.[facility] Hospital[facility] the event this information is protected by the Federal Confidentiality of Alcohol and Drug Abuse Patient Records regulations: The Federal rules restrict any use of the information to criminally investigate or prosecute any alcohol or drug abuse patient.[facility] the event this information is protected by the Federal Confidentiality of Alcohol and Drug Abuse Patient Records regulations: The Federal rules restrict any use of the information to criminally investigate or prosecute any alcohol or drug abuse patient.[facility] HospitalIn the event this information is protected by the Federal Confidentiality of Alcohol and Drug Abuse Patient Records regulations: The Federal rules restrict any use of the information to criminally investigate or prosecute any alcohol or drug abuse patient.[facility] HospitalIn the event this information is protected by the Federal Confidentiality of Alcohol and Drug Abuse Patient Records regulations: The Federal rules restrict any use of the information to criminally investigate or prosecute any alcohol or drug abuse patient.[facility] Reason for Visit (unrecogniz ed section and content) Reason Onset Date Comments Appointment 09/19/2022 Reason Comments Established Patient Ingrown Nail Reason Comments Established Patient Ingrown Toenail Pain Reason Comments Cough Cough, ST, congestio n and RIVAS x 6 days Reason Comments Results Care Teams (unrecognized sec tion and content) Match Up Person Relationship Specialty Start Date End Date Minh Tyson MD [address], [place] [id number] PCP - General Family Medicine 09/19/22 Team Status: Active Member Role Status Dates Dr. Gage Vincent MD Primary Care Provider Active Team Status: Inactive Member Role Status Dates Dr. Marc Tyson MD Primary Care Provider, Ref erring Provider Active Dr. Gage Vincent MD Attending Provider Active Team Status: Inactive Member Role Status Dates Dr. Gage Vincent MD Primary Care Vu bailey, Attending Provider, Referring Provider Active Match Up Person Relationship Specialty Start Date End Date Minh Tyson MD [address], [place] [id number] PCP - General Family Medicine 09/19/22 Match Up Person Relationship Specialty Start Date End Date Minh Tyson MD [address], [place] [id number] PCP - General Family Medicine 09/19/22 Team Status: Inactive Member Role Status Dates Dr. Gage Vincent MD Primary Care Provider Active Yohana Roberson NP, TOOL CHASER-C Attending Provider, Referring Provider Active Team Status: Active Member Role Status Dates Dr. Gage Vincent MD Primary Care Provider Active Yohana Roberson NP, TOOL CHASER-C Attending Provider, Referring Provider Active Team Status: Inactive Member Role Status Dates Dr. Gage Vincent MD Primary Care Provider Active Dr. Sisi Tee , Attending Provider, Refe rring Provider Active Team Status: Active Member Role Status Dates Dr. Marc Tyson MD Primary Care Provider Acti ve Team Status: Inactive Member Role Status Dates Dr. Gage Vincent MD Primary Care Provider, Refer ring Provider Active Dr. Sisi Tee DO Attending Provider Activ e Team Status: Inactive Member Role Status Dates Dr. Marc Tyson MD Primary Care Provider Acti ve Dr. Sisi Tee DO Attending Provider, Refe rring Provider Active Match Up Person Relationship Specialty Start Date End Date Minh Tyson MD [address] [place] [address] PCP - General Family Medicine 09/19/22 Match Up Person Relationship Specialty Start Date End Date Minh Tyson MD [address] [place] [address] PCP - General Family Medicine 09/19/22 Match Up Person Relationship Specialty Start Date End Date Minh Tyson MD [address] [place] [address] PCP - General Family Medicine 09/19/22 Team Status: Inactive Member Role Status Dates Dr. Marc Tyson MD Primary Care Provider Acti ve Start: January 12, 2025 End: January 12, 2025 Kristy Barnett TOOL CHASER, TOOL CHASER-C Attending Provider Active Start: January 12, 2025 End: January 12, 2025 Kristy Barnett TOOL CHASER, TOOL CHASER-C Referring Provider Active Start: January 12, 2025 End: January 12, 2025 Team Status: Active Member Role Status Dates Dr. Marc Tyson MD Primary Care Provider Acti ve Start: January 14, 2025 Kristy Calabrese CNM Attending Provider Active S tart: January 14, 2025 Kristy Calabrese CNM Referring Provider Active S tart: January 14, 2025 Team Status: Inactive Member Role Status Dates Dr. Marc Tyson MD Primary Care Provider Acti ve Start: January 14, 2025 End: January 14, 2025 Kristy Calabrese CNM Attending Provider Active S tart: January 14, 2025 End: January 14, 2025 Kristy Calabrese CNM Referring Provider Active S tart: January 14, 2025 End: January 14, 2025 Team Status: Inactive Member Role Status Dates Dr. Marc Tyson MD Primary Care Provider Acti ve Start: January 31, 2025 End: January 31, 2025 Kristy Calabrese CNM Attending Provider Active S tart: January 31, 2025 End: January 31, 2025 Kristy Calabrese CNM Referring Provider Active S tart: January 31, 2025 End: January 31, 2025 Team Status: Active Member Role/Relationship Status Dates Dr. Marc Tyson MD Primary Care Provider Acti ve Team Status: Inactive Member Role/Relationship Status Dates Dr. Marc Tyson MD Primary Care Provider Acti ve Start: January 12, 2025 End: January 12, 2025 Kristy Barnett TOOL CHASER, TOOL CHASER-C Attending Provider Active Start: January 12, 2025 End: January 12, 2025 Kristy Barnett TOOL CHASER, TOOL CHASER-C Referring Provider Active Start: January 12, 2025 End: January 12, 2025 Team Status: Inactive Member Role/Relationship Status Dates Dr. Marc Tyson MD Primary Care Provider Acti ve Start: January 14, 2025 End: January 14, 2025 Kristy Calabrese CNM Attending Provider Active S tart: January 14, 2025 End: January 14, 2025 Kristy Calabrese CNM Referring Provider Active S tart: January 14, 2025 End: January 14, 2025 Team Status: Inactive Member Role/Relationship Status Dates Dr. Marc Tyson MD Primary Care Provider Acti ve Start: January 31, 2025 End: January 31, 2025 Kristy Calabrese CNM Attending Provider Active S tart: January 31, 2025 End: January 31, 2025 Kristy Calabrese CNM Referring Provider Active S tart: January 31, 2025 End: January 31, 2025 Team Status: Inactive Member Role/Relationship Status Dates Dr. Marc Tyson MD Primary Care Provider Acti ve Start: February 14, 2025 End: February 14, 2025 Dr. Marc Tyson MD Referring Provider Active Start: February 14, 2025 End: February 14, 2025 Dr. Sisi Tee DO Attending Provider Activ e Start: February 14, 2025 End: February 14, 2025 Team Status: Inactive Member Role/Relationship Status Dates Dr. Marc Tyson MD Primary Care Provider Acti ve Start: February 14, 2025 End: February 14, 2025 Dr. Sisi Tee DO Attending Provider Activ e Start: February 14, 2025 End: February 14, 2025 Dr. Sisi Tee DO Referring Provider Activ e Start: February 14, 2025 End: February 14, 2025 Team Status: Active Member Role/Relationship Status Dates Dr. Marc Tyson MD Primary Care Provider Acti ve Start: February 21, 2025 Dr. Sisi Tee DO Attending Provider Activ e Start: February 21, 2025 Dr. Sisi Tee DO Referring Provider Activ e Start: February 21, 2025 Team Status: Inactive Member Role/Relationship Status Dates Dr. Marc Tyson MD Primary Care Provider Acti ve Start: February 23, 2025 End: February 23, 2025 Yohana Roberson TOOL CHASER, TOOL CHASER-C Attending Provider Active Start: February 23, 2025 End: February 23, 2025 Yohana Roberson TOOL CHASER, TOOL CHASER-C Referring Provider Active Start: February 23, 2025 End: February 23, 2025 Team Status: Inactive Member Role/Relationship Status Dates Dr. Marc Tyson MD Primary Care Provider Acti ve Start: February 21, 2025 End: February 21, 2025 Dr. Sisi Tee DO Attending Provider Activ e Start: February 21, 2025 End: February 21, 2025 Dr. Sisi Tee DO Referring Provider Activ e Start: February 21, 2025 End: February 21, 2025 Team Status: Inactive Member Role/Relationship Status Dates Dr. Marc Tyson MD Primary Care Provider Acti ve Start: March 04, 2025 End: March 04, 2025 Dr. Arlette Martini MD Attending Provider Active Start: March 04, 2025 End: March 04, 2025 Yohana Roberson TOOL CHASER, TOOL CHASER-C Referring Provider Active Start: March 04, 2025 End: March 04, 2025 Team Status: Inactive Member Role/Relationship Status Dates Dr. Marc Tyson MD Primary Care Provider Acti ve Start: March 15, 2025 End: March 15, 2025 Dr. Marc Tyson MD Referring Provider Active Start: March 15, 2025 End: March 15, 2025 Yohana Roberson TOOL CHASER, TOOL CHASER-C Attending Provider Active Start: March 15, 2025 End: March 15, 2025 Team Status: Inactive Member Role/Relationship Status Dates Dr. Marc Tyson MD Primary Care Provider Acti ve Start: April 12, 2025 End: April 12, 2025 Dr. Marc Tyson MD Referring Provider Active Start: April 12, 2025 End: April 12, 2025 Dr. Arlette Martini MD Attending Provider Active Start: April 12, 2025 End: April 12, 2025 Team Status: Active Member Role/Relationship Status Dates Dr. Marc Tyson MD Primary care physician Act chidi Team Status: Inactive Member Role/Relationship Status Dates Dr. Marc Tyson MD Primary care physician Act chidi Start: January 31, 2025 End: January 31, 2025 Kristy Calabrese CNM Attending physician Active Start: January 31, 2025 End: January 31, 2025 Kristy Calabrese CNM Referring Provider Active S tart: January 31, 2025 End: January 31, 2025 Team Status: Inactive Member Role/Relationship Status Dates Dr. Marc Tyson MD Primary care physician Act chidi Start: February 14, 2025 End: February 14, 2025 Dr. Marc Tyson MD Referring Provider Active Start: February 14, 2025 End: February 14, 2025 Dr. Sisi Tee DO Attending physician Acti ve Start: February 14, 2025 End: February 14, 2025 Team Status: Inactive Member Role/Relationship Status Dates Dr. Marc Tyson MD Primary care physician Act chidi Start: February 14, 2025 End: February 14, 2025 Dr. Sisi Tee DO Attending physician Acti ve Start: February 14, 2025 End: February 14, 2025 Dr. Sisi Tee DO Referring Provider Activ e Start: February 14, 2025 End: February 14, 2025 Team Status: Inactive Member Role/Relationship Status Dates Dr. Marc Tyson MD Primary care physician Act chidi Start: February 21, 2025 End: February 21, 2025 Dr. Sisi Tee DO Attending physician Acti ve Start: February 21, 2025 End: February 21, 2025 Dr. Sisi Tee DO Referring Provider Activ e Start: February 21, 2025 End: February 21, 2025 Team Status: Inactive Member Role/Relationship Status Dates Dr. Marc Tyson MD Primary care physician Act chidi Start: February 23, 2025 End: February 23, 2025 Yohana Roberson TOOL CHASER, TOOL CHASER-C Attending physician Active Start: February 23, 2025 End: February 23, 2025 Yohana Roberson TOOL CHASER, TOOL CHASER-C Referring Provider Active Start: February 23, 2025 End: February 23, 2025 Team Status: Inactive Member Role/Relationship Status Dates Dr. Marc Tyson MD Primary care physician Act chidi Start: March 04, 2025 End: March 04, 2025 Dr. Arlette Martini MD Attending physician Active Start: March 04, 2025 End: March 04, 2025 Yohana Roberson TOOL CHASER, TOOL CHASER-C Referring Provider Active Start: March 04, 2025 End: March 04, 2025 Team Status: Inactive Member Role/Relationship Status Dates Dr. Marc Tyson MD Primary care physician Act chidi Start: March 15, 2025 End: March 15, 2025 Dr. Marc Tyson MD Referring Provider Active Start: March 15, 2025 End: March 15, 2025 Yohana Roberson TOOL CHASER, TOOL CHASER-C Attending physician Active Start: March 15, 2025 End: March 15, 2025 Team Status: Inactive Member Role/Relationship Status Dates Dr. Marc Tyson MD Primary care physician Act chidi Start: April 12, 2025 End: April 12, 2025 Dr. Marc Tyson MD Referring Provider Active Start: April 12, 2025 End: April 12, 2025 Dr. Arlette Martini MD Attending physician Active Start: April 12, 2025 End: April 12, 2025 Team Status: Inactive Member Role/Relationship Status Dates Dr. Marc Tyson MD Primary care physician Act chidi Start: May 10, 2025 End: May 10, 2025 Dr. Marc Tyson MD Referring Provider Active Start: May 10, 2025 End: May 10, 2025 Kristy Calabrese CNM Attending physician Active Start: May 10, 2025 End: May 10, 2025 Team Status: Inactive Member Role/Relationship Status Dates Dr. Marc Tyson MD Primary care physician Act chidi Start: March 04, 2025 End: March 04, 2025 Dr. Arlette Martini MD Attending physician Active Start: March 04, 2025 End: March 04, 2025 Yohana Roberson TOOL CHASER, TOOL CHASER-C Referring Provider Active Start: March 04, 2025 End: March 04, 2025 Team Status: Inactive Member Role/Relationship Status Dates Dr. Marc Tyson MD Primary care physician Act chidi Start: March 15, 2025 End: March 15, 2025 Dr. Marc Tyson MD Referring Provider Active Start: March 15, 2025 End: March 15, 2025 Yohana Roberson TOOL CHASER, TOOL CHASER-C Attending physician Active Start: March 15, 2025 End: March 15, 2025 Team Status: Inactive Member Role/Relationship Status Dates Dr. Marc Tyson MD Primary care physician Act chidi Start: April 12, 2025 End: April 12, 2025 Dr. Marc Tyson MD Referring Provider Active Start: April 12, 2025 End: April 12, 2025 Dr. Arlette Martini MD Attending physician Active Start: April 12, 2025 End: April 12, 2025 Team Status: Inactive Member Role/Relationship Status Dates Dr. Marc Tyson MD Primary care physician Act chidi Start: May 10, 2025 End: May 10, 2025 Dr. Marc Tyson MD Referring Provider Active Start: May 10, 2025 End: May 10, 2025 Kristy Calabrese CNM Attending physician Active Start: May 10, 2025 End: May 10, 2025 Team Status: Inactive Member Role/Relationship Status Dates Dr. Marc Tyson MD Primary care physician Act chidi Start: June 07, 2025 End: June 07, 2025 Dr. Marc Tyson MD Referring Provider Active Start: June 07, 2025 End: June 07, 2025 Dr. Sisi Tee DO Attending physician Acti ve Start: June 07, 2025 End: June 07, 2025 Goals (unrecognized section and content) Type Care Experience svdLabor Preferences -CB/BF classes: enclabor support person: Andrewlabor intervention preferences: []pain management options preferred: limited but ok with epiduralcut cord/dad catch: yesbreastfeeding: yesPP control planned: discusseddiscussed possible routes of delivery and associated risks: []special requests: [] Care Experience Labor Preferences-CB /BF classes: []labor support person: []labor intervention preferences: []pain management options preferred: []cut cord/dad catch: []: []PP control planned: []discussed possible routes of delivery and associated risks: []special requests: [] FOR RECORDS PERTAINING TO PATIENTS WHO ARE [...] BE BASED ON THE PRIMARY CLINICAL RECORDS. [facility]. provides no warranty or guarantee of the accuracy or completeness of information [id number]
[2025-07-27 07:42] LABS: Glucose GTT-Gestation. Fasting 87 mg/dL (<105)
[2025-07-27 09:38] LABS: Glucose GTT-Gestational 1 Hr 189 mg/dL (<190)
[2025-07-27 10:52] LABS: Glucose GTT-Gestational 2 Hr 132 mg/dL (<165)
[2025-07-27 11:58] LABS: Glucose GTT-Gestational 3 Hr 96 L (<145)
== END | disposition home or self-care (01) ==
LOC: LAB 07:11
PROVIDERS: PCP Family Medicine; Referring Provider Advanced Practice Midwife; Visit Provider Advanced Practice Midwife
DX: O99.810 Abnormal glucose complicating pregnancy (principal)
CPT/HCPCS: 36415; 82951; 82952

== ENCOUNTER → 2025-08-12 | Outpatient (CLI) | payer BC, SELFPAY ==
--- OUTSIDE RECORDS SUMMARY | 2025-08-12 14:54 | XMS RPT_ITS | CCD ---
Author Organization [facility] Care Team Providers Care Chalk Cutter Name Role Phone Kalani Staton Attending Unavailable [...] Marbella KELLY, Dr. Tran Referring Provider [phone] Dr. Sisi Tee DO Attending Provider Dr. Sisi Tee DO Referring Provider [place] PROGRAM OFFICER-C, Yohana Attending Provider [phone] [place] PROGRAM OFFICER-C, Yohana Referring Provider [phone] Lianet KELLY, Dr. Chong Attending Provider [phone] Marbella KELLY, Dr. Tran Primary Care Physicia n Kristy Calabrese CNM Attending Physician [phone] Guanakito HODGES, Kristy Referring Provider [phone] Sheryl Ruiz DO, Dr. Laird Attending Physician [place] PROGRAM OFFICER-C, Yohana Attending Physician [phone] Lianet KELLY, Dr. Chong Attending Physician MINH TYSON Primary Care Unavailab HERMINIO Amaya Attending Unavailable DA, YOHANA S Referring Unavailable AMJUAN JOSEEMEGANA Aylin Attending Unavailable DA, YOHANA S Referring Unavailable MINH TYSON Primary Care Unavailab fabienne Tyson MD, Dr. Tran Primary Care Physicia n Lianet KELLY, Dr. Chong Attending Physician [place] PROGRAM OFFICER-C, Yohana Referring Provider [phone] Dr. Marc Tyson MD Referring Provider Da PROGRAM OFFICER-C, Yohana Attending Physician [phone] Guanakito HODGES, Kristy Attending Physician [phone] Sheryl Ruiz DO, Dr. Laird Attending Physician Arlette Martini Attending Unavailable [place], Yohana Referring Unavailable Bursley, Marc Primary Care [...] - ANTI-INFLAMMATO RY*] Drug Allergy 0 Rash [facility] Internal Medicine Work Phone: (1 source) Penicillins; Translations: [Penicillins] allergy to substance [facility] Internal Medicine Work Phone: (7 sources) Amoxicillin; Translations: [AMOXICILLIN] Drug Allergy 0 [facility] (1 source) Ibuprofen; Translations: [IBUPROFEN] Drug Allergy 0 [facility] Repository Medications Current Medications Medication Drug Class(es) [...] 2023 10:39am April 16, 2024 12:43am Pnv #14-Iron-Fa#6-Upb-Prxsix te 27 mg iron-1 mg -300 mg-50 mg capsule (10 sources) Start: 04-16-2024 Pnv #14-Iron-Fa#7-Dzp-Ojapof te 27 mg iron-1 mg -300 mg-50 mg capsule Active NMA PO April 16, 2024 12:00am Pnv 57-Utvc-Py1-Dha-Docusate 27 mg iron-1 mg -300 mg-50 mg capsule (2 sources) Start: 04-16-2024 Pnv 00-Jaue-Td9-Dha-Docusate 27 mg iron-1 mg -300 mg-50 mg capsule Active NMA PO April 15, 2024 11:00pm Complies with drug therapy Start: 04-16-2024 Pnv 14-Iron-Fa 8-Iuj-Ecrkdnrb 27 mg iron-1 mg -300 mg-50 mg capsule Active NMA PO April 16, 2024 12:00am Complies with drug therapy polymyxin b 02438 unt/ml / trimethoprim 1 mg/ml ophthalmic solution (3 sources) Dihydrofolate Reductase Inhibitor Antibacterial, Polymyxin-class Antibacterial Start: 06-15-2024 End: 06-22-2024 take 1 drop(s) into the eye(s) every four hours trimethoprim-polymyxin (POLYTRIM) 10,000 unit- 1 mg/mL ophthalmic solution Indications: [place] eye disease of right eye Use 1 [...] on above: This order discontin ued per [facility]. Ortho Tri-Cyclen (28) 0.18/0.215/0.25 MG-35 MCG Oral [...] PO DAILY September 18, 2022 12:00am Multivit 60-Holj-Sfldua 1-Dh a (Pnv-Dha) 27 mg iron-1 mg -300 mg capsule (13 sources) Start: 09-12-2023 End: 04-16-2024 Multivit 09-Sxrm-Bmexzx 1-Dh a (Pnv-Dha) 27 mg iron-1 mg -300 mg capsule Discontinued NMA PO September 12, 2023 12:00am April 16, 2024 12:43am Start: 09-12-2023 End: 04-16-2024 Multivit 78-Dtyo-Nqfjdo 1-Dh a (Pnv-Dha) 27 mg iron-1 mg [...] low risk, gender female-undecided, prior carrier Neg14/14 [id number], NATHANAEL 09/19/25, PC Mikel, Cornell [id number], NATHANAEL 09/19/25, girl Suze PC Mikel, Cornell [...] Absolute Lymph 1.97 X10 3/uL Normal 0.83-4.51 [facility] Comment on above: Performed By: #### L 509.8002, L501.0250, L100.0100, L3890.6006 ####[facility] [address] [place], [address] Absolute Neut 7.4 X10 3/uL Normal 2.0-7.7 [facility] Comment on above: Performed By: #### L 509.8002, L501.0250, L100.0100, L3890.6006 ####[facility] [address] [place], [address] Basophils/100 WBC (Bld) 0.4 % Normal 0-1 [facility] Comment on above: Performed By: #### L 509.8002, L501.0250, L100.0100, L3890.6006 ####[facility] [address] [place], [address] Eosinophils/100 WBC (Bld) 2.0 % Normal 0-5 [facility] Comment on above: Performed By: #### L 509.8002, L501.0250, L100.0100, L3890.6006 ####[facility] [address] [place], [address] Erythrocyte distribution width (RBC) [Ratio] 12.6 % Normal 11.6-14.6 [facility] Comment on above: Performed By: #### L 509.8002, L501.0250, L100.0100, L3890.6006 ####[facility] [address] [place], [address] Hematocrit (Bld) [Volume fraction] 35.8 % Low 37-47 [facility] Comment on above: Performed By: #### L 509.8002, L501.0250, L100.0100, L3890.6006 ####[facility] [address] [place], [address] Hemoglobin (Bld) [Mass/Vol] 12.1 g/dL Normal 12.0-15.0 [facility] Comment on above: Performed By: #### L 509.8002, L501.0250, L100.0100, L3890.6006 ####[facility] [address] [place], [address] IG% 0.400 Normal 0.0-0.9 [facility] Comment on above: Result Comment: IG% - Immature Granulocytes (promyelocytes, myelocytes and metamyelocytes) > 1% indicates that a LEFT SHIFT is Present. Performed By: #### L 509.8002, L501.0250, L100.0100, L3890.6006 ####[facility] [address] [place], [address] Lymphocytes/100 WBC (Bld) 19.5 % Normal 19-41 [facility] Comment on above: Performed By: #### L 509.8002, L501.0250, L100.0100, L3890.6006 ####[facility] [address] [place], [address] MCH (RBC) [Entitic mass] 30.2 pg Normal 27.0-32.0 [facility] Comment on above: Performed By: #### L 509.8002, L501.0250, L100.0100, L3890.6006 ####[facility] [address] [place], [address] MCHC (RBC) [Mass/Vol] 33.8 g/dL Normal 32-36 [facility] Comment on above: Performed By: #### L 509.8002, L501.0250, L100.0100, L3890.6006 ####[facility] [address] [place], [address] MCV (RBC) [Entitic vol] 89.3 fL Normal 81-99 [facility] Comment on above: Performed By: #### L 509.8002, L501.0250, L100.0100, L3890.6006 ####[facility] [address] [place], [address] Monocytes/100 WBC (Bld) 4.7 % Normal 0-10 [facility] Comment on above: Performed By: #### L 509.8002, L501.0250, L100.0100, L3890.6006 ####[facility] [address] [place], [address] Neutrophils/100 WBC (Bld) 73.0 % High 47-70 [facility] Comment on above: Performed By: #### L 509.8002, L501.0250, L100.0100, L3890.6006 ####[facility] [address] [place], [address] Nucleated RBC (Bld) [#/Vol] 0 10*3/uL Normal 0-5 [facility] Comment on above: Performed By: #### L 509.8002, L501.0250, L100.0100, L3890.6006 ####[facility] [address] [place], [address] Platelet mean volume (Bld) [Entitic vol] 10.1 fL Normal 6.2-12.0 [facility] Comment on above: Performed By: #### L 509.8002, L501.0250, L100.0100, L3890.6006 ####[facility] [address] [place], [address] Platelets (Bld) [#/Vol] 302 10*3/uL Normal 150-450 [facility] Comment on above: Performed By: #### L 509.8002, L501.0250, L100.0100, L3890.6006 ####[facility] [address] [place], [address] RBC (Bld) [#/Vol] 4.01 10*6/uL Low 4.2-5.4 [facility] Comment on above: Performed By: #### L 509.8002, L501.0250, L100.0100, L3890.6006 ####[facility] [address] [place], [address] RDW SD 41.8 fl Normal 35.1-43.9 [facility] Comment on above: Performed By: #### L 509.8002, L501.0250, L100.0100, L3890.6006 ####[facility] [address] [place], [address] WBC (Bld) [#/Vol] 10.1 10*3/uL Normal 4.4-11.0 [facility] Comment on above: Performed By: #### L 509.8002, L501.0250, L100.0100, L3890.6006 ####[facility] [address] [place], [address] Glucose Challenge Gest 1H 50 susan 06-27-2025 GLU GEST 50g 1H 136 mg/dL Normal 70-140 [facility] Comment on above: Performed By: #### L 509.8002, L501.0250, L100.0100, L3890.6006 ####[facility] [address] [place], [address] HIVon 06-27-2025 HIV Non-Reactive Normal Nonreactive [facility] Comment on above: Result Comment: Non- Reactive Reactive Repeatedly reactive samples must be confirmed according to CDC recommended confirmatory algorithms. The subresults for either HIVAG or AHIV can be used as an aid in the selection of the confirmation algorithm for reactive samples. Send out specimens with Reactive results to [facility] for confirmation. Order the HIV antibody detection and differentiation: [id number] Performed By: #### L 509.8002, L501.0250, L100.0100, L3890.6006 ####[facility] [address] [place], [address] [facility] Office Visit Reporton 06-27-2025 [facility] Office Visit Report [facility]'s [address], [address] [place] [address] OFFICE VISIT Date of Service: 06/27/25 MR#: [id number] Acct: [id number] Name: PHUC KAUFFMAN Rep #: [id number] : 1995 Provider: Dr. Arlette malhotra MD Age/Sex: 30/F Location: [facility] Status: Signed Intake Vital Signs 03/15/25 08:36 06/07/25 10:15 06/27/25 09:27 Height 5 ft 8 in 5 ft 8 in 5 ft 8 in Weight: 207 lb 3 oz BMI 31.5 BP 104/73 Intake Visit Reasons: 28 wk ob/glucose Scalper Operator Required: No Is patient in pain?: No Allergies No Known Allergies Allergy (Verified 06/27/25 09:28) Medications ???Medication ???Instructions ???Recorded ???Confirmed ???Type PNV 14-iron wuv-WL9-lgj-docusate cap PO 04/16/24 06/27/25 History 27 mg [...] 1 current occupational status: unemployed current occupation: [employer] current occupational exposures/hazards: No pets and animals: [...] 3-4 times per week duration: 45-60 minutes/day edmundo/nondenominational: Druze seatbelt use: always do you feel safe [...] - full term 8lbs 8oz Male epidural [facility] Frantz Sarabia Delivery Date: 04/17/24 Last Updated [...] 109/69 -?? (more content not included)... Normal [facility] Syphilis Antibodieson 2024 Syphilis Abs Non-Reactive Normal Nonreactive [facility] Comment on above: Performed By: #### L 509.8002, L501.0250, L100.0100, L3890.6006 ####[facility] [address] [place], [address] Laboratory - Chemistry and C hemistry - challengeOrdered By: Sisi Ruiz on 06-07-2025 Glucose Ql (U) Negative [facility] Laboratory - UrinalysisOrder ed By: Sisi Ruiz on 06-07-2025 Protein Ql (U) Trace [facility] Office Visit Reporton 06-07-2025 [facility] Office Visit Report [facility]'s [address], [address] [place] [address] OFFICE VISIT Date of Service: 06/07/25 MR#: [id number] Acct: [id number] Name: PHUC KAUFFMAN Rep #: [id number] : 1995 Provider: Dr. Sisi Batista DO Age/Sex: 30/F Location: [facility] Status: Signed Intake Vital Signs 03/15/25 08:36 05/10/25 08:52 06/07/25 10:15 06/07/25 10:15 Height 5 ft 8 in 5 ft 8 in 5 ft 8 in 5 ft 8 in Weight: 200 lb BMI 30.4 BP 117/70 Intake Visit Reasons: 25 wk ob Scalper Operator Required: No Is patient in pain?: No Allergies No Known Allergies Allergy (Verified 06/07/25 10:14) Medications ???Medication ???Instructions ???Recorded ???Confirmed ???Type PNV 14-iron qjz-IR4-rog-docusate cap PO 04/16/24 06/07/25 History 27 mg [...] 1 current occupational status: unemployed current occupation: [employer] current occupational exposures/hazards: No pets and animals: [...] 3-4 times per week duration: 45-60 minutes/day edmundo/nondenominational: Druze seatbelt use: always do you feel safe [...] - full term 8lbs 8oz Male epidural [facility] Frantz Sarabia Delivery Date: 04/17/24 Last Updated [...] ??-???- 16 (more content not included)... Normal [facility] Laboratory - Chemistry and C hemistry - challengeOrdered By: Kristy Calabrese on 05-10-2025 Glucose Ql (U) Negative [facility] Laboratory - UrinalysisOrder ed By: Kristy Calabrese on 05-10-2025 Protein Ql (U) Negative [facility] Office Visit Reporton 05-10-2025 [facility] Office Visit Report [facility]'s [address], [address] [place] [id number] OFFICE VISIT Date of Service: 05/10/25 MR#: [id number] Acct: [id number] Name: PHUC KAUFFMAN Rep #: [id number] : 1995 Provider: TRACIE Silver ams Age/Sex: 30/F Location: [facility] Status: Signed Intake Vital Signs 03/15/25 08:36 04/12/25 10:45 05/10/25 08:52 Height 5 ft 8 in 5 ft 8 in 5 ft 8 in Weight: 194 lb 1 oz BMI 29.5 BP 119/84 H Intake Visit Reasons: 21 wk ob Chief Complaint: 21wk OB Scalper Operator Required: No Is patient in pain?: No Allergies No Known Allergies Allergy (Verified 05/10/25 08:50) Medications ???Medication ???Instructions ???Recorded ???Confirmed ???Type PNV 14-iron ufh-QN1-exq-docusate cap PO 04/16/24 05/10/25 History 27 mg [...] 1 current occupational status: unemployed current occupation: [employer] current occupational exposures/hazards: No pets and animals: [...] 3-4 times per week duration: 45-60 minutes/day edmundo/nondenominational: Druze seatbelt use: always do you feel safe [...] - full term 8lbs 8oz Male epidural [facility] S Chago Sarabia Delivery Date: 04/17/24 Last [...] JV- CR (more content not included)... Normal [facility] Laboratory - Chemistry and C hemistry - challengeOrdered By: Arlette Martini on 04-12-2025 Glucose Ql (U) Negative [facility] - UrinalysisOrder ed By: Arlette Martini on 04-12-2025 Protein Ql (U) Negative [facility] Office Visit Reporton 04-12-2025 [facility] Office Visit Report [facility]'s [address], [address] [place] [address] OFFICE VISIT Date of Service: 04/12/25 MR#: [id number] Acct: [id number] Name: PHUC KAUFFMAN Rep #: [id number] : 1995 Provider: Dr. Arlette malhotra MD Age/Sex: 30/F Location: [facility] Status: Signed Intake Vital Signs 02/14/25 08:15 03/15/25 08:36 04/12/25 10:45 Height 5 ft 8 in 5 ft 8 in 5 ft 8 in Weight: 184 lb 4 oz BMI 28.0 BP 121/80 H Intake Visit Reasons: 17 wk ob *move 06/07 appt Scalper Operator Required: No Is patient in pain?: No Allergies No Known Allergies Allergy (Verified 04/12/25 10:42) Medications ???Medication ???Instructions ???Recorded ???Confirmed ???Type PNV#14-iron fum-FA#1-bdq-dbzyhtxy cap PO 04/16/24 04/12/25 History 27 mg [...] 1 current occupational status: unemployed current occupation: [employer] current occupational exposures/hazards: No pets and animals: [...] 3-4 times per week duration: 45-60 minutes/day edmundo/nondenominational: Druze seatbelt use: always do you feel safe [...] - full term 8lbs 8oz Male epidural [facility] S Chago Sarabia Delivery Date: 04/17/24 Last [...] ???-???-???-???-???-? ??-???- (more content not included)... Normal [facility] Laboratory - Chemistry and C hemistry - challengeOrdered By: Yohana Roberson on 03-15-2025 Glucose Ql (U) Negative [facility] - UrinalysisOrder ed By: Yohana Roberson on 03-15-2025 Protein Ql (U) Negative [facility] Office Visit Reporton 03-15-2025 [facility] Office Visit Report [facility] [address], [address] [place] [address] OFFICE VISIT Date of Service: 03/15/25 MR#: [id number] Acct: [id number] Name: PHUC KAUFFMAN Rep #: [id number] : 1995 Provider: CHANDRAKANT montes Age/Sex: 30/F Location: [facility] Status: Signed Intake Vital Signs 05/24/24 11:16 03/04/25 13:51 03/15/25 08:36 Height 5 ft 8 in 5 ft 8 in 5 ft 8 in Weight: 181 lb BMI 27.5 BP 125/73 H Intake Visit Reasons: 13wk OB Chief Complaint: 13 Week OB Scalper Operator Required: No Is patient in pain?: No Allergies No Known Allergies Allergy (Verified 03/15/25 08:37) Medications ???Medication ???Instructions ???Recorded ???Confirmed ???Type PNV#14-iron fum-FA#8-hvg-mdxrfelk cap PO 04/16/24 03/15/25 History 27 mg [...] (Updated 03/15/25 @ 09:06 by Yohana Roberson PROGRAM OFFICER, PROGRAM OFFICER-C) H/O abnormal cervical Papanicolaou smear History of [...] 1 current occupational status: unemployed current occupation: [employer] current occupational exposures/hazards: No pets and animals: [...] 3-4 times per week duration: 45-60 minutes/day edmundo/nondenominational: Druze seatbelt use: always do you feel safe [...] ???-???-???-???-???-? ??-???- (more content not included)... Normal [facility] Absolute lymphocyte countOrd ered By: Sisi Sara on 02-21-2025 Lymphocytes Auto (Unsp spec) [#/Vol] 2.02 10*3/uL 0.83-4.51 [facility] Absolute neutrophil countOrd ered By: Sisi [facility] on 02-21-2025 Neutrophils (Bld) [#/Vol] 3.9 10*3/uL 2.0-7.7 [facility] Automated lymphocyte count a s percentage of total leukocytesOrdered By: Sisi Sraa on 02-21-2025 Lymphocytes/100 WBC Auto (Unsp spec) 31.0 % 19-41 [facility] Basophil percentageOrdered B y: Sisi Sara on 02-21-2025 Basophils/100 WBC (Bld) 0.9 % 0-1 [facility] CBC W/Diff, Automatedon Absolute Lymph 2.02 X10 3/uL Normal 0.83-4.51 [facility] Comment on above: Performed By: #### L 100.0100, L900.0098, L3890.6301, BTS, L3890.6102, L3890.6006, L509.4006, L501.9520, L509.8002 #### [facility] [address] [place], [address] Absolute Neut 3.9 X10 3/uL Normal 2.0-7.7 [facility] Comment on above: Performed By: #### L 100.0100, L900.0098, L3890.6301, BTS, L3890.6102, L3890.6006, L509.4006, L501.9520, L509.8002 #### [facility] [address] [place], [address] Basophils/100 WBC (Bld) 0.9 % Normal 0-1 [facility] Comment on above: Performed By: #### L 100.0100, L900.0098, L3890.6301, BTS, L3890.6102, L3890.6006, L509.4006, L501.9520, L509.8002 #### [facility] [address] [place], [address] Eosinophils/100 WBC (Bld) 2.0 % Normal 0-5 [facility] Comment on above: Performed By: #### L 100.0100, L900.0098, L3890.6301, BTS, L3890.6102, L3890.6006, L509.4006, L501.9520, L509.8002 #### [facility] [address] [place], [address] Erythrocyte distribution width (RBC) [Ratio] 12.4 % Normal 11.6-14.6 [facility] Comment on above: Performed By: #### L 100.0100, L900.0098, L3890.6301, BTS, L3890.6102, L3890.6006, L509.4006, L501.9520, L509.8002 #### [facility] [address] [place], [address] Hematocrit (Bld) [Volume fraction] 40.0 % Normal 37-47 [facility] Comment on above: Performed By: #### L 100.0100, L900.0098, L3890.6301, BTS, L3890.6102, L3890.6006, L509.4006, L501.9520, L509.8002 #### [facility] [address] [place], [address] Hemoglobin (Bld) [Mass/Vol] 13.9 g/dL Normal 12.0-15.0 [facility] Comment on above: Performed By: #### L 100.0100, L900.0098, L3890.6301, BTS, L3890.6102, L3890.6006, L509.4006, L501.9520, L509.8002 #### [facility] [address] [place], [address] IG% 0.200 Normal 0.0-0.9 [facility] Comment on above: Result Comment: IG% - Immature Granulocytes (promyelocytes, myelocytes and metamyelocytes) > 1% indicates that a LEFT SHIFT is Present. Performed By: #### L 100.0100, L900.0098, L3890.6301, BTS, L3890.6102, L3890.6006, L509.4006, L501.9520, L509.8002 #### [facility] [address] [place], [address] Lymphocytes/100 WBC (Bld) 31.0 % Normal 19-41 [facility] Comment on above: Performed By: #### L 100.0100, L900.0098, L3890.6301, BTS, L3890.6102, L3890.6006, L509.4006, L501.9520, L509.8002 #### [facility] [address] [place], [address] MCH (RBC) [Entitic mass] 30.1 pg Normal 27.0-32.0 [facility] Comment on above: Performed By: #### L 100.0100, L900.0098, L3890.6301, BTS, L3890.6102, L3890.6006, L509.4006, L501.9520, L509.8002 #### [facility] [address] [place], [address] MCHC (RBC) [Mass/Vol] 34.8 g/dL Normal 32-36 [facility] Comment on above: Performed By: #### L 100.0100, L900.0098, L3890.6301, BTS, L3890.6102, L3890.6006, L509.4006, L501.9520, L509.8002 #### [facility] [address] [facility] [place], [address] MCV (RBC) [Entitic vol] 86.6 fL Normal 81-99 [facility] Comment on above: Performed By: #### L 100.0100, L900.0098, L3890.6301, BTS, L3890.6102, L3890.6006, L509.4006, L501.9520, L509.8002 #### [facility] [address] [facility] [place], [address] Monocytes/100 WBC (Bld) 6.6 % Normal 0-10 [facility] Comment on above: Performed By: #### L 100.0100, L900.0098, L3890.6301, BTS, L3890.6102, L3890.6006, L509.4006, L501.9520, L509.8002 #### [facility] [address] [place], [address] Neutrophils/100 WBC (Bld) 59.3 % Normal 47-70 [facility] Comment on above: Performed By: #### L 100.0100, L900.0098, L3890.6301, BTS, L3890.6102, L3890.6006, L509.4006, L501.9520, L509.8002 #### [facility] [address] [place], [address] Nucleated RBC (Bld) [#/Vol] 0 10*3/uL Normal 0-5 [facility] Comment on above: Performed By: #### L 100.0100, L900.0098, L3890.6301, BTS, L3890.6102, L3890.6006, L509.4006, L501.9520, L509.8002 #### [facility] [address] [place], [address] Platelet mean volume (Bld) [Entitic vol] 11.5 fL Normal 6.2-12.0 [facility] Comment on above: Performed By: #### L 100.0100, L900.0098, L3890.6301, BTS, L3890.6102, L3890.6006, L509.4006, L501.9520, L509.8002 #### [facility] [address] [place], [address] Platelets (Bld) [#/Vol] 321 10*3/uL Normal 150-450 [facility] Comment on above: Performed By: #### L 100.0100, L900.0098, L3890.6301, BTS, L3890.6102, L3890.6006, L509.4006, L501.9520, L509.8002 #### [facility] [address] [place], [address] RBC (Bld) [#/Vol] 4.62 10*6/uL Normal 4.2-5.4 [facility] Comment on above: Performed By: #### L 100.0100, L900.0098, L3890.6301, BTS, L3890.6102, L3890.6006, L509.4006, L501.9520, L509.8002 #### [facility] [address] [place], [address] RDW SD 39.1 fl Normal 35.1-43.9 [facility] Comment on above: Performed By: #### L 100.0100, L900.0098, L3890.6301, BTS, L3890.6102, L3890.6006, L509.4006, L501.9520, L509.8002 #### [facility] [address] [place], [address] WBC (Bld) [#/Vol] 6.5 10*3/uL Normal 4.4-11.0 [facility] Comment on above: Performed By: #### L 100.0100, L900.0098, L3890.6301, BTS, L3890.6102, L3890.6006, L509.4006, L501.9520, L509.8002 #### [facility] [address] [place], [address] Eosinophil percentageOrdered By: Sisi Ruiz on 02-21-2025 Eosinophils/100 WBC (Bld) 2.0 % 0-5 [facility] Erythrocyte distribution wid th ratioOrdered By: Sisi Ruiz on 02-21-2025 Erythrocyte distribution width (RBC) [Ratio] 12.4 % 11.6-14.6 [facility] Erythrocyte distribution wid th standard deviationOrdered By: Sisi Ruiz on 02-21-2025 Erythrocyte distribution width (RBC) [Ratio] 39.1 fl 35.1-43.9 [facility] HIVon 02-21-2025 HIV Non-Reactive Normal Nonreactive [facility] Comment on above: Result Comment: Non- Reactive Reactive Repeatedly reactive samples must be confirmed according to CDC recommended confirmatory algorithms. The subresults for either HIVAG or AHIV can be used as an aid in the selection of the confirmation algorithm for reactive samples. Send out specimens with Reactive results to [facility] for confirmation. Order the HIV antibody detection and differentiation: lc#[id number] Performed By: #### L 100.0100, L900.0098, L3890.6301, BTS, L3890.6102, L3890.6006, L509.4006, L501.9520, L509.8002 ####[facility] [address] [place], [place], [id number] Hematocrit Auto (Bld) [Volum e fraction]Ordered By: Sisi Ruiz on 02-21-2025 Hematocrit (Bld) [Volume fraction] 40.0 % 37-47 [facility] Hemoglobin measurementOrdere d By: Sisi Ruiz on 02-21-2025 Hemoglobin (Bld) [Mass/Vol] 13.9 g/dL 12.0-15.0 [facility] Hepatitis C Antibodyon 02-21 Hepatitis C Ab Non-Reactive Normal Nonreactive [facility] Comment on above: Result Comment: Reac tive: Presumptive evidence of antibodies to HCV. Follow CDC recommendations for supplemental testing. Non-Reactive: Antibodies to HCV were not detected; does not exclude the possibility of exposure to HCV Reactive Results are presumptive evidence of antibodies to HCV. Follow CDC recommendations for supplemental testing. Order confirmation testing: HCV Quant by PCR testing - HCVPCR #[id number] Non Reactive: < 0.8 Equivocal: >/= 0.8 to < 1.0 Reactive: >/= 1.0 The CDC requires that a reactive/equivocal HCV antibody result be sent out for confirmation. HCV Quant by PCR testing. Performed By: #### L 100.0100, L900.0098, L3890.6301, BTS, L3890.6102, L3890.6006, L509.4006, L501.9520, L509.8002 ####[facility] [address] [place], [place], [address] Immature granulocytes/100 WB C Auto (Bld)Ordered By: Sisi Ruiz on 02-21-2025 Immature granulocytes/100 WBC (Bld) 0.200 % 0.0-0.9 [facility] Comment on above: IG% - Immature Granu locytes (promyelocytes, myelocytes and metamyelocytes) > 1% indicates that a LEFT SHIFT is Present. L3890.6102on 02-21-2025 HEP B Surf Ag Non-Reactive Normal Nonreactive [facility] Comment on above: Result Comment: Reac tive: Presumptive evidence of HBV. Repeatedly reactive samples must be confirmed using a neutralization test (Elecsys HBsAg Confirmatory Test) Non-Reactive: HBsAg not detected; does not exclude the possibility of exposure to HBV Performed By: #### L 100.0100, L900.0098, L3890.6301, BTS, L3890.6102, L3890.6006, L509.4006, L501.9520, L509.8002 ####[facility] [address] [place], [place], [address] L509.4006on 02-21-2025 Rubella IgG REAC Normal Nonreactive [facility] Comment on above: Result Comment: Anti body Result: Interpretation Non-Reactive: Non-Immune Reactive: Immune The following results were obtained with the Elecsys Rubella IgG assay. Results from assays of other manufacturers cannot be used interchangeably. Performed By: #### L 100.0100, L900.0098, L3890.6301, BTS, L3890.6102, L3890.6006, L509.4006, L501.9520, L509.8002 ####[facility] [address] [place], [place], [address] Laboratory - Microbiology an d Antimicrobial susceptibilityOrdered By: Sisi Ruiz on 02-21-2025 HBV surface Ag Ql (S) Non-Reactive Nonreactive [facility] Comment on above: Reactive: Presumptiv e evidence of HBV. Repeatedly reactive samples must be confirmed using a neutralization test (Ele[employer]ys HBsAg Confirmatory Test)Non-Reactive: HBsAg not detected; does not exclude the possibility of exposure to HBV MCV (mean corpuscular volume ) determinationOrdered By: Sisi Ruiz on 02-21-2025 MCV (RBC) [Entitic vol] 86.6 fL 81-99 [facility] Mean corpuscular hemoglobin (MCH) determinationOrdered By: Sisi Ruiz on 02-21-2025 MCH (RBC) [Entitic mass] 30.1 pg 27.0-32.0 [facility] Mean corpuscular hemoglobin concentration (MCHC) determinationOrdered By: Sisi Ruiz on 02-21-2025 MCHC (RBC) [Mass/Vol] 34.8 g/dL 32-36 [facility] Mean platelet volume determi nationOrdered By: Sisi Ruiz on 02-21-2025 Platelet mean volume (Bld) [Entitic vol] 11.5 fL 6.2-12.0 [facility] Monocyte percentageOrdered B y: Sisi Ruiz on 02-21-2025 Monocytes/100 WBC (Bld) 6.6 % 0-10 [facility] NATERAon 02-21-2025 NATURA SEE SCANNED REPORT Normal [facility] Comment on above: Performed By: #### L 100.0100, L900.0098, L3890.6301, BTS, L3890.6102, L3890.6006, L509.4006, L501.9520, L509.8002 #### [facility] [address] [place], [place], [address] Neutrophil percentageOrdered By: Sisi Ruiz on 02-21-2025 Neutrophils/100 WBC (Bld) 59.3 % 47-70 [facility] No Panel InformationOrdered By: Sisi Ruiz on 02-21-2025 HIV (1&2) Antibody Non-Reactive Nonreactive [facility] Comment on above: Non-ReactiveReactive Repeatedly reactive samples must be confirmed according to CDC recommended confirmatory algorithms. The subresults for either HIVAG or AHIV can be used as an aid in the selection of the confirmation algorithm for reactive samples.Send out specimens with Reactive results to [facility] for confirmation.Order the HIV antibody detection and differentiation: #[id number] Nucleated red blood cell per centageOrdered By: Sisi Ruiz on 02-21-2025 Nucleated RBC/100 WBC (Bld) [Ratio] 0 % 0-5 [facility] Platelet countOrdered By: Avila Ruiz on 02-21-2025 Platelets (Bld) [#/Vol] 321 10*3/uL 150-450 [facility] RBC Auto (Bld) [#/Vol]Ordere d By: Sisi Bossmakeda on 02-21-2025 RBC (Bld) [#/Vol] 4.62 10*6/uL 4.2-5.4 [facility] Syphilis Antibodieson 2024 Syphilis Abs Non-Reactive Normal Nonreactive [facility] Comment on above: Performed By: #### L 100.0100, L900.0098, L3890.6301, BTS, L3890.6102, L3890.6006, L509.4006, L501.9520, L509.8002 ####[facility] [address] [place], [place], [id number] TSH DL <= 0.005 mIU/L QnOrde red By: Sisi Sara on 02-21-2025 TSH Qn 1.260 uIU/mL 0.300-4.200 [facility] Thyroid Stim Hormone (TSH)on 02-21-2025 TSH 1.260 uIU/mL Normal 0.300-4.200 [facility] Comment on above: Performed By: #### L 100.0100, L900.0098, L3890.6301, BTS, L3890.6102, L3890.6006, L509.4006, L501.9520, L509.8002 ####[facility] [address] [place], [place], [id number] Type AND Screenon 02-21-2025 Ab SCREEN GEL Negative Normal [facility] Comment on above: Order Comment: PN Performed By: #### L 100.0100, L900.0098, L3890.6301, BTS, L3890.6102, L3890.6006, L509.4006, L501.9520, L509.8002 #### [facility] [address] [place], [place], [address] White blood cell (WBC) count Ordered By: Sisi Ruiz on 02-21-2025 WBC (Bld) [#/Vol] 6.5 10*3/uL 4.4-11.0 [facility] Chlamydia/GC DESTINY aptimaon CHLAMY,NUC ACID Negative Normal Negative [facility] Comment on above: Performed By: #### L 7000.1800, M100.2200 #### [facility] [address] [place], [address] GC BY NUC ACID Negative Normal Negative [facility] Comment on above: Result Comment: Perf ormed at: =G - [facility] [address] [id number] Industrial Recruiter: Radha Wheat MD, Phone: [phone] Performed By: #### L 7000.1800, M100.2200 #### [facility] [address] [place], [address] Urine Cultureon 02-15-2025 [facility] Culture exhibits no growth. Normal [facility] Comment on above: Performed By: #### L 7000.1800, M100.2200 #### [facility] [address] [place], [address] Chlamydia trachomatis rRNA d etection by probe and target amplification methodOrdered By: Sisi Ruiz on 02-14-2025 C. trachomatis rRNA DESTINY+probe Ql (Unsp spec) Negative Negative [facility] Neisseria gonorrhoeae nuclei c acid detection by amplified probe techniqueOrdered By: Sisi Ruiz on 02-14-2025 N. gonorrhoeae DNA DESTINY+probe Ql (Unsp spec) Negative Negative [facility] Comment on above: Performed at: =G - [facility] [address] [id number] Director: Radha Wheat MD, Phone: [phone] [facility] Visit Reporton 02-14-2025 [facility] Visit Report [facility]'[address], [address] [place] [address] OFFICE VISIT Date of Service: 02/14/25 MR#: [id number] Acct: [id number] Name: PHUC KAUFFMAN Rep #: [id number] : 1995 Provider: Dr. Sisi Batista DO Age/Sex: 29/F Location: [facility] Status: Signed Intake Vital Signs 05/24/24 11:16 02/14/25 08:14 02/14/25 08:15 Height 5 ft 8 in 5 ft 8 in 5 ft 8 in Weight: 183 lb 6 oz BMI 27.8 BP 109/69 Intake Visit Reasons: *EST* NOB LMP 02/01, NATHANAEL 09/20 Scalper Operator Required: No Is patient in pain?: No Allergies No Known Allergies Allergy (Verified 02/14/25 08:13) Medications ???Medication ???Instructions ???Recorded ???Confirmed ???Type PNV#14-iron fum-FA#3-puh-bvctdmjv cap PO 04/16/24 02/10/25 History 27 mg [...] 1 current occupational status: unemployed current occupation: [employer] current occupational exposures/hazards: No pets and animals: [...] 3-4 times per week duration: 45-60 minutes/day edmundo/nondenominational: Druze seatbelt use: always do you feel safe [...] - full term 8lbs 8oz Male epidural [facility] Frantz Sarabia Delivery Date: 04/17/24 Last Updated [...] 0d 1 (more content not included)... Normal [facility] Urine cultureOrdered By: Sharon Ruiz on 02-14-2025 Bacteria identified Cx Nom (U) Culture exhibits no growth. [facility] Transvaginal w/Preg USon Transvaginal w/Preg [facility] Services [address] [place] [address] Transvaginal w/Preg US MR#: [id number] Acct: [id number] Name: PHUC KAUFFMAN Rep #: [id number] : 1995 F 29 From: Awais garduno MD PCP: Dr. Marc Tyson MD Status: [facility] Study: Transvaginal w/Preg US Date of Exam: 01/31/25 Exam# [id number] Ordering Dr: Kristy Calabrese CNM PROCEDURE: TRANSVAGINAL [...] and unremarkable. DIMENSIONS: Parameter Measurement / EGA [place] Rump Length: 5.7 mm/ Gestational Sac: 6 weeks and 4 days/ Yolk Sac: 3.1 mm/ ESTIMATED GESTATIONAL AGE: By Ultrasound: 7 weeks and 0 days By LMP: Unknown ESTIMATED DATE OF DELIVERY: By Ultrasound: September 19, 2025 By LMP: Unknown US/Transvaginal w/Preg US IMPRESSION: Single live intrauterine gestation with a mean gestational age of 7 weeks. Reading Location: [place] [address] CC: TRACIE Calabrese; Dr. Marc Tyson MD Baggagemaster: Signed Normal [facility] Serum human chorionic gonado tropin detection for pregnancyOrdered By: Kristy Calabrese on 01-14-2025 HCG ( test) Ql 497 mIU/mL High <9 [facility] Comment on above: Gestational Age0.2-1 Week: 5-50 mIU/mL1-2 Weeks: 50-500 mIU/mL2-3 Weeks: 100-5000 mIU/mL3-4 Weeks: 500-10,000 mIU/mL4-5 Weeks:1000-50,000 mIU/mL5-6 Weeks: 10,000-100,000 mIU/mL6-8 Weeks: 15,000-200,000 mIU/mL2-3 Months:10,000-100,000 mIU/mL hCG Titer Quant., Serumon HCG QUANT. 497 mIU/mL High <9 non-preg [facility] Comment on above: Result Comment: Gest ational Age 0.2-1 Week: 5-50 mIU/mL 1-2 Weeks: 50-500 mIU/mL 2-3 Weeks: 100-5000 mIU/mL 3-4 Weeks: 500-10,000 mIU/mL 4-5 Weeks:1000-50,000 mIU/mL 5-6 Weeks: 10,000-100,000 mIU/mL 6-8 Weeks: 15,000-200,000 mIU/mL 2-3 Months:10,000-100,000 mIU/mL Performed By: #### L 700.8000 #### [facility] [address] [place], [place], [address] Serum human chorionic gonado tropin detection for pregnancyOrdered By: Kristy Calabrese on 01-12-2025 HCG ( test) Ql 186 mIU/mL High <9 [facility] Comment on above: Gestational Age0.2-1 Week: 5-50 mIU/mL1-2 Weeks: 50-500 mIU/mL2-3 Weeks: 100-5000 mIU/mL3-4 Weeks: 500-10,000 mIU/mL4-5 Weeks:1000-50,000 mIU/mL5-6 Weeks: 10,000-100,000 mIU/mL6-8 Weeks: 15,000-200,000 mIU/mL2-3 Months:10,000-100,000 mIU/mL hCG Titer Quant., Serumon HCG QUANT. 186 mIU/mL High <9 non-preg [facility] Comment on above: Result Comment: Gest ational Age 0.2-1 Week: 5-50 mIU/mL 1-2 Weeks: 50-500 mIU/mL 2-3 Weeks: 100-5000 mIU/mL 3-4 Weeks: 500-10,000 mIU/mL 4-5 Weeks:1000-50,000 mIU/mL 5-6 Weeks: 10,000-100,000 mIU/mL 6-8 Weeks: 15,000-200,000 mIU/mL 2-3 Months:10,000-100,000 mIU/mL Performed By: #### L 700.8000 #### [facility] [address] [place], [address] CNOVon 06-15-2024 [facility] PHUC [facility]AUFFMAN ([id number]) 1995 F Date Time Provider Department 06/15/24 6:00 PM RENEE GUZMÁN [facility] During your visit today, we recorded the following information about you: Temperature Pulse Respiration Blood pressure 100.7 degrees 121/minute 18/minute 118/76 Weight 86.1 kg Renee Guzmán APRN.BENCH WORKER 06/15/2024 7:50 PM Signed CC: Patient presents [...] - XR CHEST 2V FRONTAL/LAT- neg 3. [place] eye disease of right eye - ICD9: [...] Patient agreeable to treatment plan. Renee Guzmán APRN.BENCH WORKER Allergies As of Date: 06/15/2024 Noted Allergy Reaction AMOXICILLIN 03/01/2020 4 - Hives MOTRIN (IBUPROFEN) 03/01/2020 2 - Rash Date Reviewed: 06/15/2024 Reviewed by: Alexandrea Adam LPN - Fully Assessed Reason for Visit: Cough [28] Cmt: Cough, ST, congestion and RIVAS x 6 days Primary Visit Diagnosis:Sore throat [J02.9] Other Visit Diagnoses:Acute cough [R05.1] [place] eye disease of right eye [H10.021] URI, acute [J06.9] Order(s):STREP A MOLECULAR (POC) [8797708] Order #: [id number]. #:[id number] trimethoprim-polymyxi n (POLYTRIM) 10,000 unit- 1 mg/mL ophthalmic solutionUse 1 Drop in the right eye every 4 hours for 7 days.Disp: 10 mLRfl: 0 XR CHEST 2V FRONTAL/LAT [8002276] Order #: [id number] FUTURE COVID AND INFLUENZA A/B AND RSV PCR, ROUTINE [SQCVFLRS] Order #: [id number]. #:[id number] Prescriptions as of 06/15/2024 - trimethoprim-polymyxi n [...] Encounter Status:Closed by RENEE GUZMÁN on 06/15/24 [facility] 06-15-[address] [facility] Telephone ([facility]) PHUC KAUFFMAN ([id number]) 1995 F Date Time Provider Department 06/15/24 RENEE GUZMÁN [facility] During your visit today, we recorded the following information about you: Renee Guzmán APRN.[facility] 06/15/2024 7:49 PM Signed Please call let [...] Status:Closed by LO LOPES on 06/15/24 Normal [facility] COVID AND INFLUENZA A/B AND RSV PCR, ROUTINEon 06-15-2024 SARS-CoV-2 (COVID-19) RNA DESTINY+probe Ql (Unsp spec) SARS-COV-2 (AGENT OF COVID-19) RNA: Not detected INFLUENZA A RNA: Not detected INFLUENZA B RNA: Not detected RESPIRATORY SYNCYTIAL VIRUS (RSV) RNA: Not detected Normal [facility] Comment on above: Performed By: #### C VFLRS #### [facility] CLIA [id number] [address] [place] [address] [place] STREP A MOLECULAR (POC)on Procedural Control Valid [facility] Strep A (POCT) Negative Negative [facility] XR CHEST 2V FRONTAL/LATon XR CHEST [...] tissues: Unremarkable. IMPRESSION: No acute radiographic abnormality. Baggagemaster: PSCB Transcribe Date/Time: Jun 15 2024 7:26P Dictated by : LUISA AGUILERA MD This examination was interpreted and the report reviewed and electronically signed by: LUISA AGUILERA MD on Jun 15 2024 7:27PM EST [id number] Normal [facility] XR Chest PA and Lateralon IMPRESSION: No acute radiographic abnormality. Baggagemaster: PSCB Transcribe Date/Time: Jun 15 2024 7:26P [...] soft tissues: Unremarkable. DIVISION OF RADIOLOGY Provider, [facility] - 06/15/2024 * * *Final Report* * [...] Unremarkable. IMPRESSION IMPRESSION: No acute radiographic abnormality. Baggagemaster: PSCB Transcribe Date/Time: Jun 15 2024 7:26P Dictated by : LUISA AGUILERA MD This examination was interpreted and the report reviewed and electronically signed by: LUISA AGUILERA MD on Jun 15 2024 7:27PM EST [facility] Radiology Study observation (narrative) [facility] XR Chest PA and LateralOrder ed By: [facility]cf Provider on 06-15-2024 [facility] Absolute lymphocyte countOrd ered By: Sisi Ruiz on 09-24-2023 Lymphocytes Auto (Unsp spec) [#/Vol] 2.07 10*3/uL 0.83-4.51 [facility] Automated lymphocyte count a s percentage of total leukocytesOrdered By: Sisi Ruiz on 09-24-2023 Lymphocytes/100 WBC Auto (Unsp spec) 22.9 % 19-41 [facility] Basophil percentageOrdered B y: Sisi Ruiz on 09-24-2023 Basophils/100 WBC (Bld) 0.6 % 0-1 [facility] Eosinophils/100 WBC (Bld) 0.8 % 0-5 [facility] Hemoglobin (Bld) [Mass/Vol] 12.8 g/dL 12.0-15.0 [facility] Monocytes/100 WBC (Bld) 5.2 % 0-10 [facility] Neutrophils (Bld) [#/Vol] 6.3 10*3/uL 2.0-7.7 [facility] Neutrophils/100 WBC (Bld) 70.2 % 47-70 [facility] WBC (Bld) [#/Vol] 9.0 10*3/uL 4.4-11.0 [facility] Determination of erythrocyte mean corpuscular volume (MCV)Ordered By: Sisi Ruiz on 09-24-2023 MCV (RBC) [Entitic vol] 86.2 fL 81-99 [facility] Erythrocyte distribution wid th ratioOrdered By: Sisi Ruiz on 09-24-2023 Erythrocyte distribution width (RBC) [Ratio] 13.0 % 11.6-14.6 [facility] Erythrocyte distribution wid th standard deviationOrdered By: Sisi Ruiz on 09-24-2023 Erythrocyte distribution width (RBC) [Entitic vol] 40.0 fL 35.1-43.9 [facility] HIV 1 and HIV-2 antibody ass ay with HIV-1 p24 antigen detectionOrdered By: Sisi Ruiz on 09-24-2023 HIV 1+2 Ab+HIV1 p24 Ag IA Ql Non-Reactive Nonreactive [facility] Hematocrit Auto (Bld) [Volum e fraction]Ordered By: Sisi Ruiz on 09-24-2023 Hematocrit (Bld) [Volume fraction] 36.7 % 37-47 [facility] Immature granulocytes/100 WB C Auto (Bld)Ordered By: Sisi Ruiz on 09-24-2023 Immature granulocytes/100 WBC (Bld) 0.300 % 0.0-0.9 [facility] Comment on above: IG% - Immature Granu locytes (promyelocytes, myelocytes and metamyelocytes) > 1% indicates that a LEFT SHIFT is Present. Laboratory - Hematology and Cell countsOrdered By: Sisi Ruiz on 09-24-2023 MCH (RBC) [Entitic mass] 30.0 pg 27.0-32.0 [facility] MCHC (RBC) [Mass/Vol] 34.9 g/dL 32-36 [facility] Nucleated RBC/100 WBC (Bld) [Ratio] 0 % 0-5 [facility] Platelet mean volume (Bld) [Entitic vol] 9.5 fL 6.2-12.0 [facility] Platelets (Bld) [#/Vol] 305 10*3/uL 150-450 [facility] No Panel InformationOrdered By: Sisi Ruiz on 09-24-2023 Miscellaneous Test Comment SEE SCANNED REPORT [facility] Hepatitis B Surface Antigen Non-Reactive Nonreactive [facility] Hepatitis C Antibody Non-Reactive Nonreactive [facility] Comment on above: Non Reactive: < 0.8 Equivocal: >/= 0.8 to < 1.0 Reactive: >/= 1.0The CDC recommends that a reactive/equivocal HCV antibody result be followed up by the HCV Nucleic Acid Amplificationtest (065184) Rubella IgG Antibody Reactive Nonreactive [facility] Comment on above: Antibody Results Int erpretation of Immune Status Non Reactive Presumed Non-Immune Equivocal Equivocal Reactive Presumed Immune RBC Auto (Bld) [#/Vol]Ordere d By: Sisi Ruiz on 09-24-2023 RBC (Bld) [#/Vol] 4.26 10*6/uL 4.2-5.4 [facility] Serum Treponema species anti body detectionOrdered By: Sisi Ruiz on 09-24-2023 Treponema sp Ab Ql (S) Non-Reactive [facility] Cervical or vagninal specime n microscopic examination by cytology stain (reported asOrdered By: Sisi Ruiz on 09-15-2023 Cytology report Cyto stain Doc (Cvx/Vag) Comment . [facility] Comment on above: The Pap smear [...] rRNA DESTINY+probe Ql (Unsp spec) Negative Negative [facility] Culture, urineOrdered By: Avila Ruiz on 09-15-2023 Bacteria identified Cx Nom (U) Culture exhibits no growth. [facility] - CytologyOrdered By: Sisi Ruiz on 09-15-2023 [employer] Grade Mathematics Teacher Cyto stain Nom (Cvx/Vag) [ID] Comment . [facility] Comment on above: [employer] , Structural Design Engineer (ASCP) Laboratory - Microbiology an d Antimicrobial susceptibilityOrdered By: Sisi Ruiz on 09-15-2023 N. gonorrhoeae DNA DESTINY+probe Ql (Unsp spec) Negative Negative [facility] Comment on above: Performed at: =[address] [id number] Director: Radha Wheat MD, Phone: [phone] Laboratory - Miscellaneous t estsOrdered By: Sisi Ruiz on 09-15-2023 Service comment (Unsp spec) [Interp] . . [facility] No Panel InformationOrdered By: Sisi Ruiz on 09-15-2023 Human Papillomavirus Screen Comment . [facility] Comment on above: The HPV DNA reflex c fariba were not met with this specimenresult therefore, no HPV testing was performed.Performed at: - [facility], [place] [id number] Director: Radha Wheat MD, Phone: [phone] Thin prep Papanicolaou smear with manual screeningOrdered By: Sisi Ruiz on 09-15-2023 Thin prep Papanicolaou smear with manual screening Comment . [facility] Comment on above: NEGATIVE FOR INTRAEP ITHELIAL LESION OR MALIGNANCY. This liquid based Th inPrep(R) pap test was screened withthe use of an image guided system. Serum or plasma choriogonado tropin detectionOrdered By: Sisi Ruiz on 02-14-2023 HCG ( test) Ql 2 mIU/mL <4 [facility] Comment on above: hCG levels with Gest ational AgeGestational Age hCG mIU/mL (IU/L)0.2 - 1 week 5 - 501-2 weeks 50 - 5002-3 weeks 100 - 26697-4 weeks 500 - 360008-4 weeks 1000 - 344211-8 weeks 83676 - 100,0006-8 weeks 20106 - 200,0002-3 months 18742 - 100,000 Serum or plasma choriogonado tropin detectionOrdered By: Dr. Ruiz on 02-06-2023 HCG ( test) Ql 37 mIU/mL <4 [facility] Comment on above: hCG levels with Gest ational AgeGestational Age hCG mIU/mL (IU/L)0.2 - 1 week 5 - 501-2 weeks 50 - 5002-3 weeks 100 - 75652-0 weeks 500 - 905298-3 weeks 1000 - 580086-5 weeks 56919 - 100,0006-8 weeks 94125 - 200,0002-3 months 63589 - 100,000 Serum or plasma choriogonado tropin detectionOrdered By: Yohana Roberson on 01-30-2023 HCG ( test) Ql 515 mIU/mL <4 [facility] Comment on above: hCG levels with Gest ational AgeGestational Age hCG mIU/mL (IU/L)0.2 - 1 week 5 - 501-2 weeks 50 - 5002-3 weeks 100 - 70831-9 weeks 500 - 173780-4 weeks 1000 - 398450-5 weeks 26348 - 100,0006-8 weeks 03046 - 200,0002-3 months 21448 - 100,000 Serum or plasma choriogonado tropin detectionOrdered By: Yohana Roberson on 01-28-2023 HCG ( test) Ql 623 mIU/mL <4 [facility] Comment on above: hCG levels with Gest ational AgeGestational Age hCG mIU/mL (IU/L)0.2 - 1 week 5 - 501-2 weeks 50 - 5002-3 weeks 100 - 74275-3 weeks 500 - 158740-9 weeks 1000 - 066766-5 weeks 76997 - 100,0006-8 weeks 76686 - 200,0002-3 months 85662 - 100,000 Absolute lymphocyte countOrd ered By: Dr. Vincent on 09-18-2022 Lymphocytes Auto (Unsp spec) [#/Vol] 2.13 10*3/uL 0.83-4.51 [facility] Basophil percentageOrdered B y: Dr. Vincent on 09-18-2022 Basophils/100 WBC (Bld) 0.8 % 0-1 [facility] Bilirubin [Mass/Vol] 0.30 mg/dL 0.20-1.00 [facility] Comment on above: For patients on eltr ombopag therapy, use of Dimension [place] TBIL is not recommended. Chloride [Moles/Vol] 106 mmol/L 98-107 [facility] Cholesterol [Mass/Vol] 208 mg/dL <200 [facility] Comment on above: <200 mg/dL Desirable 200-240 mg/dL Borderline >240 mg/dL High Risk Eosinophils/100 WBC (Bld) 1.6 % 0-5 [facility] Glucose [Mass/Vol] 92 mg/dL 74-106 [facility] Neutrophils (Bld) [#/Vol] 4.6 10*3/uL 2.0-7.7 [facility] Neutrophils/100 WBC (Bld) 61.5 % 47-70 [facility] Potassium [Moles/Vol] 3.9 mmol/L 3.5-5.1 [facility] Protein [Mass/Vol] 8.2 g/dL 6.4-8.2 [facility] Sodium [Moles/Vol] 138 mmol/L 136-145 [facility] Triglyceride [Mass/Vol] 162 mg/dL <199 [facility] Comment on above: The drugs N-Acetylcy steine and Metamizole may falsely depress this assay.Serum Triglycerides Reference Interval Normal <150 mg/dL Borderline high 150 - 199 mg/dL High 200 - 499 mg/dL Very High > or = 500 mg/dL WBC (Bld) [#/Vol] 7.5 10*3/uL 4.4-11.0 [facility] Blood erythrocytes count (nu mber/volume)Ordered By: Dr. Vincent on 09-18-2022 RBC (Bld) [#/Vol] 4.74 10*6/uL 4.2-5.4 [facility] Blood hemoglobin measurement (mass/volume)Ordered By: Dr. Vincent on 09-18-2022 Hemoglobin (Bld) [Mass/Vol] 14.0 g/dL 12.0-15.0 [facility] Blood lymphocytes/100 leukoc ytesOrdered By: Dr. Vincent on 09-18-2022 Lymphocytes/100 WBC (Bld) 28.5 % 19-41 [facility] Blood monocytes/100 leukocyt esOrdered By: Dr. Vincent on 09-18-2022 Monocytes/100 WBC (Bld) 7.5 % 0-10 [facility] Blood platelet mean volumeOr dered By: Dr. Vincent on 09-18-2022 Platelet mean volume (Bld) [Entitic vol] 10.9 fL 6.2-12.0 [facility] Determination of erythrocyte mean corpuscular volume (MCV)Ordered By: Dr. Vincent on 09-18-2022 MCV (RBC) [Entitic vol] 89.5 fL 81-99 [facility] Hematocrit Auto (Bld) [Volum e fraction]Ordered By: Dr. Vincent on 09-18-2022 Hematocrit (Bld) [Volume fraction] 42.4 % 37-47 [facility] - Chemistry and C hemistry - challengeOrdered By: Dr. Vincent on 09-18-2022 ALP [Catalytic activity/Vol] 74 U/L 45-117 [facility] ALT [Catalytic activity/Vol] 39 U/L 13-56 [facility] CO2 [Moles/Vol] 24.0 mmol/L 21.0-32.0 [facility] Free T4 [Mass/Vol] 1.11 ng/dL 0.76-1.46 [facility] Globulin (S) [Mass/Vol] 4.2 g/dL 2.2-4.2 [facility] Urea nitrogen/Creatinine [Mass ratio] 23.8 mg/mg 10-20 [facility] - Hematology and Cell countsOrdered By: Dr. Vincent on 09-18-2022 Erythrocyte distribution width (RBC) [Entitic vol] 41.5 fL 35.1-43.9 [facility] Erythrocyte distribution width (RBC) [Ratio] 12.7 % 11.6-14.6 [facility] Immature granulocytes/100 WBC (Bld) 0.100 % 0.0-0.9 [facility] Comment on above: IG% - Immature Granu locytes (promyelocytes, myelocytes and metamyelocytes) > 1% indicates that a LEFT SHIFT is Present. MCH (RBC) [Entitic mass] 29.5 pg 27.0-32.0 [facility] Nucleated RBC/100 WBC (Bld) [Ratio] 0 % 0-5 [facility] MCHC Auto (RBC) [Mass/Vol]Or dered By: Dr. Vincent on 09-18-2022 MCHC (RBC) [Mass/Vol] 33.0 g/dL 32-36 [facility] No Panel InformationOrdered By: Dr. Vincent on 09-18-2022 Estimated GFR (MDRD) Amer 110 mL/min >60 [facility] Comment on above: GFR Calc Estimated GFR (MDRD) Non-Af Amer 91 mL/min >60 [facility] Comment on above: Non- GFR Calc Thyroid Stimulating Hormone (TSH) 2.45 uIU/mL 0.358-3.74 [facility] Platelets bldOrdered By: Dr. Vincent on 09-18-2022 Platelets (Bld) [#/Vol] 383 10*3/uL 150-450 [facility] Serum or plasma albumin jessie urement (mass/volume)Ordered By: Dr. Vincent on 09-18-2022 Albumin [Mass/Vol] 4.0 g/dL 3.2-5.0 [facility] Serum or plasma albumin/glob ulin mass ratioOrdered By: Dr. Vincent on 09-18-2022 Albumin/Globulin [Mass ratio] 1.0 {ratio} 0.9-2.4 [facility] Serum or plasma calcium jessie urement (mass/volume)Ordered By: Dr. Vincent on 09-18-2022 Calcium [Mass/Vol] 8.9 mg/dL 8.5-10.1 [facility] Serum or plasma cholesterol in HDL measurement (mass/volume)Ordered By: Dr. Vincent on 09-18-2022 Cholesterol in HDL [Mass/Vol] 55 mg/dL >40 [facility] Comment on above: The drugs N-Acetylcy steine and Metamizole may falsely depress this assay. Reference Range HDL <40 mg/dL Low HDL Cholesterol HDL >or= 60 mg/dL High HDL Cholesterol Serum or plasma cholesterol in VLDL measurement (mass/volume)Ordered By: Dr. Vincent on 09-18-2022 Cholesterol in VLDL [Mass/Vol] 32 mg/dL 5-40 [facility] Serum or plasma creatinine m easurement (mass/volume)Ordered By: Dr. Vincent on 09-18-2022 Creatinine [Mass/Vol] 0.80 mg/dL 0.55-1.02 [facility] Comment on above: The validity of the calculated GFR & GFRAA in patients over 70 years has not been determined. Clinical correlation is essential. Serum or plasma low density lipoprotein (LDL) cholesterol measurement (mass/volume)Ordered By: Dr. Vincent on 09-18-2022 Cholesterol in LDL [Mass/Vol] 121 mg/dL 0-130 [facility] Serum or plasma urea nitroge n measurement (mass/volume)Ordered By: Dr. Vincent on 09-18-2022 Urea nitrogen [Mass/Vol] 19 mg/dL 7-18 [facility] Thin prep Papanicolaou smear with manual screeningOrdered By: Dr. Vincent on 09-18-2022 Thin prep Papanicolaou smear with manual screening 20 U/L 15-37 [facility] Thin prep Papanicolaou smear with manual screening 8 5-15 [facility] US ABD SPLEENon 08-27-2021 US ABD [...] of the spleen. Normal size. No mass. Baggagemaster: PSCB Transcribe Date/Time: Aug 27 2021 4:41P Dictated by : FINA MONROE MD This examination was interpreted and the report reviewed and electronically signed by: FINA MONROE MD on Aug 27 2021 4:45PM EST [id number] N Normal [facility] US KIDNEY/BLADDERon 08-27-19 22 US KIDNEY/BLADDER * [...] of the spleen. Normal size. No mass. Baggagemaster: [facility] Transcribe Date/Time: Aug 27 2021 4:41P Dictated by : FINA MONROE MD This examination was interpreted and the report reviewed and electronically signed by: FINA MONROE MD on Aug 27 2021 4:45PM EST [id number] N Normal [facility] Anticardiolip Ab, IgA/G/M, Q non 07-17-2016 Cardiolipin IgA IA Qn (S) <9 Normal 0-11 [facility] Work Phone: Comment on above: Negative: <12 Indete rminate: 12 - 20 Low-Med Positive: >20 - 80 High Positive: >80 PATIENT NOT FASTINGP ERFORMED BY: [address] [id number] BY: KINGA Sailthrurp Zbntip6291 P[address] RoadDublin [place] [id number] BY: Sailthru HBX4795 [facility] [id number] Cardiolipin IgG IA Qn (S) <9 Normal 0-14 [facility] Work Phone: Comment on above: Negative: <15 Indete rminate: 15 - 20 Low-Med Positive: >20 - 80 High Positive: >80 PATIENT NOT FASTINGP ERFORMED BY: sonesrp Vikgwcjyph[address] [id number] BY: KINGA LabSensewarelatasha RiosSztpjh5981 Pettit RoadDublin [place] [id number] BY: LabSensewarerp WRZ9236 [facility] [id number] Cardiolipin IgM IA Qn (S) <9 Normal 0-12 [facility] Work Phone: Comment on above: Negative: <13 Indete rminate: 13 - 20 Low-Med Positive: >20 - 80 High Positive: >80 PATIENT NOT FASTINGP ERFORMED BY: sonesrp Ywbvlgyakp[address] [id number] BY: KINGA LabSensewarelatasha RiosVolkqi40[address] [place] [id number] BY: Sailthru WWZ3112 [facility] [id number] Antithrombin III, Func/Immun olon 07-17-2016 Antithrombin actual/normal Chromogenic method (PPP) [Rel catalytic activity/Vol] 120 % Normal 75-135 [facility] Work Phone: Comment on above: Direct thrombin inhi bitor anticoagulants such as rivaroxaban,apixaban and edoxaban will lead to spuriously elevated antithrombinactivity levels possibly masking a deficiency. PATIENT NOT FASTINGP ERFORMED BY: sonesrp Wecszvjqvb[address] [id number] BY: KINGA LabSensewarerp Wuuadl0018 P[address] RoadDublin [place] [id number] BY: TG [facility] CTS6132 [facility]EN[facility] [id number] Antithrombin Ag IA Qn (PPP) 100 % Normal 72-124 [facility] Work Phone: Comment on above: PATIENT NOT FASTINGP ERFORMED BY: BN [facility] Fknvpwalth7193 [facility] [id number] BY: CB [facility] Shftmx4341 [address] RoadDublin [place] [id number] BY: TG [facility] UNC8775 [facility]EN[facility] [id number] Factor II Activity (17508)on 07-17-2016 Prothrombin activity actual/normal Coag (PPP) [Relative time] 145 % Normal 50-154 Comprehens chidi [facility] Work Phone: Comment on above: PATIENT NOT FASTINGP ERFORMED BY: [facility] Pkqcwwslez1532 [facility] [id number] Factor II, DNA Analysison F2 gene targeted mutation analysis [employer] Nom (Bld/Tiss) FIING2 Normal Comprehens chidi [facility] Work Phone: Comment on above: NEGATIVENo mutation identified. .Comment:A point mutation (I28137V) in the factor II (prothrombin) gene is thesecond most common cause of inherited thrombophilia. The incidence ofthis mutation in the [place] population is about 2% and in theAfrican [place] population it is approximately 0.5%. This mutation [...] individual mutations.This assay detects only the prothrombin U13861T mutation and doesnot measure genetic abnormalities elsewhere in the genome. Otherthrombotic risk factors may be pursued through systematic clinicallaboratory analysis. These factors include the R506Q (Leiden)mutation in the Factor V gene, plasma homocysteine levels, as wellas testing for deficiencies of antithrombin III, protein C andprotein S.Genetic Counselors are available for health care providersto discuss results at [phone] .Methodology:DNA analysis of the Factor II gene was performed by PCRamplification followed by restriction analysis. Thediagnostic sensitivity is >99% for both. All the tests mustbe combined with clinical information for the most accurateinterpretation. Molecular-based testing is highly accurate,but as in any laboratory test, diagnostic errors may occur. .Poort SR, et al. Blood. 1996; 88:7265-8422.Kristian EA. Circulation. 2004; 110:e15-e18.Danis I, et al. Arterioscler Thromb Vasc Biol. 1999;19:700-703. .Skinny Mauricio, PhD, Holly Craft, PhD, Zak Mir, PhD, Joshua Heck MFawnSFawn, PhD, Elenita Bearden, PhD, Peterson Angeles, PhD, JOLENEeRnny Mitchell, PhD, [facility] PATIENT NOT FASTINGP ERFORMED BY: BN [facility] Pxoeeptmhp9285 [facility] [id number] BY: CB [facility] Vpocji5344 [facility] [id number] BY: TG [facility] CLG6044 [facility] [id number] Factor V Leiden Mutationon 1 09-16-2015 F5 [...] in the workup for venous thrombosis include ohmC81288O mutation in the factor II (prothrombin) gene,protein S and C deficiency, and antithrombin deficiencies.Anticardiolipin antibody and lupus anticoagulant analysismay be appropriate for certain patients, as well ashomocysteine levels. .Contact your local [facility] for information on how to orderadditional testing if desired. .Genetic counselors are available for health care providers to discuss results at [phone] ([phone]). .Methodology:DNA analysis of the Factor V gene [...] PhD, Peterson Angeles, PhD, Scott Mitchell PhD, [facility] PATIENT NOT FASTINGP ERFORMED BY: BN [facility] Bsmwzybidq0390 [facility] [id number] BY: CB [facility] Inqbra8474 [facility] [id number] BY: TG [facility] NYW4387 [facility] [id number] Homocyst(e)ine, Plasmaon Homocysteine [Moles/Vol] 8.3 umol/L Normal 0.0-15.0 [facility] Work Phone: Comment on above: PATIENT NOT FASTINGP ERFORMED BY: [employer] [address] [id number] BY: KINGA [facility] Coyibk2443 Pettit RoadNovant Health Rehabilitation Hospitalin [place] [id number] BY: LabSensewarerp UHW4208 [facility] [id number] Lupus Anticoagulant Compon 1 09-16-2015 aPTT.lupus sensitive Coag (PPP) [Time] 36.3 {sec} Normal 0.0-40.6 [facility] Work Phone: Comment on above: PATIENT NOT FASTINGP ERFORMED BY: MARICHUY DynamicOps[address] [id number] BY: KINGA LabSensewarerp Mnryxn5934 [facility] [id number] BY: [employer] VON3748 [facility] [id number] dRVVT Coag (PPP) [Time] 36.8 {sec} Normal 0.0-44.0 C omprehensive Internal Medicine Work Phone: Comment on above: PATIENT NOT FASTINGP ERFORMED BY: MARICHUY DynamicOps[address] [id number] BY: KINGA LabSensewarerp Gwczqj1355 [facility] [id number] BY: [employer] TEU2641 [facility] [id number] Lupus anticoagulant neutralization dilute phospholipid [Time] in Platelet poor plasma 49.4 {sec} Normal 0.0-55.0 Comprehensi [facility] Work Phone: Comment on above: PATIENT NOT FASTINGP ERFORMED BY: Sailthru[address] [id number] BY: KINGA LabSensewarerp Ugfirk8129 [facility] [id number] BY: [employer] MYE6292 [facility] [id number] Lupus anticoagulant neutralization dilute phospholipid/Lupus anticoagulant neutralization.high phospholipid [Ratio] in Platelet poor plasma by Coagulation assay 1.04 {Ratio} Normal 0.00-1.40 [facility] Work Phone: Comment on above: PATIENT NOT FASTINGP ERFORMED BY: Omnist[employer] [address] [id number] BY: Zoomy Psoedp5017 [facility] [id number] BY: [employer] ZKR2199 [facility] amazingtunesENCOMPASS HEALTH [id number] Lupus anticoagulant two screening tests W Reflex Coag (PPP) [Interp] Comment: Normal [facility] Work Phone: Comment on above: No lupus anticoagula nt was detected. PATIENT NOT FASTINGP ERFORMED BY: O[employer]ist[employer] [address] [id number] BY: Not iTlin6370 [facility] [id number] BY: Help Scout YOD9960 [facility] amazingtunesENCOMPASS HEALTH [id number] Thrombin time Coag (PPP) [Time] 13.8 {sec} Normal 0.0-20.9 [facility] Work Phone: Comment on above: PATIENT NOT FASTINGP ERFORMED BY: Omnist[employer] [address] [id number] BY: Onion CorporationDeborah Heart and Lung CenterSyreng6385 [facility] [id number] BY: [employer] TFF3615 [facility] amazingtunesENCOMPASS HEALTH [id number] MTHFRon 07-17-2016 MTHFR gene targeted mutation analysis [facility] Nom (Bld/Tiss) HE677 Normal Comprehens chidi [facility] Work Phone: Comment on above: Result: C677T Single mutation (C677T) identified .Interpretation: .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 This combination ofresults [...] discuss these results with healthcare providers at [phone]. .Methylenetetrahydrofolate reductase (MTHFR) is a ortega enzyme in thefolate pathway and is responsible for the metabolism of homocysteine.There are two common variants in the MTHFR gene, c.655C>T(p.Ini339Fjk), referred to as C677T, and c.1286A>C (p.Jgg145Mio),referred to as H9200X. Individuals homozygous for C677T (two copiesof the variant), have decreased activity of the MTHFR enzyme and apredisposition to hyperhomocysteinemia, particularly when deficient infolate. Hyperhomocysteinemia is a risk factor for venous thrombosisand coronary artery disease and is associated with an increased riskof open neural tube defects. The C677T variant does notindependently increase risk of these conditions in the absence ofhyperhomocysteinemia. The X3897C variant is not associated withelevated homocysteine levels unless a C677T variant is also present;however, the clinical significance of heterozygosity for both B360Zujq C9303N is controversial. Population data suggest that these twovariants are not present on the same chromosome, but rare exceptionshave been reported of triple variant MTHFR genotypes (ie. homozygousfor one variant and heterozygous for the other). Homozygosity nonW292Q has an estimated frequency of 10% to [...] 10(1):111-113.Ana SE et al. Jenelle Med 2013; 15(2):153-156.Edison C et al. Obstet Gynecol 2011; 118(3):730-740.Roberto B et al. Eur J Epidemiol 2013; 28(8):621-647. .Skinny Mauricio, PhD, Holly Craft, PhD, Zak Mir, PhD, Joshua Heck MJaney, PhD, Elenita Bearden, PhD, Peterson Angeles, PhD, JOLENERenny Mitchell, PhD, [facility] PATIENT NOT FASTINGP ERFORMED BY: LabSensewarerp Uktfasqgcf2792 [facility] [id number] BY: LabSensewarerp Rifebh0036 [facility] [id number] BY: [facility] MIO9714 [facility] [id number] Protein C Deficiency Profile on 07-17-2016 Protein C actual/normal Coag (PPP) [Relative time] 111 % Normal 73-180 [facility] Work Phone: Comment on above: PATIENT NOT FASTINGP ERFORMED BY: LabSensewarerp Cacihuffbg[address] [id number] BY: LabSenseware Zziezl8936 [facility] [id number] BY: [facility] IRH8117 [facility] [id number] Protein C Ag actual/normal IA (PPP) [Relative mass conc] 88 % Normal 60-150 Compre[facility] Work Phone: Comment on above: PATIENT NOT FASTINGP ERFORMED BY: [facility] Ltoniotvmu[address] [id number] BY: Not iTlin6[address] DuettoCone Health Women[facility] Hospital [id number] BY: [employer] CZI5024 [facility]asENCOM[facility] [id number] Protein S Panelon 07-17-2016 Protein S actual/normal [...] these drugs. PATIENT NOT FASTINGP ERFORMED BY: Parko[address] [id number] BY: Not iTlin6370 [address] DuettoCone Health Women's Hospital [id number] BY: Edu[employer]ations RKM1930 [facility] [id number] Protein S Ag actual/normal IA (PPP) [Relative mass conc] 126 % Normal 60-150 Comprehensi ve [facility] Work Phone: Comment on above: PATIENT NOT FASTINGP ERFORMED BY: Parko[address] [id number] BY: Not iTlin6370 [place] AquaLifeUNC Health Rockingham [id number] BY: Educreations BPY0505 [facility] [id number] Protein S Free Ag actual/normal IA (PPP) [Relative mass conc] 93 % Normal 57-157 Comprehensi ve [facility] Work Phone: Comment on above: PATIENT NOT FASTINGP ERFORMED BY: Parko[address] [id number] BY: [employer] Pqciqk8648 [place] [employer] AquaLifeUNC Health [facility]ingham [id number] BY: Edu[employer]ations RPO5380 [facility]asEN[facility] [id number] HPV automatic (48164)on 05-18 Diagnosis ICD code [Identifier] SPRCS Normal [...] CYTYC Thin Prep VialPATIENT NOT FASTINGPERFORMED BY: Embrace[address] [place] [address] [id number] BY: [employer].rPopstrenton psychiatric hospital W [id number] BY: =G Sailthrurp Tpuejdyjer[address] [place] PolianazaXOGrhorsham clinic W [id number] Information: [id number] HPV 16+18+31+33+35+39+45+51 +52+56+58+59+68 DNA Probe+sig amp Ql (Cvx) Positive Abnormal [facility] Internal [facility] Work Phone: Comment on above: This high-risk HPV t est detects thirteen high-risk types(16/18/31/33/35/39/45/51/52/56/58/59/68) without differentiation. . Source.............C ervix;EndocervixNo. of containers..01 CYTYC Thin Prep VialPATIENT NOT FASTINGPERFORMED BY: ResonateYL Sailthrurp Gvtglchgfpxh[address] [place] [address] [id number] BY: WB Oktalogic120 ANTERIOS PlazaXOGrPopston [place] [id number] BY: =G LabSon[facility] Orth[facility]ics[address] [place] PolianazaXOGrlestrenton psychiatric hospital [place] [id number] Information: [id number] Microscopic observation Other stain Nom (Unsp spec) . Normal [facility] Work Phone: Comment on above: Source.............C ervix;EndocervixNo. of containers..01 CYTYC Thin Prep VialPATIENT NOT FASTINGPERFORMED BY: Farmstr Yuwgqerotwko[address] [place] [address] [id number] BY: Oktalogic120 [facility] Hospitalrhors[facility] W [id number] BY: =G [facility] Yqmoboeqkw937 [facility] [id number] Information: [id number] Pathology report final diagnosis Narrative SPRCS Abnormal Comprehensiv e Internal Medicine Work Phone: Comment on above: EPITHELIAL CELL ABNO RMALITY.LOW-GRADE SQUAMOUS INTRAEPITHELIAL LESION (LGSIL); MILD DYSPLASIA ISPRESENT.Satisfactory for evaluation. Endocervical and/or squamous metaplasticcells (endocervical component) are present.Z11.51[employer] Fernando, Structural Design Engineer (ASCP)Amish Sanchez MD, Pathologist Source.............C ervix;EndocervixNo. of containers..01 CYTYC Thin Prep VialPATIENT NOT FASTINGPERFORMED BY: Skeeblerp Qotyhmzcqgsw[address] [place] [address] [id number] BY: Oktalogic120 [facility] HospitalrBrad[facility] [id number] BY: =G LabSensewarerp Ynglrwkclb744 [facility] Hospitalrlestrenton psychiatric hospital W [id number] Information: [id number] Basic Metabolic Profile (BMP )on 08-25-2015 Basic metabolic 2000 panel 104 mL/min Normal [facility] Work Phone: Comment on above: Non- GFR Calc [facility] [address] [place], [address] Basic metabolic 2000 panel 20.1 {RATIO} Abnormal 10-20 [facility] Work Phone: Comment on above: [facility] [address] [place], [place], [address] Basic metabolic 2000 panel 8.6 mg/dL Normal 8.5-10.1 [facility] Work Phone: Comment on above: [facility] [address] [place], [address] Basic metabolic 2000 panel 81 mg/dL Normal 70-110 [facility] Work Phone: Comment on above: [facility] F[address]az[address] [place], [place], [id number] Basic metabolic 2000 panel 134 mmol/L Abnormal 136-145 [facility] Work Phone: Comment on above: [facility] [address] [place], [address] Basic metabolic 2000 panel 15 mg/dL Normal 7-18 [facility] Work Phone: Comment on above: [facility] [address] [place], [place], [id number] Basic metabolic 2000 panel 0.75 mg/dL Normal 0.55-1.20 [facility] Work Phone: Comment on above: The validity of the calculated GFR AND GFRAA in patients over70 years has not been determined. Clinical correlation isessential. [facility] [address] [place], [place], [phone] Basic metabolic 2000 panel 119.69 ml/min Normal [facility] Work Phone: Comment on above: [facility] [address] [place], [place], [phone] Basic metabolic 2000 panel 126 mL/min Normal [facility] Work Phone: Comment on above: GFR Calc [facility] F[address] [place], [place], [phone] Basic metabolic 2000 panel 3 1 Abnormal 5-15 [facility] Work Phone: Comment on above: [facility] [address] [place], [place], [phone] Basic metabolic 2000 panel 25.0 mmol/L Normal 21.0-32.0 [facility] Work Phone: Comment on above: [facility] [address] [place], [place], [address] Basic metabolic 2000 panel 3.5 mmol/L Normal 3.5-5.1 [facility] Work Phone: Comment on above: [facility] [address] [place], [place], [address] Basic metabolic 2000 panel 106 mmol/L Normal 98-107 [facility] Work Phone: Comment on above: [facility] [address] [place], [place], [phone] CBC W/Diff, Automatedon 01-0 Absolute Neut 11.8 {X10_3/uL} Abnormal 2.0-7.7 [facility] Internal Medicine Work Phone: Comment on above: [facility] [address] [place], [place], [id number] Basophils/100 WBC (Bld) 0.2 % Normal 0-1 C omprehensive Internal Medicine Work Phone: Comment on above: [facility] [address] [place], [place], [id number] Eosinophils/100 WBC (Bld) 0.1 % Normal 0-5 [facility] Work Phone: Comment on above: [facility] [address] [place], [place], [id number] Erythrocyte distribution width (RBC) [Ratio] 12.8 % Normal 11.6-14.6 [facility] Work Phone: Comment on above: [facility] [address] [place], [address] Hematocrit (Bld) [Volume fraction] 39.9 % Normal 37-47 [facility] Work Phone: Comment on above: [facility] [address] [place], [address] Hemoglobin (Bld) [Mass/Vol] 13.2 g/dL Normal 12.0-15.0 [facility] Work Phone: Comment on above: [facility] [address] [place], [address] IM GRAN % 0.100 % Normal 0.0-0.9 [facility] Work Phone: Comment on above: IG% - Immature Granu locytes (promyelocytes, myelocytes andmetamyelocytes) > 1% indicates that a LEFT SHIFT is Present. [place] [address] [place], [address] Lymphocytes (Bld) [#/Vol] 2.26 {X10_3/ul} Normal 0.83-4.51 [facility] Work Phone: Comment on above: [facility] [address] [place], [address] Lymphocytes/100 WBC (Bld) 15.1 % Abnormal 19-41 [facility] Work Phone: Comment on above: [facility] [address] [place], [address] MCH (RBC) [Entitic mass] 29.8 pg Normal 27.0-32.0 [facility] Work Phone: Comment on above: [facility] [address] [place], [address] MCHC (RBC) [Mass/Vol] 33.1 {g/gl} Normal 32-36 [facility] Internal Medicine Work Phone: Comment on above: [facility] [address] [place], [address] MCV (RBC) [Entitic vol] 90.1 fL Normal 81-99 [facility] Internal Medicine Work Phone: Comment on above: [facility] [address] [place], [address] Monocytes/100 WBC (Bld) 5.5 % Normal 0-10 [facility] Internal Medicine Work Phone: Comment on above: [facility] [address] [place], [address] Neutrophils/100 WBC (Bld) 79.0 % Abnormal 47-70 [facility] Work Phone: Comment on above: [facility] [address] [place], [address] Platelet mean volume (Bld) [Entitic vol] 9.7 fL Normal 6.2-12.0 Comprehensiv e [facility] Medicine Work Phone: Comment on above: [facility] [address] [place], [address] Platelets (Bld) [#/Vol] 248 10*3/uL Normal 150-450 [facility] Work Phone: Comment on above: [facility] [address] [place], [address] RBC (Bld) [#/Vol] 4.43 {M/mm3} Normal 4.2-5.4 [facility] Work Phone: Comment on above: [facility] [address] [place], [address] RDW SD 42.1 fL Normal 35.1-43.9 [facility] Work Phone: Comment on above: [facility] [address] [place], [place], [id number] WBC (Bld) [#/Vol] 14.9 10*3/uL Abnormal 4.4-11.0 [facility] Internal Medicine Work Phone: Comment on above: [facility] [address] [place], [id number] Lipaseon 08-25-2015 Lipase [Catalytic activity/Vol] 83 U/L Normal 73-393 [facility] Internal Medicine Work Phone: Comment on above: [facility] [address] [place], [address] Liver Profileon 08-25-2015 Albumin [Mass/Vol] 3.9 g/dL Normal 3.4-5.0 [facility] Internal Medicine Work Phone: Comment on above: [facility] [address] [place], [address] ALT [Catalytic activity/Vol] 20 U/L Normal 12-78 [facility] Internal Medicine Work Phone: Comment on above: [facility] [address] [place], [address] AST [Catalytic activity/Vol] 15 U/L Normal 15-37 [facility] Work Phone: Comment on above: [facility] [address] [place], [place], [id number] Bilirubin [Mass/Vol] 0.50 mg/dL Normal 0.20-1.00 [facility] Internal Medicine Work Phone: Comment on above: [facility] [address] [place], [address] Bilirubin.direct [Mass/Vol] 0.14 mg/dL Normal 0.00-0.30 [facility] Internal Medicine Work Phone: Comment on above: [facility] [address] [place], [address] Globulin (S) [Mass/Vol] 3.8 g/dL Abnormal 2.3-3.5 C omprehensive Internal Medicine Work Phone: Comment on above: [facility] [address] [place], [place], [id number] Hepatic function 2000 panel - Serum or Plasma 7.7 g/dL Normal 6.4-8.2 Comprehe nsive Internal Medicine Work Phone: Comment on above: [facility] [address] [place], [place], [id number] Hepatic function 2000 panel - Serum or Plasma 49 U/L Abnormal 50-136 Comprehe nsive Internal Medicine Work Phone: Comment on above: [facility] [address] [place], [place], [id number] ,Serum,hCG Quali.on 08-25-2015 ,Serum,hCG Quali. < 1 Normal [facility] Work Phone: Comment on above: [facility] [address] [place], [place], [id number] ,Serum,hCG Quali. Negative Normal 0-9 Nonpreg [facility] Work Phone: Comment on above: [facility] [address] [place], [place], [address] HPV automatic ([id number])on 05-19 Diagnosis ICD code [Identifier] SPRCS Normal [...] of containers..01 CYTYC Thin Prep VialPERFORMED BY: [facility] [address] [id number] BY: =G [facility] N[address] [id number] Information: [id number] HPV 16+18+31+33+35+39+45+51 +52+56+58+59+68 DNA Probe+sig amp Ql (Cvx) Positive Abnormal Comprehen [facility] Internal [facility] Work Phone: Comment on above: This high-risk HPV t est detects thirteen high-risk types(16/18/31/33/35/39/45/51/52/56/58/59/68) without differentiation. . Source.............C ervical;EndocervicalNo. of containers..01 CYTYC Thin Prep VialPERFORMED BY: [employer] [address] [id number] BY: =G [facility] A[address] [id number] Information: [id number] Microscopic observation Other stain Nom (Unsp spec) . Normal [facility] Work Phone: Comment on above: Source.............C ervical;EndocervicalNo. of containers..01 CYTYC Thin Prep VialPERFORMED BY: [facility] [address] [id number] BY: =G [employer] [address] [id number] Information: [id number] Pathology report final diagnosis Narrative SPRCS Abnormal Comprehensiv e Internal Medicine Work Phone: Comment on above: EPITHELIAL CELL ABNO RMALITY.LOW-GRADE SQUAMOUS INTRAEPITHELIAL LESION (LGSIL); MILD DYSPLASIA ISPRESENT.Suggest follow up as clinically appropriate.Satisfactory for evaluation. Endocervical and/or squamous metaplasticcells (endocervical component) are present.V73.81 ; Special screening examination, human papillomavirus [HPV]Sanam Mejia, Structural Design Engineer (ASCP)Radha Wheat MD, Pathologist Source.............C ervical;EndocervicalNo. of containers..01 CYTYC Thin Prep VialPERFORMED BY: WB [facility] Dpfwkkwcfk032 [facility] [place] [id number] BY: =G [facility] Oyryfoplmj329 [facility] [place] [id number] Information: [id number] Vital Signs Date Time Vital Sign Value Performing Clinician Facility 06-07-2025 10:15-0400 Body height 172.[address] Marc Tyson MD Work Phone: 7(354)539-080846 [place] [address] 06-07-2025 10:15-0400 Body mass index (BMI) [Ratio] 30.4 kg/m2 Dr. Marc Tyson MD Work Phone: 2(572)504-685346 [place] [address] 06-07-2025 10:15-0400 Body weight 90.[address] Marc Tyson MD Work Phone: 2(543)206-186746 [place] [address] 06-07-2025 10:15-0400 Diastolic blood pressure 70 mm[Hg] Dr. Marc Tyson MD Work Phone: 1(123)381-305546 [place] [address] 06-07-2025 10:15-0400 Systolic blood pressure 117 mm[Hg] Dr. Marc Tyson MD Work Phone: 5(463)608-295046 [place] [address] 05-10-2025 08:52-0400 Body height 172.[address] Marc Tyson MD Work Phone: 8(779)691-957146 [place] [address] 05-10-2025 08:52-0400 Body mass index (BMI) [Ratio] 29.5 kg/m2 Dr. Marc Tyson MD Work Phone: 9(800)149-974146 [place] [address] 05-10-2025 08:52-0400 Body weight 88.[address] Marc Tyson MD Work Phone: 1(823)153-117164 [address] 05-10-2025 08:52-0400 Diastolic blood pressure 84 mm[Hg] Dr. Marc Tyson MD Work Phone: 3(573)421-651981 [place] [address] 05-10-2025 08:52-0400 Systolic blood pressure 119 mm[Hg] Dr. Marc Tyson MD Work Phone: 8(047)173-987981 [place] [address] 04-12-2025 10:45-0400 Body height 172.[address] Marc Tyson MD Work Phone: 1(730)119-939681 [place] [address] 04-12-2025 10:45-0400 Body mass index (BMI) [Ratio] 28 kg/m2 Dr. Marc Tyson MD Work Phone: 1(209)198-966281 [place] [address] 04-12-2025 10:45-0400 Body weight 83.[address] Marc Tyson MD Work Phone: 6(485)960-619381 [place] [address] 04-12-2025 10:45-0400 Diastolic blood pressure 80 mm[Hg] Dr. Marc Tyson MD Work Phone: 7(603)399-748281 [place] [address] 04-12-2025 10:45-0400 Systolic blood pressure 121 mm[Hg] Dr. Marc Tyson MD Work Phone: 2(640)497-820581 [place] [address] 03-15-2025 08:36-0400 Body height 172.[address] Marc Tyson MD Work Phone: 0(414)215-169881 [place] [address] 03-15-2025 08:36-0400 Body mass index (BMI) [Ratio] 27.5 kg/m2 Dr. Marc Tyson MD Work Phone: 8(078)066-682381 [place] [address] 03-15-2025 08:36-0400 Body weight 82.[address] Marc Tyson MD Work Phone: 1(546)082-779881 [place] [address] 03-15-2025 08:36-0400 Diastolic blood pressure 73 mm[Hg] Dr. Marc Tyson MD Work Phone: 4(379)446-226081 [place] [address] 03-15-2025 08:36-0400 Systolic blood pressure 125 mm[Hg] Dr. Marc Tyson MD Work Phone: 5(065)163-617181 [place] [address] 03-04-2025 14:55-0400 Diastolic blood pressure 65 mm[Hg] Dr. Marc Tyson MD Work Phone: 5(899)742-430481 [place] [address] 03-04-2025 14:55-0400 Respiratory rate 16 /min Dr. Marc Tyson MD Work Phone: 9(233)987-617781 [place] [address] 03-04-2025 14:55-0400 Systolic blood pressure 108 mm[Hg] Dr. Marc Tyson MD Work Phone: 2(302)466-129281 [place] [address] 03-04-2025 13:51-0400 Body height 172.[address] Marc Tyson MD Work Phone: 9(429)028-249281 [place] [address] 03-04-2025 13:51-0400 Body temperature 98.3 [degF] Dr. Marc Tyson MD Work Phone: 9(901)993-719481 [place] [address] 03-04-2025 13:51-0400 Heart rate 102 /min Dr. Marc Tyson MD Work Phone: 3(368)336-669481 [place] [address] 02-23-2025 15:52-0400 Body temperature 97.6 [degF] Dr. Marc Tyson MD Work Phone: 4(520)707-650481 [place] [address] 02-23-2025 15:52-0400 Diastolic blood pressure 62 mm[Hg] Dr. Marc Tyson MD Work Phone: 3(986)126-460581 [place] [address] 02-23-2025 15:52-0400 Heart rate 80 /min Dr. Marc Tyson MD Work Phone: 9(550)174-168881 [place] [address] 02-23-2025 15:52-0400 Respiratory rate 16 /min Dr. Marc Tyson MD Work Phone: 8(343)540-620581 [place] [address] 02-23-2025 15:52-0400 SaO2% (BldA) [Mass fraction] 99 % Dr. Marc Tyson MD Work Phone: 1(181)863-244281 [place] [address] 02-23-2025 15:52-0400 Systolic blood pressure 109 mm[Hg] Dr. Marc Tsyon MD Work Phone: 1(549)675-190581 [place] [address] 02-23-2025 14:47-0400 Body height 172.[address] Marc Tyson MD Work Phone: 9(854)780-454681 [place] [address] 02-14-2025 10:22-0400 Body temperature 97.1 [degF] Dr. Marc Tyson MD Work Phone: 9(596)735-482581 [place] [address] 02-14-2025 10:22-0400 Diastolic blood pressure 63 mm[Hg] Dr. Marc Tyson MD Work Phone: 1(277)052-799381 [place] [address] 02-14-2025 10:22-0400 Heart rate 71 /min Dr. Marc Tyson MD Work Phone: 7(619)189-587481 [place] [address] 02-14-2025 10:22-0400 Respiratory rate 16 /min Dr. Marc Tyson MD Work Phone: 4(362)944-050381 [place] [address] 02-14-2025 10:22-0400 SaO2% (BldA) [Mass fraction] 100 % Dr. Marc Tyson MD Work Phone: 3(722)654-205781 [place] [address] 02-14-2025 10:22-0400 Systolic blood pressure 106 mm[Hg] Dr. Marc Tyson MD Work Phone: 1(127)818-088681 [place] [address] 02-14-2025 09:26-0400 Body height 172.[address] Marc Tyson MD Work Phone: 3(488)716-441181 [place] [address] 02-14-2025 09:26-0400 Body mass index (BMI) [Ratio] 27.8 kg/m2 Dr. Marc Tyson MD Work Phone: 4(501)632-873281 [place] [address] 02-14-2025 09:26-0400 Body weight [address] Marc Tyson MD Work Phone: 2(482)897-105881 [place] [address] 02-14-2025 08:15-0400 Body height 172.[address] Marc Tyson MD Work Phone: 7(748)901-407381 [place] [address] 02-14-2025 08:14-0400 Body mass index (BMI) [Ratio] 27.8 kg/m2 Dr. Marc Tyson MD Work Phone: [facility] 02-14-2025 08:14-0400 Body weight 83.[address] Marc Tyson MD Work Phone: [facility] 02-14-2025 08:14-0400 Diastolic blood pressure 69 mm[Hg] Dr. Marc Tyson MD Work Phone: [facility] 02-14-2025 08:14-0400 Systolic blood pressure 109 mm[Hg] Dr. Marc Tyson MD Work Phone: [facility] 06-15-2024 18:02-0400 Body mass index (BMI) [Ratio] 29.29 kg/m2 Renee Guzmán APRN.BENCH WORKER Work Phone: [facility] 06-15-2024 18:02-0400 Body temperature 100.71 [degF] Renee Guzmán APRN.BENCH WORKER Work Phone: [facility] 06-15-2024 18:02-0400 Body weight 86.1 kg Renee Guzmán APRN.BENCH WORKER Work Phone: [facility] 06-15-2024 18:02-0400 Diastolic blood pressure 76 mm[Hg] Renee Guzmán APRN.BENCH WORKER Work Phone: [facility] 06-15-2024 18:02-0400 Heart rate 121 /min Renee Guzmán APRN.BENCH WORKER Work Phone: [facility] 06-15-2024 18:02-0400 Respiratory rate 18 /min Renee Guzmán APRN.BENCH WORKER Work Phone: [facility] 06-15-2024 18:02-0400 SaO2% (BldA) [Mass fraction] 98 % Renee Guzmán APRN.BENCH WORKER Work Phone: [facility] 06-15-2024 18:02-0400 Systolic blood pressure 118 mm[Hg] Renee Guzmán APRN.CNP Work Phone: [facility] 09-15-2023 10:40-0500 Body mass index (BMI) [Ratio] 29 kg/m2 Dr. Gage Vincent Work Phone: [facility] 09-15-2023 10:40-0500 Body weight 86.[address] Gage Vincent Work Phone: [facility] 09-15-2023 10:40-0500 Diastolic blood pressure 70 mm[Hg] Dr. Gage Vincent Work Phone: [facility] 09-15-2023 10:40-0500 Systolic blood pressure 123 mm[Hg] Dr. Gage Vincent Work Phone: [facility] 12-18-2022 13:59-0400 Body height 172.[address] Gage Vincent Work Phone: [facility] 12-18-2022 13:59-0400 Body mass index (BMI) [Ratio] 30.4 kg/m2 Dr. Gage Vincent Work Phone: [facility] 12-18-2022 13:59-0400 Body temperature 97.6 [degF] Dr. Gage Vincent Work Phone: [facility] 12-18-2022 13:59-0400 Body weight 90.[address] Gage Vincent Work Phone: [facility] 12-18-2022 13:59-0400 Diastolic blood pressure 74 mm[Hg] Dr. Gage Vincent Work Phone: [facility] 12-18-2022 13:59-0400 Heart rate 95 /min Dr. Gage Vincent Work Phone: [facility] 12-18-2022 13:59-0400 Respiratory rate 12 /min Dr. Gage Vincent Work Phone: [facility] 12-18-2022 13:59-0400 SaO2% (BldA) [Mass fraction] 99 % Dr. Gage Vincent Work Phone: [facility] 12-18-2022 13:59-0400 Systolic blood pressure 136 mm[Hg] Dr. Gage Vincent Work Phone: [facility] 09-18-2022 13:04-0500 Body height 172.[address] Marc Tyson Work Phone: [facility] 09-18-2022 13:04-0500 Body mass index (BMI) [Ratio] 30.4 kg/m2 Dr. Marc Tyson Work Phone: 3(070)573-460646 [place] [address] 09-18-2022 13:04-0500 Body temperature 98.7 [degF] Dr. Marc Tyson Work Phone: [facility] 09-18-2022 13:04-0500 Body weight 90.[address] Marc Tyson Work Phone: [facility] 09-18-2022 13:04-0500 Diastolic blood pressure 84 mm[Hg] Dr. Marc Tyson Work Phone: [facility] 09-18-2022 13:04-0500 Heart rate 87 /min Dr. Marc Tyson Work Phone: [facility] 09-18-2022 13:04-0500 Respiratory rate 14 /min Dr. Marc Tyson Work Phone: [facility] 09-18-2022 13:04-0500 SaO2% (BldA) [Mass fraction] 99 % Dr. Marc Tyson Work Phone: [facility] 09-18-2022 13:04-0500 Systolic blood pressure 136 mm[Hg] Dr. Marc Tyson Work Phone: [facility] 10-22-2018 13:18-0500 BMI (Body Mass Index) 24.78 kg/m2 Kalani Staton [facility] Work Phone: 10-22-2018 13:18-0500 Body weight 73.94 kg Kalani [place] [facility] Work Phone: 10-22-2018 13:18-0500 BP Diastolic 82 mm[Hg] Kalani Staton [facility] Internal Medicine Work Phone: Comment on [...] 10-22-2018 13:18-0500 Height 172.72 cm Kalani Staton [facility] Medicine Work Phone: 10-22-2018 13:18-0500 Pulse (Heart Rate) 118 /min Kalani Staton [facility] Internal Medicine Work Phone: Comment on above: Pattern: Regular 10-22-2018 13:18-0500 Pulse Oximetry 98 % Kalani Staton [facility] Internal Medicine Work Phone: Comment on above: Room air 10-22-2018 13:18-0500 Respiratory Rate 18 /min Kalani [place] [facility] Work Phone: Comment on above: Pattern: Unlabored 12-19-2016 11:41-0400 BMI (Body Mass Index) 23.57 kg/m2 Kalani Staton [facility] Internal Medicine Work Phone: Comment on above: when it hurts her 12-19-2016 11:41-0400 Body Temperature 98 [degF] Kalani Staton [facility] Work Phone: Comment on above: when it hurts her 12-19-2016 11:41-0400 Body weight 70.31 kg Kalani Staton [facility] Internal Medicine Work Phone: Comment on above: when it hurts her 12-19-2016 11:41-0400 BP Diastolic 80 mm[Hg] Kalani Staton [facility] Work Phone: Comment on above: Patient Position: Sitting; Cuff Location : Left Arm; Cuff Size: Standard when it hurts her 12-19-2016 11:41-0400 BP Systolic 118 mm[Hg] Kalani Staton [facility] Internal Medicine Work Phone: Comment on above: Patient Position: Sitting; Cuff Location : Left Arm; Cuff Size: Standard when it hurts her 12-19-2016 11:41-0400 BSA (Body Surface Area) 1.83 m2 Kalani Staton [facility] Internal Medicine Work Phone: Comment on above: when it hurts her 12-19-2016 11:41-0400 Height 172.72 cm Kalani Staton [facility] Medicine Work Phone: Comment on above: when it hurts her 12-19-2016 11:41-0400 Pulse (Heart Rate) 91 /min Kalani Staton [facility] Work Phone: Comment on above: Pattern: Regular when it hurts her 12-19-2016 11:41-0400 Pulse Oximetry 98 % Kalani Staton [facility] Work Phone: Comment on above: Room air when it hurts her 12-19-2016 11:41-0400 Respiratory Rate 16 /min Kalani Staton [facility] Work Phone: Comment on above: Pattern: Unlabored when it hurts her 07-17-2016 10:01-0500 BMI (Body Mass Index) 23.15 kg/m2 Kalani Staton [facility] Work Phone: 07-17-2016 10:01-0500 Body weight 69.06 kg Kalani Staton [facility] Work Phone: 07-17-2016 10:01-0500 BP Diastolic 62 mm[Hg] Kalani Staton [facility] Work Phone: Comment on above: Patient Position: Sitting; Cuff Location : Left Arm; Cuff Size: Large 07-17-2016 10:01-0500 BP Systolic 128 mm[Hg] Kalani Staton [facility] Work Phone: Comment on above: Patient Position: Sitting; Cuff Location : Left Arm; Cuff Size: Large 07-17-2016 10:01-0500 BSA (Body Surface Area) 1.82 m2 Kalani Staton [facility] Work Phone: 07-17-2016 10:01-0500 Height 172.72 cm Kalani Staton [facility] Work Phone: 07-17-2016 10:01-0500 Pulse (Heart Rate) 127 /min Kalani Staton [facility] Work Phone: Comment on above: Pattern: Regular 07-17-2016 10:01-0500 Pulse Oximetry 99 % Kalani Staton [facility] Work Phone: Comment on above: Room air 07-17-2016 10:01-0500 Respiratory Rate 18 /min Kalani Staton [facility] Work Phone: Comment on above: Pattern: Unlabored 06-05-2016 13:38-0400 BMI (Body Mass Index) 22.85 kg/m2 Kalani Staton [facility] Work Phone: 06-05-2016 13:38-0400 Body weight 68.15 kg Kalani Staton [facility] Work Phone: 06-05-2016 13:38-0400 BP Diastolic 78 mm[Hg] Kalani Staton [facility] Work Phone: Comment on above: Patient Position: Sitting; Cuff Location : Left Arm; Cuff Size: Standard 06-05-2016 13:38-0400 BP Systolic 122 mm[Hg] Kalani Staton [facility] Work Phone: Comment on above: Patient Position: Sitting; Cuff Location : Left Arm; Cuff Size: Standard 06-05-2016 13:38-0400 BSA (Body Surface Area) 1.81 m2 Kalani Staton [facility] Work Phone: 06-05-2016 13:38-0400 [...] Patient encounter procedure Dr. Sisi Tee DO -[facility] Work Phone: Start: 06-07-2025 End: 06-07-[address] Marc Tyson MD Work Phone: [facility] Start: 05-16-2025 End: 05-16-2025 ambulatory MINH TYSON [facility] Start: 05-10-2025 End: 05-10-2025 Patient encounter procedure Kristy Calabrese CNM -[facility] Work Phone: Start: 05-10-2025 End: 05-10-[address] Marc Tyson MD Work Phone: [facility] Start: 05-02-2025 End: 05-02-2025 [facility] Start: 04-12-2025 End: 04-12-[address] Arlette Martini MD -[facility] Work Phone: Start: 04-12-2025 End: 04-12-[address] Marc Tyson MD Work Phone: [facility] Start: 03-15-2025 End: 03-15-2025 Patient encounter procedure Yohana STALLINGS -[facility] Work Phone: Start: 03-15-2025 End: 03-15-[address] Marc Tyson MD Work Phone: [facility] Start: 03-04-2025 End: 03-04-[address] Arlette Martini MD -[facility] Work Phone: Start: 03-04-2025 End: 03-04-[address] Marc Tyson MD Work Phone: [facility] Start: 02-23-2025 End: 02-23-2025 Patient encounter procedure Yohana Roberson PROGRAM OFFICER-C -[facility] Work Phone: Start: 02-23-2025 End: 02-23-[address] Marc Tyson MD Work Phone: [facility] Start: 02-21-2025 End: 02-21-[address] Marc Tyson MD Work Phone: -[facility] Start: 02-21-2025 End: 02-21-[address] Sisi Tee DO -[facility] Start: 02-21-2025 End: 02-21-2025 ambulatory Sisi Tee Facility:[facility] Start: 02-14-2025 End: 02-14-[address] Sisi Tee DO [facility] Work Phone: Start: 02-14-2025 End: 02-14-[address] Marc Tyson MD Work Phone: [facility] Start: 01-31-2025 End: 01-31-[address] Marc Tyson MD Work Phone: [facility] Work Phone: Start: 01-31-2025 End: 01-31-2025 Patient encounter procedure Kristy Calabrese CNM -[facility] Work Phone: Start: 01-31-2025 End: 01-31-2025 ambulatory Kristy Calabrese Facility:[facility] Start: 01-14-2025 End: 01-14-[address] Marc Tyson MD Work Phone: [facility] Work Phone: Start: 01-14-2025 End: 01-14-2025 Patient encounter procedure Kristy Calabrese CNM -Laboratory Work Phone: Start: 01-14-2025 End: 01-14-2025 ambulatory Kristy Calabrese Facility:[facility] Start: 01-12-2025 End: 01-12-[address] Marc Tyson MD Work Phone: [facility] Work Phone: Start: 01-12-2025 End: 01-12-2025 Patient encounter procedure Kristy Barnett PROGRAM OFFICER-C -Laboratory [facility] Start: 01-12-2025 End: 01-12-2025 ambulatory Kristy Barnett NP Facility:[facility] Start: 06-15-2024 End: 06-15-2024 Subsequent hospital visit by physician [facility] Work Phone: Radiology Comment on above: Acute cough [R05.1] Start: 06-15-2024 End: 06-15-2024 ambulatory MINH TYSON Facility:[facility] Start: 06-15-2024 End: 06-15-2024 Patient encounter procedure Renee Guzmán APRN.BENCH WORKER Work Phone: [facility] Comment on above: Sore throat (Primary Dx); Acute cough; [place] eye disease of right eye; URI, acute Start: 06-15-2024 End: 06-15-2024 Telephone encounter Renee Guzmán APRN.BENCH WORKER Work Phone: [facility] Comment on above: Results Start: 09-24-2023 End: 09-24-[address] Gage Vincent Work Phone: [facility] Work Phone: Start: 09-24-2023 End: 09-24-[address] Gage Vincent Work Phone: [facility]-Laboratory, [facility] Start: 09-15-2023 End: 09-15-[address] [facility] Work Phone: Start: 09-15-2023 End: 09-15-[address] Gage Vincent Work Phone: [facility] Work Phone: Start: 02-14-2023 End: 02-14-[address] Gage Vincent Work Phone: [facility] Work Phone: Start: 02-14-2023 End: 02-14-[address] [facility]age Vincent [facility] Start: 02-06-2023 End: 02-06-[address] Gage Vincent Work Phone: [facility] Work Phone: Start: 02-06-2023 End: 02-06-[address] Gage Vincent [facility] Start: 01-30-2023 End: 01-30-[address] Gage Vincent [facility] Start: 01-28-2023 End: 01-28-[address] Gage Vincent Work Phone: [facility] Work Phone: Start: 01-28-2023 End: 01-28-[address] Gage Vincent [facility] Start: 12-18-2022 End: 12-18-[address] Gage Vincent Work Phone: [facility] Internal Medicine Start: 12-11-2022 End: 12-11-2022 Patient encounter procedure Bismark Shepherd Work Phone: Podiatry Comment on above: Ingrowing toenail (P rimary Dx) Start: 10-08-2022 End: 10-08-2022 Patient encounter procedure Bismark Myersdianelys Work Phone: Podiatry Comment on above: Ingrowing toenail (P rimary Dx) Start: 10-03-2022 End: 10-03-[address] Marc Tyson Work Phone: [facility] Work Phone: Start: 10-03-2022 End: 10-03-[address] Marc Tyson Work Phone: [facility]-Sleep Lab Start: 09-19-2022 Telephone encounter Bismark Wilde Work Phone: Podiatry Comment on above: Appointment Start: 09-18-2022 End: 09-18-[address] Marc Tyson Work Phone: [facility] Work Phone: Start: 09-18-[address] Marc Tyson Work Phone: [facility] Start: 09-18-2022 End: 09-18-2022 Encounter for general adult medical examination without abnormal findings Dr. Marc Tyson Work Phone: [facility] Start: 09-18-2022 End: 09-18-[address] Marc Tyson Work Phone: [facility] Internal Medicine Start: 10-22-2018 Patient encounter procedure Kalani [facility] Start: 10-22-2018 End: 10-22-2018 Office outpatient visit 25 minutes [facility] Start: 12-19-2016 End: 12-19-2016 Office outpatient visit 15 minutes [facility] Start: 07-17-2016 End: 07-17-2016 Office outpatient visit 15 minutes [facility] Start: 06-19-2016 End: 06-19-2016 Phone Encounter Kalani [facility] Start: 06-05-2016 End: 06-05-2016 Periodic preventive med est patient 18-39 yrs Kalani Staton [facility] Internal Medicine Start: 09-11-2015 End: 09-11-2015 Historical Summary Kalani Staton [facility] Start: 07-11-2014 End: 07-11-2014 Office outpatient visit 15 minutes Kalani Staton [facility] Internal Medicine Start: 06-15-2014 End: 06-15-2014 Initial preventive medicine new pt age 18-39yrs Kalani Staton [facility] Internal Medicine Procedures Date Procedure Procedure [...] HCV Quant by PCR testing - HCVPCR #[id number] Non Reactive: < 0.8 Equivocal: >/= 0.8 [...] exam ches t 2 views Renee Guzmán APRN.BENCH WORKER Work Phone: Start: 06-15-2024 STREP A MOLECULAR (POC) Renee Guzmán APRN.[facility] Work Phone: Start: 09-15-[address] Myles Vincent Work Phone: Start: 12-19-2016 End: 12-19-2016 Ankle min 3 Views Comments: See Note; NOTES: [facility] Imaging Services [address] [place] [address] Verdana 4d Ankle min 3 Views MR#: [id number] Acct: [id number] Name: PUHC SILVA Rep #: [id number] : 1995 F 21 From: Chase Davidson MD PCP: Kalani Staton DO Status: REG CLI Study: Ankle min 3 Views Date of Exam: 12/19/16 Exam# [id number] Ordering Dr: Kalani Staton DO STUDY: X-RAY [...] Service support , CC: Kalani Staton DO Baggagemaster: Signed Kalani Staton Work Phone: Start: 08-25-2015 End: 08-25-2015 Abdomen/Pelvis WITH Contrast Comments: See Note; NOTES: [facility] Imaging Services [address] [place] [address] Braddajaylen 4d Abdomen/Pelvis WITH Contrast MR#: [id number] Acct: [id number] Name: PHUC SILVA Rep #: [id number] : 1995 F 20 From: Shaka Davalos MD PCP: Kenna Singh DO Status: REG ER Study: Abdomen/Pelvis WITH Contrast Date of Exam: 08/25/15 Exam# [id number] Ordering Dr: Kodak Cates MD STUDY: CT [...] MD at 23:49 EST , Service support [phone], N.B. : The above information has been verbally conveyed by Shaka Davalos MD to soraya Gonzalez physician, on 08/25/2015 23:55:04 (ET). CC: Kenna Singh DO; Kodak Cates MD Baggagemaster: Signed Kalani Staton Start: 08-25-2015 End: 08-25-2015 Transvaginal Non- Comments: See Note; NOTES: [facility] Imaging Services [address] [place] [address] Verdana 4d Transvaginal Non- MR#: [id number] Acct: [id number] Name: HPUC SILVA Rep #: [id number] : 1995 F 20 From: Shaka Davalos MD PCP: Kenna Singh DO Status: REG ER Study: Transvaginal Non- Date of Exam: 08/25/15 Exam# [id number] Ordering Dr: Kodak Cates MD STUDY: ULTRASOUND [...] MD at 21:07 EST , Service support [phone], CC: Kenna Singh DO; Kodak Cates MD Baggagemaster: Signed Kalani Staton Appendectomy Jey Sanchez Comment on above: 08/26/15 Plan of Treatment Date Care Activity Detail Author Start: 06-07-2025 Measurement of glucose 2 hours after glucose challenge for glucose tolerance test [facility] Start: 06-07-2025 Serologic test for syphilis [facility] Start: 06-07-2025 [facility] Start: 03-04-2025 Administration of intravenous fluids HYDRATION IV INFUSION [facility] Start: 03-04-2025 Iv infusion hydration initial 31 min-1 hour HYDRATION IV INFUSION [facility] Start: 02-23-2025 Administration of drug or medicament by intravenous push THER/PROPH/DIAG INJ IV PUSH [facility] Start: 02-23-2025 Iv infusion hydration each additional hour HYDRATE IV INFUSION ADD-ON [facility] Start: 02-23-2025 Ther proph/dx njx iv push single/1st sbst/drug THER/PROPH/DIAG INJ IV PUSH [facility] Start: 02-14-2025 Bacteria identified in Urine by Culture Urine Culture [facility] Start: 02-14-2025 Intravenous infusion THER/PROPH/DIAG IV INF [facility] Start: 02-14-2025 Iv infusion therapy/prophylaxis /dx 1st to 1 hr THER/PROPH/DIAG IV INF [facility] Start: 02-14-2025 Therapeutic injection iv push each new drug TX/PRO/DX INJ NEW DRUG [facility] Start: 02-14-2025 Chlamydia deoxyribonucleic acid detection [facility] Start: 02-14-2025 [facility] Start: 04-18-2024 Covid-19 Vaccine () Covid-19 Vaccine () [facility] Start: 04-18-2024 Influenza vaccination Influenza Vaccine (#[facility]) [facility] Start: 04-18-2023 Influenza vaccination INFLUENZA (Season Ended) [facility] Start: 12-18-2022 Patient referral [facility] Work Phone: Start: 09-18-2022 Patient referral [facility] Work Phone: Start: 08-18-2022 DEPRESSION ASSESSMENT DEPRESSION ASSESSMENT [facility] Start: 04-18-2022 Influenza vaccination INFLUENZA (#1) [facility] Start: 10-22-2018 Antibody charlie-day eb virus early antigen ea EBV Panel (45955) [facility] Work Phone: Start: 10-22-2018 Lymphocytes (Bld) [#/Vol] CMV ANTIBODY (49691) [facility] Work Phone: Start: 10-22-2018 Antibody cytomegalovirus cmv igm CMV IGM ANTBDY (75101) [facility] Work Phone: Start: 10-22-2018 Gonadotropin chorionic qualitative HCG Qualitative, Serum (47290) [facility] Work Phone: Start: 10-22-2018 25 hydroxy includes fractions if performed CALCIFIDIOL (15756) VIT D 25 [facility] Work Phone: Start: 10-22-2018 Cobalamin (Vitamin B12) [Mass/Vol] VITAMIN B-12 (CYANOCOBALAMIN) (17849) [facility] Work Phone: Start: 10-22-2018 TSH Qn TSH (79989) [facility] Work Phone: Start: 10-22-2018 Rheumatoid factor quantitative RHEUMATOID FACTOR-QUANT (62431) [facility] Work Phone: Start: 10-22-2018 Sedimentation rate rbc non-automated SED RATE ERYTHROCYTE (73063) [facility] Work Phone: Start: 10-22-2018 Comprehensive metabolic panel METABOLIC PANEL, COMPREHENSIVE (02716) [facility] Work Phone: Start: 10-22-2018 CRP [Mass/Vol] C-REACTIVE PROTEIN (60648) [facility] Work Phone: Start: 10-22-2018 Blood count complete automated CBC (AUTO) (52408) [facility] Work Phone: Start: 10-22-2018 Nuclear Ab IF (S) [Titer] JULIANNE (ANTINUCLEAR ANTIBODY) (05758) [facility] Work Phone: Start: 07-17-2016 Beta 2 glycoprotein i antibody each Antiphospholipid atb (38827) [facility] Work Phone: Start: 07-17-2016 Clotting inhibitrs antithrombn iii antigen assay ANTICOAG ANTTHROMB III & ASSAY (96749) [facility] Work Phone: Start: 07-17-2016 Molecule isolate nucleic Factor 2 (Prothrombin) Gene Mutation (53154) [facility] Work Phone: Start: 07-17-2016 Clotting inhibitors antithrombin iii activity ANTITHROMBIN III ACTIVTY (73571) [facility] Work Phone: Start: 07-17-2016 Thromboplastin time prtl substit plasma frctj ea Lupus Anticoagulant Comprehensive (97028) [facility] Work Phone: Start: 07-17-2016 Protein [Mass/Vol] [facility] Work Phone: Start: 07-17-2016 Molecule gel electrophor Factor V Leiden (30601) [facility] Work Phone: Start: 07-17-2016 Mthfr gene analysis common variants MTHFR GENE (67865) [facility] Work Phone: Start: 07-17-2016 Assay of homocysteine Homocysteine, Plasma (20172) [facility] Work Phone: Start: 06-05-2016 Cytp cerv/vag auto thin layer prep mnl screen Thin prep Pap (74098) (no STD testing) [facility] Work Phone: Start: 2015 PAP TESTING PAP TESTING [facility] Start: 2015 Screening for malignant neoplasm of cervix Cervical Cancer Screening [facility] Start: 06-15-2014 Cytp cerv/vag auto thin layer prep mnl screen Thin prep Pap (86013) (no STD testing) [facility] Work Phone: Start: 2013 Hepatitis B Vaccine (1 of 3 - 19+ 3-dose series) Hepatitis B Vaccine (1 of 3 - 19+ 3-dose series) [facility] Start: 2013 Urine microalbumin profile [facility] Start: 2012 Anxiety Screening Anxiety Screening [facility] Start: 2012 Depression Screening Depression Screening [facility] Start: 2012 HEPATITIS C SCREENING HEPATITIS C SCREENING [facility] Start: 2012 Hepatitis C screening Hepatitis C Screening [facility] Start: 2012 HIV SCREENING HIV SCREENING [facility] Start: 2012 HIV screening HIV Screening [facility] Start: 1994 COVID-19 VACCINE (#1) COVID-19 VACCINE (#1) [facility] Start: 1994 HEPATITIS B (1 of 3 - 3-dose series) HEPATITIS B (1 of 3 - 3-dose series) [facility] CBC W Auto Different ial panel - Blood [facility] CBC W Auto Different ial panel - Blood [facility] Chlamydia deoxyribonucleic acid detection [facility] Cortisol Free [Mass/volume] in 24 hour Urine [facility] COVID & INFLUENZA A/ B & RSV PCR, ROUTINE COVID & INFLUENZA A/B & RSV PCR, ROUTINE Microbiology Routine URI, acute 06/15/2024 6:37 PM EDT [facility] Work Phone: Hepatitis C antibody measurement [facility] Neisseria gonorrhoea e rRNA [Presence] in Unspecified specimen by DESTINY with probe detection [facility] Patient referral [facility] Work Phone: PCR test for Chlamyd ia trachomatis [facility] Polysomnography [facility] Procedure [facility] Rubella IgG measurement [facility] Serologic test for syphilis [facility] Thyroid stimulating hormone measurement [facility] Urine culture [facility] Work Phone: [facility] Work Phone: [facility] Work Phone: [facility] Payers Date Payer Category Payer Self-pay [id number] 2025 Unknown [id number] 2020 Unknown 2020 Unknown [id number] 2018 Unknown [id number] 2016 Private Health Insurance [id number] 2015 Unknown [id number] 1994 Unknown [id number] 1994 Unknown [id number] 1994 Unknown [id number] [id number] Unknown [id number] Unknown [facility] PACKAGE PLAN [id number] Unknown [id number] Unknown [id number] Unknown [id number] Unknown [id number] Unknown [id number] Unknown [id number] [id number] Unknown [id number] [id number] Unknown [id number] [id number] Unknown [id number] [id number] Unknown [id number] [id number] Unknown [id number] [id number] Unknown [id number] [id number] Unknown [id number] [id number] Unknown [id number] Unknown [id number] [id number] Social History Date Type Detail Facility Start: 04-11-2021 End: 12-25-2022 Caffeine Use Caffeine Use [facility] Work Phone: Comment on above: qd Exercise History: Exercise History: [facility] Work Phone: Living Situation: Living Situation: [facility] Work Phone: Tobacco use: Tobacco use: [facility] Work Phone: Start: 03-01-2020 End: 02-10-2025 Tobacco smoking status NHIS Never smoked tobacco [facility] Start: 03-01-2020 End: 06-15-2024 Tobacco use and exposure Smokeless tobacco non-user [facility] Start: 08-27-2021 End: 06-15-2024 Alcohol intake Lifetime non-drinker (finding) [facility] Start: 04-11-2021 History SDOH Alcohol Frequency 2 [facility] Start: 04-11-2021 History SDOH Alcohol Std Drinks 1 [facility] Start: 04-11-2021 History SDOH Social Connections Phone 5 [facility] Start: 04-11-2021 History SDOH Social Connections Yarsani 3 [facility] Start: 04-11-2021 History SDOH Physica l Activity DPW 4 [facility] Start: 04-11-2021 History SDOH Physica l Activity MPS 6 [facility] Start: 04-11-2021 Education 17 [facility] Start: 1995 Sex Assigned At Not on file C [facility] Start: 09-18-2022 End: 09-15-2023 Tobacco smoking status PAIS Unknown if ever smoked [facility] Start: 1995 Sex Assigned At Female [facility] Start: 04-11-2021 End: 12-25-2022 Social connection and isolation panel [facility] Do you belong to any clubs or organizations such as christian groups, unions, fraternal or athletic groups, or school groups? Yes [facility] Are you now , , , , never or living with a partner? [facility] How often to you hav e a drink containing alcohol? Monthly or less [facility] How many standard dr inks containing alcohol do you have on a typical day? 1 or 2 [facility] How often do you hav e 6 or more drinks on 1 occasion? Never [facility] How hard is it for y ou to pay for the very basics like food, housing, medical care, and heating Not hard at all [facility] Do you feel stress - tense, restless, nervous, or anxious, or unable to sleep at night because your mind is troubled all the time - these days [OSQ] Not at all [facility] (I/We) worried miesha er (my/our) food would run out before (I/we) got money to buy more. Never true [facility] In the past 12 month s, was there a time when you were not able to pay the mortgage or rent on time? No [facility] Mental Status Date Assessment Result Facility 03-04-2025 Cognitive function Awake;Alert;A ppropriate;Follow s Commands [facility] Work Phone: 02-23-2025 Cognitive function Level Of Cons ciousness Awake;Alert;Appropriate;Follow s Commands [facility] Work Phone: 02-14-2025 Cognitive function Voice/Name [facility] Work Phone: Clinical Notes 09-27-2022 to 06-07-2025 Note Date & Type Note Facility 06-07-2025 Progress note [facility] 05-10-2025 Progress note [facility] 04-12-2025 Progress note [facility] 03-15-2025 Evaluation note Diagnosis Onset Date [...] Supervision of normal acute June 07 10:13am [facility] Work Phone: 1(132) 713-819506-30-2025 Evaluation note* Diagnosis Onset Date Resolution Status Admit Date H/O abnormal cervical Papanicolaou smear acute February 14 8:10am acute February 14 8:10am at early stage acute February 14, 2025 8:10am Seasonal allergies acute January 182024 8:10am Supervision of normal acut e February 14, 2025 8:10am [facility] Work Phone: 1(791) 274-119006-30-2025 Evaluation note* Diagnosis Onset Date Resolution Status [...] normal acut e March 15, 2025 8:33am [facility] Work Phone: 1(108) 859-609706-30-2025 Evaluation note* Diagnosis Onset Date Resolution Status [...] Supervision of normal acute April 12 10:39am [facility] Work Phone: 1(185) 553-603706-30-2025 Evaluation note* Diagnosis Onset Date Resolution Status [...] of normal acute May 10, 2025 8:44am [facility] Work Phone: 1(509) 858-249006-17-2025 Radiology Diagnostic study note [facility] Imaging Services [address] [place] [address] Transvaginal w/Preg US MR#: [id number] Acct: [id number] Name: PHUC KAUFFMAN Rep #: [id number] : 1995 F 29 From: Max Nagel MD PCP: Dr. Marc Tyson MD Status: REG CLI Study:Transvaginal w/Preg US Date of Exam: 01/31/25 Exam# [id number] Ordering Dr: Kristy Calabrese CNM PROCEDURE: TRANSVAGINAL [...] and unremarkable. DIMENSIONS: Parameter Measurement / EGA [place] Rump Length: 5.7 mm/ Gestational Sac: 6 weeks and 4 days/ Yolk Sac: 3.1 mm/ ESTIMATED GESTATIONAL AGE: By Ultrasound: 7 weeks and 0 days By LMP: Unknown ESTIMATED DATE OF DELIVERY: By Ultrasound: September 19, 2025 By LMP: Unknown US/Transvaginal w/Preg US IMPRESSION: Single live intrauterine gestation with a mean gestational age of 7 weeks. Reading Location: [place] [address] CC: TRACIE Calabrese; Dr. Marc Tyson MD ~ Baggagemaster: Signed [facility]10-29-2024 Telephone encounter Note* Telephone Encounter - Lo Lopes MA - 06/15/2024 8:05 PM EDT Patient given results and verbalized understanding of instructions given. Lo Lopes MA [facility]10-29-2024 Miscellaneous Notes* Telephone Encounter - Lo [...] care if symptoms persist. documented in this encounterProm[facility]-29-[facility] Telephone encounter Note * Telephone Encounter - Renee Guzmán APRN.CNP - 06/15/2024 7:49 PM EDT Please call let patient know that her chest x-ray was negative. Patient should use supportive care that is compatible with breast-feeding. Please have patient follow-up with primary care if symptoms persist. [facility]10-29-2024 History of Present illness Narrative* Nan [...] PATIENT PRESENTS WITH AN IMPLANTABLE OR ATTACHED DIRECT MARKETING SPECIALIST: No RADIOLOGY DEPARTMENT: General X-ray: Exam(s) Completed: Chest X-Ray PERIPHERAL IV DATA: Not applicable SIGNED BY: RT Henry(Tequila) June 15, 2024 6:27 PM documented in this encounterPromedica [facility] Hospital10-29-2024 NoteHNO ID: [id number] Author: NAN WILCOX RT(R) Service: Radiology Author [...] PATIENT PRESENTS WITH AN IMPLANTABLE OR ATTACHED DIRECT MARKETING SPECIALIST: No RADIOLOGY DEPARTMENT: General X-ray: Exam(s) Completed: Chest X-Ray PERIPHERAL IV DATA: Not applicable SIGNED BY: RT Henry(R) June 15, 2024 6:27 [facility]10-29-2024 NoteHNO ID: [id number] Author: RENEE GUZMÁN APRN.BENCH WORKER Service: ? Author Type: Nurse Practitioner Type: [...] - XR CHEST 2V FRONTAL/LAT- neg 3. [place] eye disease of right eye - ICD9: [...] Patient agreeable to treatment plan. Renee Guzmán APRN.[facility]10-29-2024 History of Present illness Narrative* Renee Guzmán APRN.BENCH WORKER - 06/15/2024 6:12 PM EDT CC: Patient [...] - XR CHEST 2V FRONTAL/LAT- neg 3. [place] eye disease of right eye - ICD9: [...] Patient agreeable to treatment plan. Renee Guzmán APRN.BENCH WORKER documented in this encounterPromedica [facility] Hospital01-29-2024 NotePap Smear Specimen AdequacyJanuary 2023 2:27pmComment.Satisfactory for evaluation. Endocervical and/or squamous metaplasticcells (endocervical component)are present.[facility] INTERFACED A#[id number] HospitalComment on above: Satisfactory for evaluation. Endocervical [...] to right hallux previously. documented in this encounterPromedica [facility] Hospital04-26-2023 Instructions* Patient Instructions* Yvette Espinal RN [...] as well if you have any questions/concerns [phone], ask for Podiatry Nurse documented in this encounterPromedica Bay [facility]02-21-2023 History of Present illness Narrative* Bismark [...] follow-up to do procedure in the future Bsimark Shepherd DPM Podiatry [address] [facility] [address] Dept: [phone] Dept * Caitlin Maria RN - 10/08/2022 7:55 AM EST AMB ROOMING INTAKE FLOWSHEET DATA Risk Screening Do you have concerns about personal safety or safety in the home?: No Patient presents with: Left Great Toe - Established Patient, Ingrown Nail Has upcoming vacation and would like to postpone procedure. documented in this encounterProm[facility] Miscellaneous Notes* Telephone Encounter - Caitlin Maria RN - 09/27/2022 9:20 AM EST Left pt VM to contact office if she needs to schedule appointment for ingrown toenail. * Telephone Encounter - Yvette Espinal RN - 09/19/2022 11:06 AM EST Called and left message for patient to call back. We received a referral from [facility], Dr. Gage Vincent for an ingrown toenail. Attempting to schedule ingrown toenail appointment with patient. documented in this encounterPromedica [facility] HospitalEvalutidal[facility] [place] note* Diagnosis Onset Date Resolution Status Encounter to establish care acute Hypersomnolence acute Ingrown toenail of left foot acute Obesity (BMI 30-39.9) acute Preventative health care [facility] Work Phone: Evaluation note* Diagnosis Ingrowing toenail- Primary Ingrowing nail documented in this encounter [facility] [place]* Diagnosis Ingrowing toenail- Primary Ingrowing nail documented in this encounter [facility]* Diagnosis Onset Date Resolution Status Hypersomnolence acute Obesity (BMI 30-39.9) [facility] Work Phone: Evaluation note* Diagnosis Onset Date Resolution Status Encounter to establish care acute H/O abnormal cervical Papanicolaou smear acute History of miscarriage, currently acute Hypersomnolence acute acute Seasonal allergies acute Supervision of high-risk acute Obesity (BMI 30-39.9) [facility] Work Phone: Evaluation note* Diagnosis Sore throat- Primary Acute pharyngitis Acute cough [place] eye disease of right eye URI, acute Acute upper respiratory infections of unspecified site Acute cough documented in this encounter [facility] note* Diagnosis Acute cough documented in this encounter [facility] noteNo assessment information availableWWright-[facility] Work Phone: Evaluation note* Diagnosis Onset Date Resolution Status Admit Date H/O abnormal cervical Papanicolaou smear acute February 14 8:10am acute February 14 8:10am at early stage acute February 14, 2025 8:10am Seasonal allergies acute January 182024 8:10am Supervision of normal acut e February 14, 2025 8:10am [facility] Work Phone: Progress note Author Arlette Martini [facility] Note Date/Time April 12, 2025 11 :09am [facility] [address] [place] [address], [address] [place] [address] OFFICE VISIT Date of Service: 04/12/25 MR#: [id number] Acct: [id number] Name: PHUC KAUFFMAN Rep #: [id number] : 1995 Provider: Dr. Marquise Martini MD Age/Sex: 30/F Location: [facility] Status: Signed Intake Vital Signs 02/14/25 08:15 03/15/25 08:36 04/12/25 10:45 Height 5 ft 8 in 5 ft 8 in 5 ft 8 in Weight: 184 lb 4 oz BMI 28.0 BP 121/80 H Intake Visit Reasons: 17 wk ob *move 06/07 appt Scalper Operator Required: No Is patient in pain?: No Allergies No Known Allergies Allergy (Verified 04/12/25 10:42) Medications ?Medication ?Instructions ?Recorded ?Confirmed ?Type PNV#14-iron fum-FA#2-bxz-mhqkvdxp cap PO 04/16/24/02/09 History 27 mg iron-1 [...] 1 current occupational status: unemployed current occupation: [employer] current occupational exposures/hazards: No pets and animals: [...] 3-4 times per week duration: 45-60 minutes/day edmundo/nondenominational: Druze seatbelt use: always do you feel safe [...] of other normal , second trimester Comment: [id number], NATHANAEL 09/19/25, PC Mikel, Cornell (3) : [...] Cosigner Signature: Date (if applicable) CC: ~ [facility] Work Phone: Progress note Author Kristy Calabrese [facility] Note Date/Time May 10, 2025 9:13am [facility] [address] [place] [address], [address] [place] [address] OFFICE VISIT Date of Service: 05/10/25 MR#: [id number] Acct: [id number] Name: PHUC KAUFFMAN Rep #: [id number] : 1995 Provider: TRCAIE Calabrese Age/Sex: 30/F Location: [facility] Status: Signed Intake Vital Signs 03/15/25 08:36 04/12/25 10:45 05/10/25 08:52 Height 5 ft 8 in 5 ft 8 in 5 ft 8 in Weight: 194 lb 1 oz BMI 29.5 BP 119/84 H Intake Visit Reasons: 21 wk ob Chief Complaint: 21wk OB Scalper Operator Required: No Is patient in pain?: No Allergies No Known Allergies Allergy (Verified 05/10/25 08:50) Medications 3 ?Medication ?Instructions ?Recorded ?Confirmed ?Type PNV 14-iron lwq-BJ2-aby-docusate cap PO 04/16/2405/10 History 27 mg iron-1 [...] 1 current occupational status: unemployed current occupation: [employer] current occupational exposures/hazards: No pets and animals: [...] 3-4 times per week duration: 45-60 minutes/day edmundo/nondenominational: Druze seatbelt use: always do you feel safe [...] of other normal , second trimester Comment: [id number], NATHANAEL 09/19/25, girl Suze Morin, Cornell (3) [...] this visit. [place] appropriate handout given. 05/10/25 0961 <Electronically signed by Kristy rider CNM> Date _ Kristy Calabrese CNM Cosigner Signature: Date (if applicable) CC: ~ [facility] Work Phone: Progress note Author [facility] Note Date/Time June 07, 2025 1 1:49am [facility] [address] [place] [address], [address] [place] [address] OFFICE VISIT Date of Service: 06/07/25 MR#: [id number] Acct: [id number] Name: PHUC KAUFFMAN Rep #: [id number] : 1995 Provider: Dr. Sapphire Tee, Age/Sex: 30/F Location: [facility] Status: Signed Intake Vital Signs 03/15/25 08:36 05/10/25 08:52 06/07/25 10:15 06/07/25 10:15 Height 5 ft 8 in 5 ft 8 in 5 ft 8 in 5 ft 8 in Weight: 200 lb BMI 30.4 BP 117/70 Intake Visit Reasons: 25 wk ob Scalper Operator Required: No Is patient in pain?: No Allergies No Known Allergies Allergy (Verified 06/07/25 10:14) Medications ?Medication ?Instructions ?Recorded ?Confirmed ?Type PNV 14-iron eeu-RJ7-chx-docusate cap PO 04/16/2406/07 History 27 mg iron-1 [...] 1 current occupational status: unemployed current occupation: [employer] current occupational exposures/hazards: No pets and animals: [...] 3-4 times per week duration: 45-60 minutes/day edmundo/nondenominational: Druze seatbelt use: always do you feel safe [...] of other normal , second trimester Comment: [id number], NATHANAEL 09/19/25, girl Suze Morin, Cornell (3) [...] Terry DO> Date _ Sisi Tee DO [facility] Care[facility] Signature: Date (if applicable) CC: ~ [facility] Work Phone: Reason for referral (narrative)No reason for referral information availableWWright-[facility] Work Phone: Summary Purpose Family History No [...] Will No August 26 2:39am Power of Treating Plant Supervisor No August 26 2 016 2:39am Advance Directive Response Recorded Date/ Time Advance Directives No August 26, 2015 3:39am Living Will No August 26 6 3:39am Power of Treating Plant Supervisor No August 26 2 016 3:39am Advance Directive Response Recorded Date/ Time Advance Directives No September 15, 2023 11:52am Living Will No September 15 11:52am Power of Treating Plant Supervisor No September 15, 2023 11:52am Advance Directive [...] Complaint and Reason for Visit Chief Complaint PROGRAM OFFICER. EST CARE - PPW S ENT Reason for Visit Encounter to [facility] Hypersomnolence Ingrown toenail of left foot Obesity (BMI 30-39.9) Preventative health care Chief Complaint PROGRAM OFFICER. EST CARE - PPW S ENT HYPERSOMINA Reason for Visit Encounter to [facility] Hypersomnolence Ingrown toenail of left foot Obesity (BMI 30-39.9) Preventative health care Chief Complaint 3 M FU Reason for Visit Hypersomnolence Obesity (BMI 30-39.9) Chief Complaint 3 M FU INT LAB Reason for Visit Hypersomnolence Obesity (BMI 30-39.9) Chief Complaint New OB, LMP 07/15/23 , NATHANAEL 04/20/24 EORDERS Reason for Visit Encounter to [facility] H/O abnormal cervical Papanicolaou smear [...] DATE CREATED AUTHOR AUTHOR'S ORGANIZ ATION 08/28/2021 [facility] DATE CREATED AUTHOR AUTHOR'S ORGANIZ ATION 06/17/2024 [facility] DATE CREATED AUTHOR AUTHOR'S ORGANIZ ATION 05/22/2025 [facility] DATE CREATED AUTHOR AUTHOR'S ORGANIZ ATION 06/27/2025 [facility] Source Comments (unrecognize d section and content) In the event this informatio n is protected by the Federal Confidentiality of Alcohol and Drug Abuse Patient Records regulations: The Federal rules restrict any use of the information to criminally investigate or prosecute any alcohol or drug abuse patient.[facility] HospitalIn the event this information is protected by the Federal Confidentiality of Alcohol and Drug Abuse Patient Records regulations: The Federal rules restrict any use of the information to criminally investigate or prosecute any alcohol or drug abuse patient.[facility] HospitalIn the event this information is protected by the Federal Confidentiality of Alcohol and Drug Abuse Patient Records regulations: The Federal rules restrict any use of the information to criminally investigate or prosecute any alcohol or drug abuse patient.[facility] HospitalIn the event this information is protected by the Federal Confidentiality of Alcohol and Drug Abuse Patient Records regulations: The Federal rules restrict any use of the information to criminally investigate or prosecute any alcohol or drug abuse patient.[facility] HospitalIn the event this information is protected by the Federal Confidentiality of Alcohol and Drug Abuse Patient Records regulations: The Federal rules restrict any use of the information to criminally investigate or prosecute any alcohol or drug abuse patient.[facility] HospitalIn the event this information is protected by the Federal Confidentiality of Alcohol and Drug Abuse Patient Records regulations: The Federal rules restrict any use of the information to criminally investigate or prosecute any alcohol or drug abuse patient.[facility] Reason for Visit (unrecogniz ed section and content) Reason Onset Date Comments Appointment 09/19/2022 Reason Comments Established Patient Ingrown Nail Reason Comments Established Patient Ingrown Toenail Pain Reason Comments Cough Cough, ST, congestio n and RIVAS x 6 days Reason Comments Results Care Teams (unrecognized sec tion and content) Chalk Cutter Relationship Specialty Start Date End Date Minh Tyson MD [address] [place], [place] [id number] PCP - General Family Medicine 09/19/22 Team [...] Vu bailey, Attending Provider, Referring Provider Active Chalk Cutter Relationship Specialty Start Date End Date Minh Tyson MD [address] [place], [place] [address] PCP - General Family Medicine 09/19/22 Chalk Cutter Relationship Specialty Start Date End Date Minh Tyson MD [address] [place], [place] [address] PCP - General Family Medicine 09/19/22 Team Status: Inactive Member Role Status Dates Dr. Gage Vincent MD Primary Care Provider Active Yohana Roberson NP, PROGRAM OFFICER-C Attending Provider, Referring Provider Active Team Status: Active Member Role Status Dates Dr. Gage Vincent MD Primary Care Provider Active Yohana Roberson NP, PROGRAM OFFICER-C Attending Provider, Referring Provider Active Team Status: [...] DO Attending Provider, Refe rring Provider Active Chalk Cutter Relationship Specialty Start Date End Date Minh Tyson MD [address] [place] [address] PCP - General Family Medicine 09/19/22 Chalk Cutter Relationship Specialty Start Date End Date Minh Tyson MD [address] [place] [address] PCP - General Family Medicine 09/19/22 Chalk Cutter Relationship Specialty Start Date End Date Minh Tyson MD [address] [place] [address] PCP - General Family Medicine 09/19/22 Team Status: Inactive Member Role Status Dates Dr. Marc Tyson MD Primary Care Provider Acti ve Start: January 12, 2025 End: January 12, 2025 Kristy Barnett PROGRAM OFFICER, PROGRAM OFFICER-C Attending Provider Active Start: January 12, 2025 End: January 12, 2025 Kristy Barnett PROGRAM OFFICER, PROGRAM OFFICER-C Referring Provider Active Start: January 12, 2025 [...] 2025 End: January 12, 2025 Kristy Barnett PROGRAM OFFICER, PROGRAM OFFICER-C Attending Provider Active Start: January 12, 2025 End: January 12, 2025 Kristy Barnett PROGRAM OFFICER, PROGRAM OFFICER-C Referring Provider Active Start: January 12, 2025 [...] 2025 End: February 23, 2025 Yohana Roberson PROGRAM OFFICER, PROGRAM OFFICER-C Attending Provider Active Start: February 23, 2025 End: February 23, 2025 Yohana Roberson PROGRAM OFFICER, PROGRAM OFFICER-C Referring Provider Active Start: February 23, 2025 [...] 2025 End: March 04, 2025 Yohana Roberson PROGRAM OFFICER, PROGRAM OFFICER-C Referring Provider Active Start: March 04, 2025 End: March 04, 2025 Team Status: Inactive Member Role/Relationship Status Dates Dr. Marc Tyson MD Primary Care Provider Acti ve Start: March 15, 2025 End: March 15, 2025 Dr. Marc Tyson MD Referring Provider Active Start: March 15, 2025 End: March 15, 2025 Yohana Roberson PROGRAM OFFICER, PROGRAM OFFICER-C Attending Provider Active Start: March 15, 2025 [...] 2025 End: February 23, 2025 Yohana Roberson PROGRAM OFFICER, PROGRAM OFFICER-C Attending physician Active Start: February 23, 2025 End: February 23, 2025 Yohana Roberson PROGRAM OFFICER, PROGRAM OFFICER-C Referring Provider Active Start: February 23, 2025 End: February 23, 2025 Team Status: Inactive Member Role/Relationship Status Dates Dr. Marc Tyson MD Primary care physician Act chidi Start: March 04, 2025 End: March 04, 2025 Dr. Arlette Martini MD Attending physician Active Start: March 04, 2025 End: March 04, 2025 Yohana Roberson PROGRAM OFFICER, PROGRAM OFFICER-C Referring Provider Active Start: March 04, 2025 End: March 04, 2025 Team Status: Inactive Member Role/Relationship Status Dates Dr. Marc Tyson MD Primary care physician Act chidi Start: March 15, 2025 End: March 15, 2025 Dr. Marc Tyson MD Referring Provider Active Start: March 15, 2025 End: March 15, 2025 Yohana Roberson PROGRAM OFFICER, PROGRAM OFFICER-C Attending physician Active Start: March 15, 2025 [...] 2025 End: March 04, 2025 Yohana Roberson PROGRAM OFFICER, PROGRAM OFFICER-C Referring Provider Active Start: March 04, 2025 End: March 04, 2025 Team Status: Inactive Member Role/Relationship Status Dates Dr. Marc Tyson MD Primary care physician Act chidi Start: March 15, 2025 End: March 15, 2025 Dr. Marc Tyson MD Referring Provider Active Start: March 15, 2025 End: March 15, 2025 Yohana Roberson PROGRAM OFFICER, PROGRAM OFFICER-C Attending physician Active Start: March 15, 2025 End: March 15, 2025 Team Status: Inactive Member Role/Relationship Status Dates Dr. Marc Tyson MD Primary care physician Act chidi Start: April 12, 2025 End: April 12, 2025 Dr. Marc Tyson MD Referring Provider Active Start: April 12, 2025 End: April 12, 2025 Dr. Arletet Martini MD Attending physician Active Start: April [...] BE BASED ON THE PRIMARY CLINICAL RECORDS. [employer] [facility]. provides no warranty or guarantee of the accuracy or completeness of information in this document.
[2025-08-15 12:08] LABS: EBV-VCA IgG > 600.0 U/mL (0.0-17.9)
== END | disposition home or self-care (01) ==
LOC: LAB 14:52
PROVIDERS: PCP Family Medicine; Referring Provider Obstetrics & Gynecology; Visit Provider Obstetrics & Gynecology
DX: B27.90 Infectious mononucleosis, unspecified without complication (principal)
CPT/HCPCS: 36415; 86663; 86664; 86665